=== PATIENT | female | born 1975 | race Caucasian/White ===

== ENCOUNTER 2020-04-12 10:51 | Outpatient (REF) | payer OTHER, SELFPAY ==
--- NOTE | 2020-04-12 11:15 | MR_ITS ---
MR CERVICAL SPINE WITHOUT IV CONTRAST CLINICAL INFORMATION: Bilateral radiculopathy. History of C7 fracture. COMPARISON: None available. TECHNIQUE: MRI of the cervical spine was obtained using routine sequences without contrast. FINDINGS: Cervical alignment is maintained. There is mild chronic vertebral body height loss at the C7, T1, and T2 levels. There is moderate disc volume loss at C5-C6. Modic type I endplate signal changes at C5-C6. There is no additional bone marrow edema. There are no acute fractures. Craniocervical junction is unremarkable. Cervical arterial flow voids are maintained. There are no significant soft tissue findings. No definite cord signal abnormality accounting for artifact. C2-C3: Disc contour is normal. There is no central canal stenosis and there is no foraminal stenosis. C3-C4: Slight annular disc bulge. No central canal stenosis and no foraminal stenosis. C4-C5: Slight annular disc bulge. Uncovertebral joint spurring results in mild right-sided foraminal encroachment. C5-C6: Broad-based central disc protrusion and ligamentum flavum thickening result in moderate to severe central canal stenosis and flattening of the cord. Uncovertebral joint spurring and hypertrophic facet arthropathy result in moderate to severe right foraminal stenosis. Mild left foraminal encroachment. C6-C7: Posterior disc contour is normal. No central canal stenosis and no foraminal stenosis. C7-T1: Posterior disc contour is normal. No central canal stenosis and no foraminal stenosis. MR/MR cervical spine wo con IMPRESSION: - Multilevel cervical spondylosis, greatest at C5-C6 where a broad-based central disc protrusion results in moderate to severe central canal stenosis and mass effect on the cervical spinal cord. Multifactorial degenerative changes at C5-C6 also result in moderate to severe right-sided foraminal stenosis. There Modic type I endplate signal changes at C5-C6. - There is mild chronic vertebral body height loss at the C7, T1, and T2 levels.
[2020-04-12 13:56] LABS: Alanine Aminotransferase 24 U/L (0-31); Albumin Level 4.1 g/dL (3.5-5.0); Alkaline Phosphatase 72 U/L (39-117); Anion Gap 15 (12-20); Aspartate Amino Transferase 21 U/L (5-31); Bilirubin Total 0.9 mg/dL (0.0-1.0); Blood Urea Nitrogen 13 mg/dL (9-16); Calcium 8.6 mg/dL (8.4-10.2); Carbon Dioxide 20 mmol/L (22-29); Chloride 107 mmol/L (96-108); Cholesterol 193 mg/dL; Estimated Glomerular Filt Rate > 60; Glucose Fasting 132 mg/dL (60-99); HDL Cholesterol 64 mg/dL; LDL Cholesterol Calculated 108 mg/dl; Potassium 4.6 mmol/l (3.3-5.1); Sodium 137 mmol/L (135-145); Total Protein 7.1 g/dL (6.5-8.0); Triglycerides 107 mg/dL
[2020-04-12 14:25] LABS: Microalbumin Urine < 5.0 mg/L
[2020-04-13 19:46] LABS: LDL Cholesterol Direct 121 mg/dL (<100)
== END 2020-04-12 10:52 | disposition home or self-care (01) ==
LOC: HO.MRI 10:51
PROVIDERS: Nurse Practitioner Gerontology; PCP Internal Medicine; Visit Provider Nurse Practitioner Family
DX: M54.12 Radiculopathy, cervical region (principal)
CPT/HCPCS: 72141; 80053; 80061; 82043; 83721

== ENCOUNTER → 2020-05-02 16:07 | Outpatient (BNVA) | payer OTHER, SELFPAY | PROVIDERS: PCP Internal Medicine; Visit Provider Anesthesiology | DX: Z76.89 Persons encountering health services in other specified circumstances (principal) ==

== ENCOUNTER → 2020-05-07 15:09 | Outpatient (BNVA) | payer OTHER, SELFPAY | PROVIDERS: PCP Internal Medicine; Referring Provider Internal Medicine; Visit Provider Anesthesiology | DX: Z76.89 Persons encountering health services in other specified circumstances (principal) ==

== ENCOUNTER → 2020-05-15 13:32 | Outpatient (BNVA) | payer OTHER, SELFPAY | PROVIDERS: PCP Internal Medicine; Referring Provider Internal Medicine; Visit Provider Nurse Practitioner Gerontology | DX: Z76.89 Persons encountering health services in other specified circumstances (principal) ==

== ENCOUNTER 2020-05-17 14:31 | Outpatient (REF) | payer OTHER, SELFPAY ==
--- NOTE | 2020-05-17 | MM_ITS ---
EXAMINATION: BONE DENSITOMETRY CLINICAL INDICATION: Screening for osteoporosis. Age 45. COMPARISON: None (current study represents initial baseline exam). TECHNIQUE: Using a [employer] DXA System (software version: 13.1) manufactured by [employer], dual-energy x-ray absorptiometry was performed of the lumbar spine and left hip. The images are of good technical quality. Based on ISCD (International Society for Clinical Densitometry) standards of reporting, Z-scores instead of T-scores are reported in this premenopausal woman. Summary results are attached. FINDINGS: AP SPINE L1-L4: BMD 1.110 g/cm2, T-score -0.6, Z-score -1.3, Z-score within expected range for age. LEFT FEMUR, NECK: BMD 0.716 g/cm2, T-score -2.3, Z-score -2.2, Z-score below expected range for age. LEFT FEMUR, TOTAL: BMD 0.787 g/cm2, T-score -1.8, Z-score -2.0, Z-score within expected range for age. IDENTIFIED RISK FACTORS: Recurrent falls, secondary osteoporosis, history of fracture (adult). HISTORY OF FRACTURE: Spine, wrist. MEDICATIONS: Vitamin D. MM/XR DEXA axial skeleton IMPRESSION: 1. DIAGNOSIS: Based on the lowest Z-score value of -2.2 in the femoral neck, the patient's bone density is below the expected range for age. 2. 10-YEAR FRACTURE RISK PREDICTION, FRAX: Major osteoporotic fracture (clinical spine, forearm, hip or shoulder) 4.2%. Hip fracture 1.1%. 3. Treatment Recommendations: NOF guidelines recommend consideration for treatment in postmenopausal women and men age 50 and older presenting with the following: -A hip or vertebral (clinical or morphometric) fracture. -T-score less than or equal to -2.5 at the femoral neck or spine after appropriate evaluation to exclude secondary causes. -Low bone mass at the hip or spine and a 10-year fracture probability by FRAX of greater than or equal to 3% for hip fracture or greater than or equal to 20% for major osteoporotic fracture based on the [place] adapted WHO algorithm. 4. Other Recommendations: All treatment decisions require clinical judgment and consideration of individual patient factors, including patient preferences, comorbidities, previous drug use, risk factors not captured in the FRAX model (e.g. frailty, falls, vitamin D deficiency, increased bone turnover, interval significant decline in bone density) and possible under or overestimation of fracture risk by FRAX. Additional medical evaluation for secondary cause of low bone mineral density may be appropriate. FUTURE SCAN RECOMMENDATION: People with diagnosed cases of osteoporosis or at high risk for fracture should have regular bone mineral density tests. For patients eligible for Medicare, routine testing is allowed once every 2 years. The testing frequency can be increased to one year for patients who have rapidly progressing disease, those who are receiving or discontinuing medical therapy to restore bone mass, or have additional risk factors.
--- NOTE | 2020-05-17 | MM_ITS ---
EXAMINATION: MM SCREENING DIGITAL BREAST TOMOSYNTHESIS, BILATERAL CLINICAL INFORMATION: Screening. Asymptomatic. The lifetime risk of breast cancer based on the Tyrer-Cuzick Model is 14.8%. COMPARISON: Mammography: November 15, 2018 and studies dating back to August 16, 2015 TECHNIQUE: Digital breast tomosynthesis is performed in both the craniocaudal and mediolateral oblique views along with computer-aided detection (CAD). Synthesized 2D images are generated from the tomosynthesis. FINDINGS: There are scattered areas of fibroglandular density (ACR BI-RADS breast composition Category b). There are no significant masses, abnormal calcifications, or other abnormalities. MM/MM tomosynthesis screening BI IMPRESSION: There are no significant changes from prior study. ASSESSMENT: BI-RADS 1: Negative RECOMMENDATION: Routine annual mammography screening. This patient's information was entered into a reminder system with a target due date for their next mammogram.
== END 2020-05-17 14:32 | disposition home or self-care (01) ==
LOC: HO.MAMMO 14:31
PROVIDERS: Visit Provider Internal Medicine
DX: Z12.31 Encounter for screening mammogram for malignant neoplasm of breast (principal); Z13.820 Encounter for screening for osteoporosis; Z78.0 Asymptomatic menopausal state; R29.6 Repeated falls; Z87.81 Personal history of (healed) traumatic fracture
CPT/HCPCS: 77063; 77067; 77080

== ENCOUNTER → 2020-06-19 11:48 | Outpatient (BNVA) | payer OTHER, SELFPAY | PROVIDERS: PCP Internal Medicine; Visit Provider Nurse Practitioner Gerontology | DX: Z76.89 Persons encountering health services in other specified circumstances (principal) ==

== ENCOUNTER → 2020-07-23 15:03 | Outpatient (BNVA) | payer OTHER, SELFPAY | PROVIDERS: PCP Internal Medicine; Visit Provider Anesthesiology ==

== ENCOUNTER → 2020-09-18 12:41 | Outpatient (BNVA) | payer OTHER, SELFPAY | PROVIDERS: PCP Internal Medicine; Visit Provider Nurse Practitioner Gerontology ==

== ENCOUNTER 2020-10-24 14:51 | Outpatient (RCR) | payer OTHER, SELFPAY ==
--- NOTE | 2020-10-24 16:29 | MHC.PT.EP ---
[facility] [place] Office [place] Office [place] Office [address] [phone] F: [phone] F: [phone] F: [phone] F: [phone] Physical Therapy Plan of Care Date of Evaluation: Date of Surgery: Diagnosis: GAIT INSTABILITY Assessment: 45 YO FEMALE REF TO PT FOR GAIT INSTABILITY- Pt AMB W ROLLATOR x 3 YRS, SHE NOTES SHE HAS BEEN DISABLED SINCE 2202 DUE TO MULTIPLE SURGERIES. Pt RESIDES ALONE IN A 4TH FLOOR APT, SHE HAS A FOOD SAMPLER 3 HRS/ DAY TO ASSIST W DRESSING/ SHOWERING/ GROCERIES/HOUSEWORK- Pt STATES SHE SPENDS MOST OF HER DAYS IN BED, PROPPED UP ON 7 PILLOWS. AFTER ASSESSING Pt AND HER CURRENT ROLLATOR, I DID NOT FEEL THE HEIGHT REQUIRED ADJUSTMENT- HOWEVER, THE Pt WOULD BENEFIT FROM PT TO IMPROVE HER POSTURE, EASE TISSUE TENSION, INCR HER ACTIVITY FRANCISCO JAVIER AND FUNCT MOB- TO GET HER OUT OF BED AND DEV SOME SELF SX MGMT TECHN. SHE HAS DECR STRENGTH THROUGHOUT, POOR POSTURE, VERY TIGHT ANT CHAIN, AND OVERALL DECR MOBILITY FRANCISCO JAVIER. Frequency and Duration: The patient will be seen 2x WK x 5 WKS Short Term Goals: Pt FAHADON INDEP SELF- POSTURAL CORRECTION W GAIT W ROLLATOR AND IN SITTING IN 3 WKS Pt'S CERV/ SOFT TISSUE PAIN DECR TO 3-4/10 IN 3 WKS Intermediate Goals: Pt INDEP W HEP AND SELF-SX MGMT TECHN EVIDENT IN IMPROVED GAIT AND TRANSFERS AND IMRPOVED LEFT SCORE BY 10 POINTS (AT EVAL 13/8-0) IN 5 WKS Pt DEMON IMPROVED/ ISOLATED/WFL CERV AROM AND SH AROM TO REDUCE TOTAL BODY COMPENSATORY MOTION IN 5 WKS Treatment Plan: Modalities to reduce pain, spasms and effusion. Manual therapy to restore motion and function. Therapeutic exercise to improve strength and flexibility. Neuromuscular re-education for posture and balance. Therapeutic activities to return to functional activities of daily living. Electronically signed by: Candice Barksdale,PT Please sign and return to therapist. Thank you for your referral.
--- NOTE | 2020-11-08 07:59 | MHC.PT.DC ---
[facility] [place] [facility] [place] [facility] [place] [facility] [address] Rhonda Rossi [address] [phone] F: [phone] F: [phone] F: [phone] F: [phone] Physical Therapy Discharge Report Diagnosis: GAIT INSTABILITY Date of Surgery: Date of Evaluation: 10/24/20 Date of Discharge: 11/07/20 Treatments to Date: 1 Cancellations to Date: 0 No Shows to Date: 2 Discharge Status: Visit Non-compliance Discharge Summary: 11/07/20 Pt HAS NOT ATTENDED SCHED F/U PT APPTS DESPITE OUR REMINDERS, SHE DID NOT MEET GOALS AND IS D/C DUE TO NONCOMPLIANCE POLICY 45 YO FEMALE REF TO PT FOR GAIT INSTABILITY- Pt AMB W ROLLATOR x 3 YRS, SHE NOTES SHE HAS BEEN DISABLED SINCE 2202 DUE TO MULTIPLE SURGERIES. Pt RESIDES ALONE IN A 4TH FLOOR APT, SHE HAS A PRODUCT PROMOTER SALES PERSON 3 HRS/ DAY TO ASSIST W DRESSING/ SHOWERING/ GROCERIES/HOUSEWORK- Pt STATES SHE SPENDS MOST OF HER DAYS IN BED, PROPPED UP ON 7 PILLOWS. AFTER ASSESSING Pt AND HER CURRENT ROLLATOR, I DID NOT FEEL THE HEIGHT REQUIRED ADJUSTMENT- HOWEVER, THE Pt WOULD BENEFIT FROM PT TO IMPROVE HER POSTURE, EASE TISSUE TENSION, INCR HER ACTIVITY FRANCISCO JAVIER AND FUNCT MOB- TO GET HER OUT OF BED AND DEV SOME SELF SX MGMT TECHN. SHE HAS DECR STRENGTH THROUGHOUT, POOR POSTURE, VERY TIGHT ANT CHAIN, AND OVERALL DECR MOBILITY FRANCISCO JAVIER. Electronically signed by: Candice Barksdale,PT Please sign and return to therapist. Thank you for your referral.
== END 2020-11-08 08:01 | disposition other institution (70) ==
LOC: HO.PTCHIC 14:51
PROVIDERS: PCP Internal Medicine; Visit Provider Internal Medicine
DX: R26.81 Unsteadiness on feet (principal)
CPT/HCPCS: 97110; 97162

== ENCOUNTER 2020-12-07 13:50 | Outpatient (REF) | payer OTHER, SELFPAY ==
--- NOTE | ~2020-12-07 | XR_ITS ---
EXAMINATION: XR SHOULDER, RIGHT CLINICAL INFORMATION: Right shoulder pain. COMPARISON: None. TECHNIQUE: AP external rotation, Grashey, scapular Y, and axillary views of the right shoulder. FINDINGS: No acute fracture or dislocation. No joint space narrowing or marginal osteophytes. No osseous erosion. No abnormal soft tissue calcification. XR/XR shoulder RT min 2V IMPRESSION: Unremarkable examination.
== END 2020-12-07 13:51 | disposition home or self-care (01) ==
LOC: HO.XRAY 13:50
PROVIDERS: PCP Internal Medicine; Visit Provider Physician Assistant
DX: M25.511 Pain in right shoulder (principal); M48.02 Spinal stenosis, cervical region
CPT/HCPCS: 73030; 99202

== ENCOUNTER 2020-12-14 12:59 | Outpatient (REF) | payer OTHER, SELFPAY ==
[2020-12-14 14:08] LABS: Eosinophils Absolute Auto 0.2 X10*3/uL (0.0-0.4); Estimated Average Glucose 243 mg/dL; Hemoglobin A1c % 10.1 %; MANUAL DIFF FLAG SCAN; PLT CLUMP 1; SCAN SMEAR FLAG 1
[2020-12-14 14:10] LABS: Basophils Percent Auto 0.5 % (0-2); Hematocrit 42.1 % (37-47); Imm Gran Abs Auto 0.04 X10*3/uL (0.00-0.03); Imm Gran Pct Auto 0.5 % (0.0-0.4); Lymphocytes Absolute Auto 3.1 X10*3/uL (1.2-4.9); Mean Corpuscular HGB Conc 33.3 g/dl (31.0-35.0); Mean Corpuscular Hemoglobin 31.1 pg (27.0-33.0); Mean Corpuscular Volume 93.6 fL (80-98); Mean Platelet Volume 11.6 fL (9.4-12.3); Monocytes Absolute Auto 0.6 X10*3/uL (0.1-1.2); Monocytes Percent Auto 7.4 % (2-11); Neutrophils Absolute Auto 4.7 X10*3/uL (2.0-8.3); Neutrophils Percent Auto 53.6 % (45-73); Platelet Count 160 X10*3/uL (160-400); Red Cell Distribution Width 12.7 % (11.0-16.0); White Blood Count 8.7 X10*3/uL (4.8-10.8)
[2020-12-14 14:23] LABS: Amphetamine Screen Urine Not Detected (Not Detect); Barbiturates, Urine Not Detected (Not Detect); Benzodiazepines Screen Urine Not Detected (Not Detect); Cannabinoid Screen Urine POSITIVE (Not Detect); Cocaine Screen Urine Not Detected (Not Detect); Creatinine Urine 58.04 mg/dL; Microalbumin Urine < 5.0 mg/L; Opiate Screen Urine Not Detected (Not Detect); Phencyclidine Screen Urine Not Detected (Not Detect)
[2020-12-14 14:24] LABS: Alanine Aminotransferase 15 U/L (0-31); Alkaline Phosphatase 78 U/L (39-117); Anion Gap 16 (12-20); Aspartate Amino Transferase 14 U/L (5-31); Bilirubin Total 0.4 mg/dL (0.0-1.0); Blood Urea Nitrogen 12 mg/dL (9-16); Calcium 9.1 mg/dL (8.4-10.2); Carbon Dioxide 19 mmol/L (22-29); Chloride 107 mmol/L (96-108); Cholesterol 199 mg/dL; Estimated Glomerular Filt Rate > 60; Glucose Fasting 236 mg/dL (60-99); HDL Cholesterol 60 mg/dL; LDL Cholesterol Calculated 117 mg/dl; Potassium 4.5 mmol/L (3.3-5.1); Sodium 137 mmol/L (135-145); Triglycerides 114 mg/dL
[2020-12-14 14:32] LABS: Vitamin D 25-OH Total 17.7 ng/mL (>30)
[2020-12-14 14:58] LABS: SLIDE REVIEW VERIFIED
== END 2020-12-14 13:00 | disposition home or self-care (01) ==
LOC: HO.HMGCLDS 12:59
PROVIDERS: PCP Internal Medicine; Visit Provider Nurse Practitioner Gerontology
DX: F41.1 Generalized anxiety disorder (principal); F11.20 Opioid dependence, uncomplicated; F33.1 Major depressive disorder, recurrent, moderate; K21.9 Gastro-esophageal reflux disease without esophagitis; E78.9 Disorder of lipoprotein metabolism, unspecified; M48.02 Spinal stenosis, cervical region; E66.09 Other obesity due to excess calories; E55.9 Vitamin D deficiency, unspecified; E11.65 Type 2 diabetes mellitus with hyperglycemia; Z79.4 Long term (current) use of insulin; Z91.09 Other allergy status, other than to drugs and biological substances
CPT/HCPCS: 36415; 80053; 80061; 80307; 80364; 80365; 82043; 82306; 83036; 85025

== ENCOUNTER 2021-01-18 08:11 | Outpatient (REF) | payer OTHER, SELFPAY ==
--- NOTE | ~2021-01-18 | XR_ITS ---
EXAMINATION: XR SHOULDER, RIGHT CLINICAL INFORMATION: Pain COMPARISON: December 07, 2020 TECHNIQUE: Three views of the right shoulder. FINDINGS: The bones and soft tissues are normal. No fracture. Glenohumeral and acromioclavicular alignment is anatomic with normal joint space. No abnormal soft tissue calcifications. XR/XR shoulder RT min 2V IMPRESSION: No bony abnormality of the right shoulder identified.
== END 2021-01-18 08:12 | disposition home or self-care (01) ==
LOC: HO.HOSX 08:11
PROVIDERS: Visit Provider Physician Assistant
DX: M75.101 Unspecified rotator cuff tear or rupture of right shoulder, not specified as traumatic (principal)
CPT/HCPCS: 73030; 99212

== ENCOUNTER → 2021-03-12 12:57 | Outpatient (BNVA) | payer OTHER, SELFPAY | PROVIDERS: Visit Provider Nurse Practitioner Family | DX: F11.20 Opioid dependence, uncomplicated (principal); M48.02 Spinal stenosis, cervical region; M79.18 Myalgia, other site | CPT/HCPCS: 99212 ==

== ENCOUNTER 2021-07-24 14:16 | Outpatient (REF) | payer OTHER, SELFPAY ==
[2021-07-24 16:41] LABS: Basophils Percent Auto 0.3 % (0-2); Hemoglobin 14.2 g/dl (12.0-16.0); Imm Gran Abs Auto 0.07 X10*3/uL (0.00-0.03); Imm Gran Pct Auto 0.5 % (0.0-0.4); MANUAL DIFF FLAG SCAN; PLT CLUMP 1; SCAN SMEAR FLAG 1
[2021-07-24 16:43] LABS: Eosinophils Absolute Auto 0.2 X10*3/uL (0.0-0.4); Eosinophils Percent Auto 1.1 % (0-4); Hematocrit 41.6 % (37.0-47.0); Lymphocytes Absolute Auto 3.3 X10*3/uL (1.2-4.9); Lymphocytes Percent Auto 22.8 % (20-40); Mean Corpuscular HGB Conc 34.1 g/dl (31.0-35.0); Mean Corpuscular Hemoglobin 30.9 pg (27.0-33.0); Mean Corpuscular Volume 90.6 fL (80.0-98.0); Mean Platelet Volume 12.1 fL (9.4-12.3); Monocytes Absolute Auto 0.8 X10*3/uL (0.1-1.2); Monocytes Percent Auto 5.5 % (2-11); Neutrophils Absolute Auto 10.1 x10*3/uL (2.0-8.3); Neutrophils Percent Auto 69.8 % (45-73); Red Blood Count 4.59 X10*6/uL (4.20-5.50)
[2021-07-24 17:07] LABS: Estimated Average Glucose 298 mg/dL
[2021-07-24 17:24] LABS: Alanine Aminotransferase 19 U/L (0-31); Albumin Level 4.2 g/dL (3.5-5.0); Alkaline Phosphatase 108 U/L (39-117); Anion Gap 14 (12-20); Aspartate Amino Transferase 14 U/L (5-31); Bilirubin Total 0.5 mg/dL (0.0-1.0); Carbon Dioxide 24 mmol/L (22-29); Chloride 101 mmol/L (96-108); Estimated Glomerular Filt Rate > 60; Platelet Count 169 X10*3/uL (160-400); Potassium 4.3 mmol/L (3.3-5.1); Sodium 135 mmol/L (135-145); Total Protein 7.4 g/dL (6.5-8.0); White Blood Count 14.4 X10*3/uL (4.8-10.8)
[2021-07-24 17:25] LABS: Glucose Random 387 mg/dL (60-115)
[2021-07-24 17:26] LABS: SLIDE REVIEW VERIFIED
[2021-07-24 17:46] LABS: Blood Urea Nitrogen 18 mg/dL (9-16); Calcium 9.9 mg/dL (8.4-10.2)
[2021-07-26 08:07] LABS: LDL Cholesterol Direct 115 mg/dL (<100)
== END 2021-07-24 14:17 | disposition home or self-care (01) ==
LOC: HO.HMGCLDS 14:16
PROVIDERS: Visit Provider Internal Medicine
DX: F11.20 Opioid dependence, uncomplicated (principal); F33.1 Major depressive disorder, recurrent, moderate; G47.00 Insomnia, unspecified; K21.9 Gastro-esophageal reflux disease without esophagitis; M96.1 Postlaminectomy syndrome, not elsewhere classified; Z91.09 Other allergy status, other than to drugs and biological substances
CPT/HCPCS: 36415; 80053; 83036; 83721; 85025

== ENCOUNTER → 2021-08-08 09:27 | Outpatient (BNVA) | payer OTHER, SELFPAY | PROVIDERS: PCP Internal Medicine; Visit Provider Nurse Practitioner Gerontology | DX: E11.65 Type 2 diabetes mellitus with hyperglycemia (principal); E78.5 Hyperlipidemia, unspecified; E55.9 Vitamin D deficiency, unspecified; Z79.4 Long term (current) use of insulin | CPT/HCPCS: 82947; 99212 ==

== ENCOUNTER → 2021-09-09 10:42 | Outpatient (BNVA) | payer OTHER, SELFPAY | PROVIDERS: PCP Internal Medicine; Visit Provider Registered Nurse Diabetes Educator | DX: E11.65 Type 2 diabetes mellitus with hyperglycemia (principal); Z79.4 Long term (current) use of insulin; Z71.89 Other specified counseling | CPT/HCPCS: 99211; 99212 ==

== ENCOUNTER 2021-09-29 13:21 | Emergency (ER) | payer OTHER, SELFPAY ==
[2021-09-29 13:47] VITALS: BP 150/77; PULSE 96; RESP 18; TEMP 36.1; O2SAT 99; BMI 28.1
--- NOTE | 2021-09-29 14:42 | ED.GENADULT ---
HPI - General Adult General Chief complaint: General Medical Stated complaint: ear and throat pain Time Seen by Provider: 09/29/21 14:33 Source: patient Mode of arrival: ambulatory Limitations: no limitations History of Present Illness HPI narrative: 46 y/o female presents to the ER with 2 days of sore throat and bilateral ear pain. She feels like there is a fullness in her ears and she is full of fluid. She also reports postnasal drip and a dry cough that is worse at nighttime. She has a sore throat that is worse with swallowing and at nighttime. She denies any fever or chills. She has a runny nose of clear discharge. She denies any history of seasonal allergies. No known sick contacts. MD complaint: URI symptoms Onset (ago): day(s) (2-3) Location: head, face and mouth Radiation: non-radiation Severity: moderate Quality: aching Pain Consistency: constant Relieving factors: none Exacerbating factors: none Associated symptoms: cough, headaches and malaise Treatments prior to arrival: none Related Data Home Medications Medication Instructions Recorded Confirmed fluticasone propionate 110 1 puff INHALATION BID 03/28/20 07/24/21 mcg/actuation HFA aerosol inhaler (Flovent HFA) insulin glargine 100 unit/mL (3 52 unit SUBCUT QPM ml 08/08/21 08/08/21 mL) subcutaneous pen Previous Rx's Medication Instructions Recorded lidocaine 5 % topical patch 1 patch TOPICAL DAILY 30 Days #30 03/28/20 (Lidoderm) ea cetirizine 10 mg tablet 10 mg PO DAILY #90 tab 06/22/20 lancets 28 gauge (FreeStyle #100 ea 07/09/20 Lancets) pen needle, diabetic 32 gauge x #125 ea 07/09/20 (BD Ultra-Fine Brittny Pen Needle) albuterol sulfate 90 mcg/actuation 2 puff INHALATION Q6H PRN 30 Days 10/19/20 aerosol inhaler (ProAir HFA) #18 g gabapentin 300 mg capsule 300 mg PO BEDTIME #30 cap 01/11/21 Electric scooter #1 ea 01/22/21 buspirone 5 mg tablet 5 mg PO TID #90 tab 02/04/21 naloxone 4 mg/actuation nasal 4 mg INTRANASAL Q2M PRN #2 ea 03/12/21 spray (Narcan) tizanidine 2 mg tablet 2 mg PO BEDTIME #30 tab 03/12/21 omeprazole 20 mg capsule,delayed 20 mg PO DAILY #90 cap 04/09/21 release quetiapine 50 mg tablet (Seroquel) 50 mg PO BEDTIME 90 Days #90 tab 06/19/21 blood sugar diagnostic (FreeStyle #100 ea 07/25/21 Lite Strips) blood-glucose meter (FreeStyle #1 ea 07/25/21 Lite Meter) dulaglutide 0.75 mg/0.5 mL 0.75 mg (0.5 mL) SUBCUT QWEEK #2 ml 07/25/21 subcutaneous pen injector (Trulicity) dulaglutide 1.5 mg/0.5 mL 1.5 mg (0.5 mL) SUBCUT QWEEK 28 07/25/21 subcutaneous pen injector Days #2 ml (Trulicity) lancets 28 gauge (FreeStyle #100 ea 07/25/21 Lancets) atorvastatin 40 mg tablet 40 mg PO BEDTIME #90 tab 08/08/21 insulin lispro 100 unit/mL 16 - 26 unit (0.16 - 0.26 mL) 08/08/21 subcutaneous pen (Humalog KwikPen SUBCUT TID 90 Days #40 ml (U-100) Insulin) amoxicillin 875 mg-potassium 1 tab PO BID #20 tab 09/29/21 clavulanate 125 mg tablet cetirizine 10 mg tablet (Zyrtec) 10 mg PO DAILY #30 tab 09/29/21 fluticasone propionate 50 1 spray INTRANASAL BID #16 g 09/29/21 mcg/actuation nasal spray,suspension (Aller-Benedicto) nicotine 21 mg/24 hr daily 1 patch TRANSDERMAL DAILY #28 ea 09/29/21 transdermal patch Allergies Allergy/AdvReac Type Severity Reaction Status Date / Time ibuprofen [From MOTRIN] Allergy Unknown RASH, Verified 08/08/21 09:52 STOMACH PAIN Motrin Allergy Unknown SOB, Verified 08/08/21 09:52 itching, anaphylaxis gadobutrol [From GADAVIST] AdvReac Mild NAUSEA & Verified 08/08/21 09:52 VOMITING venlafaxine AdvReac Unknown halucinatio Verified 08/08/21 09:52 ns Review of Systems Review of Systems: Constitutional: No Fever, No Chills ENT/Mouth: + sore throat, + Rhinorrhea, No Swallowing Difficulty, +Otalgia Eyes: No Eye Pain, No Swelling, No Redness, +watery eyes Cardiovascular: No Chest Pain, No SOB Respiratory: No Cough, No Sputum, No Wheezing, No dyspnea Gastrointestinal: No Nausea, No Vomiting, No Diarrhea, No abdominal Pain Musculoskeletal: No joint pain, No Myalgias Skin: No Skin Lesions, No rash Neuro: No Weakness, No Numbness, No Dizziness, + Headache Heme/Lymph: No Bruising, No Lymphadenopathy PMFSH Past Medical History Medical History Asthma Cervical stenosis of spinal canal Chronic GERD Degeneration, intervertebral disc, cervical Depression, major, recurrent, moderate Diabetes mellitus, insulin dependent (IDDM), uncontrolled Dyspepsia Environmental allergies Failed back syndrome Hyperlipidemia LDL goal <100 Insomnia Narcotic dependence Postlaminectomy syndrome, lumbar Spondylosis, cervical Tobacco abuse Type 2 diabetes mellitus with hyperglycemia, with long-term current use of insulin Vitamin D deficiency Surgical History History of lumbar surgery Hx of right knee surgery (08/2011) Family History Family History Father Asthma Mother Diabetes HTN (hypertension) Colon cancer Dialysis patient Brother Substance abuse Social History Social History Household Members: None Housing: House Alcohol intake: never Patient Tobacco Use Status: Former Tobacco user Advance Directives: No Advance Directives Information Provided: No Patient : No Current occupational status: disabled Current occupation: rt handed Physical Exam ED Vital Signs: Vital Signs - 24 hr 09/29/21 13:47 Temperature 97.0 F Pulse Rate 96 Respiratory Rate 18 Blood Pressure 150/77 H Pulse Oximetry 99 BMI result Body Mass Index 28.1 Appearance: Alert. Oriented X3. No acute distress. Eyes: Pupils equal, round and reactive to light. ENT: Pharynx normal. Bilateral effusions posteriorly but no TM erythema or bulging. Nasal turbinates with erythema and clear nasal discharge. Neck: Normal inspection. Neck supple. No LAD. CVS: Normal heart rate and rhythm. Pulses normal. Respiratory: No respiratory distress. Breath sounds normal. Skin: Skin warm and dry. Normal skin color. Normal skin turgor. No rashes. Extremities: No lower extremity edema. Neuro: Oriented X 3, nonfocal Course Course Course Narrative: 46-year-old female presenting to the ER with bilateral ear pain, throat pain, nasal congestion and postnasal drip. She reports her symptoms have been going on for 2 or 3 days, worse at night. On examination she has effusion behind both tympanic membranes. Will plan to treat for possible bacterial URI as well as seasonal allergies. Critical Care Time Critical Care Time Critical Care Time: No Discharge Plan Discharge Clinical Impression: URI, acute, Acute seasonal allergic rhinitis Patient Disposition: Home, Self-Care Instructions: Upper Respiratory Infection (DC), Allergies (ED) Additional Instructions: Take the prescribed medications as directed. Do your best to quit smoking Follow-up with your doctor this week. If you develop new or worsening symptoms call 911 or come back to the ER for further evaluation. Prescriptions: New fluticasone propionate [Aller-Benedicto] 50 mcg/actuation spray,suspension 1 spray intranasal BID Qty: 16 0RF Rx Instructions: administer into each nostril cetirizine [Zyrtec] 10 mg tablet 10 mg PO DAILY Qty: 30 0RF amoxicillin-pot clavulanate 875-125 mg tablet 1 tab PO BID Qty: 20 0RF nicotine 21 mg/24 hr patch 24 hour 1 patch transdermal DAILY Qty: 28 0RF No Action cetirizine 10 mg tablet 10 mg PO DAILY Qty: 90 0RF (DME) pen needle, diabetic [BD Ultra-Fine Brittny Pen Needle] 32 gauge x 5/32 needle See Rx Instructions .ROUTE .MEDSUPPLY Qty: 125 6RF Rx Instructions: As directed four times a day (DME) lancets [FreeStyle Lancets] 28 gauge misc See Rx Instructions .ROUTE .MEDSUPPLY Qty: 100 6RF Rx Instructions: As directed twice a day (DME) Electric scooter Large See Rx Instructions .Route .MEDSUPPLY Qty: 1 0RF Rx Instructions: As directed buspirone 5 mg tablet 5 mg PO TID Qty: 90 0RF omeprazole 20 mg capsule,delayed release(DR/EC) 20 mg PO DAILY Qty: 90 0RF quetiapine [Seroquel] 50 mg tablet 50 mg PO BEDTIME 90 Days Qty: 90 0RF Trulicity 1.5 mg/0.5 mL pen injector 1.5 mg subcut QWEEK 28 Days Qty: 2 0RF (DME) blood-glucose meter [FreeStyle Lite Meter] Kit See Rx Instructions .ROUTE .MEDSUPPLY Qty: 1 0RF Rx Instructions: As directed (DME) FreeStyle Lite Strips Strip See Rx Instructions .ROUTE .MEDSUPPLY Qty: 100 11RF Rx Instructions: As directed four times a day (DME) lancets [FreeStyle Lancets] 28 gauge misc See Rx Instructions .ROUTE .MEDSUPPLY Qty: 100 11RF Rx Instructions: 4 times a day Trulicity 0.75 mg/0.5 mL pen injector 0.75 mg subcut QWEEK Qty: 2 0RF Rx Instructions: To use for one month and then increase to Trulicity 1.5mg/week. albuterol sulfate [ProAir HFA] 90 mcg/actuation HFA aerosol inhaler 2 puff inhalation Q6H PRN (Reason: bronchospasm) 30 Days Qty: 18 2RF gabapentin 300 mg capsule 300 mg PO BEDTIME Qty: 30 0RF Flovent HFA 110 mcg/actuation HFA aerosol inhaler 1 puff inhalation BID 0RF lidocaine [Lidoderm] 5 % adhesive patch,medicated 1 patch topical DAILY 30 Days Qty: 30 5RF Rx Instructions: leave on most painful area for up to 12 hrs Narcan 4 mg/actuation spray,non-aerosol 4 mg intranasal Q2M PRN (Reason: opioid overdose) Qty: 2 0RF Rx Instructions: spray 1 dose into ONE nostril; alternate nostrils w each dose until help arrives tizanidine 2 mg tablet 2 mg PO BEDTIME Qty: 30 0RF insulin glargine 100 unit/mL (3 mL) insulin pen 52 unit subcut QPM 0RF insulin lispro [Humalog KwikPen Insulin] 100 unit/mL insulin pen 16 - 26 unit subcut TID 90 Days Qty: 40 1RF atorvastatin 40 mg tablet 40 mg PO BEDTIME Qty: 90 3RF Referrals: Moisés Lewis MD [Primary Care Provider] - 1 week (URI,?allergies) Interventions: ED Discharge Assessment Last Done: 09/29/21 15:33 Discharge Date/Time: 09/29/21 15:38
== END 2021-09-29 15:38 | disposition home or self-care (01) ==
PROVIDERS: Emergency Provider Emergency Medicine; PCP Internal Medicine
DX: J06.9 Acute upper respiratory infection, unspecified (principal); J30.2 Other seasonal allergic rhinitis; J45.909 Unspecified asthma, uncomplicated; E11.9 Type 2 diabetes mellitus without complications; Z79.4 Long term (current) use of insulin
CPT/HCPCS: 99283

== ENCOUNTER 2021-10-23 10:25 | Outpatient (REF) | payer OTHER, SELFPAY ==
--- NOTE | ~2021-10-23 | MM_ITS ---
EXAMINATION: MM SCREENING DIGITAL BREAST TOMOSYNTHESIS, BILATERAL CLINICAL INFORMATION: Screening. Asymptomatic. The lifetime risk of breast cancer based on the Tyrer-Cuzick Model is 12%. COMPARISON: Mammography: 06/03/2020, 12/03/2019, 10/26/2017 TECHNIQUE: Digital breast tomosynthesis is performed in both the craniocaudal and mediolateral oblique views along with computer-aided detection (CAD). Synthesized 2D images are generated from the tomosynthesis. Additional bilateral CC and additional bilateral MLO views are also obtained. FINDINGS: There are scattered areas of fibroglandular density (ACR BI-RADS breast composition Category b). Parenchymal pattern is similar to prior exams. No developing density or architectural abnormality. There are no significant masses, abnormal calcifications, or other abnormalities. Axilla and skin contours are unremarkable. Biopsy clip marker left breast mid 3:00 position. MM/MM tomosynthesis screening BI IMPRESSION: No mammographic evidence of malignancy. ASSESSMENT: BI-RADS 1: Negative RECOMMENDATION: Routine annual mammography screening. This patient's information was entered into a reminder system with a target due date for their next mammogram.
== END 2021-10-23 10:26 | disposition home or self-care (01) ==
LOC: HO.MAMMO 10:25
PROVIDERS: PCP Internal Medicine; Visit Provider Internal Medicine
DX: Z12.31 Encounter for screening mammogram for malignant neoplasm of breast (principal)
CPT/HCPCS: 77063; 77067

== ENCOUNTER → 2021-11-13 13:37 | Outpatient (BNVA) | payer OTHER, SELFPAY | PROVIDERS: PCP Internal Medicine; Visit Provider Nurse Practitioner Family | DX: M48.02 Spinal stenosis, cervical region (principal); M79.18 Myalgia, other site; M75.101 Unspecified rotator cuff tear or rupture of right shoulder, not specified as traumatic; M54.12 Radiculopathy, cervical region; E11.69 Type 2 diabetes mellitus with other specified complication; Z79.4 Long term (current) use of insulin | CPT/HCPCS: 99212 ==

== ENCOUNTER → 2021-12-11 11:00 | Outpatient (BNVA) | payer OTHER, SELFPAY | PROVIDERS: PCP Internal Medicine; Visit Provider Registered Nurse Diabetes Educator | DX: E11.65 Type 2 diabetes mellitus with hyperglycemia (principal); Z79.4 Long term (current) use of insulin | CPT/HCPCS: 99211 ==

== ENCOUNTER 2022-02-21 14:00 | Outpatient (RCR) | payer OTHER, SELFPAY | END 2022-03-18 10:01 | disposition home or self-care (01) | LOC: HO.PT 14:00 | PROVIDERS: PCP Internal Medicine; Visit Provider Neurological Surgery | DX: M54.2 Cervicalgia (principal) | CPT/HCPCS: 97110; 97140; 97162 ==

== ENCOUNTER 2022-05-02 08:44 | Outpatient (REF) | payer OTHER, SELFPAY ==
[2022-05-02 08:59] LABS: MANUAL DIFF FLAG NO
[2022-05-02 09:35] LABS: Basophils Percent Auto 0.3 % (0-2); Eosinophils Absolute Auto 0.1 X10*3/uL (0.0-0.4); Eosinophils Percent Auto 1.3 % (0-4); Hemoglobin 14.4 g/dl (12.0-16.0); Imm Gran Abs Auto 0.05 X10*3/uL (0.00-0.03); Imm Gran Pct Auto 0.6 % (0.0-0.4); Lymphocytes Absolute Auto 2.6 X10*3/uL (1.2-4.9); Lymphocytes Percent Auto 28.8 % (20-40); Mean Corpuscular HGB Conc 33.5 g/dl (31.0-35.0); Mean Corpuscular Volume 92.5 fL (80.0-98.0); Mean Platelet Volume 10.8 fL (9.4-12.3); Monocytes Absolute Auto 0.6 X10*3/uL (0.1-1.2); Monocytes Percent Auto 6.3 % (2-11); Neutrophils Absolute Auto 5.6 x10*3/uL (2.0-8.3); Neutrophils Percent Auto 62.7 % (45-73); Platelet Count 229 X10*3/uL (160-400); Red Blood Count 4.65 X10*6/uL (4.20-5.50); Red Cell Distribution Width 12.5 % (11.0-16.0)
[2022-05-02 10:03] LABS: Alanine Aminotransferase 21 U/L (0-31); Alkaline Phosphatase 97 U/L (39-117); Anion Gap 18 (12-20); Aspartate Amino Transferase 13 U/L (5-31); Bilirubin Total 0.6 mg/dL (0.0-1.0); Blood Urea Nitrogen 15 mg/dL (9-16); Calcium 9.3 mg/dL (8.4-10.2); Carbon Dioxide 20 mmol/L (22-29); Chloride 105 mmol/L (96-108); Cholesterol 208 mg/dL; Estimated Glomerular Filt Rate > 60; Glucose Fasting 312 mg/dL (60-99); HDL Cholesterol 54 mg/dL; LDL Cholesterol Calculated 135 mg/dl; Potassium 4.5 mmol/L (3.3-5.1); Sodium 138 mmol/L (135-145); Total Protein 7.1 g/dL (6.5-8.0); Triglycerides 95 mg/dL
[2022-05-02 10:21] LABS: Creatinine Urine 112.23 mg/dL; Microalbum/Creatinine Ratio Ur 14.2 ug/mg cr
[2022-05-02 10:42] LABS: Estimated Average Glucose 295 mg/dL; Hemoglobin A1c % 11.9 %
[2022-05-02 10:58] LABS: Albumin Level 4.1 g/dL (3.5-5.0)
== END 2022-05-02 08:45 | disposition home or self-care (01) ==
LOC: HO.LAB 08:44
PROVIDERS: PCP Internal Medicine; Visit Provider Internal Medicine
DX: E11.65 Type 2 diabetes mellitus with hyperglycemia (principal); F33.1 Major depressive disorder, recurrent, moderate; F41.1 Generalized anxiety disorder; K21.9 Gastro-esophageal reflux disease without esophagitis; M96.1 Postlaminectomy syndrome, not elsewhere classified; Z91.09 Other allergy status, other than to drugs and biological substances; Z79.4 Long term (current) use of insulin
CPT/HCPCS: 36415; 80053; 80061; 82043; 83036; 85025

== ENCOUNTER 2022-11-02 02:18 | Emergency (ER) | payer OTHER, SELFPAY ==
[2022-11-02] VITALS (8 sets, daily range): BP systolic 117–140; BP diastolic 62–90; PULSE 77–108; RESP 15–24; TEMP 36.7–37; O2SAT 93–96; BMI 26.0
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
--- NOTE | 2022-11-02 02:29 | ECG_ITS ---
Test Reason : ETOH Blood Pressure : / mmHG Vent. Rate : 090 BPM Atrial Rate : 090 BPM P-R Int : 146 ms QRS Dur : 080 ms QT Int : 384 ms P-R-T Axes : 055 074 055 degrees QTc Int : 469 ms Normal sinus rhythm Low voltage QRS Borderline ECG When compared with ECG of 07-OCT-2013 14:25, No significant change was found Referred By: Kerrie Hess Electronically Signed By:Aiden Sparrow
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
[2022-11-02] MEDS: 0.9 % Sodium Chloride 1,000 ML 999 ML IVCONT ×2 (03:14→06:22)
[2022-11-02] MEDS: Insulin Regular, Human 100 UNIT/ML 3 ML VIAL 10 UNIT IVPUSH (03:15)
[2022-11-02 03:22] LABS: Basophils Absolute Auto 0.1 X10*3/uL (0.0-0.2); Basophils Percent Auto 0.4 % (0-2); Eosinophils Absolute Auto 0.2 X10*3/uL (0.0-0.4); Eosinophils Percent Auto 1.1 % (0-4); Hematocrit 41.6 % (37.0-47.0); Hemoglobin 14.3 g/dl (12.0-16.0); Imm Gran Abs Auto 0.09 X10*3/uL (0.00-0.03); Imm Gran Pct Auto 0.6 % (0.0-0.4); Lymphocytes Absolute Auto 3.4 X10*3/uL (1.2-4.9); Lymphocytes Percent Auto 23.7 % (20-40); MANUAL DIFF FLAG NO; Mean Corpuscular HGB Conc 34.4 g/dl (31.0-35.0); Mean Corpuscular Hemoglobin 31.3 pg (27.0-33.0); Mean Platelet Volume 10.1 fL (9.4-12.3); Monocytes Absolute Auto 0.6 X10*3/uL (0.1-1.2); Monocytes Percent Auto 4.3 % (2-11); Neutrophils Absolute Auto 9.9 x10*3/uL (2.0-8.3); Neutrophils Percent Auto 69.9 % (45-73); Platelet Count 212 X10*3/uL (160-400); Red Blood Count 4.57 X10*6/uL (4.20-5.50); Red Cell Distribution Width 12.2 % (11.0-16.0); White Blood Count 14.2 X10*3/uL (4.8-10.8)
[2022-11-02 03:37] LABS: Troponin-I High Sensitivity < 2.7 ng/L (<3.5-17.0)
[2022-11-02 03:40] LABS: Alanine Aminotransferase 46 U/L (0-31); Alkaline Phosphatase 130 U/L (39-117); Anion Gap 21 (12-20); Aspartate Amino Transferase 63 U/L (5-31); Bilirubin Direct 0.1 mg/dL (0.0-0.5); Bilirubin Total 0.3 mg/dL (0.0-1.0); Blood Urea Nitrogen 12 mg/dL (9-16); Calcium 9.5 mg/dL (8.4-10.2); Carbon Dioxide 15 mmol/L (22-29); Chloride 101 mmol/L (96-108); Creatinine Clr Calc Pharmacy 86.5; Estimated Glomerular Filt Rate > 60; Glucose Random 544 mg/dL (60-115); Sodium 132 mmol/L (135-145); Total Protein 7.5 g/dL (6.5-8.0)
[2022-11-02] MEDS: LORazepam 2 MG/ML VIAL IVPUSH (04:54)
[2022-11-02 06:03] LABS: Glucose, Whole Blood 328 mg/dL (60-115)
[2022-11-02] MEDS: Insulin Regular, Human 100 UNIT/ML 3 ML VIAL IVPUSH ×2 (06:20→08:48)
--- NOTE | 2022-11-02 06:59 | PC.NURSE ---
Resumed care of patient this morning, she is currently sleeping, C-collar in place, she is currently resting, fluids running, all needs met at this time
--- NOTE | 2022-11-02 08:52 | PC.NURSE ---
Repeat POC still elevated in the 300's MD made aware, 5units insulin ordered and given.
[2022-11-02] MEDS: Morphine Sulfate 4 MG/ML CARTRIDGE IVPUSH ×3 (09:55→20:55)
[2022-11-02 10:04] LABS: Glucose, Whole Blood 255 mg/dL (60-115)
--- NOTE | 2022-11-02 12:58 | PHA.MEDREC ---
Pharmacy Consult ? Medication Reconciliation Pharmacy has completed the medication reconciliation. Spoke to patient to confirm meds. Patient tells me that most of the medications they confirmed, the patient ran out of and have not been able to take these medications for weeks/months. Patient does not know when they last took their medications before arrival.
[2022-11-02 15:43] LABS: Glucose, Whole Blood 275 mg/dL (60-115)
[2022-11-02] MEDS: Acetaminophen 325 MG TABLET 975 MG PO (17:57)
[2022-11-02] MEDS: Insulin Lispro 100 UNIT/ML 3 ML VIAL 16 UNIT SUBCUT (17:58)
[2022-11-02] MEDS: oxyCODONE HCl Immed Release 5 MG TABLET 10 MG PO (17:58)
[2022-11-02 18:27] LABS: Glucose, Whole Blood 266 mg/dL (60-115)
--- NOTE | 2022-11-02 20:22 | PC.NURSE ---
attempted to reposition pt at pt's request but pt is in too much pain to move her comfortably. reporting 10/10 pain despite oxycodone administration at 18:00. linens checked and clean. pt on purewick. KRIS turcios notified about pt's pain. will CTM
[2022-11-02] MEDS: Insulin Glargine,Hum.rec.anlog 100 UNIT/ML 10 ML VIAL 52 UNIT SUBCUT (20:38)
--- NOTE | 2022-11-02 20:48 | PC.NURSE ---
pt refused bedtime medications she stated those don't do anything for me this RN explained each medication but pt still refusing. agreeable to bedtime insulin. will CTM
[2022-11-03] VITALS (9 sets, daily range): BP systolic 117–177; BP diastolic 65–93; PULSE 76–93; RESP 12–20; TEMP 36.3–37.1; O2SAT 90–99
[2022-11-03] MEDS: oxyCODONE HCl Immed Release 5 MG TABLET 10 MG PO ×4 (02:38→20:41)
[2022-11-03] MEDS: Acetaminophen 325 MG TABLET 975 MG PO ×3 (02:38→14:34)
--- NOTE | 2022-11-03 02:41 | PC.NURSE ---
Pt medicated for 10/10 pain. This RN and 2 ED techs at bedside trying to assist pt into a more comfortable position and to remove wet pads. Pt yelling in [place], swearing @ staff. Pt refusing to allow staff to remove wet linens. VS at this time. O2 applied via 1 lpm as pt satting @ 90% on RA. Continue to monitor.
--- NOTE | 2022-11-03 06:26 | MHC.EDTECH ---
Pt underpads found to be wet. Pt able to roll somewhat from side to side and a clean underpad was placed. Pt cleaned with bath wipes. New purewick put in place, and urine from canister emptied. Pt boosted with help of this tech and RN. Pt given apple juice and a cup of ice, per request. Call saucedo placed in reach.
--- NOTE | 2022-11-03 06:40 | PC.NURSE ---
Pt repositioned in bed, hugo care provided with a complete bed change. VSS @ this time. Pt aware of plan for CM consult and possible SNF placement for rehab.
[2022-11-03 07:22] LABS: Glucose, Whole Blood 280 mg/dL (60-115)
[2022-11-03] MEDS: Insulin Lispro 100 UNIT/ML 3 ML VIAL 16 UNIT SUBCUT ×3 (07:36→18:35)
[2022-11-03] MEDS: Omeprazole 20 MG CAPSULE.DR PO (07:36)
--- NOTE | 2022-11-03 08:16 | PC.NURSE ---
provided pt with AM PO medications and cup of water, she reported that she cant drink tap water and has a family member bringing her bottled water.
[2022-11-03] MEDS: Loratadine 10 MG TABLET PO (08:34)
[2022-11-03] MEDS: Docusate Sodium 100 MG CAPSULE PO ×2 (08:34→20:35)
[2022-11-03] MEDS: Insulin Glargine,Hum.rec.anlog 100 UNIT/ML 10 ML VIAL 10 UNIT SUBCUT (08:36)
[2022-11-03 08:38] LABS: Glucose, Whole Blood 343 mg/dL (60-115)
[2022-11-03 12:57] LABS: Glucose, Whole Blood 262 mg/dL (60-115)
[2022-11-03] MEDS: Insulin Lispro 100 UNIT/ML 3 ML VIAL SUBCUT ×3 (13:34→20:36)
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
[2022-11-03 15:53] LABS: COVID-19 Test Negative (Negative); IDNOW Serial# BCCEAD1C
[2022-11-03 18:07] LABS: Glucose, Whole Blood 218 mg/dL (60-115)
[2022-11-03 20:29] LABS: Glucose, Whole Blood 285 mg/dL (60-115)
[2022-11-03] MEDS: Insulin Glargine,Hum.rec.anlog 100 UNIT/ML 10 ML VIAL 52 UNIT SUBCUT (20:36)
--- NOTE | 2022-11-03 22:18 | PC.NURSE ---
Pt assisted to bedside commode via stand and pivot with 2 staff assist. Pt endorsing pain with movement in chest wall, LSCTA.
--- NOTE | 2022-11-03 23:41 | MHC.EDTECH ---
this pct assumed care of pt at 2300 ,vitals sign taken ,pt sleeping dinner tray picked up ,bed side commode empty ,call saucedo within reach .
--- NOTE | 2022-11-04 02:28 | PC.NURSE ---
pt attempted to stand to commode with 2 assist, endorsing pain. Plan to medicate at first available appropriate time for PRN MAR, will reevaluate ability to stand/pivot following.
--- NOTE | 2022-11-04 02:30 | MHC.EDTECH ---
PT WAS ASSISTED UNTO BED LANG ,VOID LG AMOUNT OF URINE .CARE GIVEN .
[2022-11-04] MEDS: oxyCODONE HCl Immed Release 5 MG TABLET 10 MG PO ×3 (02:46→14:28)
--- NOTE | 2022-11-04 04:14 | PC.NURSE ---
Pt given sandwich and fluids per request. Pt reports effectiveness to med given.
--- NOTE | 2022-11-04 06:00 | PC.NURSE ---
Pt repositioned with pillow under L leg for comfort. Pt otherwise lying on stretcher, no acute distress. WCTM
[2022-11-04] MEDS: Omeprazole 20 MG CAPSULE.DR PO (06:40)
[2022-11-04 07:14] VITALS: BP 118/62; PULSE 81; RESP 14; TEMP 37; O2SAT 95
[2022-11-04 07:19] LABS: Glucose, Whole Blood 169 mg/dL (60-115)
[2022-11-04] MEDS: Loratadine 10 MG TABLET PO (08:43)
[2022-11-04] MEDS: Docusate Sodium 100 MG CAPSULE PO (08:43)
--- NOTE | 2022-11-04 10:42 | PC.NURSE ---
pt small amount for breakfast, took morning medications po without issue. able to sit up with 1 assist, able to get self over to commode using walker. pt endorsing desire to ambulate more today, sts only getting up yesterday am. has immobilizer on l leg, able to move slowly using walker.
[2022-11-04 12:34] LABS: Glucose, Whole Blood 218 mg/dL (60-115)
[2022-11-04 12:51] VITALS: PULSE 75; O2SAT 95
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
[2022-11-04 13:51] VITALS: BP 134/70; PULSE 80; RESP 14; TEMP 37.1; O2SAT 94
[2022-11-04] MEDS: Insulin Lispro 100 UNIT/ML 3 ML VIAL SUBCUT (14:17)
[2022-11-04] MEDS: Insulin Lispro 100 UNIT/ML 3 ML VIAL 16 UNIT SUBCUT (14:17)
--- NOTE | 2022-11-04 14:17 | MHC.CM.ED ---
Patient remains in ER. No local STR bed offers have been made. Met with patient and educational sign language interpreter. 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 Patient aware referral for VNA will be broadcasted in [facility]. Patient requesting home oxygen. T/w explained testing would have to be done for that. Nicole PONCE aware. Efe PANG booked for 230pm. Patient, Stevo BOURNE and Nicole PONCE aware. Continue to monitor for d/c needs.
== END 2022-11-04 15:13 | disposition home or self-care (01) ==
PROVIDERS: Emergency Medicine; Physician Assistant; Emergency Provider Emergency Medicine Emergency Medical Services; PCP Internal Medicine
DX: S80.01XA Contusion of right knee, initial encounter (principal); S13.4XXA Sprain of ligaments of cervical spine, initial encounter; F10.129 Alcohol abuse with intoxication, unspecified; Y90.9 Presence of alcohol in blood, level not specified; R51.9 Headache, unspecified; M54.2 Cervicalgia; R07.81 Pleurodynia; E11.65 Type 2 diabetes mellitus with hyperglycemia; M25.562 Pain in left knee; F17.200 Nicotine dependence, unspecified, uncomplicated; R26.2 Difficulty in walking, not elsewhere classified; M79.605 Pain in left leg; V43.62XA Car passenger injured in collision with other type car in traffic accident, initial encounter; Y93.9 Activity, unspecified; Y92.410 Unspecified street and highway as the place of occurrence of the external cause; Y99.9 Unspecified external cause status; Z20.822 Contact with and (suspected) exposure to COVID-19; Z20.828 Contact with and (suspected) exposure to other viral communicable diseases; Z79.4 Long term (current) use of insulin; Z79.899 Other long term (current) drug therapy; Z71.6 Tobacco abuse counseling
CPT/HCPCS: 36415; 70450; 71045; 72125; 73560; 73590; 80048; 80076; 82947; 84484; 85025; 87635; 93005; 96361; 96372; 96374; 96376; 97161; 99285; J2060; J2270

== ENCOUNTER 2022-11-06 14:18 | Emergency (ER) | payer OTHER, SELFPAY ==
--- NOTE | ~2022-11-06 | XR_ITS ---
EXAMINATION: XR CHEST CLINICAL INFORMATION: Rib fracture, rule out pneumonia or pneumothorax. COMPARISON: Chest radiograph 11/02/2022. TECHNIQUE: 2 views of the chest were obtained. FINDINGS: Increased focal airspace opacities in the left lower lobe as well as new trace amount of left-sided pleural fluid. No radiographic evidence of pneumothorax. The right lung is clear. Stable cardiomediastinal silhouette. Redemonstration of minimally displaced left-sided rib deformities. XR/XR chest 2V IMPRESSION: Increased focal airspace opacities in the left lower lobe with new trace amount of left-sided pleural fluid. Findings are indeterminate, could be posttraumatic or related with aspiration, pneumonia or atelectasis. Recommend follow-up to ensure resolution.
[2022-11-06 14:31] VITALS: BP 126/76; PULSE 88; O2SAT 96
[2022-11-06 14:34] VITALS: BP 126/80; PULSE 88; RESP 18; TEMP 36.6; O2SAT 95; BMI 26.9
[2022-11-06 15:04] VITALS: BP 135/69; PULSE 91; RESP 18; O2SAT 96
[2022-11-06 16:18] LABS: Appearance Urine Clear; Color Urine Yellow; Glucose Urine UA >=1000 mg/dL (Negative); Leukocyte Esterase Urine Negative (Negative); Nitrite Urine Negative (Negative); PH 7.5 (5.0-9.0); Specific Gravity - Urine >= 1.030 (1.005-1.025); UMIC TRIGGER UACC YES; Urine Blood Negative (Negative); Urine Ketones Negative (Negative); Urine Protein Negative (Neg-Trace)
--- NOTE | 2022-11-06 16:23 | MHC.CM.ED ---
Received case management consult from Dr De La Cruz. Patient was d/c'd from ER on 11/04. Short term rehab was recommended at that time. 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 T/W was attempting to find VNA. No VNA had been found. Referral resent out to all agencies contracted with [facility] for SN, PT and OT. Continue to monitor for d/c needs.
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
--- NOTE | 2022-11-06 17:51 | PC.NURSE ---
pt a&ox4, reporting increased pain in left chest - rib fx, plan for pt to transport home via ambulance with rx for walker and other DME. pt to follow up with ortho, family aware of plan, communicated by provider via inbound sales consultant.
[2022-11-06 18:57] VITALS: BP 140/68; PULSE 84; RESP 14; O2SAT 96
--- NOTE | 2022-11-06 18:59 | PC.NURSE ---
pt resting quietly in bed, IV placed by EMS removed, vss, pt pending transport via EMS home.
[2022-11-06 19:12] LABS: Bacteria Urine None Seen (None Seen); Hyaline Casts Urine 0-2 /LPF (0-2); RBC Urine 0-2 /HPF (0-2); Squamous Epithelial Cell Urine 0-2 /HPF (0-2); WBC Urine 0-5 /HPF (0-5)
--- NOTE | 2022-11-08 10:11 | MHC.CM.ED ---
No VNA has been able to be found at this time. Case Management office has been asked to reach out to PCP's office to assist with this on Thursday.
== END 2022-11-06 19:47 | disposition home or self-care (01) ==
PROVIDERS: Emergency Provider Emergency Medicine Emergency Medical Services; PCP Internal Medicine
DX: M96.A3 Multiple fractures of ribs associated with chest compression and cardiopulmonary resuscitation (principal); R07.81 Pleurodynia; R07.89 Other chest pain; E11.9 Type 2 diabetes mellitus without complications; Z79.4 Long term (current) use of insulin; Z79.899 Other long term (current) drug therapy
CPT/HCPCS: 71046; 81001; 99283; 99284

== ENCOUNTER 2022-11-24 08:14 | Outpatient (REF) | payer OTHER, SELFPAY ==
--- NOTE | ~2022-11-24 | XR_ITS ---
EXAMINATION: XR TIBIA AND FIBULA, LEFT CLINICAL INFORMATION: Pain COMPARISON: Previous x-ray October 2022 TECHNIQUE: AP and lateral views of the left tibia and fibula were obtained. FINDINGS: There is a nondisplaced fracture of the fibular head. This is unchanged. No other fracture. Joint spaces are normal. Soft tissues are normal. XR/XR tibia fibula LT 2V IMPRESSION: Nondisplaced left fibular head fracture similar to October 2022 exam.
== END 2022-11-24 08:15 | disposition home or self-care (01) ==
LOC: HO.HOSX 08:14
PROVIDERS: Visit Provider Physician Assistant
DX: S82.402A Unspecified fracture of shaft of left fibula, initial encounter for closed fracture (principal)
CPT/HCPCS: 73590; 99212

== ENCOUNTER 2022-12-26 12:58 | Outpatient (AMB) | payer OTHER, SELFPAY ==
[2022-12-26 13:05] VITALS: BP 140/90; PULSE 94; RESP 18; O2SAT 97; BMI 26.1
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
== END 2022-12-26 13:23 | disposition home or self-care (01) ==
PROVIDERS: PCP Internal Medicine; Visit Provider Registered Nurse Emergency
DX: G89.29 Other chronic pain (principal); Z87.81 Personal history of (healed) traumatic fracture
CPT/HCPCS: 99204

== ENCOUNTER → 2022-12-26 12:58 | Outpatient (BNVA) | payer OTHER, SELFPAY | PROVIDERS: PCP Internal Medicine; Visit Provider Registered Nurse Emergency | DX: G89.29 Other chronic pain (principal); Z87.81 Personal history of (healed) traumatic fracture | CPT/HCPCS: 99202 ==

== ENCOUNTER 2023-01-05 08:42 | Outpatient (REF) | payer OTHER, SELFPAY ==
--- NOTE | ~2023-01-05 | XR_ITS ---
EXAMINATION: XR TIBIA AND FIBULA, LEFT CLINICAL INFORMATION: Left leg pain COMPARISON: 11/24/2022 TECHNIQUE: AP and lateral views of the left tibia and fibula were obtained, 3 views total. FINDINGS: Redemonstration of a nondisplaced fracture of the fibular head. Fracture line is visible, but less conspicuous, suggesting some interval healing. Alignment is maintained. XR/XR tibia fibula LT 2V IMPRESSION: Redemonstration of a nondisplaced fracture of the fibular head. Fracture line is visible, but less conspicuous, suggesting some interval healing.
--- NOTE | ~2023-01-05 | XR_ITS ---
EXAMINATION: XR RIBS, LEFT CLINICAL INFORMATION: Chest pain COMPARISON: None available. TECHNIQUE: 3 views of the left ribs were obtained. FINDINGS: Lungs are clear. No consolidation, pneumothorax, or pleural effusion. The cardiomediastinal silhouette and pulmonary vasculature are normal. Osseous structures are unremarkable. Ribs are intact. No fractures are identified. XR/XR ribs LT min 3V w CXR1V IMPRESSION: Unremarkable chest exam. Unremarkable left rib series.
[2023-01-05 08:56] LABS: MANUAL DIFF FLAG NO
[2023-01-05 09:31] LABS: Basophils Percent Auto 0.5 % (0-2); Eosinophils Absolute Auto 0.2 X10*3/uL (0.0-0.4); Eosinophils Percent Auto 2.4 % (0-4); Hematocrit 44.7 % (37.0-47.0); Hemoglobin 14.4 g/dl (12.0-16.0); Imm Gran Abs Auto 0.03 X10*3/uL (0.00-0.03); Imm Gran Pct Auto 0.4 % (0.0-0.4); Lymphocytes Absolute Auto 2.6 X10*3/uL (1.2-4.9); Lymphocytes Percent Auto 31.5 % (20-40); Mean Corpuscular HGB Conc 32.2 g/dl (31.0-35.0); Mean Corpuscular Hemoglobin 30.4 pg (27.0-33.0); Mean Corpuscular Volume 94.3 fL (80.0-98.0); Mean Platelet Volume 9.9 fL (9.4-12.3); Monocytes Absolute Auto 0.4 X10*3/uL (0.1-1.2); Monocytes Percent Auto 5.3 % (2-11); Neutrophils Percent Auto 59.9 % (45-73); Platelet Count 247 X10*3/uL (160-400); Red Blood Count 4.74 X10*6/uL (4.20-5.50); Red Cell Distribution Width 12.1 % (11.0-16.0); White Blood Count 8.3 X10*3/uL (4.8-10.8)
[2023-01-05 09:47] LABS: Estimated Average Glucose 298 mg/dL
[2023-01-05 09:58] LABS: Alanine Aminotransferase 21 U/L (0-31); Albumin Level 4.1 g/dL (3.5-5.0); Alkaline Phosphatase 97 U/L (39-117); Anion Gap 12 (12-20); Aspartate Amino Transferase 13 U/L (5-31); Bilirubin Total 0.3 mg/dL (0.0-1.0); Blood Urea Nitrogen 16 mg/dL (9-16); Calcium 9.7 mg/dL (8.4-10.2); Carbon Dioxide 28 mmol/L (22-29); Chloride 106 mmol/L (96-108); Estimated Glomerular Filt Rate > 60; Glucose Random 260 mg/dL (60-115); Potassium 3.8 mmol/L (3.3-5.1); Sodium 142 mmol/L (135-145); Total Protein 7.4 g/dL (6.5-8.0)
[2023-01-06 19:48] LABS: LDL Cholesterol Direct 107 mg/dL (<100)
== END 2023-01-05 08:43 | disposition home or self-care (01) ==
LOC: HO.HOSX 08:42
PROVIDERS: Absent Provider Internal Medicine; PCP Internal Medicine; Visit Provider Physician Assistant
DX: M25.562 Pain in left knee (principal); M79.605 Pain in left leg; Z91.09 Other allergy status, other than to drugs and biological substances; F33.1 Major depressive disorder, recurrent, moderate; E78.5 Hyperlipidemia, unspecified; G47.00 Insomnia, unspecified; E78.9 Disorder of lipoprotein metabolism, unspecified; G89.29 Other chronic pain; F41.1 Generalized anxiety disorder; Z87.81 Personal history of (healed) traumatic fracture
CPT/HCPCS: 36415; 64450; 71101; 73590; 80053; 83036; 83721; 85025; 99212

== ENCOUNTER 2023-01-05 09:32 | Outpatient (AMB) | payer OTHER, SELFPAY ==
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
[2023-01-05 09:46] VITALS: BP 124/76; PULSE 69; RESP 18; O2SAT 99; BMI 26.0
== END 2023-01-05 10:05 | disposition home or self-care (01) ==
PROVIDERS: PCP Internal Medicine; Visit Provider Internal Medicine
DX: G89.29 Other chronic pain (principal); M25.562 Pain in left knee; Z87.81 Personal history of (healed) traumatic fracture
CPT/HCPCS: 64450; 99213

== ENCOUNTER 2023-01-05 11:29 | Outpatient (AMB) | payer OTHER, SELFPAY ==
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
== END 2023-01-05 13:55 | disposition home or self-care (01) ==
PROVIDERS: PCP Internal Medicine; Visit Provider Physician Assistant
DX: S82.832D Other fracture of upper and lower end of left fibula, subsequent encounter for closed fracture with routine healing (principal)
CPT/HCPCS: 99213

== ENCOUNTER 2023-02-19 12:16 | Outpatient (REF) | payer OTHER, SELFPAY ==
--- NOTE | ~2023-02-19 | XR_ITS ---
EXAMINATION: XR PELVIS CLINICAL INFORMATION: Pain. COMPARISON: 05/25/2017. TECHNIQUE: AP view of the pelvis. FINDINGS: The femoral head contours are smooth on the single image. Some possible mild loss of joint space bilaterally, similar to previous. The SI joints are grossly patent. XR/XR pelvis 1-2V IMPRESSION: Possible mild joint space loss here bilaterally. No significant degenerative changes are seen. The femoral head contours are smooth on this single image.
--- NOTE | ~2023-02-19 | XR_ITS ---
EXAMINATION: XR KNEE, LEFT XR KNEE AP STANDING CLINICAL INFORMATION: Pain. COMPARISON: Radiographs dated 11/02/2022. TECHNIQUE: Lateral and axial views of the left knee were obtained. AP bilateral standing view of the knees was obtained. FINDINGS: Bony alignment is normal. There is slight bony demineralization. No fracture or dislocation is seen. There is no unusual degenerative change. There is a moderate left knee joint effusion. No foreign body is seen. There are femoropopliteal atherosclerotic calcifications. XR/XR knee standing BI IMPRESSION: 1. No fracture, dislocation or unusual degenerative change of the bilateral knees is seen. 2. There is a moderate left knee joint effusion.
--- NOTE | ~2023-02-19 | XR_ITS ---
EXAMINATION: XR KNEE, LEFT XR KNEE AP STANDING CLINICAL INFORMATION: Pain. COMPARISON: Radiographs dated 11/02/2022. TECHNIQUE: Lateral and axial views of the left knee were obtained. AP bilateral standing view of the knees was obtained. FINDINGS: Bony alignment is normal. There is slight bony demineralization. No fracture or dislocation is seen. There is no unusual degenerative change. There is a moderate left knee joint effusion. No foreign body is seen. There are femoropopliteal atherosclerotic calcifications. XR/XR knee LT 2V IMPRESSION: 1. No fracture, dislocation or unusual degenerative change of the bilateral knees is seen. 2. There is a moderate left knee joint effusion.
== END 2023-02-19 12:17 | disposition home or self-care (01) ==
LOC: HO.HOSX 12:16
PROVIDERS: PCP Internal Medicine; Visit Provider Orthopaedic Surgery
DX: S82.832A Other fracture of upper and lower end of left fibula, initial encounter for closed fracture (principal); M96.1 Postlaminectomy syndrome, not elsewhere classified
CPT/HCPCS: 72170; 73560; 73565

== ENCOUNTER 2023-02-19 12:16 | Outpatient (AMB) | payer OTHER, SELFPAY ==
[2023-02-19 12:21] VITALS: BMI 26.0
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
== END 2023-02-19 13:06 | disposition home or self-care (01) ==
PROVIDERS: PCP Internal Medicine; Visit Provider Orthopaedic Surgery
DX: S82.832A Other fracture of upper and lower end of left fibula, initial encounter for closed fracture (principal); M96.1 Postlaminectomy syndrome, not elsewhere classified
CPT/HCPCS: 99214

== ENCOUNTER 2023-02-20 14:52 | Outpatient (AMB) | payer OTHER, SELFPAY ==
[2023-02-20 14:53] VITALS: BP 114/72; PULSE 72; O2SAT 98; BMI 26.2
--- NOTE | 2023-02-20 14:53 | A.OFFPC_ITS ---
Vital Signs 02/20/23 14:53 Height 5 ft 7 in Weight 167 lb BMI 26.2 BP 114/72 Blood Pressure Location Rt brachial Position Sitting Pulse 72 Pulse Source Pulse Oximeter Pulse Oximetry (%) 98 Oxygen Delivery Method Room Air Intake Visit Reasons: Sore throat Allergies ibuprofen [From Motrin] Allergy (Unknown, Verified 02/20/23 14:53) Rash, Stomach upset gadobutrol [From GADAVIST] Adverse Reaction (Mild, Verified 02/20/23 14:53) NAUSEA & VOMITING venlafaxine Adverse Reaction (Unknown, Verified 02/20/23 14:53) halucinations Medication List - Last Reconciled 02/20/23 by Moisés Lewis MD acetaminophen (Tylenol Extra Strength) 1,000 mg (2 x 500 mg) PO Q6H PRN acetaminophen 650 mg (2 x 325 mg) PO Q4-6H PRN albuterol sulfate 90 mcg/actuation (Proventil HFA) 1 inh inhalation QID PRN 30 days cetirizine 10 mg PO DAILY commode (bedside commode) As directed commode (bedside commode) As directed diclofenac sodium 1% 4 grams topical QID 30 days dulaglutide (Trulicity) 0.75 mg subcut MO@0900 fluticasone propionate 50 mcg/actuation (Aller-Benedicto) 1 spray intranasal BID gabapentin 600 mg PO BEDTIME 90 days insulin glargine 52 units subcut BEDTIME insulin lispro 16 units subcut TIDAC lancets (FreeStyle Lancets) 4 times a day omeprazole 20 mg PO DAILY@0630 oxycodone 5 mg PO Q6H PRN oxycodone-acetaminophen 5-325 mg (Percocet) 1 tab PO DAILY PRN 7 days pen needle, diabetic (BD Ultra-Fine Brittny Pen Needle) As directed four times a day quetiapine (Seroquel) 50 mg PO BEDTIME 90 days [Rib belt wear rib belt to help reduce pain] walker As directed Tobacco use date assessed: 02/20/23 Dental Screening Dental Screen Date: 02/20/23 Did you have a dental visit in the last 12 months?: No Did you have a dental problem in the last 6 months where you did not have access to dental care?: No Was dental information given to patient?: Patient has dentist HPI Sore throat HPI Details Patient is 47-year-old female who came in today to be evaluated for sore throat Which started this morning She has no fever no cough no chest congestion COVID test and strep test was taken Strep test came back negative Patient is insisting that she need antibiotic because she get respiratory infection easily. [facility] Medical History Vitamin D deficiency Asthma Type 2 diabetes mellitus with hyperglycemia, with long-term current use of insulin Hyperlipidemia LDL goal <100 Cervical stenosis of spinal canal Degeneration, intervertebral disc, cervical Spondylosis, cervical Postlaminectomy syndrome, lumbar Dyspepsia Chronic GERD Narcotic dependence Environmental allergies Failed back syndrome Tobacco abuse Insomnia Depression, major, recurrent, moderate Diabetes mellitus, insulin dependent (IDDM), uncontrolled Surgical History History of lumbar surgery Hx of right knee surgery (08/2011) Family History Father Asthma Mother Diabetes HTN (hypertension) Colon cancer Dialysis patient Brother Substance abuse Social History Household Members: None Housing: Apartment Alcohol intake: never Patient Tobacco Use Status: Current everyday Tobacco user e-Cigarette/Vaping Use: Never Used Current occupational status: disabled Current occupation: rt handed Cognitive needs: No Hearing needs: No Vision needs: No Questionnaire Thrive Questionnaire Date Thrive assessed: 12/14/20 AUDIT C Alcohol Use Questionnaire (AUDIT-C) 1. How often do you have a drink containing alcohol?: Never 3. How often do you have six or more drinks on one occasion?: Never Total Score: 0 Score Reviewed/Action Taken: Yes Review of Systems Const All systems reviewed & are unremarkable except as noted in HPI and below Physical exam (Primary Care) Vital Signs: Last Vital Signs Pulse 72 02/20/23 14:53 BP 114/72 02/20/23 14:53 Pulse Ox 98 02/20/23 14:53 Oxygen Delivery Method Room Air 02/20/23 14:53 BMI result Body Mass Index 26.2 Tobacco/Smoking Status: Tobacco use Status Tobacco use date assessed 02/20/23 02/20/23 14:55 Patient Tobacco Use Status Current everyday Tobacco 02/20/23 14:55 e-Cigarette/Vaping Use Never Used 02/20/23 14:55 Thrive Assessment: Date of Thrive Assessment Date Thrive assessed 12/14/20 02/20/23 14:55 Const General: no acute distress HENMT Other: Positive throat erythema Ears: mastoids normal General nose exam: Normal external nose present Throat: Yes posterior oropharynx abnormal Neck Neck: Yes no lymphadenopathy Resp Effort & Inspection: normal respiratory effort Auscultation: clear to auscultation bilaterally Psych Mental Status: mental status grossly normal Results AMB Rapid Strep AMB Rapid Strep Negative Last Edit by Mo Recio CMA on 02/20/23 15 :15 Assessment and Plan Assessment & Plan (1) Acute pharyngitis: Code(s): J02.9 - Acute pharyngitis, unspecified Plan Patient is 47-year-old female who came in today to be evaluated for sore throat Which started this morning She has no fever no cough no chest congestion COVID test and strep test was taken Strep test came back negative Patient is insisting that she need antibiotic because she get respiratory infection easily. Orders: Orders AMB Rapid Strep Screen Today Z13.9 - Encounter for screening, unspecified SARS-CoV2/FLU/RSV Today R09.89 - Other specified symptoms and signs involving the circulatory and respiratory systems Medications: New amoxicillin 875 mg PO BID 10 tabs 0RF 5 days Coding Level of Care Code Est Pt Level 3 (49233) Diagnoses Acute pharyngitis J02.9
== END 2023-02-20 15:58 | disposition home or self-care (01) ==
PROVIDERS: PCP Internal Medicine; Visit Provider Internal Medicine
DX: J02.9 Acute pharyngitis, unspecified (principal)
CPT/HCPCS: 87880; 99213

== ENCOUNTER 2023-02-20 15:10 | Outpatient (REF) | payer OTHER, SELFPAY ==
[2023-02-20 17:27] LABS: Influenza A PCR NEGATIVE (Negative); Influenza B PCR NEGATIVE (Negative); Resp Syncy Virus RNA Qual PCR NEGATIVE (Negative); SARS COV2 PCR INHOUSE NEGATIVE (Negative)
== END 2023-02-20 15:11 | disposition home or self-care (01) ==
LOC: HO.LAB 15:10
PROVIDERS: Visit Provider Internal Medicine
DX: R09.89 Other specified symptoms and signs involving the circulatory and respiratory systems (principal); Z20.822 Contact with and (suspected) exposure to COVID-19
CPT/HCPCS: 0241U

== ENCOUNTER 2023-03-19 12:43 | Outpatient (AMB) | payer OTHER, SELFPAY ==
--- NOTE | 2023-03-19 12:52 | MHC.OFFVIS ---
Intake Vital Signs 03/19/23 12:53 Height 5 ft 7 in Weight 164 lb 3.91 oz BMI 25.7 BP 112/62 Blood Pressure Location Lt brachial Position Sitting Pulse 106 H Pulse Source Pulse Oximeter Intake Visit Reasons: Hba1c 12, DM-CONFIRMED Intake Note: New patient to Dr. Thomas present for Diabetes Mellitus. Referred by PCP. Last Diabetic Eye exam: 2021 Last Podiatry Visit: None Random Glucose: 425 mg/dl HgA1C: 12.0% 01/05/2023 Summer Camp Counselor Required: Yes Summer Camp Counselor Language: Door Attendant Name: Heather medical staff Information Interpreted: non-clinical & clinical Accompanied by: Self / Same As Patient Allergies ibuprofen [From Motrin] Allergy (Unknown, Verified 03/19/23 13:01) Rash, Stomach upset gadobutrol [From GADAVIST] Adverse Reaction (Mild, Verified 03/19/23 13:01) NAUSEA & VOMITING venlafaxine Adverse Reaction (Unknown, Verified 03/19/23 13:01) halucinations Medication List - Last Reconciled 03/19/23 by Balta Thomas MD acetaminophen (Tylenol Extra Strength) 1,000 mg (2 x 500 mg) PO Q6H PRN acetaminophen 650 mg (2 x 325 mg) PO Q4-6H PRN albuterol sulfate 90 mcg/actuation (Proventil HFA) 1 inh inhalation QID PRN 30 days amoxicillin 875 mg PO BID 5 days cetirizine 10 mg PO DAILY commode (bedside commode) As directed commode (bedside commode) As directed diclofenac sodium 1% 4 grams topical QID 30 days dulaglutide (Trulicity) 0.75 mg subcut MO@0900 fluticasone propionate 50 mcg/actuation (Aller-Benedicto) 1 spray intranasal BID gabapentin 600 mg PO BEDTIME 90 days insulin glargine 52 units subcut BEDTIME insulin lispro 16 units subcut TIDAC lancets (FreeStyle Lancets) 4 times a day omeprazole 20 mg PO DAILY@0630 oxycodone 5 mg PO Q6H PRN oxycodone-acetaminophen 5-325 mg (Percocet) 1 tab PO DAILY PRN 7 days pen needle, diabetic (BD Ultra-Fine Brittny Pen Needle) As directed four times a day quetiapine (Seroquel) 50 mg PO BEDTIME 90 days [Rib belt wear rib belt to help reduce pain] walker As directed HPI HPI Comments History of Present Illness Details Patient is a 47 yo female with DM type 2 diagnosed at 19 years of age, who presents for tele health visit for continued management of diabetes. Patient was last seen Roz Sams NP on 08/06/21 Past medical history:asthma, HLD. Vit D insufficiency. Micro and macrovascular complications include + moderate non-proliferative retinopathy, + proteinuria Diabetes Medications: Lantus 52 units. Humalog 16 u prior to meals (but should be using correction scale), Trulicity 0.75mg/week Blood glucose monitoring: No meter today. Hypoglycemic symptoms: none Hyperglycemic symptoms: reports polyuria, nocturia 2-3x/night, + polydypsa Exercise: walks 45 minutes a day on most days but limited due to back pain Eye Exam: 1 yr ago Needs to make appt mild non-proliferative retinopathy without macular edema Laboratory Tests 12/14/20 12/14/20 12/14/20 13:08 13:08 13:08 Creatinine Estimated GFR Hemoglobin A1c % Triglycerides 114 Cholesterol 199 LDL Cholesterol, C alc 117 LDL Cholesterol Di rect HDL Cholesterol 60 25-OH Vitamin D To selam 17.7 Microalb/Creat Rat io TNP 07/24/21 07/24/21 07/24/21 14:22 14:22 14:22 Creatinine 0.90 Estimated GFR > 60 Hemoglobin A1c % 12.0 Triglycerides Cholesterol LDL Cholesterol, C alc LDL Cholesterol Di rect 115 H HDL Cholesterol 25-OH Vitamin D To selam Microalb/Creat Rat io PFSH Medical History (Updated 02/25/23 @ 08:35 by Baldo Winkler MD) Internal derangement of left knee Vitamin D deficiency Asthma Type 2 diabetes mellitus with hyperglycemia, with long-term current use of insulin Hyperlipidemia LDL goal <100 Cervical stenosis of spinal canal Degeneration, intervertebral disc, cervical Spondylosis, cervical Postlaminectomy syndrome, lumbar Dyspepsia Chronic GERD Narcotic dependence Environmental allergies Failed back syndrome Tobacco abuse Insomnia Depression, major, recurrent, moderate Diabetes mellitus, insulin dependent (IDDM), uncontrolled Surgical History (Updated 03/10/23 @ 09:37 by Steffany Sams CMA) History of lumbar surgery Hx of right knee surgery (08/2011) Family History Father Asthma Mother Diabetes HTN (hypertension) Colon cancer Dialysis patient Brother Substance abuse Social History Household Members: None Housing: Apartment Alcohol intake: never Patient Tobacco Use Status: Current everyday Tobacco user e-Cigarette/Vaping Use: Never Used Current occupational status: disabled Current occupation: rt handed Cognitive needs: No Hearing needs: No Vision needs: No Physical Exam Absence of Cushingoid features. Absence of acromegalic features. Neck exam reveals nl size thyroid about 15 gms. No thyroid nodules palpable. No carotid bruits present. Lungs CTA. Heart S1 S2, Reg R/R. No M/R/ G. Skin exam reveals absence of vitiligo or acanthosis nigricans. Abdominal exam reveals Soft NT/ND with NA BS. No organomegaly present. Neck Other: . Extrem Other: Visual exam of foot performed. No ulcerations or open lesions. No onchomycosis, no callouses.Pulses 2 + distally Sensation intact to monofilament exam. Vibratory sensation sensed is intact with 128 Hz tuning fork Assessment & Plan Assessment & Plan (1) Uncontrolled diabetes mellitus: Plan: This is a 47-year-old female with a history of type 2 diabetes being treated with Trulicity and basal-bolus insulin with poor glycemic control and known microvascular complications namely retinopathy and proteinuria. Plan is that the patient check her point cares pre and post meals bring the glucometer with the follow-up visits. Will attempt to prescribe a Sensor. Will give 10 units of Humalog insulin now. Will have patient follow-up with museum educator. With the help with demolitionist explained the relationship poor glycemic control to development and progression of complications Medications: New flash glucose sensor (FreeStyle Ria 2 Sensor kit) As directed change every 14 days 2 ea 5RF flash glucose scanning reader (FreeStyle Ria 2 [place]) As directed 1 ea 0RF Coding Level of Care Code Est Pt Level 4 (08569) Diagnoses Uncontrolled diabetes mellitus
[2023-03-19 12:53] VITALS: BP 112/62; PULSE 106; BMI 25.7
[2023-03-19 14:11] LABS: Glucose, Whole Blood 302 mg/dL (60-115)
== END 2023-03-19 14:47 | disposition home or self-care (01) ==
PROVIDERS: PCP Internal Medicine; Visit Provider Internal Medicine Endocrinology, Diabetes & Metabolism
DX: E11.65 Type 2 diabetes mellitus with hyperglycemia (principal)
CPT/HCPCS: 99214

== ENCOUNTER → 2023-03-19 12:43 | Outpatient (BNVA) | payer OTHER, SELFPAY | PROVIDERS: PCP Internal Medicine; Visit Provider Internal Medicine Endocrinology, Diabetes & Metabolism | DX: E11.69 Type 2 diabetes mellitus with other specified complication (principal); Z79.85 Long-term (current) use of injectable non-insulin antidiabetic drugs; Z79.4 Long term (current) use of insulin | CPT/HCPCS: 82947; 99212 ==

== ENCOUNTER 2023-03-24 09:00 | Outpatient (RCR) | payer OTHER, SELFPAY ==
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
--- NOTE | 2023-05-13 14:16 | MHC.PT.DC ---
[facility] [place] Office [place] [facility] [place] [facility] [address] Rhonda Rossi [address] [phone] F: [phone] F: [phone] F: [phone] F: [phone] Physical Therapy Discharge Report Diagnosis: TRAUMATIC FX OF L FIBULA Date of Surgery: DOI 11/01/22 Date of Evaluation: 02/24/23 Date of Discharge: 05/13/23 Treatments to Date: 8 Cancellations to Date: 0 No Shows to Date: 0 Discharge Status: Patient Elected to Stop Discharge Summary: PER ASSESSMENT AT LAST VISIT ON 03/24 Pt with increased medial quadriceps popping/clicking sensation with knee flexion so held LAQ today. Pt going for MRI 04/01, spoke with evaluating PT and putting pt on hold until after MRI and ortho f/u. Pt HAS HAD MRI AND ORTHO FU (04/17) NO FURTHER APPTS SCHEDULED. WILL DC CHART AT THIS TIME, SINCE IT HAS BEEN OVER 1 MONTH SINCE LAST APPT Electronically signed by: BHAVANA COBB PT Please sign and return to therapist. Thank you for your referral.
== END 2023-05-13 14:18 | disposition home or self-care (01) ==
LOC: HO.PT 09:00
PROVIDERS: PCP Internal Medicine; Visit Provider Physician Assistant
DX: Z87.81 Personal history of (healed) traumatic fracture (principal)
CPT/HCPCS: 97110; 97116; 97140; 97162; 97530

== ENCOUNTER 2023-03-24 12:54 | Outpatient (AMB) | payer OTHER, SELFPAY ==
[2023-03-24 13:06] VITALS: BP 118/70; PULSE 91; O2SAT 96; BMI 25.2
--- NOTE | 2023-03-24 13:06 | MHC.PC.OV ---
Vital Signs 03/24/23 13:06 Height 5 ft 7 in Weight 161 lb BMI 25.2 Intake Visit Reasons: 3 month Follow up Allergies ibuprofen [From Motrin] Allergy (Unknown, Verified 03/24/23 13:06) Rash, Stomach upset gadobutrol [From GADAVIST] Adverse Reaction (Mild, Verified 03/24/23 13:06) NAUSEA & VOMITING venlafaxine Adverse Reaction (Unknown, Verified 03/24/23 13:06) halucinations Tobacco use date assessed: 03/24/23 Dental Screening Dental Screen Date: 03/24/23 COUNT INCLUDES THE [facility] Medical History (Updated 02/25/23 @ 08:35 by Baldo Winkler MD) Internal derangement of left knee Vitamin D deficiency Asthma Type 2 diabetes mellitus with hyperglycemia, with long-term current use of insulin Hyperlipidemia LDL goal <100 Cervical stenosis of spinal canal Degeneration, intervertebral disc, cervical Spondylosis, cervical Postlaminectomy syndrome, lumbar Dyspepsia Chronic GERD Narcotic dependence Environmental allergies Failed back syndrome Tobacco abuse Insomnia Depression, major, recurrent, moderate Diabetes mellitus, insulin dependent (IDDM), uncontrolled Surgical History History of lumbar surgery Hx of right knee surgery (08/2011) Family History Father Asthma Mother Diabetes HTN (hypertension) Colon cancer Dialysis patient Brother Substance abuse Social History Household Members: None Housing: Apartment Alcohol intake: never Patient Tobacco Use Status: Current everyday Tobacco user e-Cigarette/Vaping Use: Never Used Current occupational status: disabled Current occupation: rt handed Cognitive needs: No Hearing needs: No Vision needs: No Questionnaire Thrive Questionnaire Date Thrive assessed: 12/14/20 Physical exam (Primary Care) Tobacco/Smoking Status: Tobacco use Status Tobacco use date assessed 02/20/23 02/20/23 14:55 Patient Tobacco Use Status Current everyday Tobacco 02/20/23 14:55 e-Cigarette/Vaping Use Never Used 02/20/23 14:55 Thrive Assessment: Date of Thrive Assessment Date Thrive assessed 12/14/20 02/20/23 14:55 Coding
--- NOTE | 2023-03-24 13:06 | MHC.PC.OV ---
Vital Signs 03/24/23 13:06 Height 5 ft 7 in Weight 161 lb BMI 25.2 BP 118/70 Blood Pressure Location Rt brachial Position Sitting Pulse 91 Pulse Source Pulse Oximeter Pulse Oximetry (%) 96 Oxygen Delivery Method Room Air Intake Visit Reasons: 3 month Follow up Intake Note: Pt is here today for 3 months follow up visit. Allergies ibuprofen [From Motrin] Allergy (Unknown, Verified 03/24/23 13:10) Rash, Stomach upset gadobutrol [From GADAVIST] Adverse Reaction (Mild, Verified 03/24/23 13:10) NAUSEA & VOMITING venlafaxine Adverse Reaction (Unknown, Verified 03/24/23 13:10) halucinations Medication List - Last Reconciled 03/24/23 by Moisés Lewis MD acetaminophen (Tylenol Extra Strength) 1,000 mg (2 x 500 mg) PO Q6H PRN acetaminophen 650 mg (2 x 325 mg) PO Q4-6H PRN albuterol sulfate 90 mcg/actuation (Proventil HFA) 1 inh inhalation QID PRN 30 days cetirizine 10 mg PO DAILY commode (bedside commode) As directed commode (bedside commode) As directed diclofenac sodium 1% 4 grams topical QID 30 days dulaglutide (Trulicity) 0.75 mg subcut MO@0900 flash glucose scanning reader (MovinaryStyle Ria 2 [place]) As directed flash glucose sensor (FreeStyle Ria 2 Sensor kit) As directed change every 14 days fluticasone propionate 50 mcg/actuation (Aller-Benedicto) 1 spray intranasal BID gabapentin 600 mg PO BEDTIME 90 days insulin glargine 52 units subcut BEDTIME insulin lispro 16 units subcut TIDAC lancets (FreeStyle Lancets) 4 times a day omeprazole 20 mg PO DAILY@0630 oxycodone 5 mg PO Q6H PRN oxycodone-acetaminophen 5-325 mg (Percocet) 1 tab PO DAILY PRN 7 days pen needle, diabetic (BD Ultra-Fine Brittny Pen Needle) As directed four times a day quetiapine (Seroquel) 50 mg PO BEDTIME 90 days [Rib belt wear rib belt to help reduce pain] walker As directed Tobacco use date assessed: 02/20/23 HPI 3 month Follow up HPI Details Patient is a 48-year-old female came in today for her 3 month follow-up appointment Insulin-dependent diabetes mellitus: She is on regular insulin 18 units t.i.d. and 52 units of Lantus at night She is also on Trulicity, she is now seeing Dr. Thomas endocrinology [facility] for management Asthma stable with ProAir and Flovent inhaler refill sent? Depression and difficulty sleeping stable with Seroquel 50 mg at bedtime Patient is also on gabapentin 600 mg at night for her chronic neck and lower back pain.? Fill back syndrome: Patient currently is seeing Pain Management [facility] Continue to smoke once again patient was advised to stop as soon as possible Dyspepsia continue omeprazole 20 mg.? Follow-up 3 months [facility] Medical History Internal derangement of left knee Vitamin D deficiency Asthma Type 2 diabetes mellitus with hyperglycemia, with long-term current use of insulin Hyperlipidemia LDL goal <100 Cervical stenosis of spinal canal Degeneration, intervertebral disc, cervical Spondylosis, cervical Postlaminectomy syndrome, lumbar Dyspepsia Chronic GERD Narcotic dependence Environmental allergies Failed back syndrome Tobacco abuse Insomnia Depression, major, recurrent, moderate Diabetes mellitus, insulin dependent (IDDM), uncontrolled Surgical History History of lumbar surgery Hx of right knee surgery (08/2011) Family History Father Asthma Mother Diabetes HTN (hypertension) Colon cancer Dialysis patient Brother Substance abuse Social History Household Members: None Housing: Apartment Alcohol intake: never Patient Tobacco Use Status: Current everyday Tobacco user e-Cigarette/Vaping Use: Never Used Current occupational status: disabled Current occupation: rt handed Cognitive needs: No Hearing needs: No Vision needs: No Questionnaire Thrive Questionnaire Date Thrive assessed: 12/14/20 Review of Systems Const Denies chills and Denies fever(s) ENT Denies epistaxis and Denies nasal discharge Card Denies chest pain Resp Denies chest congestion, Denies cough and Denies hemoptysis GI Denies diarrhea and Denies nausea Skin/Breast Denies rash Neuro Reports no additional complaints Psych Reports no additional complaints Endo Reports no additional complaints Physical exam (Primary Care) Vital Signs: Last Vital Signs Pulse 91 03/24/23 13:06 BP 118/70 03/24/23 13:06 Pulse Ox 96 03/24/23 13:06 Oxygen Delivery Method Room Air 03/24/23 13:06 BMI result Body Mass Index 25.2 Tobacco/Smoking Status: Tobacco use Status Tobacco use date assessed 02/20/23 03/24/23 13:07 Patient Tobacco Use Status Current everyday Tobacco 03/24/23 13:07 e-Cigarette/Vaping Use Never Used 03/24/23 13:07 Thrive Assessment: Date of Thrive Assessment Date Thrive assessed 12/14/20 03/24/23 13:07 Const General: cooperative, comfortable and no acute distress Orientation/consciousness: patient oriented x3 HENMT Head: Yes normocephalic Eyes General: appearance normal, both eyes and all related structures Neck Neck: Yes supple Resp Effort & Inspection: normal respiratory effort, no cough and no stridor Cardio Rhythm: regular rhythm Heart sounds: S1 normal heart sound present and S2 normal heart sound present Skin General skin exam: turgor normal Neuro Other: Patient uses walker for ambulation General: patient oriented x3, tone normal and moves all extremities Extrem Right lower extremity: no edema Left lower extremity: no edema Assessment and Plan Assessment & Plan (1) Depression, major, recurrent, moderate: Code(s): F33.1 - Major depressive disorder, recurrent, moderate (2) Chronic GERD: Code(s): K21.9 - Gastro-esophageal reflux disease without esophagitis (3) Anxiety, generalized: Code(s): F41.1 - Generalized anxiety disorder (4) Lipid disorder: Code(s): E78.9 - Disorder of lipoprotein metabolism, unspecified (5) Insomnia: Code(s): G47.00 - Insomnia, unspecified Qualifiers: Insomnia type: other insomnia Qualified Code(s): G47.09 - Other insomnia (6) Environmental allergies: Code(s): Z91.09 - Other allergy status, other than to drugs and biological substances (7) Diabetes mellitus, insulin dependent (IDDM), uncontrolled: (8) Hyperlipidemia LDL goal <100: Code(s): E78.5 - Hyperlipidemia, unspecified Plan Patient is a 48-year-old female came in today for her 3 month follow-up appointment Insulin-dependent diabetes mellitus: She is on regular insulin 18 units t.i.d. and 52 units of Lantus at night She is also on Trulicity, she is now seeing Dr. Thomas endocrinology [facility] for management Asthma stable with ProAir and Flovent inhaler refill sent? Depression and difficulty sleeping stable with Seroquel 50 mg at bedtime Patient is also on gabapentin 600 mg at night for her chronic neck and lower back pain.? Fill back syndrome: Patient currently is seeing Pain Management [facility] Continue to smoke once again patient was advised to stop as soon as possible Dyspepsia continue omeprazole 20 mg.? Follow-up 3 months Medications: Refilled quetiapine (Seroquel) 50 mg PO BEDTIME 90 days 90 tabs 0RF albuterol sulfate 90 mcg/actuation (Proventil HFA) 1 inh inhalation QID 30 days PRN 8.5 grams 2RF shortness of breath or wheezing J45.909 - Unspecified asthma, uncomplicated, Z91.09 - Other allergy status, other than to drugs and biological substances Coding Level of Care Code Est Pt Level 4 (07267) Diagnoses Depression, major, recurrent, moderate F33.1 Chronic GERD K21.9 Anxiety, generalized F41.1 Lipid disorder E78.9 Other insomnia G47.09 Insomnia type: other insomnia Environmental allergies Z91.09 Diabetes mellitus, insulin dependent (IDDM), uncontrolled Hyperlipidemia LDL goal <100 E78.5
== END 2023-03-24 15:12 | disposition home or self-care (01) ==
PROVIDERS: PCP Internal Medicine; Visit Provider Internal Medicine
DX: K21.9 Gastro-esophageal reflux disease without esophagitis (principal); F33.1 Major depressive disorder, recurrent, moderate; Z79.4 Long term (current) use of insulin; F41.1 Generalized anxiety disorder; E78.9 Disorder of lipoprotein metabolism, unspecified; G47.09 Other insomnia; Z91.09 Other allergy status, other than to drugs and biological substances; E78.5 Hyperlipidemia, unspecified; Z98.890 Other specified postprocedural states
CPT/HCPCS: 99214

== ENCOUNTER 2023-03-26 13:46 | Emergency (ER) | payer OTHER, SELFPAY ==
[2023-03-26 14:14] VITALS: BP 122/63; PULSE 93; RESP 19; TEMP 36.6; O2SAT 98; BMI 25.2
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
== END 2023-03-26 14:37 | disposition home or self-care (01) ==
PROVIDERS: Emergency Provider Emergency Medicine; PCP Internal Medicine
DX: G89.29 Other chronic pain (principal); M79.605 Pain in left leg; E11.9 Type 2 diabetes mellitus without complications; E78.5 Hyperlipidemia, unspecified; F17.200 Nicotine dependence, unspecified, uncomplicated; Z79.4 Long term (current) use of insulin; Z79.899 Other long term (current) drug therapy
CPT/HCPCS: 99282; 99283

== ENCOUNTER 2023-04-01 12:53 | Outpatient (REF) | payer OTHER, SELFPAY ==
--- NOTE | ~2023-04-01 | MR_ITS ---
EXAMINATION: MR KNEE WITHOUT CONTRAST, LEFT CLINICAL INFORMATION: Left knee pain. COMPARISON: Radiographs 02/19/2023. TECHNIQUE: MRI of the knee without contrast was performed using routine sequences on a high-field scanner. FINDINGS: MENISCI: Medial Meniscus: Intact Lateral Meniscus: Minimal inner margin tearing of the meniscal body. LIGAMENTS: Cruciate: Intact. Collateral: Intact. EXTENSOR MECHANISM: Intact. ARTICULAR CARTILAGE/BONE: Patellofemoral Compartment: Mild cartilage thinning of the central trochlea and superior aspect of the patella. Medial Compartment: Normal. Lateral Compartment: Minimal cartilage thinning at the posterior aspect of the tibia. There is a 9 mm circumscribed lesion in the femoral condyle compatible with an enchondroma. JOINT FLUID AND BURSAE: Small joint effusion. MR/MR knee LT wo con IMPRESSION: 1. Minimal inner margin tearing of the lateral meniscus body. Menisci appear otherwise intact. 2. Mild patellofemoral and lateral compartment osteoarthritis with a small joint effusion.
== END 2023-04-01 12:54 | disposition home or self-care (01) ==
LOC: HO.MRI 12:53
PROVIDERS: PCP Internal Medicine; Visit Provider Orthopaedic Surgery
DX: M23.92 Unspecified internal derangement of left knee (principal)
CPT/HCPCS: 73721

== ENCOUNTER 2023-04-17 11:38 | Outpatient (AMB) | payer OTHER, SELFPAY ==
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
== END 2023-04-17 12:22 | disposition home or self-care (01) ==
PROVIDERS: PCP Internal Medicine; Visit Provider Orthopaedic Surgery
DX: S82.832A Other fracture of upper and lower end of left fibula, initial encounter for closed fracture (principal); M96.1 Postlaminectomy syndrome, not elsewhere classified
CPT/HCPCS: 99213

== ENCOUNTER → 2023-04-17 11:38 | Outpatient (BNVA) | payer OTHER, SELFPAY | PROVIDERS: PCP Internal Medicine; Visit Provider Orthopaedic Surgery | DX: S82.832A Other fracture of upper and lower end of left fibula, initial encounter for closed fracture (principal); M96.1 Postlaminectomy syndrome, not elsewhere classified | CPT/HCPCS: 99212 ==

== ENCOUNTER 2023-06-16 13:14 | Outpatient (REF) | payer OTHER, SELFPAY ==
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
== END 2023-06-16 13:15 | disposition home or self-care (01) ==
LOC: HO.MRI 13:14
PROVIDERS: PCP Internal Medicine; Visit Provider Neurological Surgery
DX: M54.16 Radiculopathy, lumbar region (principal); M96.1 Postlaminectomy syndrome, not elsewhere classified; R29.898 Other symptoms and signs involving the musculoskeletal system
CPT/HCPCS: 72148

== ENCOUNTER 2023-07-23 08:53 | Outpatient (REF) | payer OTHER, SELFPAY ==
[2023-07-23 10:38] LABS: Cholesterol 175 mg/dL (<200); HDL Cholesterol 61 mg/dL (>40); LDL Cholesterol Calculated 89 mg/dL (<100); Triglycerides 125 mg/dL (<150)
[2023-07-23 12:09] LABS: Creatinine Urine 114.44 mg/dL; Microalbum/Creatinine Ratio Ur 13.1 ug/mg cr (<30)
== END 2023-07-23 08:54 | disposition home or self-care (01) ==
LOC: HO.LAB 08:53
PROVIDERS: PCP Internal Medicine; Visit Provider Internal Medicine Endocrinology, Diabetes & Metabolism
DX: E11.65 Type 2 diabetes mellitus with hyperglycemia (principal); Z79.4 Long term (current) use of insulin
CPT/HCPCS: 36415; 80061; 82043; 82570

== ENCOUNTER 2023-08-05 12:04 | Outpatient (AMB) | payer OTHER, SELFPAY ==
[2023-08-05 12:05] VITALS: BP 124/62; PULSE 87; O2SAT 99; BMI 27.9
--- NOTE | 2023-08-05 12:05 | A.OFFPC_ITS ---
Vital Signs 08/05/23 12:05 Height 5 ft 7 in Weight 178 lb BMI 27.9 BP 124/62 Blood Pressure Location Rt brachial Position Sitting Pulse 87 Pulse Source Pulse Oximeter Pulse Oximetry (%) 99 Oxygen Delivery Method Room Air Intake Visit Reasons: Annual PE/ OK per MA Allergies ibuprofen [From Motrin] Allergy (Unknown, Verified 08/05/23 12:14) Rash, Stomach upset gadobutrol [From GADAVIST] Adverse Reaction (Mild, Verified 08/05/23 12:14) NAUSEA & VOMITING venlafaxine Adverse Reaction (Unknown, Verified 08/05/23 12:14) halucinations Medication List - Last Reconciled 08/05/23 by Moisés Lewis MD albuterol sulfate 90 mcg/actuation (Proventil HFA) 1 inh inhalation QID PRN 30 days cetirizine 10 mg PO DAILY commode (bedside commode) As directed commode (bedside commode) As directed diclofenac sodium 1% 4 grams topical QID 30 days dulaglutide (Trulicity) 0.75 mg subcut MO@0900 flash glucose scanning reader ([employer] Ria 2 [place]) As directed flash glucose sensor (FreeStyle Ria 2 Sensor kit) As directed change every 14 days fluticasone propionate 50 mcg/actuation (Aller-Benedicto) 1 spray intranasal BID gabapentin 600 mg PO BEDTIME 90 days insulin glargine 52 units subcut BEDTIME insulin lispro 16 units subcut TIDAC lancets (FreeStyle Lancets) 4 times a day omeprazole 20 mg PO DAILY@0630 oxycodone-acetaminophen 5-325 mg (Percocet) 1 tab PO Q4-6H PRN pen needle, diabetic (BD Ultra-Fine Brittny Pen Needle) As directed four times a day quetiapine (Seroquel) 50 mg PO BEDTIME 90 days [Rib belt wear rib belt to help reduce pain] walker As directed Tobacco use date assessed: 08/05/23 Dental Screening Dental Screen Date: 08/05/23 Did you have a dental problem in the last 6 months where you did not have access to dental care?: No HPI Annual PE/ OK per MA HPI Details Patient is a 48-year-old female came in today for physical examination Patient has been feeling sick with chest congestion and cough for the past 2 weeks She is requesting COVID test which I have taken She is spitting out yellow I have sent azithromycin and benzonatate for the cough We will re-evaluate her in 2 weeks Chest x-ray to be done today along with labs She is due for mammogram, order placed She declined to do Pap smear Medication list reviewed [facility] Medical History Internal derangement of left knee Vitamin D deficiency Asthma Type 2 diabetes mellitus with hyperglycemia, with long-term current use of insulin Hyperlipidemia LDL goal <100 Cervical stenosis of spinal canal Degeneration, intervertebral disc, cervical Spondylosis, cervical Postlaminectomy syndrome, lumbar Dyspepsia Chronic GERD Narcotic dependence Environmental allergies Failed back syndrome Tobacco abuse Insomnia Depression, major, recurrent, moderate Diabetes mellitus, insulin dependent (IDDM), uncontrolled Surgical History History of lumbar surgery Hx of right knee surgery (08/2011) Family History Father Asthma Mother Diabetes HTN (hypertension) Colon cancer Dialysis patient Brother Substance abuse Social History Household Members: None Housing: Apartment Alcohol intake: never Patient Tobacco Use Status: Current everyday Tobacco user e-Cigarette/Vaping Use: Never Used service: No Current occupational status: disabled Current occupation: rt handed Cognitive needs: No Hearing needs: No Vision needs: No Questionnaire Thrive Questionnaire Date Thrive assessed: 12/14/20 AUDIT C Alcohol Use Questionnaire (AUDIT-C) 1. How often do you have a drink containing alcohol?: Never 3. How often do you have six or more drinks on one occasion?: Never Total Score: 0 Score Reviewed/Action Taken: Yes Review of Systems Eyes Denies blurry vision ENT Denies odynophagia and Denies sinus pain Card Denies chest pain at rest and Denies chest pain with activity Resp Denies hemoptysis GI Denies diarrhea, Denies odynophagia, Denies vomiting and Denies hematemesis Reports as per HPI Skin/Breast Reports as per HPI Neuro Denies Neuro-related abnormal movements, Denies Abnormal speech present and Denies Sensory deficit (Neuro) Psych Denies mood swings and Denies paranoia Endo Reports as per HPI Yoel/Lymph Reports as per HPI Aller/Immun Reports as per HPI Physical exam (Primary Care) Vital Signs: Last Vital Signs Pulse 87 08/05/23 12:05 BP 124/62 08/05/23 12:05 Pulse Ox 99 08/05/23 12:05 Oxygen Delivery Method Room Air 08/05/23 12:05 BMI result Body Mass Index 27.9 Tobacco/Smoking Status: Tobacco use Status Tobacco use date assessed 08/05/23 08/05/23 12:15 Patient Tobacco Use Status Current everyday Tobacco 08/05/23 12:07 e-Cigarette/Vaping Use Never Used 08/05/23 12:07 Thrive Assessment: Date of Thrive Assessment Date Thrive assessed 12/14/20 08/05/23 12:07 Const General: cooperative, comfortable and no acute distress Orientation/consciousness: patient oriented x3 HENMT Head: Yes normocephalic and Yes atraumatic Eyes General: appearance normal, both eyes and all related structures Pupils: Equal, round and reactive pupils present EOM: EOMs intact bilaterally Neck Neck: Yes supple and No lymphadenopathy Thyroid: Thyroid normal Lymphatic: no lymphadenopathy noted Resp Effort & Inspection: normal respiratory effort and able to speak in complete sentences Auscultation: clear to auscultation bilaterally Cardio Heart sounds: S1 normal heart sound present and S2 normal heart sound present GI Palpation (GI): Soft to palpation and nontender Auscultation: normal bowel sounds General: Yes no CVA tenderness Back/Spine/Pelvis Back: no CVA tenderness Skin General skin exam: elasticity normal and turgor normal Neuro General: patient oriented x3 Cranial nerves: Yes Equal, round and reactive pupils present Speech: No Abnormal speech present Sensory Exam: No Sensory deficit (Neuro) Extrem General: Yes normal exam except as noted and No edema Assessment and Plan Assessment & Plan (1) Encounter for general adult medical examination with abnormal findings: Code(s): Z00.01 - Encounter for general adult medical examination with abnormal findings (2) Bronchitis: Code(s): J40 - Bronchitis, not specified as acute or chronic (3) Chronic GERD: Code(s): K21.9 - Gastro-esophageal reflux disease without esophagitis (4) Environmental allergies: Code(s): Z91.09 - Other allergy status, other than to drugs and biological substances (5) Failed back syndrome: Code(s): M96.1 - Postlaminectomy syndrome, not elsewhere classified (6) Depression, major, recurrent, moderate: Code(s): F33.1 - Major depressive disorder, recurrent, moderate (7) Diabetes mellitus, insulin dependent (IDDM), uncontrolled: Plan Patient is a 48-year-old female came in today for physical examination Patient has been feeling sick with chest congestion and cough for the past 2 weeks She is requesting COVID test which I have taken She is spitting out yellow I have sent azithromycin and benzonatate for the cough We will re-evaluate her in 2 weeks Chest x-ray to be done today along with labs She is due for mammogram, order placed She declined to do Pap smear Medication list reviewed Orders: Orders LDL Cholesterol Direct Today F33.1 - Major depressive disorder, recurrent, moderate, K21.9 - Gastro-esophageal reflux disease without esophagitis, M96.1 - Postlaminectomy syndrome, not elsewhere classified, Z00.01 - Encounter for general adult medical examination with abnormal findings, Z91.09 - Other allergy status, other than to drugs and biological substances TSH reflex Free T4 Today F33.1 - Major depressive disorder, recurrent, moderate, K21.9 - Gastro-esophageal reflux disease without esophagitis, M96.1 - Postlaminectomy syndrome, not elsewhere classified, Z00.01 - Encounter for general adult medical examination with abnormal findings, Z91.09 - Other allergy status, other than to drugs and biological substances XR chest 2V Today J40 - Bronchitis, not specified as acute or chronic SARS-CoV2/FLU/RSV Today J40 - Bronchitis, not specified as acute or chronic, R09.89 - Other specified symptoms and signs involving the circulatory and respiratory systems MM tomosynthesis screening BI Today Z12.31 - Encounter for screening mammogram for malignant neoplasm of breast Hemoglobin A1c Today F33.1 - Major depressive disorder, recurrent, moderate, K21.9 - Gastro-esophageal reflux disease without esophagitis, M96.1 - Postlaminectomy syndrome, not elsewhere classified, Z00.01 - Encounter for general adult medical examination with abnormal findings, Z91.09 - Other allergy status, other than to drugs and biological substances Complete Blood Count Auto Diff Today F33.1 - Major depressive disorder, recurrent, moderate, K21.9 - Gastro-esophageal reflux disease without esophagitis, M96.1 - Postlaminectomy syndrome, not elsewhere classified, Z00.01 - Encounter for general adult medical examination with abnormal findings, Z91.09 - Other allergy status, other than to drugs and biological substances Comprehensive Met. Panel Today F33.1 - Major depressive disorder, recurrent, moderate, K21.9 - Gastro-esophageal reflux disease without esophagitis, M96.1 - Postlaminectomy syndrome, not elsewhere classified, Z00.01 - Encounter for general adult medical examination with abnormal findings, Z91.09 - Other allergy status, other than to drugs and biological substances Microalbumin, Random (w Creat) Today F33.1 - Major depressive disorder, recurrent, moderate, K21.9 - Gastro-esophageal reflux disease without esophagitis, M96.1 - Postlaminectomy syndrome, not elsewhere classified, Z00.01 - Encounter for general adult medical examination with abnormal findings, Z91.09 - Other allergy status, other than to drugs and biological substances Medications: New azithromycin Take 2 tablets today then 1 daily 250 mg PO ONCE 6 tabs 0RF 5 days J06.9 - Acute upper respiratory infection, unspecified benzonatate 200 mg PO BID PRN 20 caps 0RF cough 10 days Coding Level of Care Code Est Pt Prev Care 40-64y(38463) Diagnoses Encounter for general adult medical examination with abnormal findings Z00.01 Bronchitis J40 Chronic GERD K21.9 Environmental allergies Z91.09 Failed back syndrome M96.1 Depression, major, recurrent, moderate F33.1 Diabetes mellitus, insulin dependent (IDDM), uncontrolled
== END 2023-08-05 12:34 | disposition home or self-care (01) ==
PROVIDERS: PCP Internal Medicine; Visit Provider Internal Medicine
DX: Z00.01 Encounter for general adult medical examination with abnormal findings (principal); F33.1 Major depressive disorder, recurrent, moderate; J40 Bronchitis, not specified as acute or chronic; K21.9 Gastro-esophageal reflux disease without esophagitis; Z91.09 Other allergy status, other than to drugs and biological substances; M96.1 Postlaminectomy syndrome, not elsewhere classified
CPT/HCPCS: 99213; 99396

== ENCOUNTER 2023-08-05 13:44 | Outpatient (REF) | payer OTHER, SELFPAY ==
[2023-08-05 15:58] LABS: Influenza A PCR NEGATIVE (Negative); Influenza B PCR NEGATIVE (Negative); Resp Syncy Virus RNA Qual PCR NEGATIVE (Negative); SARS COV2 PCR INHOUSE NEGATIVE (Negative)
== END 2023-08-05 13:45 | disposition home or self-care (01) ==
LOC: HO.HMGCLNP 13:44
PROVIDERS: Visit Provider Internal Medicine
DX: J40 Bronchitis, not specified as acute or chronic (principal); R09.89 Other specified symptoms and signs involving the circulatory and respiratory systems
CPT/HCPCS: 0241U

== ENCOUNTER 2023-08-17 13:03 | Emergency (ER) | payer OTHER, SELFPAY ==
--- NOTE | ~2023-08-17 | XR_ITS ---
EXAMINATION: XR ANKLE, LEFT CLINICAL INFORMATION: Change in ambulation. COMPARISON: Ankle radiographs dated 01/05/2023. TECHNIQUE: AP, lateral, and mortise views of the left ankle. FINDINGS: No fracture. Alignment is anatomic. No erosions. Joint spaces are maintained. Soft tissues are normal. XR/XR ankle LT 2V IMPRESSION: No fracture or dislocation. No joint effusion.
--- NOTE | ~2023-08-17 | XR_ITS ---
EXAMINATION: XR KNEE, LEFT CLINICAL INFORMATION: Pain COMPARISON: 02/19/2023 TECHNIQUE: 2 views of of the left knee. FINDINGS: There is no evidence of fracture or dislocation. There is patchy periarticular osteopenia and narrowing of the medial compartment of left knee joint. There is no joint effusion seen. XR/XR knee LT 2V IMPRESSION: No joint effusion. Patchy periarticular osteopenia.
--- NOTE | ~2023-08-17 | XR_ITS ---
EXAMINATION: XR HIP, LEFT CLINICAL INFORMATION: Pain COMPARISON: 02/19/2023 TECHNIQUE: 2 views of left hip and single view of pelvis of the left hip. FINDINGS: No fracture. Alignment is anatomic. Hip joint space is maintained. Soft tissues are unremarkable. XR/XR hip LT w PEL1V IMPRESSION: Normal left hip.
--- NOTE | ~2023-08-17 | US_ITS ---
EXAMINATION: US VENOUS ULTRASOUND WITH DOPPLER LOWER EXTREMITY, LEFT CLINICAL INFORMATION: Edema. Left leg. COMPARISON: None available. TECHNIQUE: Ultrasound of the deep veins is performed from the hip to the calf with compression sonography and color and pulse Doppler assessment. Spectral analysis with color-flow imaging is performed. FINDINGS: There is normal venous compression and respiratory variation and augmented flow. The visualized common femoral vein, superficial femoral vein, profunda femoral vein, popliteal vein, and the trifurcation region shows no evidence of deep venous thrombosis. There is no significant popliteal fossa cyst. If the patient's symptoms persist, followup ultrasound in 5 days 7 days might be of value to exclude proximal propagation from a non-visualized calf vein. US/US venous duplex LE IMPRESSION: No DVT demonstrated in the left lower extremity.
[2023-08-17 13:24] VITALS: BP 115/71; PULSE 100; RESP 19; TEMP 36.6; O2SAT 99; BMI 28.2
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
[2023-08-17] MEDS: Morphine Sulfate 2 MG/ML CARTRIDGE IM (15:33)
== END 2023-08-17 18:11 | disposition home or self-care (01) ==
PROVIDERS: Emergency Provider Emergency Medicine; PCP Internal Medicine
DX: M79.605 Pain in left leg (principal); S82.402D Unspecified fracture of shaft of left fibula, subsequent encounter for closed fracture with routine healing; V89.2XXD Person injured in unspecified motor-vehicle accident, traffic, subsequent encounter; E11.9 Type 2 diabetes mellitus without complications; Z79.4 Long term (current) use of insulin
CPT/HCPCS: 73502; 73560; 73600; 93971; 96372; 99282; 99284; J2270

== ENCOUNTER 2023-08-24 13:28 | Outpatient (REF) | payer OTHER, SELFPAY ==
--- NOTE | ~2023-08-24 | XR_ITS ---
EXAMINATION: XR CHEST CLINICAL INFORMATION: Bronchitis not specified. COMPARISON: Chest, ribs 12/23/2022. Chest 11/06/2022. TECHNIQUE: 2 views of the chest were obtained. FINDINGS: There is no gross pneumothorax. Lung volumes are low. Heart size is normal. No pleural effusion. No focal consolidation to suggest pneumonia. Mild degenerative changes in the thoracic spine. XR/XR chest 2V IMPRESSION: No evidence of pneumonia.
[2023-08-24 13:46] LABS: MANUAL DIFF FLAG NO
[2023-08-24 14:10] LABS: Basophils Absolute Auto 0.1 X10*3/uL (0.0-0.2); Basophils Percent Auto 0.6 % (0-2); Eosinophils Absolute Auto 0.2 X10*3/uL (0.0-0.4); Eosinophils Percent Auto 1.7 % (0-4); Hematocrit 43.2 % (37.0-47.0); Hemoglobin 14.6 g/dl (12.0-16.0); Imm Gran Abs Auto 0.03 X10*3/uL (0.00-0.03); Imm Gran Pct Auto 0.3 % (0.0-0.4); Lymphocytes Absolute Auto 2.9 X10*3/uL (1.2-4.9); Lymphocytes Percent Auto 31.6 % (20-40); Mean Corpuscular HGB Conc 33.8 g/dl (31.0-35.0); Mean Corpuscular Hemoglobin 30.9 pg (27.0-33.0); Mean Corpuscular Volume 91.5 fL (80.0-98.0); Monocytes Absolute Auto 0.5 X10*3/uL (0.1-1.2); Monocytes Percent Auto 5.1 % (2-11); Neutrophils Absolute Auto 5.5 x10*3/uL (2.0-8.3); Neutrophils Percent Auto 60.7 % (45-73); Platelet Count 238 X10*3/uL (160-400); Red Blood Count 4.72 X10*6/uL (4.20-5.50); Red Cell Distribution Width 12.1 % (11.0-16.0)
[2023-08-24 14:18] LABS: Estimated Average Glucose 240 mg/dL
[2023-08-24 14:53] LABS: Microalbum/Creatinine Ratio Ur 13.3 ug/mg cr (<30)
[2023-08-24 15:03] LABS: Alanine Aminotransferase 19 U/L (0-31); Alkaline Phosphatase 84 U/L (39-117); Anion Gap 11 (12-20); Aspartate Amino Transferase 14 U/L (5-31); Bilirubin Total 0.3 mg/dL (0.0-1.0); Blood Urea Nitrogen 15 mg/dL (9-16); Calcium 9.4 mg/dL (8.4-10.2); Carbon Dioxide 24 mmol/L (22-29); Chloride 105 mmol/L (96-108); Estimated Glomerular Filt Rate > 60; Glucose Random 333 mg/dL (60-115); Potassium 4.1 mmol/L (3.3-5.1); Sodium 136 mmol/L (135-145); Total Protein 7.2 g/dL (6.5-8.0)
[2023-08-24 15:20] LABS: TSH reflex Free T4 0.33 uIU/mL (0.32-4.0)
[2023-08-26 11:19] LABS: LDL Cholesterol Direct 118 mg/dL (<100)
== END 2023-08-24 13:29 | disposition home or self-care (01) ==
LOC: HO.XRAY 13:28
PROVIDERS: PCP Internal Medicine; Visit Provider Internal Medicine
DX: Z00.01 Encounter for general adult medical examination with abnormal findings (principal); K21.9 Gastro-esophageal reflux disease without esophagitis; M96.1 Postlaminectomy syndrome, not elsewhere classified; F33.1 Major depressive disorder, recurrent, moderate; J40 Bronchitis, not specified as acute or chronic; Z91.09 Other allergy status, other than to drugs and biological substances
CPT/HCPCS: 36415; 71046; 80053; 82043; 82570; 83036; 83721; 84443; 85025

== ENCOUNTER 2023-08-26 13:54 | Outpatient (AMB) | payer OTHER, SELFPAY ==
[2023-08-26 13:56] VITALS: BP 112/58; PULSE 88; O2SAT 97; BMI 27.9
--- NOTE | 2023-08-26 13:56 | MHC.PC.OV ---
Vital Signs 08/26/23 13:56 Height 5 ft 7 in Weight 178 lb 2 oz BMI 27.9 BP 112/58 L Blood Pressure Location Rt brachial Position Sitting Pulse 88 Pulse Source Pulse Oximeter Pulse Oximetry (%) 97 Oxygen Delivery Method Room Air Intake Visit Reasons: 2 week follow up Allergies ibuprofen [From Motrin] Allergy (Unknown, Verified 08/26/23 13:56) Rash, Stomach upset gadobutrol [From GADAVIST] Adverse Reaction (Mild, Verified 08/26/23 13:56) NAUSEA & VOMITING venlafaxine Adverse Reaction (Unknown, Verified 08/26/23 13:56) halucinations Medication List - Last Reconciled 08/26/23 by Moisés Lewis MD albuterol sulfate 90 mcg/actuation (Proventil HFA) 1 inh inhalation QID PRN 30 days cetirizine 10 mg PO DAILY commode (bedside commode) As directed commode (bedside commode) As directed diclofenac sodium 1% 4 grams topical QID 30 days dulaglutide (Trulicity) 0.75 mg subcut MO@0900 flash glucose scanning reader ([employer] Ria 2 [place]) As directed flash glucose sensor (FreeStyle Ria 2 Sensor kit) As directed change every 14 days fluticasone propionate 50 mcg/actuation (Aller-Benedicto) 1 spray intranasal BID gabapentin 600 mg PO BEDTIME 90 days insulin glargine 52 units subcut BEDTIME insulin lispro 16 units subcut TIDAC lancets (FreeStyle Lancets) 4 times a day omeprazole 20 mg PO DAILY@0630 oxycodone 5 mg PO Q8H PRN oxycodone 5 mg PO Q6H PRN oxycodone-acetaminophen 5-325 mg (Percocet) 1 tab PO Q4-6H PRN pen needle, diabetic (BD Ultra-Fine Brittny Pen Needle) As directed four times a day quetiapine (Seroquel) 50 mg PO BEDTIME 90 days [Rib belt wear rib belt to help reduce pain] walker As directed Tobacco use date assessed: 08/26/23 Dental Screening Dental Screen Date: 08/26/23 Did you have a dental visit in the last 12 months?: No Did you have a dental problem in the last 6 months where you did not have access to dental care?: No Was dental information given to patient?: Patient has dentist HPI 2 week follow up HPI Details Patient is a 48-year-old female who suffers failed back syndrome chronic pain severe major depression Taking gabapentin 600 mg at night and Seroquel 50 mg at night Allergies are stable with cetirizine and Flonase nasal spray Patient is diabetic with uncontrolled sugar currently seeing endocrinology last hemoglobin A1c checked this month came back at 10 GERD is stable with omeprazole 20 mg Intermittent asthma stable with albuterol as needed Follow-up 3 months PFS Medical History Internal derangement of left knee Vitamin D deficiency Asthma Type 2 diabetes mellitus with hyperglycemia, with long-term current use of insulin Hyperlipidemia LDL goal <100 Cervical stenosis of spinal canal Degeneration, intervertebral disc, cervical Spondylosis, cervical Postlaminectomy syndrome, lumbar Dyspepsia Chronic GERD Narcotic dependence Environmental allergies Failed back syndrome Tobacco abuse Insomnia Depression, major, recurrent, moderate Diabetes mellitus, insulin dependent (IDDM), uncontrolled Surgical History History of lumbar surgery Hx of right knee surgery (08/2011) Family History Father Asthma Mother Diabetes HTN (hypertension) Colon cancer Dialysis patient Brother Substance abuse Social History Household Members: None Housing: Apartment Alcohol intake: never Patient Tobacco Use Status: Current everyday Tobacco user e-Cigarette/Vaping Use: Never Used service: No Current occupational status: disabled Current occupation: rt handed Cognitive needs: No Hearing needs: No Vision needs: No Questionnaire Thrive Questionnaire Date Thrive assessed: 12/14/20 AUDIT C Alcohol Use Questionnaire (AUDIT-C) 1. How often do you have a drink containing alcohol?: Never 3. How often do you have six or more drinks on one occasion?: Never Total Score: 0 Score Reviewed/Action Taken: Yes Review of Systems Const Denies chills and Denies fever(s) ENT Denies epistaxis and Denies nasal discharge Card Denies chest pain Resp Denies chest congestion, Denies cough and Denies hemoptysis GI Denies diarrhea and Denies nausea Skin/Breast Denies rash Neuro Reports no additional complaints Psych Reports no additional complaints Endo Reports no additional complaints Physical exam (Primary Care) Vital Signs: Last Vital Signs Pulse 88 08/26/23 13:56 BP 112/58 L 08/26/23 13:56 Pulse Ox 97 08/26/23 13:56 Oxygen Delivery Method Room Air 08/26/23 13:56 BMI result Body Mass Index 27.9 Tobacco/Smoking Status: Tobacco use Status Tobacco use date assessed 08/26/23 08/26/23 14:03 Patient Tobacco Use Status Current everyday Tobacco 08/26/23 14:03 e-Cigarette/Vaping Use Never Used 08/26/23 14:03 Thrive Assessment: Date of Thrive Assessment Date Thrive assessed 12/14/20 08/26/23 14:03 Const General: cooperative, comfortable and no acute distress Orientation/consciousness: patient oriented x3 HENMT Head: Yes normocephalic Eyes General: appearance normal, both eyes and all related structures Neck Neck: Yes supple Resp Effort & Inspection: normal respiratory effort, no cough and no stridor Cardio Rhythm: regular rhythm Heart sounds: S1 normal heart sound present and S2 normal heart sound present Skin General skin exam: turgor normal Neuro General: patient oriented x3, tone normal and moves all extremities Extrem Right lower extremity: no edema Left lower extremity: no edema Assessment and Plan Assessment & Plan (1) Chronic GERD: Code(s): K21.9 - Gastro-esophageal reflux disease without esophagitis (2) Environmental allergies: Code(s): Z91.09 - Other allergy status, other than to drugs and biological substances (3) Failed back syndrome: Code(s): M96.1 - Postlaminectomy syndrome, not elsewhere classified (4) Depression, major, recurrent, moderate: Code(s): F33.1 - Major depressive disorder, recurrent, moderate (5) Diabetes mellitus, insulin dependent (IDDM), uncontrolled: Plan Patient is a 48-year-old female who suffers failed back syndrome chronic pain severe major depression Taking gabapentin 600 mg at night and Seroquel 50 mg at night Allergies are stable with cetirizine and Flonase nasal spray Patient is diabetic with uncontrolled sugar currently seeing endocrinology last hemoglobin A1c checked this month came back at 10 GERD is stable with omeprazole 20 mg Intermittent asthma stable with albuterol as needed Follow-up 3 months Medications: Refilled albuterol sulfate 90 mcg/actuation (Proventil HFA) 1 inh inhalation QID PRN 8.5 grams 2RF shortness of breath or wheezing 30 days J45.909 - Unspecified asthma, uncomplicated, Z91.09 - Other allergy status, other than to drugs and biological substances Discontinued benzonatate Discontinued Reason: Doctor's Order 200 mg PO BID 10 days PRN 20 caps 0RF cough Coding Level of Care Code Est Pt Level 4 (52485) Diagnoses Chronic GERD K21.9 Environmental allergies Z91.09 Failed back syndrome M96.1 Depression, major, recurrent, moderate F33.1 Diabetes mellitus, insulin dependent (IDDM), uncontrolled
== END 2023-08-26 14:17 | disposition home or self-care (01) ==
PROVIDERS: PCP Internal Medicine; Visit Provider Internal Medicine
DX: K21.9 Gastro-esophageal reflux disease without esophagitis (principal); Z91.09 Other allergy status, other than to drugs and biological substances; M96.1 Postlaminectomy syndrome, not elsewhere classified; F33.1 Major depressive disorder, recurrent, moderate
CPT/HCPCS: 99214

== ENCOUNTER 2023-08-31 12:47 | Outpatient (REF) | payer OTHER, SELFPAY ==
--- NOTE | ~2023-08-31 | MM_ITS ---
EXAMINATION: MM SCREENING DIGITAL BREAST TOMOSYNTHESIS, BILATERAL CLINICAL INFORMATION: Screening. Asymptomatic. COMPARISON: Mammography: This study is compared with prior exams dating back to 2019. TECHNIQUE: Digital breast tomosynthesis is performed in both the craniocaudal and mediolateral oblique views along with computer-aided detection (CAD). Synthesized 2D images are generated from the tomosynthesis. FINDINGS: There are scattered areas of fibroglandular density (ACR BI-RADS breast composition Category b). At the upper inner quadrant of the left breast, in the anterior depth, there are grouped calcifications which come close to the surface of the skin. They may in fact be in the skin however, since they're new since the prior mammograms, additional imaging with magnification mammography in a tangent view is advised. There is a tissue marker present in the upper outer quadrant of the left breast from prior benign percutaneous biopsy. In the right breast, there are no significant masses, abnormal calcifications, or other abnormalities. MM/MM tomosynthesis screening BI IMPRESSION: No mammographic evidence of malignancy. ASSESSMENT: BI-RADS BI-RADS 0 - Incomplete: Needs additional Imaging. RECOMMENDATION: Additional views of the left breast. Radiology department staff will contact the patient for additional imaging. Additional Imaging required This examination should not preclude the clinical evaluation of a suspicious palpable abnormality. This patient's information was entered into a reminder system with a target due date for their next mammogram.
== END 2023-08-31 12:48 | disposition home or self-care (01) ==
LOC: HO.MAMMO 12:47
PROVIDERS: PCP Internal Medicine; Visit Provider Internal Medicine
DX: Z12.31 Encounter for screening mammogram for malignant neoplasm of breast (principal)
CPT/HCPCS: 77063; 77067

== ENCOUNTER → 2023-08-31 13:15 | Outpatient (BNV) | payer OTHER, SELFPAY | PROVIDERS: PCP Internal Medicine; Visit Provider Radiology Diagnostic Radiology | DX: Z12.31 Encounter for screening mammogram for malignant neoplasm of breast (principal) | CPT/HCPCS: 77063; 77067 ==

== ENCOUNTER 2023-09-17 15:05 | Outpatient (AMB) | payer OTHER, SELFPAY ==
[2023-09-17 15:07] VITALS: BP 114/76; PULSE 80; BMI 29.2
--- NOTE | 2023-09-17 15:07 | MHC.OFFVIS ---
Intake Vital Signs 09/17/23 15:07 Height 5 ft 7 in Weight 186 lb 8.177 oz BMI 29.2 BP 114/76 Blood Pressure Location Lt brachial Position Sitting Pulse 80 Pulse Source Pulse Oximeter Intake Visit Reasons: f/u Type 2 DM-confirmed Intake Note: Patient presents today to follow up on uncontrolled diabetes. Last Diabetic Eye exam: 07/2022 Last Podiatry Visit: Doesn't have one Random Glucose: 191 mg/dl HgA1c: 10.0% 08/24/23 Dean For Student Affairs Required: Yes Dean For Student Affairs Language: Contour Grinder Name: [facility] Information Interpreted: non-clinical & clinical Accompanied by: Self / Same As Patient Allergies ibuprofen [From Motrin] Allergy (Unknown, Verified 09/17/23 15:12) Rash, Stomach upset gadobutrol [From GADAVIST] Adverse Reaction (Mild, Verified 09/17/23 15:12) NAUSEA & VOMITING venlafaxine Adverse Reaction (Unknown, Verified 09/17/23 15:12) halucinations Medication List - Last Reconciled 09/17/23 by Balta Thomas MD albuterol sulfate 90 mcg/actuation (Proventil HFA) 1 inh inhalation QID PRN 30 days cetirizine 10 mg PO DAILY commode (bedside commode) As directed commode (bedside commode) As directed diclofenac sodium 1% 4 grams topical QID 30 days dulaglutide (Trulicity) 0.75 mg subcut MO@0900 flash glucose scanning reader (FreeStyle Ria 2 [place]) As directed flash glucose sensor (FreeStyle Ria 2 Sensor kit) As directed change every 14 days fluticasone propionate 50 mcg/actuation (Aller-Benedicto) 1 spray intranasal BID gabapentin 600 mg PO BEDTIME 90 days insulin glargine 52 units subcut BEDTIME insulin lispro 16 units subcut TIDAC lancets (FreeStyle Lancets) 4 times a day omeprazole 20 mg PO DAILY@0630 pen needle, diabetic (BD Ultra-Fine Brittny Pen Needle) As directed four times a day quetiapine (Seroquel) 50 mg PO BEDTIME 90 days [Rib belt wear rib belt to help reduce pain] walker As directed HPI HPI Comments History of Present Illness Details Patient is a 48 yo female with DM type 2 diagnosed at 19 years of age, who presents for tele health visit for continued management of diabetes. Past medical history:asthma, HLD. Vit D insufficiency. Micro and macrovascular complications include + moderate non-proliferative retinopathy, + proteinuria Diabetes Medications: Lantus 52 units. Humalog 16 u prior to meals (but should be using correction scale), Trulicity 0.75mg/week not taking Ria download shows she is using the sensor 86% of the time. Average glucose is 246 with G mi of 9.2%. Variability is 29.2%. Glucose in target range 80% of the time with 82% hyperglycemia and no hypoglycemia. Pen shows marked elevation post-breakfast but continued hyperglycemia throughout the day. Trend is downward overnight Hypoglycemic symptoms: none Hyperglycemic symptoms: reports polyuria, nocturia 2-3x/night, + polydypsa Exercise: walks 45 minutes a day on most days but limited due to back pain Eye Exam: 1 yr ago Needs to make appt mild non-proliferative retinopathy without macular edema Laboratory Tests 12/14/20 12/14/20 12/14/20 13:08 13:08 13:08 Creatinine Estimated GFR Hemoglobin A1c % Triglycerides 114 Cholesterol 199 LDL Cholesterol, C alc 117 LDL Cholesterol Di rect HDL Cholesterol 60 25-OH Vitamin D To selam 17.7 Microalb/Creat Rat io TNP 07/24/21 07/24/21 07/24/21 14:22 14:22 14:22 Creatinine 0.90 Estimated GFR > 60 Hemoglobin A1c % 12.0 Triglycerides Cholesterol LDL Cholesterol, C alc LDL Cholesterol Di rect 115 H HDL Cholesterol 25-OH Vitamin D To selam Microalb/Creat Rat io PFSH Medical History Internal derangement of left knee Vitamin D deficiency Asthma Type 2 diabetes mellitus with hyperglycemia, with long-term current use of insulin Hyperlipidemia LDL goal <100 Cervical stenosis of spinal canal Degeneration, intervertebral disc, cervical Spondylosis, cervical Postlaminectomy syndrome, lumbar Dyspepsia Chronic GERD Narcotic dependence Environmental allergies Failed back syndrome Tobacco abuse Insomnia Depression, major, recurrent, moderate Diabetes mellitus, insulin dependent (IDDM), uncontrolled Surgical History History of lumbar surgery Hx of right knee surgery (08/2011) Family History Father Asthma Mother Diabetes HTN (hypertension) Colon cancer Dialysis patient Brother Substance abuse Social History Household Members: None Housing: Apartment Alcohol intake: never Patient Tobacco Use Status: Current everyday Tobacco user e-Cigarette/Vaping Use: Never Used service: No Current occupational status: disabled Current occupation: rt handed Cognitive needs: No Hearing needs: No Vision needs: No Physical Exam Vital Signs: Last Vital Signs Pulse 80 09/17/23 15:07 BP 114/76 09/17/23 15:07 BMI result Body Mass Index 29.2 Absence of Cushingoid features. Absence of acromegalic features. Neck exam reveals nl size thyroid about 15 gms. No thyroid nodules palpable. No carotid bruits present. Lungs CTA. Heart S1 S2, Reg R/R. No M/R/ G. Skin exam reveals absence of vitiligo or acanthosis nigricans. Abdominal exam reveals Soft NT/ND with NA BS. No organomegaly present. Neck Other: . Extrem Other: Visual exam of foot performed. No ulcerations or open lesions. No onchomycosis, no callouses.Pulses 2 + distally Sensation intact to monofilament exam. Vibratory sensation sensed is intact with 128 Hz tuning fork Assessment & Plan Assessment & Plan (1) Uncontrolled diabetes mellitus: Plan: This is a 48-year-old female with a history of type 2 diabetes being treated with Trulicity and basal-bolus insulin with poor glycemic control and known microvascular complications namely retinopathy and proteinuria. Plan is to initate Mounjaro 2.5 mg Qwkly . Patient was warned about side effects of Mounjaro including but not limited to nausea, vomiting rare risk of pancreatitis. She was told to report of the hypoglycemia Will have patient follow-up with e learning designer. This was done with the help with edge sawyer Medications: New tirzepatide (Mounjaro) 2.5 mg (0.5 mL) subcut QWEEK 2 mL 4RF 4 weeks Coding Level of Care Code Est Pt Level 4 (56649) Diagnoses Uncontrolled diabetes mellitus
[2023-09-17 15:21] LABS: Glucose, Whole Blood 191 mg/dL (60-115)
== END 2023-09-17 15:34 | disposition home or self-care (01) ==
PROVIDERS: PCP Internal Medicine; Visit Provider Internal Medicine Endocrinology, Diabetes & Metabolism
DX: E11.9 Type 2 diabetes mellitus without complications (principal)
CPT/HCPCS: 99214

== ENCOUNTER → 2023-09-17 15:05 | Outpatient (BNVA) | payer OTHER, SELFPAY | PROVIDERS: PCP Internal Medicine; Visit Provider Internal Medicine Endocrinology, Diabetes & Metabolism | DX: E11.65 Type 2 diabetes mellitus with hyperglycemia (principal); E11.3399 Type 2 diabetes mellitus with moderate nonproliferative diabetic retinopathy without macular edema, unspecified eye; R80.9 Proteinuria, unspecified | CPT/HCPCS: 82947; 99212 ==

== ENCOUNTER 2023-10-01 13:46 | Outpatient (AMB) | payer OTHER, SELFPAY ==
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
[2023-10-01 13:57] VITALS: BP 111/78; PULSE 81; RESP 16; O2SAT 98; BMI 29.1
== END 2023-10-01 14:25 | disposition home or self-care (01) ==
PROVIDERS: PCP Internal Medicine; Visit Provider Registered Nurse Emergency
DX: G89.29 Other chronic pain (principal); Z87.81 Personal history of (healed) traumatic fracture; M54.16 Radiculopathy, lumbar region; M96.1 Postlaminectomy syndrome, not elsewhere classified
CPT/HCPCS: 99213

== ENCOUNTER → 2023-10-01 13:46 | Outpatient (BNVA) | payer OTHER, SELFPAY | PROVIDERS: PCP Internal Medicine; Visit Provider Registered Nurse Emergency | DX: M96.1 Postlaminectomy syndrome, not elsewhere classified (principal); M54.16 Radiculopathy, lumbar region; G89.29 Other chronic pain; Z87.81 Personal history of (healed) traumatic fracture | CPT/HCPCS: 99212 ==

== ENCOUNTER → 2023-10-05 09:00 | Outpatient (BNVA) | payer OTHER, SELFPAY | PROVIDERS: PCP Internal Medicine; Visit Provider Registered Nurse Diabetes Educator | DX: E11.9 Type 2 diabetes mellitus without complications (principal) | CPT/HCPCS: 99211 ==

== ENCOUNTER 2023-10-13 10:02 | Outpatient (AMB) | payer OTHER, SELFPAY ==
--- NOTE | 2023-10-13 10:28 | A.OFFVIS_ITS ---
Intake Intake Visit Reasons: T2DM Vegetable Harvest Worker Required: Yes Vegetable Harvest Worker Language: Emg Technician Name: [place] [facility] [place] Interpreted: non-clinical & clinical Accompanied by: Self / Same As Patient Allergies ibuprofen [From Motrin] Allergy (Unknown, Verified 10/01/23 13:56) Rash, Stomach upset gadobutrol [From GADAVIST] Adverse Reaction (Mild, Verified 10/01/23 13:56) NAUSEA & VOMITING venlafaxine Adverse Reaction (Unknown, Verified 10/01/23 13:56) halucinations [facility] Comprehensive Diabetes Asmnt Most Recent Diabetes Results: Microalb/Creat Ratio 13.3 ug/mg cr (<30) 08/24/23 Cholesterol 175 mg/dL (<200) 07/23/23 HDL Cholesterol 61 mg/dL (>40) 07/23/23 Triglycerides 125 mg/dL (<150) 07/23/23 Creatinine 0.68 mg/dL (0.5-1.4) 08/24/23 Blood Urea Nitrogen 15 mg/dL (9-16) 08/24/23 Sodium 136 mmol/L (135-145) 08/24/23 Potassium 4.1 mmol/L (3.3-5.1) 08/24/23 Chloride 105 mmol/L (96-108) 08/24/23 Carbon Dioxide 24 mmol/L (22-29) 08/24/23 Calcium 9.4 mg/dL (8.4-10.2) 08/24/23 AST 14 U/L (5-31) 08/24/23 ALT 19 U/L (0-31) 08/24/23 Total Protein 7.2 g/dL (6.5-8.0) 08/24/23 Albumin 4.0 g/dL (3.5-5.0) 08/24/23 [facility] Medical History Internal derangement of left knee Vitamin D deficiency Asthma Type 2 diabetes mellitus with hyperglycemia, with long-term current use of insulin Hyperlipidemia LDL goal <100 Cervical stenosis of spinal canal Degeneration, intervertebral disc, cervical Spondylosis, cervical Postlaminectomy syndrome, lumbar Dyspepsia Chronic GERD Narcotic dependence Environmental allergies Failed back syndrome Tobacco abuse Insomnia Depression, major, recurrent, moderate Diabetes mellitus, insulin dependent (IDDM), uncontrolled Surgical History History of lumbar surgery Hx of right knee surgery (08/2011) Family History Father Asthma Mother Diabetes HTN (hypertension) Colon cancer Dialysis patient Brother Substance abuse Social History Household Members: None Housing: Apartment Alcohol intake: never Patient Tobacco Use Status: Current everyday Tobacco user e-Cigarette/Vaping Use: Never Used service: No Current occupational status: disabled Current occupation: rt handed Cognitive needs: No Hearing needs: No Vision needs: No Assessment & Plan Assessment & Plan (1) Type 2 diabetes mellitus with hyperglycemia, with long-term current use of insulin: Code(s): E11.65 - Type 2 diabetes mellitus with hyperglycemia; Z79.4 - intermediate teacher ( current) use of insulin Plan: Personal Continuous Glucose Monitor: Patients CGM information reviewed Reviewed patient's sensor data: Hypoglycemia: ? 0% Hyperglycemia:? 91% Time in Range:? 8% Average glucose for the last 3 days 290? mg/dL Patient's last A1c on 08/24/2023 10% Patient reports being very frustrated with CGM, complains about multiple alerts. Explained the different alerts from the CGM. Turned high alert, and out of range alert. In an effort to help patient continue with sensor Patient was very agitated throughout visit, reports she does not want to make changes to her meals, has not had the opportunity to start Trulicity 0.75 mg Patient reports she knows how to use the Trulicity pen Recommended to patient she seek help from behavioral health specialist, try to give her phone number for [facility] patient declined Patient also declined to set up another Diabetes Education visit Patient given contact information for clinical staff educator. Instructed if she wishes to set up appointment in the future she is welcome to call Patient requested prescription for glucometer, requested script from Dr. Thomas for meter, strips, and lancets Patient Instructions: Patient will call if she wishes to set up another appointment with Diabetes Education Coding Level of Care Code Est Pt Level 1 (54610) Diagnoses Type 2 diabetes mellitus with hyperglycemia, with long-term current use of insulin E11.65; Z79.4
== END 2023-10-13 10:30 | disposition home or self-care (01) ==
PROVIDERS: PCP Internal Medicine; Visit Provider Registered Nurse Diabetes Educator
DX: E11.65 Type 2 diabetes mellitus with hyperglycemia (principal); Z79.4 Long term (current) use of insulin

== ENCOUNTER 2023-10-13 13:25 | Outpatient (REF) | payer OTHER, SELFPAY ==
--- NOTE | ~2023-10-13 | MM_ITS ---
EXAMINATION: MM DIAGNOSTIC DIGITAL BREAST TOMOSYNTHESIS, LEFT CLINICAL INFORMATION: Added views for grouped calcifications seen anterior left breast, upper slightly inner quadrant. COMPARISON: Mammography: 08/31/2023, 08/23/2021, 05/17/2020. TECHNIQUE: Digital breast tomosynthesis is performed. 2D images are generated from the tomosynthesis. The following views are obtained: 3-D full-field left digital mediolateral view, as well as 2-D spot magnification views in the CC and ML projection. FINDINGS: There are scattered areas of fibroglandular density (ACR BI-RADS breast composition Category b). Additional views demonstrate the presence of somewhat coarse morphology of grouped calcifications, which are not definitively within the skin, and lie within the upper slightly inner quadrant of the anterior left breast. Morphology is largely coarse, with several inferior calcifications demonstrating possible lucent centers on the left ML spot magnification view. These calcifications show no significant pleomorphism, linear or branching forms. They are probably benign/dystrophic. Six-month interval follow-up recommended to include standard magnification views. There are a few oil cysts scattered in the left breast. No suspicious finding. MM/MM tomosynthesis added views L IMPRESSION: No mammographic evidence of malignancy. Calcifications in the anterior left breast, upper inner quadrant have morphology and appearance which is probably benign. Six-month interval follow-up magnification views recommended to ensure stability. ASSESSMENT: BI-RADS BI-RADS 3 - Probably benign finding(s) - 6 month follow-up suggested RECOMMENDATION: 6 Month F/U Results were provided to the patient at time of visit by the technologist. This patient's information was entered into a reminder system with a target due date for their next mammogram.
== END 2023-10-13 13:26 | disposition home or self-care (01) ==
LOC: HO.MAMMO 13:25
PROVIDERS: PCP Internal Medicine; Visit Provider Internal Medicine
DX: R92.1 Mammographic calcification found on diagnostic imaging of breast (principal); E11.65 Type 2 diabetes mellitus with hyperglycemia; Z79.4 Long term (current) use of insulin
CPT/HCPCS: 77061; 77065; 99211

== ENCOUNTER → 2023-10-13 13:30 | Outpatient (BNV) | payer OTHER, SELFPAY | PROVIDERS: PCP Internal Medicine; Visit Provider Radiology Diagnostic Radiology | DX: R92.1 Mammographic calcification found on diagnostic imaging of breast (principal) | CPT/HCPCS: 77061; 77065 ==

== ENCOUNTER 2023-11-01 11:31 | Emergency (ER) | payer OTHER, SELFPAY ==
--- NOTE | ~2023-11-01 | XR_ITS ---
EXAMINATION: XR KNEE, LEFT CLINICAL INFORMATION: Fall, pain COMPARISON: Left knee radiographs 08/17/2023. TECHNIQUE: AP, lateral, and both oblique views of the left knee. FINDINGS: No evidence of acute fracture or malalignment. Redemonstrated mild medial femorotibial compartment joint space narrowing, suboptimally assessed on nonweightbearing views. Joint spaces otherwise unremarkable Generalized osteopenia. Small suprapatellar joint effusion. Basilar calcifications again seen. Soft tissues unremarkable. XR/XR knee LT 4V IMPRESSION: 1. No evidence of acute fracture or malalignment, within limitations of mild osteopenia. 2. Compared to 08/17/2023, new small suprapatellar joint effusion. 3. Mild medial femorotibial compartment osteoarthritis.
[2023-11-01 11:41] VITALS: BP 123/75; PULSE 110; RESP 16; TEMP 36.8; O2SAT 98; BMI 29.0
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
[2023-11-01] MEDS: oxyCODONE HCl Immed Release 5 MG TABLET 10 MG PO (14:09)
--- NOTE | 2023-11-01 14:10 | PC.NURSE ---
pt a&ox3, c/o lt knee pain, pt medicated for pain, awaiting xray results, family at bedside, will continue to monitor
--- NOTE | 2023-11-01 14:11 | PC.NURSE ---
pt requesting a poc as they are diabetic, will obtain.
[2023-11-01 14:28] LABS: Glucose, Whole Blood 257 mg/dL (60-115)
[2023-11-01 15:54] VITALS: BP 121/68; PULSE 100; RESP 16; TEMP 36.7; O2SAT 98
== END 2023-11-01 15:55 | disposition home or self-care (01) ==
PROVIDERS: Emergency Provider Emergency Medicine; PCP Internal Medicine
DX: M17.12 Unilateral primary osteoarthritis, left knee (principal); M25.462 Effusion, left knee; M79.605 Pain in left leg
CPT/HCPCS: 73564; 82947; 99283; 99284

== ENCOUNTER 2023-11-11 14:22 | Outpatient (AMB) | payer OTHER, SELFPAY ==
[2023-11-11 14:24] VITALS: BP 122/72; PULSE 79; O2SAT 97; BMI 29.0
--- NOTE | 2023-11-11 14:24 | MHC.PC.OV ---
Vital Signs 11/11/23 14:24 Height 5 ft 7 in Weight 185 lb 4 oz BMI 29.0 BP 122/72 Blood Pressure Location Lt brachial Position Sitting Pulse 79 Pulse Source Pulse Oximeter Pulse Oximetry (%) 97 Oxygen Delivery Method Room Air Intake Visit Reasons: 11 Week follow up Allergies ibuprofen [From Motrin] Allergy (Unknown, Verified 11/11/23 14:25) Rash, Stomach upset gadobutrol [From GADAVIST] Adverse Reaction (Mild, Verified 11/11/23 14:25) NAUSEA & VOMITING venlafaxine Adverse Reaction (Unknown, Verified 11/11/23 14:25) halucinations Medication List - Last Reconciled 11/11/23 by Moisés Lewis MD acetaminophen (Tylenol) 650 mg (2 x 325 mg) PO Q4H PRN albuterol sulfate 90 mcg/actuation (Proventil HFA) 1 inh inhalation QID PRN 30 days blood sugar diagnostic (FreeStyle Lite Strips) As directed checks 4X/day blood-glucose meter (FreeStyle Lite Meter kit) As directed cetirizine 10 mg PO DAILY commode (bedside commode) As directed commode (bedside commode) As directed cyclobenzaprine 10 mg PO TID PRN diclofenac sodium 1% (Voltaren Arthritis Pain) 4 grams topical QID diclofenac sodium 1% 4 grams topical QID 30 days dulaglutide (Trulicity) 0.75 mg (0.5 mL) subcut MO@0900 flash glucose scanning reader (FreeStyle Ria 2 Concrete) As directed flash glucose sensor (FreeStyle Ria 2 Sensor kit) As directed change every 14 days fluticasone propionate 50 mcg/actuation (Aller-Benedicto) 1 spray intranasal BID gabapentin 600 mg PO BEDTIME 90 days insulin glargine 52 units subcut BEDTIME insulin lispro 16 units subcut TIDAC lancets (FreeStyle Lancets) 4 times a day lancets (FreeStyle Lancets) As directed chacks 4 X/day omeprazole 20 mg PO DAILY@0630 pen needle, diabetic (BD Ultra-Fine Brittny Pen Needle) As directed four times a day quetiapine (Seroquel) 50 mg PO BEDTIME 90 days [Rib belt wear rib belt to help reduce pain] walker As directed Tobacco use date assessed: 11/11/23 Dental Screening Dental Screen Date: 11/11/23 Did you have a dental visit in the last 12 months?: No Did you have a dental problem in the last 6 months where you did not have access to dental care?: No Was dental information given to patient?: Patient has dentist [facility] 11 Week follow up HPI Details Patient is a 48-year-old female failed back syndrome : Patient suffers from chronic back pain she has back surgery Left leg is weak now, a week ago patient got up to go to bathroom and fell because of the weakness in her leg She says that she has been calling pain management and no one is picking up the phone. I have sent message to them so they can book a follow-up appointment for the patient She has now developed swelling of left knee after the fall, she has a Shakeel wrap on, and has appointment coming up with the orthopedic [facility] this coming Thursday for evaluation severe major depression: Patient is on Seroquel which is helping her Taking gabapentin 600 mg for pain management Allergies are stable with cetirizine and Flonase nasal spray Uncontrolled diabetes: Patient is seeing endocrinology [facility] last visit was in September GERD is stable with omeprazole 20 mg Intermittent asthma stable with albuterol as needed Follow-up 3 months [facility] Medical History Internal derangement of left knee Vitamin D deficiency Asthma Type 2 diabetes mellitus with hyperglycemia, with long-term current use of insulin Hyperlipidemia LDL goal <100 Cervical stenosis of spinal canal Degeneration, intervertebral disc, cervical Spondylosis, cervical Postlaminectomy syndrome, lumbar Dyspepsia Chronic GERD Narcotic dependence Environmental allergies Failed back syndrome Tobacco abuse Insomnia Depression, major, recurrent, moderate Diabetes mellitus, insulin dependent (IDDM), uncontrolled Surgical History History of lumbar surgery Hx of right knee surgery (08/2011) Family History Father Asthma Mother Diabetes HTN (hypertension) Colon cancer Dialysis patient Brother Substance abuse Social History Household Members: None Housing: Apartment Alcohol intake: never Patient Tobacco Use Status: Current everyday Tobacco user e-Cigarette/Vaping Use: Never Used service: No Current occupational status: disabled Current occupation: rt handed Cognitive needs: No Hearing needs: No Vision needs: No Questionnaire Thrive Questionnaire Date Thrive assessed: 12/14/20 AUDIT C Alcohol Use Questionnaire (AUDIT-C) 1. How often do you have a drink containing alcohol?: Never 3. How often do you have six or more drinks on one occasion?: Never Total Score: 0 Score Reviewed/Action Taken: Yes Review of Systems Const Denies chills and Denies fever(s) ENT Denies epistaxis and Denies nasal discharge Card Denies chest pain Resp Denies chest congestion, Denies cough and Denies hemoptysis GI Denies diarrhea and Denies nausea Skin/Breast Denies rash Neuro Reports no additional complaints Psych Reports no additional complaints Endo Reports no additional complaints Physical exam (Primary Care) Vital Signs: Last Vital Signs Pulse 79 11/11/23 14:24 BP 122/72 11/11/23 14:24 Pulse Ox 97 11/11/23 14:24 Oxygen Delivery Method Room Air 11/11/23 14:24 BMI result Body Mass Index 29.0 Tobacco/Smoking Status: Tobacco use Status Tobacco use date assessed 11/11/23 11/11/23 14:27 Patient Tobacco Use Status Current everyday Tobacco 11/11/23 14:27 e-Cigarette/Vaping Use Never Used 11/11/23 14:27 Thrive Assessment: Date of Thrive Assessment Date Thrive assessed 12/14/20 11/11/23 14:27 Const General: cooperative, comfortable and no acute distress Orientation/consciousness: patient oriented x3 HENMT Head: Yes normocephalic Eyes General: appearance normal, both eyes and all related structures Neck Neck: Yes supple Resp Effort & Inspection: normal respiratory effort, no cough and no stridor Cardio Rhythm: regular rhythm Heart sounds: S1 normal heart sound present and S2 normal heart sound present Skin General skin exam: turgor normal Neuro General: patient oriented x3, tone normal and moves all extremities Extrem Elbow/forearm/wrist images: 1. Swelling of left knee with limited range of motion Right lower extremity: no edema Left lower extremity: no edema Assessment and Plan Assessment & Plan (1) Failed back syndrome: Code(s): M96.1 - Postlaminectomy syndrome, not elsewhere classified (2) Depression, major, recurrent, moderate: Code(s): F33.1 - Major depressive disorder, recurrent, moderate (3) Injury of knee, left: Code(s): S89.92XA - Unspecified injury of left lower leg, initial encounter Qualifiers: Encounter type: initial encounter Qualified Code(s): S89.92XA - Unspecified injury of left lower leg, initial encounter (4) Chronic GERD: Code(s): K21.9 - Gastro-esophageal reflux disease without esophagitis (5) Environmental allergies: Code(s): Z91.09 - Other allergy status, other than to drugs and biological substances (6) Diabetes mellitus, insulin dependent (IDDM), uncontrolled: (7) Dyspepsia: Code(s): R10.13 - Epigastric pain (8) Gait instability: Code(s): R26.81 - Unsteadiness on feet (9) Cervical radiculitis: Code(s): M54.12 - Radiculopathy, cervical region (10) Lumbar radiculopathy: Code(s): M54.16 - Radiculopathy, lumbar region Plan Patient is a 48-year-old female failed back syndrome : Patient suffers from chronic back pain she has back surgery Left leg is weak now, a week ago patient got up to go to bathroom and fell because of the weakness in her leg She says that she has been calling pain management and no one is picking up the phone. I have sent message to them so they can book a follow-up appointment for the patient She has now developed swelling of left knee after the fall, she has a Shakeel wrap on, and has appointment coming up with the orthopedic [facility] this coming Thursday for evaluation severe major depression: Patient is on Seroquel which is helping her Taking gabapentin 600 mg for pain management Allergies are stable with cetirizine and Flonase nasal spray Uncontrolled diabetes: Patient is seeing endocrinology [facility] last visit was in September GERD is stable with omeprazole 20 mg Intermittent asthma stable with albuterol as needed Follow-up 3 months Medications: Refilled quetiapine (Seroquel) 50 mg PO BEDTIME 90 tabs 0RF 90 days commode (bedside commode) As directed 1 ea 0RF R26.81 - Unsteadiness on feet, S82.402A - Unspecified fracture of shaft of left fibula, initial encounter for closed fracture gabapentin 600 mg PO BEDTIME 90 tabs 0RF 90 days Coding Level of Care Code Est Pt Level 4 (95543) Complex EM visit Add On G2211 Diagnoses Failed back syndrome M96.1 Depression, major, recurrent, moderate F33.1 Injury of left knee, initial encounter S89.92XA Encounter type: initial encounter Chronic GERD K21.9 Environmental allergies Z91.09 Diabetes mellitus, insulin dependent (IDDM), uncontrolled Dyspepsia R10.13 Gait instability R26.81 Cervical radiculitis M54.12 Lumbar radiculopathy M54.16
== END 2023-11-11 14:48 | disposition home or self-care (01) ==
LOC: HO.HMGC 14:22
PROVIDERS: PCP Internal Medicine; Visit Provider Internal Medicine
DX: M96.1 Postlaminectomy syndrome, not elsewhere classified (principal); F33.1 Major depressive disorder, recurrent, moderate; S89.92XA Unspecified injury of left lower leg, initial encounter; K21.9 Gastro-esophageal reflux disease without esophagitis; Z91.09 Other allergy status, other than to drugs and biological substances; R10.13 Epigastric pain; R26.81 Unsteadiness on feet; M54.12 Radiculopathy, cervical region; M54.16 Radiculopathy, lumbar region
CPT/HCPCS: 99214; G2211

== ENCOUNTER 2023-11-17 09:11 | Outpatient (AMB) | payer OTHER, SELFPAY ==
[2023-11-17 09:15] VITALS: BMI 29.0
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
== END 2023-11-17 09:33 | disposition home or self-care (01) ==
PROVIDERS: PCP Internal Medicine; Visit Provider Orthopaedic Surgery
DX: M25.562 Pain in left knee (principal)
CPT/HCPCS: 99213

== ENCOUNTER → 2023-11-17 09:11 | Outpatient (BNVA) | payer OTHER, SELFPAY | PROVIDERS: PCP Internal Medicine; Visit Provider Orthopaedic Surgery | DX: M25.562 Pain in left knee (principal) | CPT/HCPCS: 99212 ==

== ENCOUNTER 2023-11-25 14:01 | Outpatient (AMB) | payer OTHER, SELFPAY ==
[2023-11-25 14:19] VITALS: BP 136/77; PULSE 87; RESP 18; O2SAT 99; BMI 29.0
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
== END 2023-11-25 14:42 | disposition home or self-care (01) ==
PROVIDERS: PCP Internal Medicine; Visit Provider Registered Nurse Emergency
DX: G89.29 Other chronic pain (principal); M54.16 Radiculopathy, lumbar region; M96.1 Postlaminectomy syndrome, not elsewhere classified; M25.562 Pain in left knee; Z87.81 Personal history of (healed) traumatic fracture
CPT/HCPCS: 99213

== ENCOUNTER → 2023-11-25 14:01 | Outpatient (BNVA) | payer OTHER, SELFPAY | PROVIDERS: PCP Internal Medicine; Visit Provider Registered Nurse Emergency | DX: M25.562 Pain in left knee (principal); G89.29 Other chronic pain; M54.16 Radiculopathy, lumbar region; M96.1 Postlaminectomy syndrome, not elsewhere classified; Z87.81 Personal history of (healed) traumatic fracture | CPT/HCPCS: 99212 ==

== ENCOUNTER 2023-12-15 10:01 | Outpatient (AMB) | payer OTHER, SELFPAY ==
[2023-12-15 10:03] VITALS: BP 130/80; PULSE 74; O2SAT 98; BMI 28.7
--- NOTE | 2023-12-15 10:03 | MHC.PC.OV ---
Vital Signs 12/15/23 10:03 Height 5 ft 7 in Weight 183 lb BMI 28.7 BP 130/80 Blood Pressure Location Rt brachial Position Sitting Pulse 74 Pulse Source Pulse Oximeter Pulse Oximetry (%) 98 Oxygen Delivery Method Room Air Intake Visit Reasons: Referral Req~ Allergies ibuprofen [From Motrin] Allergy (Unknown, Verified 11/25/23 14:19) Rash, Stomach upset gadobutrol [From GADAVIST] Adverse Reaction (Mild, Verified 11/25/23 14:19) NAUSEA & VOMITING venlafaxine Adverse Reaction (Unknown, Verified 11/25/23 14:19) halucinations Medication List - Last Reconciled 12/15/23 by Moisés Lewis MD acetaminophen (Tylenol) 650 mg (2 x 325 mg) PO Q4H PRN albuterol sulfate 90 mcg/actuation (Proventil HFA) 1 inh inhalation QID PRN 30 days blood sugar diagnostic (FreeStyle Lite Strips) As directed checks 4X/day blood-glucose meter (FreeStyle Lite Meter kit) As directed cetirizine 10 mg PO DAILY commode (bedside commode) As directed commode (bedside commode) As directed cyclobenzaprine 10 mg PO TID PRN diclofenac sodium 1% (Voltaren Arthritis Pain) 4 grams topical QID diclofenac sodium 1% 4 grams topical QID 30 days dulaglutide (Trulicity) 0.75 mg (0.5 mL) subcut MO@0900 flash glucose scanning reader (FreeStyle Ria 2 Juncos) As directed flash glucose sensor (FreeStyle Ria 2 Sensor kit) As directed change every 14 days fluticasone propionate 50 mcg/actuation (Aller-Benedicto) 1 spray intranasal BID gabapentin 600 mg PO BEDTIME 90 days insulin glargine 52 units subcut BEDTIME insulin lispro 16 units subcut TIDAC lancets (FreeStyle Lancets) 4 times a day lancets (FreeStyle Lancets) As directed chacks 4 X/day omeprazole 20 mg PO DAILY@0630 pen needle, diabetic (BD Ultra-Fine Brittny Pen Needle) As directed four times a day quetiapine (Seroquel) 50 mg PO BEDTIME 90 days [Rib belt wear rib belt to help reduce pain] walker As directed Tobacco use date assessed: 11/11/23 Dental Screening Dental Screen Date: 11/11/23 HPI Referral Req~ HPI Details Patient is a 48-year-old female came in today for regular follow-up appointment for medication refill Labs were done August of this year reviewed again severe major depression: Patient is on Seroquel which is helping her Taking gabapentin 600 mg for pain management, continued to have back pain radiating to left leg Patient says that they have scheduled a procedure for her in the hospital. She will call and follow up on that. Right knee pain after the accident, she is seeing [facility] orthopedic for that Allergies are stable with cetirizine and Flonase nasal spray Uncontrolled diabetes: Patient is seeing endocrinology [facility] last visit was in September GERD is stable with omeprazole 20 mg Intermittent asthma stable with albuterol as needed Follow-up 3 months PFS Medical History Internal derangement of left knee Vitamin D deficiency Asthma Type 2 diabetes mellitus with hyperglycemia, with long-term current use of insulin Hyperlipidemia LDL goal <100 Cervical stenosis of spinal canal Degeneration, intervertebral disc, cervical Spondylosis, cervical Postlaminectomy syndrome, lumbar Dyspepsia Chronic GERD Narcotic dependence Environmental allergies Failed back syndrome Tobacco abuse Insomnia Depression, major, recurrent, moderate Diabetes mellitus, insulin dependent (IDDM), uncontrolled Surgical History History of lumbar surgery Hx of right knee surgery (08/2011) Family History Father Asthma Mother Diabetes HTN (hypertension) Colon cancer Dialysis patient Brother Substance abuse Social History Household Members: None Housing: Apartment Alcohol intake: never Patient Tobacco Use Status: Current everyday Tobacco user e-Cigarette/Vaping Use: Never Used service: No Current occupational status: disabled Current occupation: rt handed Cognitive needs: No Hearing needs: No Vision needs: No Questionnaire Thrive Questionnaire Date Thrive assessed: 12/14/20 Review of Systems Const Denies chills and Denies fever(s) ENT Denies epistaxis and Denies nasal discharge Card Denies chest pain Resp Denies chest congestion, Denies cough and Denies hemoptysis GI Denies diarrhea and Denies nausea Skin/Breast Denies rash Neuro Reports no additional complaints Psych Reports no additional complaints Endo Reports no additional complaints Physical exam (Primary Care) Vital Signs: Last Vital Signs Pulse 74 12/15/23 10:03 BP 130/80 12/15/23 10:03 Pulse Ox 98 12/15/23 10:03 Oxygen Delivery Method Room Air 12/15/23 10:03 BMI result Body Mass Index 28.7 Tobacco/Smoking Status: Tobacco use Status Tobacco use date assessed 11/11/23 12/15/23 10:03 Patient Tobacco Use Status Current everyday Tobacco 12/15/23 10:03 e-Cigarette/Vaping Use Never Used 12/15/23 10:03 Thrive Assessment: Date of Thrive Assessment Date Thrive assessed 12/14/20 12/15/23 10:03 Const General: cooperative, comfortable and no acute distress Orientation/consciousness: patient oriented x3 HENMT Head: Yes normocephalic Eyes General: appearance normal, both eyes and all related structures Neck Neck: Yes supple Resp Effort & Inspection: normal respiratory effort, no cough and no stridor Cardio Rhythm: regular rhythm Heart sounds: S1 normal heart sound present and S2 normal heart sound present Skin General skin exam: turgor normal Neuro Other: Uses walker for ambulation General: patient oriented x3, tone normal and moves all extremities Extrem Right lower extremity: no edema Left lower extremity: no edema Assessment and Plan Assessment & Plan (1) Failed back syndrome: Code(s): M96.1 - Postlaminectomy syndrome, not elsewhere classified (2) Depression, major, recurrent, moderate: Code(s): F33.1 - Major depressive disorder, recurrent, moderate (3) Injury of knee, left: Code(s): S89.92XA - Unspecified injury of left lower leg, initial encounter Qualifiers: Encounter type: initial encounter Qualified Code(s): S89.92XA - Unspecified injury of left lower leg, initial encounter (4) Chronic GERD: Code(s): K21.9 - Gastro-esophageal reflux disease without esophagitis (5) Environmental allergies: Code(s): Z91.09 - Other allergy status, other than to drugs and biological substances (6) Diabetes mellitus, insulin dependent (IDDM), uncontrolled: (7) Dyspepsia: Code(s): R10.13 - Epigastric pain (8) Gait instability: Code(s): R26.81 - Unsteadiness on feet (9) Cervical radiculitis: Code(s): M54.12 - Radiculopathy, cervical region (10) Lumbar radiculopathy: Code(s): M54.16 - Radiculopathy, lumbar region Plan Patient is a 48-year-old female came in today for regular follow-up appointment for medication refill Labs were done August of this year reviewed again severe major depression: Patient is on Seroquel which is helping her Taking gabapentin 600 mg for pain management, continued to have back pain radiating to left leg Patient says that they have scheduled a procedure for her in the hospital. She will call and follow up on that. Right knee pain after the accident, she is seeing [facility] orthopedic for that Allergies are stable with cetirizine and Flonase nasal spray Uncontrolled diabetes: Patient is seeing endocrinology [facility] last visit was in September GERD is stable with omeprazole 20 mg Intermittent asthma stable with albuterol as needed Follow-up 3 months Medications: Refilled cetirizine 10 mg PO DAILY 90 tabs 3RF quetiapine (Seroquel) 50 mg PO BEDTIME 90 days 90 tabs 0RF Coding Level of Care Code Est Pt Level 4 (56404) Complex EM visit Add On G2211 Diagnoses Failed back syndrome M96.1 Depression, major, recurrent, moderate F33.1 Injury of left knee, initial encounter S89.92XA Encounter type: initial encounter Chronic GERD K21.9 Environmental allergies Z91.09 Diabetes mellitus, insulin dependent (IDDM), uncontrolled Dyspepsia R10.13 Gait instability R26.81 Cervical radiculitis M54.12 Lumbar radiculopathy M54.16
== END 2023-12-15 10:24 | disposition home or self-care (01) ==
PROVIDERS: PCP Internal Medicine; Visit Provider Internal Medicine
DX: K21.9 Gastro-esophageal reflux disease without esophagitis (principal); M96.1 Postlaminectomy syndrome, not elsewhere classified; F33.1 Major depressive disorder, recurrent, moderate; S89.92XA Unspecified injury of left lower leg, initial encounter; Z91.09 Other allergy status, other than to drugs and biological substances; R10.13 Epigastric pain; R26.81 Unsteadiness on feet; M54.12 Radiculopathy, cervical region; M54.16 Radiculopathy, lumbar region
CPT/HCPCS: 99214; G2211

== ENCOUNTER 2023-12-29 07:31 | Outpatient (REF) | payer OTHER, SELFPAY | END 2023-12-29 07:32 | disposition home or self-care (01) | LOC: CF 07:31 | PROVIDERS: Visit Provider Anesthesiology | DX: M54.16 Radiculopathy, lumbar region (principal); M96.1 Postlaminectomy syndrome, not elsewhere classified; M25.562 Pain in left knee; G89.29 Other chronic pain; Z87.81 Personal history of (healed) traumatic fracture | CPT/HCPCS: 64447; J2795 ==

== ENCOUNTER 2023-12-29 14:03 | Outpatient (AMB) | payer OTHER, SELFPAY ==
--- NOTE | 2023-12-29 14:05 | MHC.OFFVIS ---
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 Stamping Machine Operator Required: Yes Packing And Stamping Machine Operator Services: Packing And Stamping Machine Operator Present Packing And Stamping Machine Operator Name: Sera Valentin [id number] Allergies ibuprofen [From Motrin] Allergy (Unknown, Verified 12/29/23 14:23) Rash, Stomach upset gadobutrol [From GADAVIST] Adverse Reaction (Mild, Verified 12/29/23 14:23) NAUSEA & VOMITING venlafaxine Adverse Reaction (Unknown, Verified 12/29/23 14:23) halucinations [facility] Medical History Internal derangement of left knee Vitamin D deficiency Asthma Type 2 diabetes mellitus with hyperglycemia, with long-term current use of insulin Hyperlipidemia LDL goal <100 Cervical stenosis of spinal canal Degeneration, intervertebral disc, cervical Spondylosis, cervical Postlaminectomy syndrome, lumbar Dyspepsia Chronic GERD Narcotic dependence Environmental allergies Failed back syndrome Tobacco abuse Insomnia Depression, major, recurrent, moderate Diabetes mellitus, insulin dependent (IDDM), uncontrolled Surgical History History of lumbar surgery Hx of right knee surgery (08/2011) Family History Father Asthma Mother Diabetes HTN (hypertension) Colon cancer Dialysis patient Brother Substance abuse Social History Household Members: None Housing: Apartment Alcohol intake: never Patient Tobacco Use Status: Current everyday Tobacco user e-Cigarette/Vaping Use: Never Used service: No Current occupational status: disabled Current occupation: rt handed Cognitive needs: No Hearing needs: No Vision needs: No Physical Exam Vital Signs: Last Vital Signs Pulse 63 12/29/23 15:04 Resp 16 12/29/23 15:04 BP 132/80 12/29/23 15:04 Pulse Ox 98 12/29/23 15:04 Oxygen Delivery Method Room Air 12/29/23 15:04 BMI result Body Mass Index 28.7 Assessment & Plan Assessment & Plan (1) Chronic pain: Code(s): G89.29 - Other chronic pain Category: Medical (2) History of fibula fracture: Code(s): Z87.81 - Personal history of (healed) traumatic fracture Category: Medical (3) Lumbar radiculopathy: Code(s): M54.16 - Radiculopathy, lumbar region Category: Medical (4) Postlaminectomy syndrome, lumbar: Code(s): M96.1 - Postlaminectomy syndrome, not elsewhere classified Category: Medical (5) Left knee pain: Code(s): M25.562 - Pain in left knee Category: Medical Plan: Diagnostic left femoral nerve block. Aguilar is very pleasant 48 years old female who is suffering among other things from pain in the left knee. For the treatment of this condition patient was recommended to have diagnostic femoral nerve block in the order to explore possibilities of neuromodulation for this patient. She came today to the injection area to receive this procedure. The patient was positioned in bed and area of the left groin was exposed. It was prepped with ChloraPrep and draped with sterile self adhesive utility towels. Sterile drapes ultrasound probe was brought over the operating field and image of the femoral artery femoral vein and femoral nerve were demonstrated on the screen. 100 mm echo stim needle was inserted outside of the probe extra anatomically and advanced to the femoral nerve under direct vision. When tip of the needle was positioned in vicinity of the femoral nerve injection of the normal saline 1 cc was performed demonstrating the spread of the contrast in vicinity of the perineural tissues. After that 6 cc of ropivacaine 0.5% was injected in the nerve vicinity after aspiration. Aspiration was negative for blood. The patient tolerated procedure well. The needle was withdrawn sterile Band-Aid was applied. Patient was explained consequences of femoral nerve block including weakness of the left upper extremity for knee extension and hip flexion. Patient expressed understanding. Plan Aguilar presents back to the office today for follow up left knee pain She was recently evaluated by Orthopedics, pending MRI to rule out meniscal tear Discuss options for treatment which are limited given patient's recent A1c 10.0, admitted illicit opioid use, pending MRI and failed previous attempt at saphenous nerve block. Patient would like to repeat the nerve block in hopes of having sprint PNS device. She was advised that this is done under local anesthetic as previously attempted. We will offer 1 more attempt but if she abort the procedure then this will no longer be an option for moving forward. The procedure was explained to her in great detail, including pre during and post expectations. This will be done with local anesthetic only, she will feel some pressure and potential discomfort during the procedure. Patient verbalizes understanding and would like to proceed. Will schedule for diagnostic left femoral nerve block with ultrasound/fluoroscopy guidance with local anesthetic. Plan for left femoral sprint PNS if patient reports good results with diagnostic injection. All questions and concerns have been answered and patient agrees with the plan. Follow up after injection, sooner if needed Orders: Orders FL guidance in treatment room 12/29/23 M25.562 - Pain in left knee Coding Level of Care Code Procedure Only Diagnoses Chronic pain G89.29 History of fibula fracture Z87.81 Lumbar radiculopathy M54.16 Postlaminectomy syndrome, lumbar M96.1 Left knee pain M25.562
[2023-12-29 14:22] VITALS: BP 120/87; PULSE 94; RESP 16; O2SAT 94; BMI 28.7
[2023-12-29 15:04] VITALS: BP 132/80; PULSE 63; RESP 16; O2SAT 98; BMI 28.7
== END 2023-12-29 14:51 | disposition home or self-care (01) ==
LOC: HO.PMCPRC 14:03
PROVIDERS: PCP Internal Medicine; Visit Provider Anesthesiology
DX: M25.562 Pain in left knee (principal); G89.29 Other chronic pain; Z87.81 Personal history of (healed) traumatic fracture; M54.16 Radiculopathy, lumbar region; M96.1 Postlaminectomy syndrome, not elsewhere classified
CPT/HCPCS: 64447

== ENCOUNTER 2024-03-25 10:45 | Outpatient (AMB) | payer OTHER, SELFPAY ==
[2024-03-25 11:04] VITALS: BP 98/64; PULSE 80; BMI 28.9
--- NOTE | 2024-03-25 11:04 | A.OFFVIS_ITS ---
Vital Signs 03/25/24 11:04 Height 5 ft 7 in Weight 184 lb 8.43 oz BMI 28.9 BP 98/64 Blood Pressure Location Lt brachial Position Sitting Pulse 80 Pulse Source Pulse Oximeter Intake Visit Reasons: T2DM/LVM Intake Note: Patient presents today for D2MT follow up visit. Last Diabetic Eye exam: 2022 Last Podiatry Visit:Doesn't have one Random Glucose: 386 mg/dl HgA1c: 11.5% Decoration Checker Required: Yes Decoration Checker Language: Land Degradation Analyst Services: Decoration Checker Present Information Interpreted: non-clinical & clinical Accompanied by: Self / Same As Patient Allergies ibuprofen [From Motrin] Allergy (Unknown, Verified 03/25/24 11:10) Rash, Stomach upset gadobutrol [From GADAVIST] Adverse Reaction (Mild, Verified 03/25/24 11:10) NAUSEA & VOMITING venlafaxine Adverse Reaction (Unknown, Verified 03/25/24 11:10) halucinations Medication List - Last Reconciled 03/25/24 by Josy Ahn PA-C acetaminophen (Tylenol) 650 mg (2 x 325 mg) PO Q4H PRN albuterol sulfate 90 mcg/actuation (Proventil HFA) 1 inh inhalation QID PRN 30 days blood sugar diagnostic (FreeStyle Lite Strips) As directed checks 3X/day blood-glucose meter (FreeStyle Lite Meter kit) As directed cetirizine 10 mg PO DAILY commode (bedside commode) As directed commode (bedside commode) As directed cyclobenzaprine 10 mg PO TID PRN diclofenac sodium 1% (Voltaren Arthritis Pain) 4 grams topical QID diclofenac sodium 1% 4 grams topical QID 30 days flash glucose scanning reader (FreeStyle Ria 2 Lopez) As directed flash glucose sensor (FreeStyle Ria 2 Sensor kit) As directed change every 14 days fluticasone propionate 50 mcg/actuation (Aller-Benedicto) 1 spray intranasal BID gabapentin 600 mg PO BEDTIME 90 days insulin lispro 16 units subcut TIDAC lancets (FreeStyle Lancets) 4 times a day lancets (FreeStyle Lancets) As directed chacks 4 X/day omeprazole 20 mg PO DAILY@0630 pen needle, diabetic (BD Ultra-Fine Brittny Pen Needle) As directed four times a day quetiapine (Seroquel) 50 mg PO BEDTIME 90 days [Rib belt wear rib belt to help reduce pain] walker As directed HPI HPI T2DM/LVM: Details: Patient is a 49-year-old female with a significant past medical history of hyperlipidemia, uncontrolled type 2 diabetes, GERD, anxiety, depression, history of narcotic dependence presenting today for follow up regarding her diabetes. Decoration Checker [place] [id number] Endo: She last saw Dr. Thomas in September. She was dx age the age of 19. Her last A1c was 10. Her A1c today is 11.5. She is currently on lispro 16 units t.i.d., Lantus 52 units nightly, and Trulicity 0.75 mg weekly. Trulicity is ineffective and causing nausea. She stopped it because it was just causing her upset stomach and she did not feel like was doing anything for her blood sugars. Is she is very upset today because she does not feel like the Lantus as anything for her blood sugars. She says that she will give herself the 52 units at night and then in the morning the sugars are still elevated around 200 and by mid afternoon even if she does not eat anything her blood sugars are between 2 and 300. She does feel that the lispro is slightly effective and she says that she is compliant with it. CGM-not currently using this because the freestyle Ria 2 fell off all of the time. She states that it was very frustrating to have to re apply it. She states that the sensor did nothing for her. Her mother has a history of diabetes in his insulin dependent but she does not know if it is type 1 or type 2. She is not believe she has had testing. She states that she has had some diabetic Education but does not feel like she has that knowledgeable about her diabetes. [facility] Medical History Internal derangement of left knee Vitamin D deficiency Asthma Type 2 diabetes mellitus with hyperglycemia, with long-term current use of insulin Hyperlipidemia LDL goal <100 Cervical stenosis of spinal canal Degeneration, intervertebral disc, cervical Spondylosis, cervical Postlaminectomy syndrome, lumbar Dyspepsia Chronic GERD Narcotic dependence Environmental allergies Failed back syndrome Tobacco abuse Insomnia Depression, major, recurrent, moderate Diabetes mellitus, insulin dependent (IDDM), uncontrolled Surgical History History of lumbar surgery Hx of right knee surgery (08/2011) Family History Father Asthma Mother Diabetes HTN (hypertension) Colon cancer Dialysis patient Brother Substance abuse Social History Household Members: None Housing: Apartment Alcohol intake: never Patient Tobacco Use Status: Current everyday Tobacco user e-Cigarette/Vaping Use: Never Used service: No Current occupational status: disabled Current occupation: rt handed Cognitive needs: No Hearing needs: No Vision needs: No Physical Exam Vital Signs: Last Vital Signs Pulse 80 03/25/24 11:04 BP 98/64 03/25/24 11:04 BMI result Body Mass Index 28.9 Const Orientation/consciousness: patient oriented x3 Neck Neck: Yes no lymphadenopathy Thyroid: Thyroid normal Carotids: no bruits Resp Auscultation: clear to auscultation bilaterally Cardio Rate: regular rate Rhythm: regular rhythm Heart sounds: S1 normal heart sound present and S2 normal heart sound present Peripheral pulses: dorsalis pedis present Neuro General: patient oriented x3, gait normal and no focal motor deficits Extrem Other: Monofilament sensation intact bilaterally. Vibratory sensation intact bilaterally. Skin intact. General: Yes normal to inspection Results AMB Hemoglobin A1c AMB Hemoglobin A1c 11.5 % Last Edit by ANTHONY Bundy on 03/25/24 11:23 Results Reviewed Results Reviewed: Laboratory Last Values Glucose (Clinic) 386 mg/dL (60-115) H* 03/25/24 11:13 Laboratory Tests 07/23/23 08/24/23 08/24/23 09:11 13:38 13:45 Sodium 136 Potassium 4.1 Chloride 105 Carbon Dioxide 24 Anion Gap 11 L BUN 15 Creatinine 0.68 Estimated GFR > 60 Glucose (Clinic) POC Glucose Hemoglobin A1c % 10.0 H Cholesterol 175 LDL Cholesterol, Calc 89 Urine Creatinine 52.30 Urine Microalbumin 7.0 Microalb/Creat Ratio 13.3 09/17/23 11/01/23 15:17 14:23 Sodium Potassium Chloride Carbon Dioxide Anion Gap BUN Creatinine Estimated GFR Glucose (Clinic) 191 H POC Glucose 257 H Hemoglobin A1c % Cholesterol LDL Cholesterol, Calc Urine Creatinine Urine Microalbumin Microalb/Creat Ratio Assessment & Plan Assessment & Plan (1) Type 2 diabetes mellitus with hyperglycemia, with long-term current use of insulin: Code(s): E11.65 - Type 2 diabetes mellitus with hyperglycemia; Z79.4 - halfway (current) use of insulin Category: Medical Plan: More than 75 minutes was spent in [id number] time today discussing the pathophysiology, the difference between type 1 and type 2 diabetes, complications associated with uncontrolled diabetes such as blindness, amputations, increased risk of infections, strokes, heart attacks, kidney disease etc.. We reviewed signs and symptoms of hyper and hypoglycemia that would require emergent medical treatment. She understands how to treat low blood sugars but we did review it again. Glucose tabs ordered. Given that the Lantus appears to wear off prior to 24 hours I will switch her to Tresiba. We will do Tresiba U200 55 units. I will increase her Humalog to 20 units 3 times a day with meals. I will start her on Ozempic given her intolerance to Trulicity. We discussed risks and benefits and adverse effects such as nausea, vomiting, increased risk of pancreatitis. I will have her follow up in 2 weeks to be reassessed. Sooner if needed. I did order a freestyle Ria 3 for her to try. She states that she is familiar with how to apply this. She will bring it to our appointment if she has any difficulty with this. Labs ordered. Advised to complete prior to her appointment. Orders: Orders Glutamic acid decarboxylase Ab Today E11.65 - Type 2 diabetes mellitus with hyperglycemia, Z79.4 - halfway (current) use of insulin Islet Cell Antibody Scrn/Titer Today E11.65 - Type 2 diabetes mellitus with hyperglycemia, Z79.4 - superintendent container terminal (current) use of insulin Basic Metabolic Panel Today E11.65 - Type 2 diabetes mellitus with hyperglycemia, Z79.4 - superintendent container terminal (current) use of insulin Microalbumin, Random (w Creat) Today E11.65 - Type 2 diabetes mellitus with hyperglycemia, Z79.4 - halfway (current) use of insulin AMB Hemoglobin A1c Today E11.65 - Type 2 diabetes mellitus with hyperglycemia, Z13.9 - Encounter for screening, unspecified, Z79.4 - halfway (current) use of insulin C Peptide Today E11.65 - Type 2 diabetes mellitus with hyperglycemia, Z79.4 - superintendent container terminal (current) use of insulin B Type Natriuretic Peptide Today E11.65 - Type 2 diabetes mellitus with hyperglycemia, Z79.4 - superintendent container terminal (current) use of insulin Medications: New insulin degludec (Tresiba FlexTouch U-200 insulin) 55 units (0.275 mL) subcut BEDTIME 9 mL 3RF semaglutide (Ozempic) 0.25 mg (0.368 mL) subcut QWEEK 3 mL 3RF insulin lispro 20 units (0.2 mL) subcut TIDAC 15 mL 3RF lancets (FreeStyle Lancets) use daily as directed to check blood glucose 100 ea 3RF blood-glucose sensor (FreeStyle Ria 3 Sensor device) Apply every 14 days As directed to monitor blood glucose 2 ea 11RF E11.9 - Type 2 diabetes mellitus without complications, Z79.4 - halfway (current) use of insulin glucose (Dex4 Glucose) until symptoms of low blood sugar are controlled 16 grams (4 x 4 gram) PO Q15M PRN 100 tabs 0RF hypoglycemia pen needle, diabetic (BD Ultra-Fine Micro Pen Needle) use daily As directed 100 ea 3RF Refilled blood-glucose meter (FreeStyle Lite Meter kit) As directed 1 ea 0RF blood sugar diagnostic (FreeStyle Lite Strips) As directed checks 3X/day 100 ea 4RF Discontinued lancets (FreeStyle Lancets) Discontinued Reason: Doctor's Order 4 times a day 100 ea 11RF E11.65 - Type 2 diabetes mellitus with hyperglycemia flash glucose sensor (FreeStyle Ria 2 Sensor kit) Discontinued Reason: Doctor's Order As directed change every 14 days 2 ea 5RF flash glucose scanning reader (FreeStyle Ria 2 Lopez) Discontinued Reason: Doctor's Order As directed 1 ea 0RF pen needle, diabetic (BD Ultra-Fine Brittny Pen Needle) Discontinued Reason: Doctor's Order As directed four times a day 125 ea 6RF E11.65 - Type 2 diabetes mellitus with hyperglycemia, Z79.4 - superintendent container terminal (current) use of insulin lancets (FreeStyle Lancets) Discontinued Reason: Doctor's Order As directed chacks 4 X/day 100 ea 4RF Patient Instructions: blood work before I see you Increase lispro 20 units three times a day with out switch from lantus to tresiba 55 units daily start ozempic ordered glucose Coding Level of Care Code Est Pt Level 5 (72510) Diagnoses Type 2 diabetes mellitus with hyperglycemia, with long-term current use of insulin E11.65; Z79.4
[2024-03-25 11:17] LABS: Glucose, Whole Blood 386 mg/dL (60-115)
== END 2024-03-25 12:03 | disposition home or self-care (01) ==
PROVIDERS: PCP Internal Medicine; Visit Provider Physician Assistant
DX: Z13.9 Encounter for screening, unspecified (principal); E11.65 Type 2 diabetes mellitus with hyperglycemia; Z79.4 Long term (current) use of insulin

== ENCOUNTER → 2024-03-25 10:45 | Outpatient (BNVA) | payer OTHER, SELFPAY | PROVIDERS: PCP Internal Medicine; Visit Provider Physician Assistant | DX: E11.65 Type 2 diabetes mellitus with hyperglycemia (principal); Z79.4 Long term (current) use of insulin | CPT/HCPCS: 82947; 83036; 99212 ==

== ENCOUNTER 2024-04-21 11:53 | Outpatient (REF) | payer OTHER, SELFPAY ==
--- NOTE | ~2024-04-21 | MM_ITS ---
EXAMINATION: MM DIAGNOSTIC DIGITAL MAMMOGRAPHY, LEFT CLINICAL INFORMATION: 6 month follow-up grouped calcifications in the left breast. COMPARISON: Mammography: Comparison is made with prior available examinations. TECHNIQUE: Digital mammography is performed in craniocaudal and mediolateral oblique views along with computer-aided detection (CAD). FINDINGS: There are scattered areas of fibroglandular density (ACR BI-RADS breast composition Category b). Grouped coarse calcifications in the upper inner left breast are not significant change from prior magnification views. No suspicious masses or other abnormal findings. Results are provided to the patient at time of visit by the technologist. MM/MM diagnostic mammo unilat LT IMPRESSION: Grouped coarse calcifications upper inner left breast not significantly changed from prior magnification views. Recommend 6 month follow-up with medication views to demonstrate 1 year stability when the patient is due for bilateral mammography. ASSESSMENT: BI-RADS BI-RADS 3 - Probably benign finding(s) - 6 month follow-up suggested RECOMMENDATION: 6 Month F/U This patient's information was entered into a reminder system with a target due date for their next mammogram. Electronically signed by: Lyudmila Jenkins DO 04/21/2024 01:02 PM LIAENT ADAM
== END 2024-04-21 11:54 | disposition home or self-care (01) ==
LOC: HO.MAMMO 11:53
PROVIDERS: PCP Internal Medicine; Visit Provider Internal Medicine
DX: R92.1 Mammographic calcification found on diagnostic imaging of breast (principal)
CPT/HCPCS: 77062; 77065

== ENCOUNTER → 2024-04-21 12:30 | Outpatient (BNV) | payer OTHER, SELFPAY | PROVIDERS: PCP Internal Medicine; Visit Provider Internal Medicine | DX: R92.1 Mammographic calcification found on diagnostic imaging of breast (principal) | CPT/HCPCS: 77065 ==

== ENCOUNTER 2024-04-22 11:44 | Outpatient (AMB) | payer OTHER, SELFPAY ==
[2024-04-22 11:47] VITALS: BP 112/66; PULSE 82; O2SAT 97; BMI 29.4
--- NOTE | 2024-04-22 11:47 | MHC.PC.OV ---
Vital Signs 04/22/24 11:47 Height 5 ft 7 in Weight 187 lb 8 oz BMI 29.4 BP 112/66 Blood Pressure Location Rt brachial Position Sitting Pulse 82 Pulse Source Pulse Oximeter Pulse Oximetry (%) 97 Oxygen Delivery Method Room Air Intake Visit Reasons: Should - Pain Allergies ibuprofen [From Motrin] Allergy (Unknown, Verified 03/25/24 11:10) Rash, Stomach upset gadobutrol [From GADAVIST] Adverse Reaction (Mild, Verified 03/25/24 11:10) NAUSEA & VOMITING venlafaxine Adverse Reaction (Unknown, Verified 03/25/24 11:10) halucinations Medication List - Last Reconciled 04/22/24 by Moisés Lewis MD acetaminophen (Tylenol) 650 mg (2 x 325 mg) PO Q4H PRN albuterol sulfate 90 mcg/actuation (Proventil HFA) 1 inh inhalation QID PRN 30 days blood sugar diagnostic (FreeStyle Lite Strips) As directed checks 3X/day blood-glucose meter (FreeStyle Lite Meter kit) As directed blood-glucose meter,continuous (FreeStyle Ria 3 [place]) Use daily As directed to monitor blood glucose blood-glucose sensor (SQLstreamStyle Ria 3 Sensor device) Apply every 14 days As directed to monitor blood glucose cetirizine 10 mg PO DAILY commode (bedside commode) As directed commode (bedside commode) As directed cyclobenzaprine 10 mg PO TID PRN diclofenac sodium 1% (Voltaren Arthritis Pain) 4 grams topical QID diclofenac sodium 1% 4 grams topical QID 30 days fluticasone propionate 50 mcg/actuation (Aller-Benedicto) 1 spray intranasal BID gabapentin 600 mg PO BEDTIME 90 days glucose (Dex4 Glucose) 16 grams (4 x 4 gram) PO Q15M PRN insulin degludec (Tresiba FlexTouch U-200 insulin) 55 units (0.275 mL) subcut BEDTIME insulin lispro 20 units (0.2 mL) subcut TIDAC lancets (FreeStyle Lancets) use daily as directed to check blood glucose omeprazole 20 mg PO DAILY@0630 pen needle, diabetic (BD Ultra-Fine Micro Pen Needle) use daily As directed quetiapine (Seroquel) 50 mg PO BEDTIME 90 days [Rib belt wear rib belt to help reduce pain] semaglutide (Ozempic) 0.25 mg (0.368 mL) subcut QWEEK walker As directed Tobacco use date assessed: 04/22/24 Dental Screening Dental Screen Date: 04/22/24 Did you have a dental visit in the last 12 months?: Yes Did you have a dental problem in the last 6 months where you did not have access to dental care?: No Was dental information given to patient?: No HPI Should - Pain HPI Details Patient is a 49 year-old female came in today for regular follow-up appointment for medication refill Due for lab Having pain left shoulder, unable to lift above head which has been happening for the past few weeks Patient is requesting a referral to orthopedic severe major depression: Patient is on Seroquel which is helping her Taking gabapentin 600 mg for pain management, continued to have back pain radiating to left leg Allergies are stable with cetirizine and Flonase nasal spray Uncontrolled diabetes: Patient is seeing endocrinology [facility] She is not controlling her diet she admits GERD is stable with omeprazole 20 mg Intermittent asthma need a refill on albuterol inhaler which I have sent Patient has appointment in August for physical examination she will return then COUNT INCLUDES THE [facility] Medical History Internal derangement of left knee Vitamin D deficiency Asthma Type 2 diabetes mellitus with hyperglycemia, with long-term current use of insulin Hyperlipidemia LDL goal <100 Cervical stenosis of spinal canal Degeneration, intervertebral disc, cervical Spondylosis, cervical Postlaminectomy syndrome, lumbar Dyspepsia Chronic GERD Narcotic dependence Environmental allergies Failed back syndrome Tobacco abuse Insomnia Depression, major, recurrent, moderate Diabetes mellitus, insulin dependent (IDDM), uncontrolled Surgical History History of lumbar surgery Hx of right knee surgery (08/2011) Family History Father Asthma Mother Diabetes HTN (hypertension) Colon cancer Dialysis patient Brother Substance abuse Social History Household Members: None Housing: Apartment Alcohol intake: never Patient Tobacco Use Status: Current everyday Tobacco user e-Cigarette/Vaping Use: Never Used service: No Current occupational status: disabled Current occupation: rt handed Cognitive needs: No Hearing needs: No Vision needs: No Questionnaire Thrive Questionnaire Date Thrive assessed: 12/14/20 Review of Systems Const Denies chills and Denies fever(s) ENT Denies epistaxis and Denies nasal discharge Card Denies chest pain Resp Denies hemoptysis GI Denies diarrhea and Denies nausea Skin/Breast Denies rash Neuro Reports no additional complaints Psych Reports no additional complaints Endo Reports no additional complaints Physical exam (Primary Care) Vital Signs: Last Vital Signs Pulse 82 04/22/24 11:47 BP 112/66 04/22/24 11:47 Pulse Ox 97 04/22/24 11:47 Oxygen Delivery Method Room Air 04/22/24 11:47 BMI result Body Mass Index 29.4 Tobacco/Smoking Status: Tobacco use Status Tobacco use date assessed 04/22/24 04/22/24 11:49 Patient Tobacco Use Status Current everyday Tobacco 04/22/24 11:49 e-Cigarette/Vaping Use Never Used 04/22/24 11:49 Thrive Assessment: Date of Thrive Assessment Date Thrive assessed 12/14/20 04/22/24 11:49 Const General: cooperative, comfortable and no acute distress Orientation/consciousness: patient oriented x3 HENMT Head: Yes normocephalic Eyes General: appearance normal, both eyes and all related structures Neck Neck: Yes supple Resp Effort & Inspection: normal respiratory effort, no cough and no stridor Cardio Rhythm: regular rhythm Heart sounds: S1 normal heart sound present and S2 normal heart sound present Skin General skin exam: turgor normal Neuro Other: Uses walker for ambulation General: patient oriented x3, tone normal and moves all extremities Extrem Right lower extremity: no edema Left lower extremity: no edema Coding Level of Care Code Est Pt Level 4 (49028) Complex EM visit Add On G2211 Diagnoses Diabetes mellitus, insulin dependent (IDDM), uncontrolled Chronic left shoulder pain M25.512; G89.29 Chronicity: chronic Depression, major, recurrent, moderate F33.1 Failed back syndrome M96.1 Environmental allergies Z91.09 Chronic GERD K21.9 Anxiety, generalized F41.1 Lipid disorder E78.9 Assessment & Plan Assessment & Plan (1) Diabetes mellitus, insulin dependent (IDDM), uncontrolled: Category: Medical (2) Left shoulder pain: Code(s): M25.512 - Pain in left shoulder Category: Medical Qualifiers: Chronicity: chronic Qualified Code(s): M25.512 - Pain in left shoulder; G89.29 - Other chronic pain (3) Depression, major, recurrent, moderate: Code(s): F33.1 - Major depressive disorder, recurrent, moderate Category: Medical (4) Failed back syndrome: Code(s): M96.1 - Postlaminectomy syndrome, not elsewhere classified Category: Medical (5) Environmental allergies: Code(s): Z91.09 - Other allergy status, other than to drugs and biological substances Category: Medical (6) Chronic GERD: Code(s): K21.9 - Gastro-esophageal reflux disease without esophagitis Category: Medical (7) Anxiety, generalized: Code(s): F41.1 - Generalized anxiety disorder Category: Medical (8) Lipid disorder: Code(s): E78.9 - Disorder of lipoprotein metabolism, unspecified Category: Medical Plan Patient is a 49 year-old female came in today for regular follow-up appointment for medication refill Due for lab Having pain left shoulder, unable to lift above head which has been happening for the past few weeks Patient is requesting a referral to orthopedic severe major depression: Patient is on Seroquel which is helping her Taking gabapentin 600 mg for pain management, continued to have back pain radiating to left leg Allergies are stable with cetirizine and Flonase nasal spray Uncontrolled diabetes: Patient is seeing endocrinology [facility] She is not controlling her diet she admits GERD is stable with omeprazole 20 mg Intermittent asthma need a refill on albuterol inhaler which I have sent Patient has appointment in August for physical examination she will return then Orders: Orders Comprehensive Met. Panel Today E66.09 - Other obesity due to excess calories, E78.9 - Disorder of lipoprotein metabolism, unspecified, F33.1 - Major depressive disorder, recurrent, moderate, F41.1 - Generalized anxiety disorder, G89.29 - Other chronic pain, K21.9 - Gastro-esophageal reflux disease without esophagitis, M96.1 - Postlaminectomy syndrome, not elsewhere classified, Z91.09 - Other allergy status, other than to drugs and biological substances TSH reflex Free T4 Today E66.09 - Other obesity due to excess calories, E78.9 - Disorder of lipoprotein metabolism, unspecified, F33.1 - Major depressive disorder, recurrent, moderate, F41.1 - Generalized anxiety disorder, G89.29 - Other chronic pain, K21.9 - Gastro-esophageal reflux disease without esophagitis, M96.1 - Postlaminectomy syndrome, not elsewhere classified, Z91.09 - Other allergy status, other than to drugs and biological substances Hemoglobin A1c Today E66.09 - Other obesity due to excess calories, E78.9 - Disorder of lipoprotein metabolism, unspecified, F33.1 - Major depressive disorder, recurrent, moderate, F41.1 - Generalized anxiety disorder, G89.29 - Other chronic pain, K21.9 - Gastro-esophageal reflux disease without esophagitis, M96.1 - Postlaminectomy syndrome, not elsewhere classified, Z91.09 - Other allergy status, other than to drugs and biological substances Complete Blood Count Auto Diff Today E66.09 - Other obesity due to excess calories, E78.9 - Disorder of lipoprotein metabolism, unspecified, F33.1 - Major depressive disorder, recurrent, moderate, F41.1 - Generalized anxiety disorder, G89.29 - Other chronic pain, K21.9 - Gastro-esophageal reflux disease without esophagitis, M96.1 - Postlaminectomy syndrome, not elsewhere classified, Z91.09 - Other allergy status, other than to drugs and biological substances LDL Cholesterol Direct Today E66.09 - Other obesity due to excess calories, E78.9 - Disorder of lipoprotein metabolism, unspecified, F33.1 - Major depressive disorder, recurrent, moderate, F41.1 - Generalized anxiety disorder, G89.29 - Other chronic pain, K21.9 - Gastro-esophageal reflux disease without esophagitis, M96.1 - Postlaminectomy syndrome, not elsewhere classified, Z91.09 - Other allergy status, other than to drugs and biological substances Referrals Orthopedics Referral M25.512 - Pain in left shoulder Medications: New albuterol sulfate 90 mcg/actuation (Ventolin HFA) 1 inh inhalation QID PRN 8.5 grams 0RF shortness of breath or wheezing Refilled fluticasone propionate 50 mcg/actuation (Aller-Benedicto) administer into each nostril 1 spray intranasal BID 16 grams 5RF omeprazole 20 mg PO DAILY@0630 90 caps 1RF albuterol sulfate 90 mcg/actuation (Proventil HFA) 1 inh inhalation QID PRN 8.5 grams 2RF shortness of breath or wheezing 30 days J45.909 - Unspecified asthma, uncomplicated, Z91.09 - Other allergy status, other than to drugs and biological substances gabapentin 600 mg PO BEDTIME 90 tabs 1RF 90 days quetiapine (Seroquel) 50 mg PO BEDTIME 90 tabs 1RF 90 days
== END 2024-04-22 12:33 | disposition home or self-care (01) ==
PROVIDERS: PCP Internal Medicine; Visit Provider Internal Medicine
DX: M25.512 Pain in left shoulder (principal); G89.29 Other chronic pain; F33.1 Major depressive disorder, recurrent, moderate; M96.1 Postlaminectomy syndrome, not elsewhere classified; Z91.09 Other allergy status, other than to drugs and biological substances; K21.9 Gastro-esophageal reflux disease without esophagitis; F41.1 Generalized anxiety disorder; E78.9 Disorder of lipoprotein metabolism, unspecified

== ENCOUNTER → 2024-04-22 11:44 | Outpatient (BNVA) | payer OTHER, SELFPAY | PROVIDERS: PCP Internal Medicine; Visit Provider Internal Medicine | DX: M25.512 Pain in left shoulder (principal); G89.29 Other chronic pain; F33.1 Major depressive disorder, recurrent, moderate; M96.1 Postlaminectomy syndrome, not elsewhere classified; K21.9 Gastro-esophageal reflux disease without esophagitis; F41.1 Generalized anxiety disorder; E78.9 Disorder of lipoprotein metabolism, unspecified; Z91.09 Other allergy status, other than to drugs and biological substances | CPT/HCPCS: 99212 ==

== ENCOUNTER 2024-05-08 16:15 | Emergency (ER) | payer OTHER, SELFPAY ==
--- NOTE | ~2024-05-08 | XR_ITS ---
EXAMINATION: XR KNEE 4 OR MORE VIEWS LEFT CLINICAL INFORMATION: fall COMPARISON: None available at the time of this dictation. TECHNIQUE: 4 views FINDINGS: BONES: No fracture or dislocation is present. JOINTS: Narrowing of joint spaces and developed osteophytes from the edges of articular surfaces suggest degenerative osteoarthritis. SOFT TISSUE: Normal XR/XR knee LT 4V IMPRESSION: Mild tricompartment degenerative osteoarthritis. Electronically signed by: Wu Caldwell MD 05/08/2024 05:04 PM [facility]
[2024-05-08 16:18] VITALS: BP 180/92; PULSE 107; O2SAT 98; BMI 28.6
[2024-05-08 16:22] VITALS: BP 126/71; PULSE 112; RESP 24; TEMP 36.7; O2SAT 97
--- NOTE | 2024-05-08 16:30 | PC.NURSE ---
pt biba from home s/p unwitnessed fall after she slipped into split position and landed on left knee. pt reports entire body weight landed crushed her knee. pt currently c/o numbness/tingling down entire LLE. pt reports previous injury to knee but no surgical interventions were needed and that it healed on it's own over time. pt endorsing that she heard a crunching noise s/p fall. -headstrike, -loc, -thinners, denies feeling lightheaded/dizzy prior to fall. upon ED arrival - pt seemingly uncomfortable, restless and tearful. unable to find a comfortable position. vss and up to date aside from being tachycardic - pt denies chest pain/palpitations. slight deformity noted to inside of pt's left knee. swelling noted compared to RLE. no bruising noted. ice pack applied to affected area. pt on RA w/o difficulty - no sob/wob noted. respirations even/unlabored. plan of care ongoing. call saucedo placed within reach.
--- NOTE | 2024-05-08 16:45 | PC.NURSE ---
pt to xray at this time.
[2024-05-08] MEDS: Acetaminophen 325 MG TABLET 975 MG PO (16:54)
--- NOTE | 2024-05-08 16:55 | PC.NURSE ---
one time dose of tylenol ordered d/t pt remaining tearful/in pain. effectiveness pending.
--- NOTE | 2024-05-08 17:43 | ED.GENADULT ---
HPI - General Adult General Chief complaint: Extremity Injury, Lower Stated complaint: slip & fall, ?fx Time Seen by Provider: 05/08/24 17:12 Source: patient Mode of arrival: ambulatory Limitations: no limitations History of Present Illness ED Provider: Diomedes BLUNT HPI narrative: 49-year-old female history of diabetes, depression, narcotic dependence, presents to ED for left knee pain. Patient patient states she was running to the bathroom to urinate patient states he did not make it to the bathroom and urinated on herself. Patient states while running to the bathroom and urine on the floor she slipped and her right foot went forward and her left knee was under her. Patient states she made a splint. Patient denies hitting head, loss of consciousness or any injury to torso head neck or upper extremities. Patient states hearing crunching noise in her knee. Related Data Previous Rx's ?Medication ?Instructions ?Recorded Rib belt See Rx Instructions .Route 11/06/22 .COMPLEX #1 packet commode (bedside commode) #1 ea 11/06/22 walker #1 ea 11/06/22 diclofenac sodium 1 % topical gel 4 g topical QID 30 days #100 grams 01/14/23 acetaminophen 325 mg tablet 650 mg (2 x 325 mg) PO Q4H PRN 11/01/23 (Tylenol) pain #30 tabs cyclobenzaprine 10 mg tablet 10 mg PO TID PRN muscle spasm #15 11/01/23 tabs diclofenac sodium 1 % topical gel 4 g topical QID #100 grams 11/01/23 (Voltaren Arthritis Pain) commode (bedside commode) #1 ea 11/11/23 cetirizine 10 mg tablet 10 mg PO DAILY #90 tabs 12/15/23 blood sugar diagnostic (FreeStyle #100 ea 03/25/24 Lite Strips) blood-glucose meter (FreeStyle #1 ea 03/25/24 Lite Meter kit) blood-glucose sensor (FreeStyle #2 ea 03/25/24 Ria 3 Sensor device) glucose 4 gram chewable tablet 16 g (4 x 4 gram) PO Q15M PRN 03/25/24 (Dex4 Glucose) hypoglycemia #100 tabs insulin degludec 200 unit/mL (3 55 unit (0.275 mL) subcut BEDTIME 03/25/24 mL) subcutaneous pen (Tresiba #9 mL FlexTouch U-200 insulin) insulin lispro 100 unit/mL 20 unit (0.2 mL) subcut TIDAC #15 03/25/24 subcutaneous pen mL lancets 28 gauge (FreeStyle #100 ea 03/25/24 Lancets) pen needle, diabetic 32 gauge x #100 ea 03/25/24 1/4 (BD Ultra-Fine Micro Pen Needle) semaglutide 0.25 mg or 0.5 mg (2 0.25 mg (0.368 mL) subcut QWEEK #3 03/25/24 mg/3 mL) subcutaneous pen injector mL (Ozempic) blood-glucose meter,continuous #1 ea 04/20/24 (FreeStyle Ria 3 White) albuterol sulfate 90 mcg/actuation 1 inh inhalation QID PRN shortness 04/22/24 aerosol inhaler (Proventil HFA) of breath or wheezing 30 days #8.5 grams fluticasone propionate 50 1 spray intranasal BID #16 grams 04/22/24 mcg/actuation nasal spray,suspension (Aller-Benedicto) gabapentin 600 mg tablet 600 mg PO BEDTIME 90 days #90 tabs 04/22/24 omeprazole 20 mg capsule,delayed 20 mg PO DAILY@0630 #90 caps 04/22/24 release quetiapine 50 mg tablet (Seroquel) 50 mg PO BEDTIME 90 days #90 tabs 04/22/24 Ventolin HFA 90 mcg/actuation 1 inh inhalation QID PRN shortness 04/25/24 aerosol inhaler (albuterol sulfate) of breath or wheezing #8 grams oxycodone 5 mg capsule 5 mg PO Q8H PRN pain 3 days #9 caps 05/08/24 Allergies Allergy/AdvReac Type Severity Reaction Status Date / Time ibuprofen [From Motrin] Allergy Unknown Rash, Verified 05/08/24 16:22 Stomach upset gadobutrol [From GADAVIST] AdvReac Mild NAUSEA & Verified 05/08/24 16:22 VOMITING venlafaxine AdvReac Unknown halucinatio Verified 05/08/24 16:22 ns Review of Systems Review of Systems: Left knee injury/pain Yes all other systems are reviewed and are negative PMFSH Past Medical History Medical History Internal derangement of left knee Vitamin D deficiency Asthma Type 2 diabetes mellitus with hyperglycemia, with long-term current use of insulin Hyperlipidemia LDL goal <100 Cervical stenosis of spinal canal Degeneration, intervertebral disc, cervical Spondylosis, cervical Postlaminectomy syndrome, lumbar Dyspepsia Chronic GERD Narcotic dependence Environmental allergies Failed back syndrome Tobacco abuse Insomnia Depression, major, recurrent, moderate Diabetes mellitus, insulin dependent (IDDM), uncontrolled Surgical History History of lumbar surgery Hx of right knee surgery (08/2011) Family History Family History Father Asthma Mother Diabetes HTN (hypertension) Colon cancer Dialysis patient Brother Substance abuse Social History Social History Household Members: None Housing: Apartment Alcohol intake: never Patient Tobacco Use Status: Current everyday Tobacco user Smoked in Last 30 Days: No e-Cigarette/Vaping Use: Never Used Use of substances other than those prescribed or required for medical reasons: No Advance Directives: No Advance Directives Information Provided: Yes Do you have a plan to hurt others: No Plan Patient : No service: No Current occupational status: disabled Current occupation: rt handed Cognitive needs: No Hearing needs: No Vision needs: No Physical Exam ED Vital Signs: Vital Signs - 24 hr 05/08/24 16:22 05/08/24 18:48 05/08/24 20:13 Temperature 98.0 F 98.2 F 98.2 F Pulse Rate 112 H 104 H 97 Respiratory Rate 24 H 16 18 Blood Pressure 126/71 132/67 138/69 Pulse Oximetry 97 98 97 Oxygen Delivery Method Room Air Room Air Room Air 05/08/24 21:58 05/08/24 21:59 Temperature 98.0 F 98.2 F Pulse Rate 100 97 Respiratory Rate 18 18 Blood Pressure 150/77 H 138/69 Pulse Oximetry 97 97 Oxygen Delivery Method Room Air Room Air BMI result Body Mass Index 28.6 Const General: cooperative, healthy appearing, comfortable, no acute distress, well developed, alert, awake and Physically active Orientation/consciousness: patient oriented x3 HENMT Head: Yes normal to inspection, Yes No palpable skull fracture present, Yes normocephalic and Yes atraumatic Ears: hearing grossly normal bilaterally, external ears normal, TM's normal bilaterally, TM normal on the right, TM normal on the left, EAC's normal, mastoids normal and no periauricular adenopathy Eyes General: appearance normal, both eyes and all related structures Neck Neck: Yes normal visual inspection, Yes full ROM, Yes no lymphadenopathy, Yes no meningeal signs, Yes trachea midline, Yes supple, No anterior neck swelling and No tender Chest Chest palpation & inspection: normal inspection of the chest and normal palpation of entire chest wall Resp Effort & Inspection: normal respiratory effort and able to speak in complete sentences Auscultation: clear to auscultation bilaterally Cardio Jugular venous distension: no JVD Heart sounds: S1 normal heart sound present and S2 normal heart sound present GI Inspection: Yes normal to inspection Palpation (GI): Soft to palpation, not firm, nontender, no guarding and not rigid General: Yes no CVA tenderness Back/Spine/Pelvis Back: no CVA tenderness and No back tenderness Skin General skin exam: no rashes or lesions noted, elasticity normal and turgor normal Neuro General: patient oriented x3, gait normal, tone normal, moves all extremities, Normal light touch and pain sensation, no meningeal signs, no focal motor deficits, CN's II-XI intact bilaterally and normal sensation to monofilament Extrem General: Yes normal to inspection, Yes full ROM and Yes capillary refill normal Knee images: 1. Positive for tenderness on palpation. Negative for deformity, ecchymosis, swelling, erythema, or crepitus. Rest of extremity normal. Vascular neuro exam intact. Motor exam intact but limited due to pain. 2. Positive for tenderness on palpation. Negative for deformity, ecchymosis, swelling, erythema, or crepitus. Rest of extremity normal. Vascular neuro exam intact. Motor exam intact but limited due to pain. Psych Appearance: grossly normal, well kempt and not disheveled Medications Administered Discontinued Medications Generic Name Dose Route Start Last Admin Trade Name Freq PRN Reason Stop Dose Admin Acetaminophen 975 mg 05/08/24 16:41 05/08/24 16:54 Acetaminophen 325 Mg Tablet PO 05/08/24 16:42 975 mg ONCE ONE Administration Cyclobenzaprine HCl 10 mg 05/08/24 18:33 05/08/24 18:48 Cyclobenzaprine Hcl 10 Mg Tablet PO 05/08/24 18:34 10 mg ONCE ONE Administration Prednisone 40 mg 05/08/24 17:57 05/08/24 18:26 Prednisone 20 Mg Tablet PO 05/08/24 17:58 Not Given ONCE ONE Medical Decision Making Medical Decision Making MDM Narrative: 49-year-old female presents to ED for left knee pain after slipping on urine falling onto left knee. Patient denies any head injury. X-ray negative for any fracture. Patient is allergic to NSAIDs pamela we will give pain meds Tylenol steroids 8:42pm: Patient will be discharged with pain medication and informed to follow up with orthopedic surgeon. Not suspecting brain bleed, cervical spine fracture, pneumothorax, hemothorax, dislocation, septic joint, gout, compartment syndrome, DVT, dislocation, osteomyelitis, necrotizing fasciitis, cellulitis or any other life-threatening etiologies. Not suspecting WA or PE. Patient is placed in Shakeel wrap informed to follow up with orthopedic for re-evaluation and possible MRI. Patient denies CP narcotic abuse and states she has not been on any narcotics for 1 year. And was on narcotics due to severe accident that caused pain in left lower extremity. Patient be discharged:. Differential Diagnosis Differential Diagnoses: The differential diagnosis associated with the presentation includes (knee dislocation, fracture) Admission/Observation Consideration of admission/observation: Escalation of care including admission/observation considered Independent Interpretation I performed an independent interpretation of an: Plain X-Ray Radiology Impression Discussion of test interpretation with radiology: I have reviewed the radiologist's reading. Independent Historian Clinical information obtained from an independent historian. History obtained from or confirmed by: Other (patient) External Record Review External record reviewed: Other (prior visits) Prescription Management I considered prescription management with: Pain Medication Discharge Plan Discharge Clinical Impression: Knee osteoarthritis, Knee sprain Patient Disposition: Home, Self-Care Instructions: Knee Sprain (ED), Osteoarthritis (ED), R.I.C.E. Treatment (ED) Additional Instructions: You will need follow-up with primary care provider and orthopedic surgeon. Return to the ED immediately for swelling, redness, stiffness, fever, chills, headache, neck pain, abdominal pain, chest pain, nausea, vomiting, pain extremities, severe back pain, bluish black discoloration, stiffness, redness, or any other concerning symptoms. FINDINGS: BONES: No fracture or dislocation is present. JOINTS: Narrowing of joint spaces and developed osteophytes from the edges of articular surfaces suggest degenerative osteoarthritis. SOFT TISSUE: Normal XR/XR knee LT 4V IMPRESSION: Mild tricompartment degenerative osteoarthritis. Electronically signed by: Wu Caldwell MD 05/08/2024 05:04 PM [facility] [place] Prescriptions: New oxycodone 5 mg capsule 5 mg PO Q8H PRN (Reason: pain) 3 Days Qty: 9 0RF Rx Instructions: Partial Fill upon patient request. No Action diclofenac sodium 1 % gel 4 g topical QID 30 Days Qty: 100 6RF Rx Instructions: apply 4grams to affected area four times a day as needed (DME) FreeStyle Ria 3 White Misc See Rx Instructions .ROUTE .MEDSUPPLY Qty: 1 0RF Rx Instructions: Use daily As directed to monitor blood glucose albuterol sulfate [Ventolin HFA] 90 mcg/actuation HFA aerosol inhaler 1 inh inhalation QID PRN (Reason: shortness of breath or wheezing) Qty: 8 0RF (DME) walker Mis See Rx Instructions .Route Qty: 1 0RF Rx Instructions: As directed (DME) bedside commode Kit See Rx Instructions .Route Qty: 1 0RF Rx Instructions: As directed Rib belt See Rx Instructions .ROUTE .COMPLEX Qty: 1 0RF Rx Instructions: wear rib belt to help reduce pain diclofenac sodium [Voltaren Arthritis Pain] 1 % gel 4 g topical QID Qty: 100 0RF Rx Instructions: apply to single knee, ankle, foot; for foot includes sole/toes/top of foot cyclobenzaprine 10 mg tablet 10 mg PO TID PRN (Reason: muscle spasm) Qty: 15 0RF acetaminophen [Tylenol] 325 mg tablet 650 mg PO Q4H PRN (Reason: pain) Qty: 30 0RF (DME) bedside commode Kit See Rx Instructions .Route Qty: 1 0RF Rx Instructions: As directed cetirizine 10 mg tablet 10 mg PO DAILY Qty: 90 3RF albuterol sulfate [Proventil HFA] 90 mcg/actuation HFA aerosol inhaler 1 inh inhalation QID PRN (Reason: shortness of breath or wheezing) 30 Days Qty: 8.5 2RF fluticasone propionate [Aller-Benedicto] 50 mcg/actuation spray,suspension 1 spray intranasal BID Qty: 16 5RF Rx Instructions: administer into each nostril gabapentin 600 mg tablet 600 mg PO BEDTIME 90 Days Qty: 90 1RF omeprazole 20 mg capsule,delayed release(DR/EC) 20 mg PO DAILY@0630 Qty: 90 1RF quetiapine [Seroquel] 50 mg tablet 50 mg PO BEDTIME 90 Days Qty: 90 1RF (DME) FreeStyle Ria 3 Sensor Device See Rx Instructions .ROUTE .MEDSUPPLY Qty: 2 11RF Rx Instructions: Apply every 14 days As directed to monitor blood glucose insulin degludec [Tresiba FlexTouch U-200] 200 unit/mL (3 mL) insulin pen 55 unit subcut BEDTIME Qty: 9 3RF Ozempic 0.25 mg or 0.5 mg (2 mg/3 mL) pen injector 0.25 mg subcut QWEEK Qty: 3 3RF glucose [Dex4 Glucose] 4 gram tablet,chewable 16 g PO Q15M PRN (Reason: hypoglycemia) Qty: 100 0RF Rx Instructions: until symptoms of low blood sugar are controlled insulin lispro 100 unit/mL insulin pen 20 unit subcut TIDAC Qty: 15 3RF (DME) FreeStyle Lite Strips Strip See Rx Instructions .Route Qty: 100 4RF Rx Instructions: As directed checks 3X/day (DME) blood-glucose meter [FreeStyle Lite Meter] Kit See Rx Instructions .Route Qty: 1 0RF Rx Instructions: As directed (DME) lancets [FreeStyle Lancets] 28 gauge misc See Rx Instructions .ROUTE .MEDSUPPLY Qty: 100 3RF Rx Instructions: use daily as directed to check blood glucose (DME) pen needle, diabetic [BD Ultra-Fine Micro Pen Needle] 32 gauge x 1/4 needle See Rx Instructions .Route Qty: 100 3RF Rx Instructions: use daily As directed Referrals: [facility] [place] Orthopedic Surgeons [Provider Group] (LEft knee osteoarthritis,sprain) Interventions: ED Discharge Assessment Last Done: 05/08/24 21:59 Discharge Date/Time: 05/08/24 22:10 Print Language: Mauritian
[2024-05-08 18:48] VITALS: BP 132/67; PULSE 104; RESP 16; TEMP 36.8; O2SAT 98
[2024-05-08] MEDS: Cyclobenzaprine HCl 10 MG TABLET PO (18:48)
[2024-05-08 20:13] VITALS: BP 138/69; PULSE 97; RESP 18; TEMP 36.8; O2SAT 97
[2024-05-08 21:58] VITALS: BP 150/77; PULSE 100; RESP 18; TEMP 36.7; O2SAT 97
[2024-05-08 21:59] VITALS: BP 138/69; PULSE 97; RESP 18; TEMP 36.8; O2SAT 97
[2024-05-09 08:17] LABS: Glucose, Whole Blood 355 mg/dL (60-115)
== END 2024-05-08 22:10 | disposition home or self-care (01) ==
PROVIDERS: Emergency Provider Internal Medicine
DX: S83.92XA Sprain of unspecified site of left knee, initial encounter (principal); M25.562 Pain in left knee; M17.0 Bilateral primary osteoarthritis of knee; E11.9 Type 2 diabetes mellitus without complications; F17.210 Nicotine dependence, cigarettes, uncomplicated; W01.0XXA Fall on same level from slipping, tripping and stumbling without subsequent striking against object, initial encounter; Y93.89 Activity, other specified; Y92.091 Bathroom in other non-institutional residence as the place of occurrence of the external cause; Y99.8 Other external cause status; Z79.899 Other long term (current) drug therapy; Z79.4 Long term (current) use of insulin
CPT/HCPCS: 73564; 82947; 99283; 99284

== ENCOUNTER 2024-06-01 09:17 | Outpatient (REF) | payer OTHER, SELFPAY | END 2024-06-01 09:18 | disposition home or self-care (01) | LOC: HO.HOSX 09:17 | PROVIDERS: Visit Provider Orthopaedic Surgery | DX: Z13.89 Encounter for screening for other disorder (principal) ==

== ENCOUNTER 2024-11-01 13:05 | Outpatient (AMB) | payer OTHER, SELFPAY ==
--- NOTE | 2024-11-01 10:08 | A.OFFVIS_ITS ---
Vital Signs 11/01/24 13:01 Height 5 ft 7 in Intake Visit Reasons: T2DM ED f/u Intake Note: Patient presents today via video call for a follow-up on Type 2 Diabetes Mellitus & Hyperglycemia: Patient was recently in the ED Last Diabetic eye exam was on: OVER DUE Last Podiatry exam was on: Patient does not see a Director Of Acquisition Marketing Most recent HbA1c: DUE Surgical Garment Inspector Required: Yes Surgical Garment Inspector Language: Conservation Biology Professor Name: ANTHONY Argueta/NATE DOMINGUEZ Information Interpreted: non-clinical & clinical Accompanied by: Self / Same As Patient Allergies ibuprofen [From Motrin] Allergy (Unknown, Verified 11/01/24 13:17) Rash, Stomach upset gadobutrol [From GADAVIST] Adverse Reaction (Mild, Verified 11/01/24 13:17) NAUSEA & VOMITING venlafaxine Adverse Reaction (Unknown, Verified 11/01/24 13:17) halucinations HPI Comments Details: This is an urgent care telehealth visit for this 49 year old type 2 diabetic who was recently hospitalized in his unable to come in for a regular medical appointment. At the time of her visit, there was a visiting nurse to see her. Christopher Abraham medical records administrator was used for translation. The patient reports her blood sugar has not been tested since she was discharged from the hospital last . She is unable to locate her glucometer test strips or lancets and she has a freestyle reader but we know sensor. She has not been taking her insulin since discharge. Her discharge orders include Tresiba 55 units which she declines to take and would like switched to Lantus. 20 units of Humalog 3 times daily with meals She had been switch to Ozempic which she declines to take because it friend of hers had pancreatitis from this. And would like me to be changed to Trulicity 0.75 PFSH Medical History Internal derangement of left knee Vitamin D deficiency Asthma Type 2 diabetes mellitus with hyperglycemia, with long-term current use of insulin Hyperlipidemia LDL goal <100 Cervical stenosis of spinal canal Degeneration, intervertebral disc, cervical Spondylosis, cervical Postlaminectomy syndrome, lumbar Dyspepsia Chronic GERD Narcotic dependence Environmental allergies Failed back syndrome Tobacco abuse Insomnia Depression, major, recurrent, moderate Diabetes mellitus, insulin dependent (IDDM), uncontrolled Surgical History History of lumbar surgery Hx of right knee surgery (08/2011) Family History Father Asthma Mother Diabetes HTN (hypertension) Colon cancer Dialysis patient Brother Substance abuse Social History Household Members: None Housing: Apartment Alcohol intake: never Patient Tobacco Use Status: Current everyday Tobacco user e-Cigarette/Vaping Use: Never Used service: No Current occupational status: disabled Current occupation: rt handed Cognitive needs: No Hearing needs: No Vision needs: No Physical Exam Const Other: The patient is viewed over camera in his resting comfortably in bed. She is alert and oriented. She is in no acute distress Telehealth Telehealth Telehealth Platform: [employer] Location of provider rendering services: practice address Location of patient: address on file Patient Identification confirmed using: Name, : Yes Telehealth method: video Patient verbally consented to treatment: Yes Patient verbally consented to billing insurance company: Yes Patient informed of any privacy concerns related to visit: Yes Minutes spent on Phone/Video with Pt.: 24 Assessment & Plan Assessment & Plan (1) Diabetes mellitus, insulin dependent (IDDM), uncontrolled: Category: Medical Plan: Type 2 diabetic recently released from the hospital. She was counseled that she must send someone to her pharmacy to slat pickler a new glucometer test strips lancets. The visiting nurse we will train her also in freestyle 3+. She declines taking Lantus or Ozempic. She has switched back to Lantus 55 units Humalog 20 units t.i.d. and Trulicity 0.75 The patient had an opportunity to ask questions regarding treatment plan. The patient expressed understanding and agreement with the above treatment plan. The patient is aware they should contact our office by phone for worsening glucose readings or for any low blood sugars which may warrant a change in diabetes medication. Compliance is encouraged with medications and any followup testing/consults which may have been ordered. Medications: New insulin glargine (Lantus Solostar U-100 Insulin) 55 units (0.55 mL) subcut QPM 30 days 18 mL 3RF insulin lispro (Humalog KwikPen (U-100) Insulin) 20 units (0.2 mL) subcut TIDWMEAL 30 days 18 mL 3RF Changed From blood-glucose meter (FreeStyle Lite Meter kit) As directed 1 ea 0RF To blood-glucose meter (FreeStyle Lite Meter kit) As directed for use with freestyle lite test strips 1 ea 0RF From lancets (FreeStyle Lancets) use daily as directed to check blood glucose 100 ea 3RF To lancets (FreeStyle Lancets) use 3 times daily to check blood glucose 100 ea 3RF From pen needle, diabetic use daily As directed 100 ea 3RF To pen needle, diabetic use qid As directed 150 ea 3RF Refilled blood sugar diagnostic (FreeStyle Lite Strips) As directed checks 3X/day 100 ea 4RF blood-glucose sensor (FreeStyle Ria 3 Sensor device) Apply every 14 days As directed to monitor blood glucose 2 ea 11RF E11.9 - Type 2 diabetes mellitus without complications, Z79.4 - adjunct faculty for medical terminology (current) use of insulin Discontinued semaglutide (Ozempic) Discontinued Reason: Doctor's Order 0.25 mg (0.368 mL) subcut QWEEK 3 mL 3RF insulin degludec (Tresiba FlexTouch U-200 insulin) Discontinued Reason: Doctor's Order 55 units (0.275 mL) subcut BEDTIME 9 mL 3RF Coding Level of Care Code Tele Est Pt Level 3 (88759) Diagnoses Diabetes mellitus, insulin dependent (IDDM), uncontrolled Time Spent (min) 24 Comment Time spent reviewing labs/provider notes, face to face, chart doc
--- OUTSIDE RECORDS SUMMARY | 2024-11-01 14:08 | XMS_ITS | Clinical Summary ---
Author Organization [facility] Address [address] [place] [address] Care Team Providers Care Real Estate Sales Associate Name Role Phone Unavailable Primary Care Provider Unavailabl e Source Comments PLEASE NOTE, if this patient is a minor, it may be UNLAWFUL to discuss sensitive information that is contained in these records (such as FAMILY PLANNING, MENTAL HEALTH or SUBSTANCE ABUSE) with the minor patient's parent or other person without the patient's specific authorization.[facility] Medications No known medications Active Problems No known active problems Social History Tobacco Use Types Packs/Day Years Used Date Smoking Tobacco: Every Day Cigarettes Smokeless Tobacco: Never Tobacco Cessation:Ready to Q uit: Not Asked; Counseling Given: Not Answered Social Connections Answer Date Recorded Connectedness 0 03/02/2024 Financial Resource Strain Answer Date R ecorded Financial Resource Strain 0 2021 Stress Answer Date Recorded Stress 0 01/04/2022 Physical Activity Answer Date Recorded Physical Activity 0 01/04/2022 Food Insecurity Answer Date Recorded Food 0 03/10/2024 Transportation Needs Answer Date Record ed Transportation 0 01/04/2022 Housing Stability Answer Date Recorded Housing 0 01/04/2022 Safety and Environment Answer Date Audi rded Safety 0 01/04/2022 Utilities Answer Date Recorded Utilities 0 01/04/2022 Employment Answer Date Recorded Stress 0 03/02/2024 Comments Unknown Sex and Gender Information Value Date Recorded Sex Assigned at Not on file Legal Sex Female 10:42 AM PDT Gender Identity Not on file Sexual Orientation Not on file Last Filed Vital Signs Vital Sign Reading Time Taken Comments Blood Pressure 132/75 12/22/2023 11:11 AM EDT Pulse 73 12/22/2023 11:11 AM EDT Temperature - - Respiratory Rate - - Oxygen Saturation - - Inhaled Oxygen Concentration - - Weight - - Height - - Body Mass Index - - Plan of Treatment Health Maintenance Due Date Last Done Comments Anxiety Screening 1976 Dental FMX/Pano 1976 Diabetes Screening 1976 HPV Screening 1976 Hepatitis C Screening 1976 Lipid Screening 1976 Pap + HPV 1976 Tobacco Cessation Counseling (#1) 1976 HIV Screening 1991 Relationship Safety Screening/Counseling 1991 Imm-DTaP/Tdap/Td (1 - Tdap) 1995 Imm-Hepatitis B (1 of 3 - 19+ 3-dose series) 5 Imm-Pneumococcal (1 of 2 - PCV) 1995 Cervical Cancer Screening 1997 Pap Smear 1997 Breast Cancer Screening (Mammogram) 2016 CT Colonography 2021 Colonoscopy 2021 Colorectal Cancer Screening 2021 FIT/gFOBT 2021 Fecal DNA 2021 Flexible Sigmoidoscopy 2021 [id number] ( season) 2024 Imm-Influenza (#1) 2024 04/22/2019 Alcohol and Drug Screen 06/15/2024 Depression Annual Screen 06/15/2024 Dental Examination 11/14/2024 11/13/2023 Dental Perio Charting 11/14/2024 11/13/2023 Dental Prophy 11/14/2024 11/13/2023 Hypertension Screening (#1) 12/21/2024 Cervical Ablation/Cold-Knife Conization Discontinued Cervical Cryotherapy Discontinued Colposcopy Discontinued Endometrial Biopsy Discontinued Excision/Leep Discontinued HPV Genotyping Discontinued Vaginal Pap Discontinued Vulvoscopy Discontinued Procedures Procedure Name Priority Date/Time Associated Diagnosis Comments COMP PERIODONTAL EVALUATION - NEW/EST PATIENT Routine 11/13/2023 10:20 AM EDT Encounter for dental examination and cleaning with abnormal findings Stage 3 grade C generalized periodontitis per AAP/EFP 2017 classification PROPHYLAXIS - ADULT Routine 11/13/2023 1 0:20 AM EDT Encounter for dental examination and cleaning with abnormal findings Stage 3 grade C generalized periodontitis per AAP/EFP 2017 classification PERIODIC ORAL EVALUATION ESTABLISHED PATIENT Routine 11/13/2023 10:20 AM EDT Encounter for dental examination and cleaning with abnormal findings Stage 3 grade C generalized periodontitis per AAP/EFP 2017 classification from Last 3 Months or Most Recently Relevant to Health Maintenance Insurance [place] [facility] [place] [address] [address] [place] [address] HEALTH PLAN Member Subscriber Plan / Payer ( fective 2017-Present) Name:Aguilar Street Relation to Subscriber:Self Name:Aguilar Street Payer ID:[id number] Group ID:Not on file Type:Medicaid Address: [facility] [address] [place] [address]
--- OUTSIDE RECORDS SUMMARY | 2024-11-01 14:09 | XMS_ITS | Encounter Summary ---
Author Organization [employer] [facility] Address [id number] [place] [id number] Care Team Providers Care Tractor Technician Name Role Phone Moisés Lewis MD Primary Care Provider [phone] Reason for Visit * Reason Comments Toe Pain Toes on both feet ar e black * Auth/Cert (Routine) Specialty Diagnoses / Procedures Referred By Lisa t Referred To Contact Diagnoses Acute occlusion of popliteal artery due to thromboembolism ([facility] V24, [facility] V28) Procedures . Davin Croft MD [address] [place] [address] Phone: tel: fax: Emergency [address] [place] [address] Phone: tel: Referral ID Status Reason Start Date Expiration Date Visits Re quested Visits Authorized [id number] 1 1 Encounter Details Date Type Department Care Team (Late st Contact Info) Description 10/27/2024 7:30 AM EDT - 10/27/2024 8:30 AM EDT Surgery Cardiac Decorator Inspector [address] [place] [id number] Boo Nash MD [address] [address] Angiography lower ext left Social History Tobacco Use Types Packs/Day Years Used Date Smoking Tobacco: Every Day Cigarettes Alcohol Use Standard Drinks/Week Comments Never 0 (1 standard drink = 0.6 oz pur e alcohol) Interpersonal Safety Answer Date Record ed Physical Abuse 10/26/2024 Verbal Abuse 10/26/2024 Comments Unknown Sex and Gender Information Value Date Recorded Sex Assigned at Female 10/25/2024 8:20 PM EDT Legal Sex Female 3:00 AM EST Gender Identity Female 10/25/2024 8:20 PM EDT Sexual Orientation Straight 10/25/2024 8: 20 PM EDT documented as of this encounter Last Filed Vital Signs Vital Sign Reading Time Taken Comments Blood Pressure 150/75 10/27/2024 3:54 AM EDT Pulse 71 10/27/2024 3:54 AM EDT Temperature 36.8 ??C (98.2 ??F) 10/27/2024 3:54 AM ED T Respiratory Rate 16 10/27/2024 3:54 AM EDT Oxygen Saturation 100% 10/27/2024 3:54 AM EDT Inhaled Oxygen Concentration - - Weight 73.1 kg (161 lb 3.2 oz) 10/26/2024 1:00 P M EDT Height 165.1 cm (5' 5 ) 10/25/2024 4:15 PM EDT Body Mass Index 26.83 10/25/2024 4:15 PM EDT documented in this encounter Discharge Summaries * Bridgett Boyle MD - 10/28/2024 12:28 PM EDT Images from the original note were not included. [place] DISCHARGE SUMMARY Patient Information Aguilar Garcia : 1975 [49 y.o.] Admitting Provider Davin Croft MD Discharge Provider Bridgett Boyle MD, Bridgett Boyle MD Primary Care Physician Moisés Lewis MD Admission Date 10/25/2024 Discharge Date 10/28/2024 Primary/Secondary Diagnosis Critical left lower extremity ischemia due to acute occlusion of popliteal artery Consults: Vascular surgery Procedures: Left lower extremity angiogram with atherectomy and angioplasty of supra geniculate left popliteal artery on 10/27/[address] Nash. Hospital Course Summary HPI: 49-yeafor left popliteal artery occlusion of ETIOLOGYr-old female with multiple medical problems including type 2 diabetes; and hyperlipidemia is being hospitalized. He came to the ED with worsening left leg pain progressive over the course of 2 to 3 days. He denies fever, chills, nausea, vomiting. In the ED, initial vital signs significant for elevated diastolic blood pressure and sinus tachycardia. Specifically blood pressure was 123/105 mmHg pulse 110 bpm, respiration 16 bpm, MPG 36.4 ??C, and O2 sat 95% on room air. Physical exam significant for palpable peripheral pulses on the right side but dopplerable pulses on the left dorsalis pedis and posterior tibial locations. Screening blood test beginning from CBC with differential is unremarkable. BMP is significant for marked hyperglycemia to 625, abnormal BUN/creatinine 16/1.36 with estimated GFR 48, and hyponatremia 130. Sed rate is elevated to 82. Beta- hydroxybutyrate is normal at 1.4. And serum C-reactive protein is elevated to 1. 14. Patient was started on heparin; and evaluated in the ED by vascular surgeon Dr. Mac who advised admission to Hospital Medicine; hospital medicine was asked admit for left popliteal artery occlusion Hospital course: Aguilar Garcia is a 49 y.o. female with PMH of DM2, smoker, presented with critical critical left lower extremity ischemia, treated with heparin drip and underwent left lower extremity angiogram withangioplasty, with improvement in the left lower extremity perfusion/palpable dorsalis pedis. Postoperatively she was started on Plavix and Xarelto as recommended by vascular. Medically stable for discharge. DC diagnosis: # Left lower extremity ischemia due to acute occlusion of popliteal artery - treated with IV heparindrip and underwent left lower extremity angiogram with atherectomy and angioplasty on 10/27/[address] Nash. Better sensation in left lower extremity, still some pain control with Tylenol and small doses of oxycodone, but slowly better. Palpable dorsalis pedis, foot warm and better perfused, still some bluish discoloration of 2nd-5th toes which was due to blue toe syndrome per vascular. DC on Plavix 75 daily and Xarelto 2.5 twice daily. Follow-up with vascular as recommended. # DM2 - resume home regimen. # USHA - likely prerenal. Resolved with fluids. # Vulvar abscess,small - local care with warm compresses and sitz bath's, patient reported improvement since this started, with reduced size and continued drainage. Prescribed Augmentin(MRSA screen negative) and will need PCP follow up, she understands this. DC once seen by PT, may need services, and may need walker as cannot fully bear weight on LLE due to pain. >30 min spent on DC Follow-Up Instructions and Recommendations PCP in 1 week Vascular surgery as planned Discharge Medications Your medication list START taking these medications Instructions Last Dose Given Next Dose Due amoxicillin-clavulanate 875-125 mg per tablet Commonly known as: AUGMENTIN Take 1 tablet by mouth 2 (two) times a day for 5 days. clopidogreL 75 mg tablet Commonly known as: PLAVIX Start taking on: October 29, 2024 Take 1 tablet (75 mg total) by mouth 1 (one) time each day. oxyCODONE 5 mg immediate release tablet Commonly known as: ROXICODONE Take 1 tablet (5 mg total) by mouth every 6 (six) hours if needed for severe pain for up to 3 days.Max Daily Amount: 20 mg rivaroxaban 2.5 mg tablet Commonly known as: XARELTO Take 1 tablet (2.5 mg total) by mouth 2 (two) times a day with meals. CONTINUE taking these medications Instructions Last Dose Given Next Dose Due acetaminophen 325 mg tablet Commonly known as: TYLENOL Take 2 tablets (650 mg total) by mouth every 4 (four) hours if needed for mild pain or fever - temperature GREATER than 38 C (100.4 F). atorvastatin 40 mg tablet Commonly known as: LIPITOR Take 1 tablet (40 mg total) by mouth 1 (one) time each day. busPIRone 5 mg tablet Commonly known as: BUSPAR Take 1 tablet (5 mg total) by mouth 3 (three) times a day. cetirizine 10 mg tablet Commonly known as: ZyrTEC Take 1 tablet (10 mg total) by mouth 1 (one) time each day. cyclobenzaprine 10 mg tablet Commonly known as: FLEXERIL Take 1 tablet (10 mg total) by mouth 3 (three) times a day if needed for muscle spasms. fluticasone propionate 50 mcg/actuation nasal spray Commonly known as: FLONASE Administer 2 sprays into each nostril 1 (one) time each day. gabapentin 600 mg tablet Commonly known as: NEURONTIN Take 1 tablet (600 mg total) by mouth 2 (two) times a day. insulin lispro 100 unit/mL injection pen Commonly known as: HumaLOG KwikPen Inject 20 Units under the skin 3 (three) times a day before meals. lidocaine 5 % patch Commonly known as: LIDODERM Place 1 patch on the skin 1 (one) time each day. omeprazole 20 mg tablet,disintegrat, delay rel Take 20 mg by mouth 1 (one) time each day. QUEtiapine 50 mg tablet Commonly known as: SEROquel Take 1 tablet (50 mg total) by mouth 2 (two) times a day. tiZANidine 2 mg tablet Commonly known as: ZANAFLEX Take 1 tablet (2 mg total) by mouth every 6 (six) hours if needed for muscle spasms. Tresiba FlexTouch U-200 200 unit/mL (3 mL) CONCENTRATED injection pen Generic drug: insulin degludec Inject 55 Units under the skin at bedtime. Trulicity 0.75 mg/0.5 mL pen injector injection Generic drug: dulaglutide Inject 0.5 mL (0.75 mg total) under the skin 1 (one) time per week. Ventolin HFA 90 mcg/actuation inhaler Generic drug: albuterol HFA Inhale 1 puff by mouth 4 (four) times a day. STOP taking these medications diclofenac 1 % topical gel Commonly known as: VOLTAREN Where to Get Your Medications These medications were sent to [facility]/pharmacy #[id number] [address] Hours: 24-hours amoxicillin-clavulanate 875-125 mg per tablet clopidogreL 75 mg tablet oxyCODONE 5 mg immediate release tablet rivaroxaban 2.5 mg tablet Physical Exam at time of Discharge General: Fatigued not in distress currently CVS: Regular Chest: Clear breath sounds Abd: Soft nontender Extr: No significant edema noted on inspection, left 4th and 5th toes with dusky/dark bluish appearance, unable to palpate pulses as patient cannot tolerate palpation, foot is warm. Vitals Vitals: 10/28/24 0741 BP: (!) 164/85 Pulse: 84 Resp: 16 Temp: 36.4 ??C (97.5 ??F) SpO2: 100% HEMATOLOGY Lab Results Component Value Date WBC 8.2 10/26/2024 HGB 11.6 10/26/2024 HCT 35.0 10/26/2024 MCV 92.8 10/26/2024 PLT 226 10/26/2024 INR 0.8 10/26/2024 CHEMISTRY Lab Results Component Value Date GLUCOSE 261 (H) 10/28/2024 NA 134 10/26/2024 K 3.5 10/26/2024 CO2 24 10/26/2024 CL 103 10/26/2024 BUN 13 10/26/2024 CREATININE 0.50 10/26/2024 EGFR 116 10/26/2024 CALCIUM 8.8 10/26/2024 ANIONGAP 7 10/26/2024 Procedure Component Value Units Date/Time Vascular US duplex lower extremity vein map bilateral [[id number]] Collected: 10/26/24944 Order Status: Completed Updated: 10/26/24955 Narrative: HISTORY: The patient is a 49-year-old female undergoing evaluation of the suitability of the greater saphenous vein for use as bypass grafts. FINDINGS: Real-time ultrasonography of the greater saphenous veins bilaterally is performed. The veins are patent, without evidence of thrombus. The diameter of the greater saphenous vein in the inguinal area is 4.9 mm on the right and 5.6 mm on the left; in the upper thigh, 4.3 mm on the right and 4.5 mm on the left; in the mid thigh, 4.7 mmon the right and 5.2 mm on the left; in the lower thigh, 4.3 mm on the right and 4.8 mm on the left; above the knee, 4.3 mm on the right and 4.4 mm on the left; below the knee, 4.6 mm on the right and 4.5 mm on the left. The course of the greater saphenous vein in each lower extremity were marked on the patient's skin. Impression: The greater saphenous veins are patent bilaterally. Their diameters are as above. Code 61678 -------- FINAL REPORT -------- Dictated By: Mathieu Lopez Dictated Date: 10/26/2024 09:45 ET Assigned Physician: Mathieu Lopez Reviewed and Electronically Signed By: Mathieu Lopez Signed Date: 10/26/2024 09:51 ET Workstation ID: [id number] Transcribed By: Self Edit Transcribed Date: 10/26/2024 09:[address] Angio Lower Extremity w and/or wo Contrast Left [[id number]] Collected: 10/25/242323 Order Status: Completed Updated: 10/25/242326 Addenda: ADDENDUM: This report was discussed with KRIS Kwon on October 25, 2024 23:26:00 EDT. This document has been electronically signed by: Agnieszka Pak on 10/25/2024 23:27:12 Signed: 10/25/24 3207 by Wade Asif MD Narrative: INDICATION: Claudication or leg ischemia CT angiogram left leg with contrast Multiplanar reconstructions and 3D processing Comparison: No prior studies of any type Findings: Imaging begins in lower pelvis. Visualized portions of left external iliac artery patent. Moderate left [employer]ESS and PFA origins stenosis. Multifocal mild left SFA stenosis. Severe distal left SFA narrowing noted. Multifocal moderate left popliteal artery stenosis. Mid left popliteal artery occlusion noted. Reconstitution noted distal popliteal artery. Severe disease proximal trifurcation vessels. Peroneal artery tapers to occlusion distally. There is two-vessel runoff to the ankle. No bony abnormality noted in the left leg. Heterogeneous soft tissue abnormality inferior to left labia. This is not well assessed on this study. Physical exam correlation is recommended. Soft tissue mass is not excludable. Impression: Impression: Occluded short-segment of left popliteal artery Multifocal vascular stenosis outlined above Subcutaneous soft tissue abnormality inferior to left labia Recommend physical exam correlation to exclude mass This document has been electronically signed by: Wade Asif MD on 10/25/2024 23:24:48 MR Shoulder wo Contrast Left [[id number]] Collected: 10/25/24 1251 Order Status: Completed Updated: 10/25/24 1310 Narrative: PROCEDURE: Left shoulder MRI INDICATION: Pain TECHNIQUE: Multiplanar, multisequence MRI of the left shoulder Without contrast. COMPARISON: No priors available. FINDINGS: Rotator cuff tendinosis without tear. Mild chronic atrophy of teres minor without mass in the quadrilateral space. Muscle bulk is otherwise preserved. Biceps tendon is present within the bicipital groove and intact at the superior glenoid tubercle. No labral tear. No acute fracture or suspicious marrow replacing lesion. Glenohumeral alignment is preserved. No focal cartilage defects or joint effusion. Thickening and high signal throughout the glenohumeral joint capsule with pericapsular edema. High signal in the rotator interval. The humeral ligaments are intact. Coracoclavicular ligaments are intact. Mild degenerative changes at the acromioclavicular joint with small subacromial/subdeltoid bursal fluid. No axillary adenopathy or soft tissue mass. Impression: Rotator cuff tendinosis without tear. Mild degenerative changes at the acromioclavicular joint with mild subacromial/subdeltoid bursitis. Thickening and high signal of the glenohumeral joint capsule with high signal in the rotator interval and relative paucity of glenohumeral joint fluid. Constellation of findings suggests adhesive capsulitis. -------- FINAL REPORT -------- Dictated By: LOLY PLUMMER Dictated Date: 10/25/2024 12:51 ET Assigned Physician: LOLY PLUMMER Reviewed and Electronically Signed By: LOLY PLUMMER Signed Date: 10/25/2024 13:04 ET Workstation ID: [id number] Transcribed By: Self Edit * Bridgett Boyle MD - 10/28/2024 12:27 PM EDT 2 gram sodium restricted, carb controlled diet * Bridgett Boyle MD - 10/28/2024 12:27 PM EDT As tolerated, slowly documented in this encounter Discharge Instructions * Discharge Instructions* KRIS Soto - 10/27/2024 1:03 PM EDT Please schedule or confirm a 2-4 week follow-up appointment with Dr. Nash's office at: [facility] Vascular Surgery [address], [address] [place] [address] Please call the office at [phone] to confirm or schedule appointment New medications: Please take Plavix (clopidogrel) as prescribed every day, indefinitely. Xarelto 2.5 mg twice daily You can remove your dressing and shower in 24 hours. If you notice any increasing pain or swelling at the groin access site, please call the office. Some bruising is expected. documented in this encounter Medications at Time of Discharge acetaminophen (TYLENOL) 325 mg tablet Take 2 tablets (650 mg total) by mouth every 4 (four) hours if needed for mild pain or fever - temperature GREATER than 38 C (100.4 F). 4 amoxicillin-clavulan ate (AUGMENTIN) 875-125 mg per tablet Take 1 tablet by mouth 2 (two) times a day for 5 days. 10 each 5 11/03/19 25 atorvastatin (LIPITOR) 40 mg tablet Take 1 tablet (40 mg total) by mouth 1 (one) time each day. busPIRone (BUSPAR) 5 mg tablet Take 1 tablet (5 mg total) by mouth 3 (three) times a day. cetirizine (ZyrTEC) 10 mg tablet Take 1 tablet (10 mg total) by mouth 1 (one) time each day. clopidogreL (PLAVIX) 75 mg tablet Take 1 tablet (75 mg total) by mouth 1 (one) time each day. 30 each 5 11/29/19 25 cyclobenzaprine (FLEXERIL) 10 mg tablet Take 1 tablet (10 mg total) by mouth 3 (three) times a day if needed for muscle spasms. 4 fluticasone propionate (FLONASE) 50 mcg/actuation nasal spray Administer 2 sprays into each nostril 1 (one) time each day. gabapentin (NEURONTIN) 600 mg tablet Take 1 tablet (600 mg total) by mouth 2 (two) times a day. insulin lispro (HumaLOG KwikPen) 100 unit/mL injection pen Inject 20 Units under the skin 3 (three) times a day before meals. 4 lidocaine (LIDODERM) 5 % patch Place 1 patch on the skin 1 (one) time each day. omeprazole 20 mg tablet,disintegrat, delay rel Take 20 mg by mouth 1 (one) time each day. QUEtiapine (SEROquel) 50 mg tablet Take 1 tablet (50 mg total) by mouth 2 (two) times a day. rivaroxaban (XARELTO) 2.5 mg tablet Take 1 tablet (2.5 mg total) by mouth 2 (two) times a day with meals. 60 tablet 5 11/28/19 25 tiZANidine (ZANAFLEX) 2 mg tablet Take 1 tablet (2 mg total) by mouth every 6 (six) hours if needed for muscle spasms. Tresiba FlexTouch U-200 200 unit/mL (3 mL) CONCENTRATED injection pen Inject 55 Units under the skin at bedtime. 4 Trulicity 0.75 mg/0.5 mL pen injector injection Inject 0.5 mL (0.75 mg total) under the skin 1 (one) time per week. Ventolin HFA 90 mcg/actuation inhaler Inhale 1 puff by mouth 4 (four) times a day. 5 oxyCODONE (ROXICODONE) 5 mg immediate release tabletIndications:Ac eloise occlusion of popliteal artery due to thromboembolism ([facility] V24, [facility] V28) Take 1 tablet (5 mg total) by mouth every 6 (six) hours if needed for severe pain for up to 3 days. Max Daily Amount: 20 mg 12 each 5 11/01/19 25 documented as of this encounter Ordered Prescriptions Prescription Sig Dispense Quantity Refills Last Filled Start Date End Date rivaroxaban (XARELTO) 2.5 mg tablet Take 1 tablet (2.5 mg total) by mouth 2 (two) times a day with meals. 60 tablet 10/28/2024 5 clopidogreL (PLAVIX) 75 mg tablet Take 1 tablet (75 mg total) by mouth 1 (one) time each day. 30 each 10/29/2024 5 amoxicillin-clavulana te (AUGMENTIN) 875-125 mg per tablet Take 1 tablet by mouth 2 (two) times a day for 5 days. 10 each 10/28/2024 5 oxyCODONE (ROXICODONE) 5 mg immediate release tabletIndications:Acu te occlusion of popliteal artery due to thromboembolism (CMS/HCC V24, CMS/HCC V28) Take 1 tablet (5 mg total) by mouth every 6 (six) hours if needed for severe pain for up to 3 days. Max Daily Amount: 20 mg 12 each 10/28/2024 documented in this encounter Discharge Disposition Disposition Code Departure Means Destination Home-Health Care Svc documented in this encounter Progress Notes * Dolores Fernando RN - 10/28/2024 2:36 PM EDT 10/28/24 1436 Transportation Transportation at discharge Family What day is the transport expected? 10/28/24 Final Discharge Disposition Home Health Care Services D/c summary and Amb referral for home health send to [facility] * Farideh Diego RN - 10/28/2024 1:52 PM EDT ..Discharge packet dicussed at bedside. All medications, follow up appointments and post dc instructions reviewed and understood with patient. All questions answered and necessary teaching done. Daughter at bedside for instructions/translation * Jose Mcghee RN - 10/28/2024 8:47 AM EDT Goals: Identify possible barriers to meeting goals/advancing plan of care: Stability of the patient: Moderately Stable - Low risk of patient condition declining or worsening End of Shift Summary: cleared by vascular for discharge, awaiting renetta * Boo Nash MD - 10/28/2024 7:10 AM EDT Vascular Surgery Daily Progress Note LOS: [address] interpreter ID# [id number] utilized during patient encounter. No acute events noted overnight. Patient continues to report pain to left 3rd, 4th and 5th toes, as well as her heel. Denies right groin access site complication. Principal Problem: Acute occlusion of popliteal artery due to thromboembolism ([facility] V24, [facility] V28) Active Problems: Type 2 diabetes mellitus with hyperglycemia ([facility] V24, [facility] V28) Hyperlipidemia Current Facility-Administered Medications: acetaminophen (TYLENOL) tablet 650 mg, 650 mg, oral, q6h PRN, KRIS Zee, 650 mg at 10/26/24 0630 amoxicillin-clavulanate (AUGMENTIN) 875-125 mg per tablet 1 tablet, 1 tablet, oral, q12h CHRISTOPHER, KRIS Zee, 1 tablet at 10/27/24 2125 [COMPLETED] clopidogreL (PLAVIX) tablet 150 mg, 150 mg, oral, Once, 150 mg at 10/27/24 1139 ANDclopidogreL (PLAVIX) tablet 75 mg, 75 mg, oral, Daily, KRIS Zee dextrose (D50W) 50% injection 12.5 g, 12.5 g, intravenous, q15 min PRN, KRIS Zee dextrose (D50W) 50% injection 25 g, 25 g, intravenous, q15 min PRN, KRIS Zee dextrose 15 gram/60 mL oral solution 15 g, 15 g, oral, q15 min PRN, KRIS Zee dextrose 15 gram/60 mL oral solution 30 g, 30 g, oral, q15 min PRN, KRIS Zee gabapentin (NEURONTIN) capsule 300 mg, 300 mg, oral, q8h CHRISTOPHER, KRIS Zee Glucagon HCl (rDNA) injection 1 mg, 1 mg, intramuscular, Once PRN, KRIS Zee insulin glargine (LANTUS) injection 35 Units, 35 Units, subcutaneous, Nightly, Bridgett Boyle MD insulin lispro injection 2-12 Units, 2-12 Units, subcutaneous, TID AC, KRIS Zee, 8 Unitsat 10/27/24 173 insulin lispro injection 8 Units, 8 Units, subcutaneous, TID with meals, KRIS Zee, 8 Units at 10/27/241731 morphine 2 mg/mL injection 2 mg, 2 mg, intravenous, q4h PRN, Bridgett Boyle MD, 2 mg at 10/27/242120 ondansetron ODT (ZOFRAN-ODT) disintegrating tablet 4 mg, 4 mg, oral, q8h PRN OR ondansetron (PF) (ZOFRAN) injection 4 mg, 4 mg, intravenous, q8h PRN, KRIS Zee oxyCODONE (ROXICODONE) immediate release tablet 5 mg, 5 mg, oral, q6h PRN, KRIS Zee, 5 mg at 10/27/24 164 senna (SENOKOT) tablet 17.2 mg, 2 tablet, oral, Nightly, KRIS Zee, 17.2 mg at 10/27/242124 Insert peripheral IV, , , Once AND Maintain IV access, , , Until discontinued AND Saline lock IV, , , Once AND sodium chloride 0.9 % flush 10 mL, 10 mL, intravenous, BID, 10 mL at 10/27/242131 AND sodium chloride 0.9 % flush 10 mL, 10 mL, intravenous, PRN, KRIS Zee Objective Vital signs in last 24 hours: Temp: 36.7 ??C (98.1 ??F) (10/28 322) Heart Rate: 63 (10/28 322) Resp: 18 (10/28 322) BP: 153/72 (10/28 322) Intake/Output last 3 shifts: I/O last 3 completed shifts: In: 350 (4.8 mL/kg) [I.V.:350 (4.8 mL/kg)] Out: 11 (0.2 mL/kg) [Urine:1 (0 mL/kg/hr); Blood:10] Weight: 73.1 kg Intake/Output this shift: No intake/output data recorded. Physical Exam: General: Alert and oriented x3, no acute distress, well-nourished HEENT: Normocephalic, atraumatic Neck: No JVD Chest: Respiratory effort normal Cardiac: Regular rate rhythm Abdomen: Soft, nontender, nondistended, no widened aortic pulse Extremity: -Right upper extremity: 2+ radial artery pulse palpable. -Left upper extremity: 2+ radial artery pulse palpable. -Right lower extremity: Right groin dressing C/D/I. 2+ dorsalis pedis, 2+ posterior tibial artery pulse. No ulcers or gangrene. No edema. -Left lower extremity: 2+ femoral artery pulse. DP pulse palpable on exam today. Able to move toes and ankle. Toes tender to light touch. Blue discoloration to left fourth and fifth toes. No edema. Integumentary: No wounds Neuro: Grossly intact Lab Results Component Value Date WBC 8.2 10/26/2024 HGB 11.6 10/26/2024 HCT 35.0 10/26/2024 MCV 92.8 10/26/2024 PLT 226 10/26/2024 Lab Results Component Value Date GLUCOSE 193 (H) 10/27/2024 CALCIUM 8.8 10/26/2024 NA 134 10/26/2024 K 3.5 10/26/2024 CO2 24 10/26/2024 CL 103 10/26/2024 BUN 13 10/26/2024 CREATININE 0.50 10/26/2024 Assessment/Plan 49 y/o female diabetic smoker admitted 10.25.24 with critical limb ischemia of the left leg. Pt has had rest pain in the foot for the past few days with duskiness of the left fourth and fifth toes. She had a CTA aorta with runoff which showed multilevel disease including a short segment occlusion ofthe left popliteal artery. She was also very hyperglycemic. Pt was started on heparin and admitted to medicine. 10/26: This morning, pt continues to have pain in the foot, sensitive to touch. R DP and PT palpable. L DP and PT signals are easily identifiable. Motor function is present but does seem more limited compared to right foot, possibly due to pain. Vein mapping completed - GSVs > 4mm at every level measured bilaterally. 5/16: POD #1 aortogram with bilateral iliofemoral runoff, left lower extremity angiogram, atherectomy and angioplasty of suprageniculate left popliteal artery (Diamondback 1.25 mm crown, 4 mm x 80 mmINPACT 018 DCB). Loaded with 150 mg plavix post-procedure. No acute events noted overnight. Patientcontinues to report pain to left 3rd, 4th, 5th toes. Left 4th and 5th toe with blue discoloration. Right groin access site without complications. Patient now has palpable left DP pulse on exam. 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 Recommendations : -No further vascular surgery interventions planned, will sign off -Patient to follow up outpatient with vascular surgery office -Plavix 75 mg daily and Xarelto 2.5 mg BID -Continue pain control as needed -Smoking cessation Patient seen with Dr. Nash. 18 minutes spent on patient encounter. Low complexity MDM. Patient seen and examined. Chart reviewed. Imaging study reports appreciated and all images personally reviewed. I have formulated the plan of care. Patient will require anticoagulation PAD dose Xarelto and Plavix for 2 toes syndrome. Patient likely showered debride to her foot wound including her popliteal artery. Patient expected to have pain within that foot over the next month or 2. Case discussed with primary team. 20 minutes spent on patient encounter. 15 minutes spent in conjunction withPA. Moderate complexity medical decision making * Andrés Gloria RN - 10/28/2024 3:54 AM EDT Goals: Identify possible barriers to meeting goals/advancing plan of care: . Stability of the patient: Moderately Stable - Low risk of patient condition declining or worsening End of Shift Summary: A&O, VSS, pain managed with prn medication, +pp via doppler. No issues atthis time. Call saucedo within reach care ongoing. * Luke Ma RN - 10/27/2024 8:18 PM EDT Goals: Identify possible barriers to meeting goals/advancing plan of care: POD #0 angiogram. Stability of the patient: Moderately Stable - Low risk of patient condition declining or worsening End of Shift Summary: VSS, AXO, pain medicated, IV fluids running Problem: Sensory: Acute Pain Goal: Pain level will improve or be tolerable Outcome: Progressing Goal: Ability to develop a pain control plan will improve Outcome: Progressing Problem: Cognitive: Cassandra Leon Fall Risk Goal: Mobility requiring assistance of person or device Outcome: Progressing Problem: Cognitive: Skin Integrity Impairment Goal: Knowledge of the prescribed therapeutic regimen will improve Outcome: Progressing * Bridgett Boyle MD - 10/27/2024 4:27 PM EDT Images from the original note were not included. RENETTA PROGRESS NOTE Date: 10/27/2024 Author: Bridgett Boyle MD Patient ID: Aguilar Garcia is a 49 y.o. female : 1975 MR#: [id number] SUBJECTIVE CC: Here with left lower extremity ischemia. She is back from angio, states still gest shooting pains, numbness better. Vulvar lesion draining and almost gone. ROS: No fever OBJECTIVE Vitals: 10/27/24 1402 BP: 111/65 Pulse: 73 Resp: Temp: SpO2: Physical exam: General: In distress from pain CVS: Regular Chest: Clear breath sounds Abd: Soft nontender Extr: No significant edema noted on inspection, left 4th and 5th toes with dusky/dark bluish appearance, unable to palpate pulses as patient cannot tolerate touching it. Current Medications: amoxicillin-clavulanate, 1 tablet, oral, q12h CHRISTOPHER [START ON 10/28/2024] clopidogreL, 75 mg, oral, Daily gabapentin, 300 mg, oral, q8h CHRISTOPHER insulin glargine, 25 Units, subcutaneous, Nightly insulin lispro, 2-12 Units, subcutaneous, TID AC insulin lispro, 8 Units, subcutaneous, TID with meals senna, 2 tablet, oral, Nightly sodium chloride, 10 mL, intravenous, BID sodium chloride, 75 mL/hr, Last Rate: 75 mL/hr (10/27/24 1140) PRN medications: acetaminophen, dextrose 50%, dextrose 50%, dextrose, dextrose, glucagon injection,ondansetron (ZOFRAN-ODT) disintegrating tablet OR ondansetron, oxyCODONE, Insert peripheral IV AND Maintain IV access AND Saline lock IV AND sodium chloride AND sodium chloride HEMATOLOGY Lab Results Component Value Date WBC 8.2 10/26/2024 HGB 11.6 10/26/2024 HCT 35.0 10/26/2024 MCV 92.8 10/26/2024 PLT 226 10/26/2024 INR 0.8 10/26/2024 CHEMISTRY Lab Results Component Value Date GLUCOSE 202 (H) 10/27/2024 NA 134 10/26/2024 K 3.5 10/26/2024 CO2 24 10/26/2024 CL 103 10/26/2024 BUN 13 10/26/2024 CREATININE 0.50 10/26/2024 EGFR 116 10/26/2024 CALCIUM 8.8 10/26/2024 ANIONGAP 7 10/26/2024 Imaging: Vascular US duplex lower extremity vein map bilateral Narrative: HISTORY: The patient is a 49-year-old female undergoing evaluation of the suitability ofthe greater saphenous vein for use as bypass grafts. FINDINGS: Real-time ultrasonography of the greater saphenous veins bilaterally is performed. The veins are patent, without evidence of thrombus. The diameter of the greater saphenous vein in the inguinal area is 4.9 mm on the right and 5.6 mm on the left; in the upper thigh, 4.3 mm on the right and 4.5 mm on the left; in the mid thigh, 4.7 mmon the right and 5.2 mm on the left; in the lower thigh, 4.3 mm on the right and 4.8 mm on the left; above the knee, 4.3 mm on the right and 4.4 mm on the left; below the knee, 4.6 mm on the right and 4.5 mm on the left. The course of the greater saphenous vein in each lower extremity were marked on the patient's skin. Impression: The greater saphenous veins are patent bilaterally. Their diameters are as above. Code 54085 -------- FINAL REPORT -------- Dictated By: Mathieu Lopez Dictated Date: 10/26/2024 09:45 ET Assigned Physician: Mathieu Lopez Reviewed and Electronically Signed By: Mathieu Lopez Signed Date: 10/26/2024 09:51 ET Workstation ID: [id number] Transcribed By: Self Edit Transcribed Date: 10/26/2024 09:45 ET ASSESSMENT & PLAN Grahamhai Garcia is a 49 y.o. female with PMH of DM2, smoker, presented with critical critical left lower extremity ischemia, treated with heparin drip and underwent left lower extremity angiogram today.. # Left lower extremity ischemia due to acute occlusion of popliteal artery - treated with IV heparindrip and underwent left lower extremity angiogram on 10/27/2024. I do not have report of angiogram yet, patient reported some improvement in numbness but left lower extremity still painful. # DM2 -Lantus and sliding scale insulin, adjust as needed. # USHA -likely prerenal. Resolved with fluids. # Vulvar abscess -local care with warm compresses and sitz bath's, patient reported improvement since this started, with reduced size and continued drainage. She is also on Augmentin. Reassess in a.m. 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 Yes Steam Train Driver # [id number] utilized [facility] spoke with pt at bedside. Demographics confirmed. Pt reported shelives on the 2nd floor with no elevator access, has been looking for 1st floor apt. Pt reported pharmacy is [facility]. Pt reported she would be more comfortable with receiving services in the home vs going to rehab if indicated at d/c. VNA referrals placed * Nadia Hickman RN - 10/26/2024 3:14 PM EDT Goals: Identify possible barriers to meeting goals/advancing plan of care: heparin gtt Stability of the patient: Moderately Stable - Low risk of patient condition declining or worsening End of Shift Summary: * Bridgett Boyle MD - 10/26/2024 2:15 PM EDT Images from the original note were not included. RENETTA PROGRESS NOTE Date: 10/26/2024 Author: Bridgett Boyle MD Patient ID: Aguilar Garcia is a 49 y.o. female : 1975 MR#: [id number] SUBJECTIVE CC: Here with left lower extremity ischemia. She reports significant pain, would not let me to touch or examine her foot. Present for few days, progressively worse with toes turning black and blue. No symptoms on the right. Reports being diabetic and takes 54 units of Lantus at bedtime chronically. He does not take gabapentin consistently. ROS: No fever OBJECTIVE Vitals: 10/26/24 1329 BP: 113/67 Pulse: 81 Resp: 18 Temp: 36.1 ??C (97 ??F) SpO2: 97% Physical exam: General: In distress from pain CVS: Regular Chest: Clear breath sounds Abd: Soft nontender Extr: No significant edema noted on inspection, left 4th and 5th toes with dusky/dark bluish appearance, unable to palpate pulses as patient cannot tolerate touching it. Current Medications: gabapentin, 300 mg, oral, q8h CHRISTOPHER insulin glargine, 50 Units, subcutaneous, Nightly insulin lispro, 2-12 Units, subcutaneous, TID AC senna, 2 tablet, oral, Nightly sodium chloride, 10 mL, intravenous, BID heparin, 18 Units/kg/hr, Last Rate: Stopped (10/26/24 1340) PRN medications: acetaminophen, dextrose 50%, dextrose 50%, dextrose, dextrose, glucagon injection,ondansetron (ZOFRAN-ODT) disintegrating tablet OR ondansetron, oxyCODONE, Insert peripheral IV AND Maintain IV access AND Saline lock IV AND sodium chloride AND sodium chloride HEMATOLOGY Lab Results Component Value Date WBC 8.2 10/26/2024 HGB 11.6 10/26/2024 HCT 35.0 10/26/2024 MCV 92.8 10/26/2024 PLT 226 10/26/2024 INR 0.8 10/26/2024 CHEMISTRY Lab Results Component Value Date GLUCOSE 421 (HH) 10/26/2024 NA 134 10/26/2024 K 3.5 10/26/2024 CO2 24 10/26/2024 CL 103 10/26/2024 BUN 13 10/26/2024 CREATININE 0.50 10/26/2024 EGFR 116 10/26/2024 CALCIUM 8.8 10/26/2024 ANIONGAP 7 10/26/2024 Imaging: Vascular US duplex lower extremity vein map bilateral Narrative: HISTORY: The patient is a 49-year-old female undergoing evaluation of the suitability ofthe greater saphenous vein for use as bypass grafts. FINDINGS: Real-time ultrasonography of the greater saphenous veins bilaterally is performed. The veins are patent, without evidence of thrombus. The diameter of the greater saphenous vein in the inguinal area is 4.9 mm on the right and 5.6 mm on the left; in the upper thigh, 4.3 mm on the right and 4.5 mm on the left; in the mid thigh, 4.7 mmon the right and 5.2 mm on the left; in the lower thigh, 4.3 mm on the right and 4.8 mm on the left; above the knee, 4.3 mm on the right and 4.4 mm on the left; below the knee, 4.6 mm on the right and 4.5 mm on the left. The course of the greater saphenous vein in each lower extremity were marked on the patient's skin. Impression: The greater saphenous veins are patent bilaterally. Their diameters are as above. Code 00042 -------- FINAL REPORT -------- Dictated By: Mathieu Lopez Dictated Date: 10/26/2024 09:45 ET Assigned Physician: Mathieu Lopez Reviewed and Electronically Signed By: Mathieu Lopez Signed Date: 10/26/2024 09:51 ET Workstation ID: [id number] Transcribed By: Self Edit Transcribed Date: 10/26/2024 09:45 ET ASSESSMENT & PLAN Aguilar Lily Garcia is a 49 y.o. female with PMH of DM2, smoker, presented with critical critical left lower extremity ischemia, currently on heparin drip. # Left lower extremity ischemia due to acute occlusion of popliteal artery -IV heparin drip currently, vascular planning left lower extremity angiogram with possible intervention tomorrow on 10/27/2024. # DM2 -she tells me that she takes insulin at home. She takes 54 units of long- acting at bedtime. As she will be n.p.o. I will reduce the dose to half for tonight. Added sliding scale insulin(this was not ordered on admission), blood glucose currently uncontrolled. # USHA -likely prerenal. Resolved with fluids. DVT ppx -heparin drip Code status -full Dispo -pending left lower extremity angiogram * Sarai Douglas RN - 10/26/2024 12:53 PM EDT Anti-xa 0.64- no Heparin rate change indicated. Sarai Douglas RN 10/26/24 1254 * KRIS Zee - 10/26/2024 11:37 AM EDT Vascular Surgery Daily Progress Note LOS: 0 days Subjective Czech AN automotive parts interpreter #[id number] present during visit. She confirms left foot pain for the past few days. She also reports longstanding history of left calf claudication but she also has neurogenic pain in the left leg from back issues and walks with a cane or walker for that reason. Principal Problem: Acute occlusion of popliteal artery due to thromboembolism (CMS/HCC V24, CMS/HCC V28) Active Problems: Type 2 diabetes mellitus with hyperglycemia (CMS/HCC V24, CMS/HCC V28) Hyperlipidemia Current Facility-Administered Medications: acetaminophen (TYLENOL) tablet 650 mg, 650 mg, oral, q6h PRN, Davin Croft MD, 650 mg at 10/26/24 0630 gabapentin (NEURONTIN) capsule 300 mg, 300 mg, oral, q8h CHRISTOPHER, Davin Croft MD heparin infusion 100 units/mL in D5W, 18 Units/kg/hr, intravenous, Continuous, KRIS Kwon, Last Rate: 11.4 mL/hr at 10/26/24 0634, 16 Units/kg/hr at 10/26/24 0634 ondansetron ODT (ZOFRAN-ODT) disintegrating tablet 4 mg, 4 mg, oral, q8h PRN OR ondansetron (PF) (ZOFRAN) injection 4 mg, 4 mg, intravenous, q8h PRN, Davin Croft MD oxyCODONE (ROXICODONE) immediate release tablet 5 mg, 5 mg, oral, q6h PRN, Davin Croft MD,5 mg at 10/26/24 0434 senna (SENOKOT) tablet 17.2 mg, 2 tablet, oral, Nightly, Davin Croft MD Insert peripheral IV, , , Once AND Maintain IV access, , , Until discontinued AND Saline lock IV, , , Once AND sodium chloride 0.9 % flush 10 mL, 10 mL, intravenous, BID, 10 mL at 10/26/24 0804 AND sodium chloride 0.9 % flush 10 mL, 10 mL, intravenous, PRN, Davin Croft MD No current outpatient medications on file. Objective Vital signs in last 24 hours: Temp: 36.4 ??C (97.5 ??F) (10/26 1048) Heart Rate: 84 (10/26 1048) Resp: 18 (10/26 1048) BP: 117/72 (10/26 1048) Intake/Output last 3 shifts: No intake/output data recorded. Intake/Output this shift: No intake/output data recorded. Physical Exam: General: Alert and oriented x3, no acute distress, well-nourished HEENT: Normocephalic, atraumatic Neck: No JVD Chest: Respiratory effort normal Cardiac: Regular rate rhythm Abdomen: Soft, nontender, nondistended, no widened aortic pulse Extremity: -Right upper extremity: 2+ radial artery pulse palpable. -Left upper extremity: 2+ radial artery pulse palpable. -Right lower extremity: 2+ femoral artery pulse, 2+ dorsalis pedis, 2+ posterior tibial artery pulse. No ulcers or gangrene. No edema. -Left lower extremity: 2+ femoral artery pulse. DP and PT signals present. Able to move toes and ankle. Toes tender to light touch. Early gangrene on fourth and fifth toes. No edema. Integumentary: No wounds Neuro: Grossly intact Lab Results Component Value Date WBC 8.2 10/26/2024 HGB 11.6 10/26/2024 HCT 35.0 10/26/2024 MCV 92.8 10/26/2024 PLT 226 10/26/2024 Lab Results Component Value Date GLUCOSE 424 (HH) 10/26/2024 CALCIUM 8.8 10/26/2024 NA 134 10/26/2024 K 3.5 10/26/2024 CO2 24 10/26/2024 CL 103 10/26/2024 BUN 13 10/26/2024 CREATININE 0.50 10/26/2024 HISTORY: The patient is a 49-year-old female undergoing evaluation of the suitability of the greater saphenous vein for use as bypass grafts. FINDINGS: Real-time ultrasonography of the greater saphenous veins bilaterally is performed. The veins are patent, without evidence of thrombus. The diameter of the greater saphenous vein in the inguinal area is 4.9 mm on the right and 5.6 mm on the left; in the upper thigh, 4.3 mm on the right and 4.5 mm on the left; in the mid thigh, 4.7 mmon the right and 5.2 mm on the left; in the lower thigh, 4.3 mm on the right and 4.8 mm on the left; above the knee, 4.3 mm on the right and 4.4 mm on the left; below the knee, 4.6 mm on the right and 4.5 mm on the left. The course of the greater saphenous vein in each lower extremity were marked on the patient's skin. IMPRESSION: The greater saphenous veins are patent bilaterally. Their diameters are as above. Code 68327 -------- FINAL REPORT -------- Dictated By: Mathieu Lopez Dictated Date: 10/26/2024 09:45 ET Assigned Physician: Mathieu Lopez Reviewed and Electronically Signed By: Mathieu Lopez Signed Date: 10/26/2024 09:51 ET Workstation ID: [id number] Transcribed By: Self Edit Transcribed Date: 10/26/2024 09:45 ET Assessment/Plan 49 y/o female diabetic smoker admitted 10.25.24 with critical limb ischemia of the left leg. Pt has had rest pain in the foot for the past few days with duskiness of the left fourth and fifth toes. She had a CTA aorta with runoff which showed multilevel disease including a short segment occlusion ofthe left popliteal artery. She was also very hyperglycemic. Pt was started on heparin and admitted to medicine. 10/26: This morning, pt continues to have pain in the foot, sensitive to touch. R DP and PT palpable. L DP and PT signals are easily identifiable. Motor function is present but does seem more limited compared to right foot, possibly due to pain. Vein mapping completed - GSVs > 4mm at every level measured bilaterally. Recommendations : NPO @ MN for left lower extremity angiogram with possible intervention 10/27/24 Continue heparin drip Smoking cessation High complexity. Discussed with Dr. Nash. 40 mins spent on encounter. Cosigned by Boo Nash MD at 10/26/2024 3:46 PM EDT * Christina Carcamo RN - 10/26/2024 5:48 AM EDT ED RN HANDOFF (All Jarrett Below Must Be Completed) Reason/Diagnosis for Admission: Left popliteal artery occlusion Type of Admission: [x] Medsurg, [] Telemetry Already in a Hospital Bed: [] Yes / [x] No Room Considerations/Precautions (ex: fever, diarrhea, or any infectious concerns): [] Yes / [x] No Forder Operator: [] Yes / [x] No If YES, Cardiac Rhythm: [x] NSR, [] SB, [] ST, [] A-FIB, [] A-Flutter, [] Pacemaker, [] 1st Degree HB, [] 2nd Degree HB, [] 3rd Degree HB Reason for Forder Operator: VS: Visit Vitals BP 123/70 (BP Location: Right arm, Patient Position: Sitting) Pulse 94 Temp 36.9 ??C (98.4 ??F) (Oral) Resp 17 Ht 1.651 m (65 ) Wt 71.2 kg (157 lb) SpO2 98% BMI 26.13 kg/m?? OB Status Unknown Smoking Status Every Day BSA 1.78 m?? Current Mental Status: A/O x [x]4, []3, []2, []1 Current Ambulation Status: Ad pipo IV Access: [x] Yes / [] No Field IV present: [] Yes / [x] No Hx of Violence: [] Yes / [x] No / [] Unknown Fall Risk:[] Yes / [x] No Yellow Bracelet Applied [] Yes / [x] No Yellow Socks Applied [] Yes / [x] No Patient Belongings inventoried and BL completed: [x] Yes / [] No Patient belongings stored in the security closet: [] Yes (If Yes please supply Security bag #): [x] No Patient Medications stored in Pharmacy: [] Yes (If Yes please supply Medication Security bag #): [] No ED Summary of Care: 49-yeafor left popliteal artery occlusion of ETIOLOGYr-old female with multiplemedical problems including type 2 diabetes; and hyperlipidemia is being hospitalized. He came to the ED with worsening left leg pain progressive over the course of 2 to 3 days. Physical exam significant for palpable peripheral pulses on the right side but dopplerable pulses on the left dorsalis pedis and posterior tibial locations. Screening blood test beginning from CBC with differential is unremarkable. BMP is significant for marked hyperglycemia to 625, abnormal BUN/creatinine 16/1.36 with estimated GFR 48, and hyponatremia 130. Sed rate is elevated to 82. Beta-hydroxybutyrate is normal at 1.4. And serum C-reactive protein is elevated to 1.14. Patient was started on heparin; and evaluated in the ED by vascular surgeon Dr. Mac who advised admission to Hospital Medicine; hospital medicine was asked admit for left popliteal artery occlusion Submitted by and Phone Extension: [phone] * Davin Croft MD - 10/26/2024 3:48 AM EDTAssociated Problem(s): Type 2 diabetes mellitus with hyperglycemia (CMS/HCC V24, CMS/HCC V28) - Would continue glycemic control in house using insulin regimen augmented by sliding scale - Consider interval A1c * Davin Croft MD - 10/26/2024 3:47 AM EDTAssociated Problem(s): Hyperlipidemia - Will continue outpatient antilipid regimen unchanged * Davin Croft MD - 10/26/2024 3:47 AM EDTAssociated Problem(s): Acute occlusion of popliteal artery due to thromboembolism (CMS/HCC V24, CMS/HCC V28) (Resolved 10/28/2024) - Being hospitalized for left popliteal artery occlusion of ETIOLOGY - 49-year-old female with multiple medical problems including type 2 diabetes; and hyperlipidemia is being hospitalized - Came to the ED with worsening left leg pain progressive over the course of 2 to 3 days - In the ED, initial vital signs significant for elevated diastolic blood pressure and sinus tachycardia; specifically blood pressure was 123/105 mmHg pulse 110 bpm, respiration 16 bpm, MPG 36.4 ??C,and O2 sat 95% on room air; physical exam significant for palpable peripheral pulses on the right side but dopplerable pulses on the left dorsalis pedis and posterior tibial locations; screening blood test beginning from CBC with differential is unremarkable; BMP significant for marked hyperglycemia 625, abnormal BUN/creatinine 16/1.36 with estimated GFR 48, and hyponatremia 130; sed rate is elevated to 82; beta- hydroxybutyrate is normal at 1.4; and serum C-reactive protein is elevated to 1.14;patient was started on heparin; evaluated in the ED by vascular surgeon Dr. Mac who advised admission to hospital medicine; hospital medicine was asked admit for left popliteal artery occlusion - Will admit to hospital medicine for left artery occlusion; control pain; anticoagulant therapy; and await formal input of vascular surgery team * Sarai Douglas RN - 10/25/2024 4:08 PM EDT Pt with c/o pressure in bilat feet/toes- states they are now black x5 days. Denies injury- States she is a diabetic. Does not checking sugars. Denies all other complaints- stabbing pains * KRIS Kwon - 10/25/2024 4:06 PM EDT Emergency Medicine Note Patient Name: Aguilar Garcia Initial Evaluation: 10/25/2024 : 1975 Patient's PCP: Moisés Lewis MD Emergency Physician: KRIS Kwon History of Present Illness Chief Complaint: Chief Complaint Patient presents with Toe Pain Toes on both feet are black HPI: The patient is a 49-year-old female with history of asthma, arthritis, glaucoma, and diabetes,for which she admits she is noncompliant with blood sugar checks for regular insulin use. The patient presents to the ED for evaluation of atraumatic left lower lateral severe foot pain which began yesterday. Patient reports she was unable to bear weight. And contacted her niece who examined the foot and found that the. 4th and 5th toe on the affected foot were dark in appearance compared to the other toes. Patient reports pain was severe and she presents to the ED for evaluation. The patient has not taken any medicine for her pain. The patient reports pain is mostly with weightbearing and palpation, denies pain out of portion at rest. ROS: I have performed a ROS with the pertinent positives and negatives documented in the history ofpresent illness. Previous History Past Medical History: Diagnosis Date Arthritis DX:Arthritis Asthma DX:Asthma Diabetes mellitus type 2, controlled, with complications ([facility] V24, [facility] V28) DX:Diabetes mellitus type 2, controlled, with complications ([facility]) Glaucoma DX:Glaucoma Past Surgical History: Procedure Laterality Date BACK SURGERY Left 03/31/2013 PROCEDURE: HISTORICAL BACK SURGERY; COMMENT: left L4-5 minimally invasive discectomy, Dr. Camacho KNEE SURGERY Right 09/04/2011 PROCEDURE: HISTORICAL KNEE SURGERY; COMMENT: DSA Social History Tobacco Use Smoking status: Every Day Current packs/day: 0.25 Types: Cigarettes Substance Use Topics Alcohol use: Never Drug use: Never No family history on file. is allergic to gadobutrol, ibuprofen, and venlafaxine. No current facility-administered medications on file prior to encounter. No current outpatient medications on file prior to encounter. Physical Exam Vitals: 10/25/24 1615 10/25/242018 BP: (!) 123/105 128/82 BP Location: Right arm Left arm Patient Position: Sitting Sitting Pulse: 110 106 Resp: 16 20 Temp: 36.5 ??C (97.7 ??F) 37.1 ??C (98.7 ??F) TempSrc: Oral Oral SpO2: 94% 99% Weight: 71.2 kg (157 lb) Height: 1.651 m (65 ) CONSTITUTIONAL: The patient appears non-toxic, well nourished and in no acute distress. Vital signsreviewed as documented. HEAD: Atraumatic, normocephalic. EYES: EOMs grossly intact, pupils equal, conjunctiva clear, no exudate. ENT: Nares patent, no discharge. Airway patent, no audible stridor, visible mucosa is pink and moist without noted lesions. NECK: Trachea is midline, no obvious masses or gross abnormalities. CHEST: Symmetric movement, normal appearance. LUNGS: LS present and CTAB, no w/r/r. Non-labored work of breathing. CARDIAC: Regular Rhythm, S1/S2 appreciated, no murmurs, rubs or gallops. ABDOMEN: Abdomen soft/non-tender x4 quadrants, no masses or organomegaly. : Deferred. EXTREMITIES: The patient's left foot demonstrates some coolness and cyanotic color change of the 4th and 5th left toes and distal metatarsals. There is no open injury, fluid collection, or evidence of overt necrosis. There is marked tenderness to palpation of the plantar and dorsal surfaces of the foot overlying the 4th and 5th metatarsals and tarsals. Patient is unable to bear weight. Patient distal CSM is intact however DP/PT pulses are nonpalpable bilaterally. DP and PT pulses were present on Doppler bilaterally. Normal tone, moves all other extremities spontaneously without reported pain.No obvious injury or deformity noted. NEURO: Alert and oriented x3, CN II-XII appear grossly intact. Cerebellar Functioning grossly intact. Speech clear and appropriate. PSYCH: normal affect, with appropriate eye contact and fluid, appropriate speech. No reported suicidality or homicidality. SKIN: Warm, dry, color appropriate, normal turgor. No rashes noted. Results Labs Reviewed BASIC METABOLIC PANEL - Abnormal Result Value Sodium 130 (*) Potassium 3.9 Chloride 97 CO2 22 Anion Gap 11 Glucose 625 (*) BUN 16 Creatinine 1.36 (*) eGFR 48 (*) BUN/Creatinine Ratio 11.8 Calcium 9.3 SEDIMENTATION RATE - Abnormal Sed Rate 82 (*) C-REACTIVE PROTEIN - Abnormal C-Reactive Protein 1.14 (*) PROTHROMBIN TIME WITH INR - Abnormal Protime 10.5 (*) INR 0.8 HEPARIN ANTI XA - Abnormal Heparin Anti-Xa 0.05 (*) Narrative: Therapeutic range listed is for Unfractionated Heparin. LMW Heparin therapeutic range: 0.50-1.20 IU/mL POCT GLUCOSE, BLOOD - Abnormal Glucose POCT 511 (*) POCT Comment RN Notified POCT Comment 1 Notified POCT GLUCOSE, BLOOD - Abnormal Glucose POCT 435 (*) POCT Comment RN Notified POCT Comment 1 Notified BETA HYDROXYBUTYRATE - Normal Beta-Hydroxybutyrate 1.4 HCG, SERUM, QUALITATIVE - Normal hCG Qual Negative ACTIVATED PARTIAL THROMBOPLASTIN TIME - Normal aPTT 29.5 CBC AND DIFFERENTIAL Narrative: The following orders were created for panel order CBC and differential. Procedure Abnormality Status --------- ------ CBC auto differential[[id number]] Final result Please view results for these tests on the individual orders. CBC WITH AUTO DIFFERENTIAL WBC 8.0 RBC 4.40 Hemoglobin 13.9 Hematocrit 41.3 MCV 93.4 MCH 31.4 MCHC 33.7 RDW 12.3 Platelets 255 MPV 10.3 NRBC 0.0 NRBC Absolute 0.00 Neutrophils Relative 52.5 Lymphocytes Relative 37.9 Monocytes Relative 7.1 Eosinophils Relative 1.7 Basophils Relative 0.4 Immature Granulocytes Relative 0.4 Neutrophils Absolute 4.22 Lymphocytes Absolute 3.04 Monocytes Absolute 0.57 Eosinophils Absolute 0.14 Basophils Absolute 0.03 Immature Granulocytes Absolute 0.03 HEPARIN ANTI XA BASIC METABOLIC PANEL CBC AND DIFFERENTIAL Narrative: The following orders were created for panel order CBC and differential. Procedure Abnormality Status --------- ------ CBC auto differential[[id number]] Please view results for these tests on the individual orders. CBC WITH AUTO DIFFERENTIAL Abnormal Labs Reviewed BASIC METABOLIC PANEL - Abnormal; Notable for the following components: Result Value Sodium 130 (*) Glucose 625 (*) Creatinine 1.36 (*) eGFR 48 (*) All other components within normal limits SEDIMENTATION RATE - Abnormal; Notable for the following components: Sed Rate 82 (*) All other components within normal limits C-REACTIVE PROTEIN - Abnormal; Notable for the following components: C-Reactive Protein 1.14 (*) All other components within normal limits PROTHROMBIN TIME WITH INR - Abnormal; Notable for the following components: Protime 10.5 (*) All other components within normal limits HEPARIN ANTI XA - Abnormal; Notable for the following components: Heparin Anti-Xa 0.05 (*) All other components within normal limits Narrative: Therapeutic range listed is for Unfractionated Heparin. LMW Heparin therapeutic range: 0.50-1.20 IU/mL POCT GLUCOSE, BLOOD - Abnormal; Notable for the following components: Glucose POCT 511 (*) All other components within normal limits POCT GLUCOSE, BLOOD - Abnormal; Notable for the following components: Glucose POCT 435 (*) All other components within normal limits CT Angio Lower Extremity w and/or wo Contrast Left Final Result Addendum (preliminary) ADDENDUM: This report was discussed with KRIS Kwon on October 25, 2024 23:26:00 EDT. This document has been electronically signed by: Agnieszka Pak on 10/25/2024 23:27:12 Final Impression: Occluded short-segment of left popliteal artery Multifocal vascular stenosis outlined above Subcutaneous soft tissue abnormality inferior to left labia Recommend physical exam correlation to exclude mass This document has been electronically signed by: Wade Asif MD on 10/25/2024 23:24:48 Vascular US duplex lower extremity vein map bilateral (Results Pending) I have discussed any resulted incidental/abnormal imaging and/or lab abnormalities with the patientand have instructed them of the need for further evaluation and workup with their primary care doctor. All available laboratory results, imaging results and other diagnostic exam results were reviewed in the EMR. EKG Interpretation Critical Care Time None ? Medical Decision Making Patient is a 49-year-old female with uncontrolled diabetes presenting to the ED for evaluation of. Severe atraumatic left foot pain which began acutely 2 days ago. The patient's exam shows discoloration of the 4th and 5th toes and distal metatarsals, with some coolness. Patient has nonpalpable pulses bilaterally, however DP and PT pulses are present bilaterally on Doppler, no evidence of acute arterial occlusion. The patient's laboratory evaluation reveals marked hyperglycemia, patient is seen eating [employer] during initiation of patient interview and exam. Patient advised to stop eating while in the ED. Remainder of laboratory workup reveals elevated CRP and ESR. Patient's differential includes stress fracture, vascular insufficiency, osteomyelitis, or diabetic foot infection. The patient's labs show no leukocytosis, patient is afebrile, we will fluid hydrate for hyperglycemia and obtain CTA of the extremity to further characterize source of pain. Clinical Impressions as of 10/26/24 0202 Peripheral arterial disease ([facility]/HCC V24) Occlusion of left popliteal artery (CMS/HCC V24) Medications heparin infusion 100 units/mL in D5W (18 Units/kg/hr ?? 71.2 kg intravenous New Bag 10/26/24 0059) sodium chloride 0.9 % flush 10 mL (10 mL intravenous Not Given 10/26/24 0117) And sodium chloride 0.9 % flush 10 mL (has no administration in time range) acetaminophen (TYLENOL) tablet 650 mg (has no administration in time range) ondansetron ODT (ZOFRAN-ODT) disintegrating tablet 4 mg (has no administration in time range) Or ondansetron (PF) (ZOFRAN) injection 4 mg (has no administration in time range) senna (SENOKOT) tablet 17.2 mg (17.2 mg oral Not Given 10/26/24 0117) sodium chloride 0.9 % bolus 1,000 mL (0 mL intravenous Stopped 10/25/242212) sodium chloride 0.9 % bolus 1,000 mL (0 mL intravenous Stopped 10/26/24 0053) sodium chloride 0.9 % flush 10 mL (10 mL intravenous Given 10/25/242228) iopamidoL (ISOVUE-370) 370 mg iodine /mL (76 %) injection 100 mL (100 mL intravenous Given 10/25/242228) morphine injection 4 mg (4 mg intravenous Given 10/25/247) heparin (UFH) bolus from infusion 5,696 Units (5,696 Units intravenous Bolus from Bag 10/26/24 0101) Procedures Procedures Diagnosis 1. Peripheral arterial disease (CMS/HCC V24) Vascular US duplex lower extremity vein map bilateral Vascular US duplex lower extremity vein map bilateral 2. Occlusion of left popliteal artery ([facility] V24) Disposition Admit to Inpatient ED Prescriptions None Physician Attestation KRIS Kwon 10/25/242043 KRIS Kwon 10/25/242247 KRIS Kwon 10/26/242 Cosigned by Franki Hsieh MD at 10/26/2024 8:45 PM EDT Associated attestation - Franki Hsieh MD - 10/26/2024 8:45 PM EDT This is a split/shared visit with KRIS Kwon. I personally performed the medical decision making (MDM) for the care of this patient on 10/25/2024 as documented below 41-year-old female presents for concern of ischemic toes. Poorly controlled diabetic, noncompliant with insulin use. Presents for lateral left foot pain, found to have black toes on the 4th and 5th digit. Has dopplerable pulses. Admitted for peripheral vascular disease, left popliteal artery occlusion. Franki Hsieh MD 10/26/24 8:44 PM EDT documented in this encounter H&P Notes * Davin Croft MD - 10/26/2024 3:48 AM EDT Images from the original note were not included. [place] [facility] Please contact author [Davin Croft MD] via Pressable/Hupu. Patient: Aguilar Garcia Admission Date/Time: 10/25/2024 7:40 PM : 1975 [49 y.o.] Patient's PCP: Moisés Lewis MD Attending Provider: Franki Hsieh MD;Gladys* CHIEF COMPLAINT Left leg pain worsening over the course to 2-3 days HISTORY OF PRESENT ILLNESS 49-yeafor left popliteal artery occlusion of ETIOLOGYr-old female with multiple medical problems including type 2 diabetes; and hyperlipidemia is being hospitalized. He came to the ED with worsening left leg pain progressive over the course of 2 to 3 days. He denies fever, chills, nausea, vomiting. In the ED, initial vital signs significant for elevated diastolic blood pressure and sinus tachycardia. Specifically blood pressure was 123/105 mmHg pulse 110 bpm, respiration 16 bpm, MPG 36.4 ??C, and O2 sat 95% on room air. Physical exam significant for palpable peripheral pulses on the right side but dopplerable pulses on the left dorsalis pedis and posterior tibial locations. Screening blood test beginning from CBC with differential is unremarkable. BMP is significant for marked hyperglycemia to 625, abnormal BUN/creatinine 16/1.36 with estimated GFR 48, and hyponatremia 130. Sed rate is elevated to 82. Beta- hydroxybutyrate is normal at 1.4. And serum C-reactive protein is elevated to 1. 14. Patient was started on heparin; and evaluated in the ED by vascular surgeon Dr. Mac who advised admission to Hospital Medicine; hospital medicine was asked admit for left popliteal artery occlusion Functional status prior to presentation: Fully functional and independent in community Review of Systems Review of Systems CONSTITUTIONAL: No weight loss, fever, chills, weakness, or fatigue. HEENT: Denies visual changes; hearing loss, sneezing, congestion, runny nose, or sore throat. SKIN: Denies rash or itching. CARDIOVASCULAR: Denies chest pain, chest pressure, or chest discomfort, palpitations. RESPIRATORY: Denies shortness of breath, or significant coughs GASTROINTESTINAL: Denies abdominal pain, nausea, vomiting, diarrhea/constipation. GENITOURINARY: Denies dysuria, frequency, or urgency. NEUROLOGICAL: Denies headache, dizziness, syncope, paralysis, ataxia, numbness, or tingling in the extremities. MUSCULOSKELETAL: Worsening left leg pain; denies muscle, back pain, joint pain, or stiffness. HEMATOLOGIC: Denies easy bruising. LYMPHATICS: Denies enlarged or painful nodes. Denies splenectomy history. PSYCHIATRIC: Denies suicide or homicide ideations. ENDOCRINOLOGIC: Denies heat of cold intolerances MEDICAL HISTORY Past Medical History Past Medical History: Diagnosis Date ??? Arthritis DX:Arthritis ??? Asthma DX:Asthma ??? Diabetes mellitus type 2, controlled, with complications (CMS/[facility] V24, CMS/[facility] V28) DX:Diabetes mellitus type 2, controlled, with complications ([facility]) ??? Glaucoma DX:Glaucoma Past Surgical History Past Surgical History: Procedure Laterality Date ??? BACK SURGERY Left 03/31/2013 PROCEDURE: HISTORICAL BACK SURGERY; COMMENT: left L4-5 minimally invasive discectomy, Dr. Camacho ??? KNEE SURGERY Right 09/04/2011 PROCEDURE: HISTORICAL KNEE SURGERY; COMMENT: DSA Social History reports that she has been smoking cigarettes. She does not have any smokeless tobacco history on file. She reports that she does not drink alcohol and does not use drugs. Family History family history is not on file. Allergies is allergic to gadobutrol, ibuprofen, and venlafaxine. Home Medications No current facility-administered medications on file prior to encounter. No current outpatient medications on file prior to encounter. OBJECTIVE Vitals Visit Vitals BP 128/82 (BP Location: Left arm, Patient Position: Sitting) Pulse 106 Temp 37.1 ??C (98.7 ??F) (Oral) Resp 20 Temp (24hrs), Av.8 ??C (98.2 ??F), Min:36.5 ??C (97.7 ??F), Max:37.1 ??C (98.7 ??F) Body mass index is 26.13 kg/m??. No results found for: PTWT , PTHT Physical Examination GEN: Middle-aged man; resting supine near flat in bed; Head of bed elevated 20- 30 degrees; awake, alert, and oriented to self, place, time and in no apparent distress HEENT: Normocephalic, atraumatic, PERRL, EOMI, no scleral icterus, nor conjunctival injection, Oropharynx clear NECK: No JVD, Trachea is midline, No carotid bruit, No adenopathy; No accessory use in ventilations CHEST: Normal chest rises and symmetric chest movement with ventilations; LUNGS: Audible to auscultations thru/out lung jarrett; clear without crackles or wheezing to auscultations bilaterally. HEART: Regular S1 and S2; No murmur nor bertha; and No lift or thrill. Palpable dorsalis pedis and posterior tibial pulse of right lower extremity, probably dopplerable left lower extremity dorsalis pedis and posterior pulses ABDOMEN: Non-distended audible bowel sounds to auscultation, soft, and nontender. EXTREMITIES: Full range of motion. No cyanosis, clubbing, or edema. NEURO: Awake & alert, and fully oriented; Cranial nerves II-XII intact. No obvious focal motor or sensory deficits SKIN: No significant skin lesions or rashes. PSYCHIATRIC: Normal affect; Calm mood; Denies suicide/homicide ideation. ECG: Was ECG Performed? No. LAB RESULTS (most recent) HEMATOLOGY Lab Results Component Value Date WBC 8.0 10/25/2024 HGB 13.9 10/25/2024 HCT 41.3 10/25/2024 MCV 93.4 10/25/2024 PLT 255 10/25/2024 CHEMISTRY Lab Results Component Value Date GLUCOSE 435 (HH) 10/25/2024 NA 130 (L) 10/25/2024 K 3.9 10/25/2024 CO2 22 10/25/2024 CL 97 10/25/2024 BUN 16 10/25/2024 CREATININE 1.36 (H) 10/25/2024 EGFR 48 (L) 10/25/2024 CALCIUM 9.3 10/25/2024 ANIONGAP 11 10/25/[address] Angio Lower Extremity w and/or wo Contrast Left Final Result Addendum (preliminary) ADDENDUM: This report was discussed with KRIS Kwon on October 25, 2024 23:26:00 EDT. This document has been electronically signed by: Agnieszka Pak on 10/25/2024 23:27:12 Final Impression: Occluded short-segment of left popliteal artery Multifocal vascular stenosis outlined above Subcutaneous soft tissue abnormality inferior to left labia Recommend physical exam correlation to exclude mass This document has been electronically signed by: Wade Asif MD on 10/25/2024 23:24:48 Vascular US duplex lower extremity vein map bilateral (Results Pending) ASSESSMENT & PLAN Acute occlusion of popliteal artery due to thromboembolism ([facility] V24, [facility] V28) - Being hospitalized for left popliteal artery occlusion of unclear etiology - 49-year-old female with multiple medical problems including type 2 diabetes; and hyperlipidemia is being hospitalized - Came to the ED with worsening left leg pain progressive over the course of 2 to 3 days - In the ED, initial vital signs significant for elevated diastolic blood pressure and sinus tachycardia; C-reactive protein is elevated to 1.14; patient was started on heparin; evaluated in the ED by vascular surgeon Dr. Mac who advised admission to Hospital Medicine - Will admit to Hospital Medicine for left popliteal artery occlusion; pain control; anticoagulant therapy; and await formal input of vascular surgery team Hyperlipidemia - Will continue outpatient antilipid regimen unchanged Type 2 diabetes mellitus with hyperglycemia ([facility] V24, [facility] V28) - Would continue glycemic control in house using insulin regimen augmented by sliding scale - Consider interval A1c Admission checklist [x] Code Status: Full code confirmed [x] VTE Prophylaxis: Heparin [x] Diet Order on Admission: [x] Lines, Tubes, Drains: IV access [x] Medication Reconciliation: [x] Health Care Proxy (HCP) and HCP-Phone number: [x] Evaluative Finding Treatment Plan: Reviewed with patient/Family/Pattern Shop Supervisor: [x] [facility] and Patient's Wwzuiawyq[facility]-xz-Ohaj Questions: Addressed at bedside, specifying occlusive acute event as admitting diagnosis Davin Croft MD, MA, FACP Internal Medicine/Hospital Medicine Division [place], [place] (Electronic Signature on File) Dictation Disclaimer Statement: This document was developed in part, totally and/or in the combination using the [employer] voice recognition software. Innocent errors may be present in the signed document due to software-hardware parity limitation potentially leading to unintended omission, grammatical or nonsensical errors, possibly missed and/or not readily detected during proof reading by the author of this document. If you have any questions or concerns, regarding the content of this note, please contact me directly. documented in this encounter Procedure Notes * Boo Nash MD - 10/27/2024 7:32 AM EDT PATIENT: Aguilar Garcia ENCOUNTER: 10/27/2024 EMRN: [id number] : 1975 Mallampati classification: 3 ASA classification: 3 Diagnosis: CLI * Boo Nash MD - 10/27/2024 7:24 AM EDT Angiography lower ext left (L) OPERATIVE NOTE Date: 10/27/2024 Location: [facility] Cardiac Decorator Inspector Name: Aguilar Garcia, : 1975, Diagnosis Pre-op Diagnosis * Peripheral arterial disease (CMS/HCC V24) [I73.9] Post-op Diagnosis * Peripheral arterial disease (CMS/HCC V24) [I73.9] Procedures 1. Right common femoral artery ultrasound-guided access 2. Catheter placement aorta 3. Aortogram with bilateral iliofemoral runoff 4. Third order selective catheterization of left superficial femoral artery 5. Left lower extremity angiogram 6. Atherectomy and angioplasty of suprageniculate left popliteal artery (Diamondback 1.25 mm crown,4 mm x 80 mm INPACT 018 DCB) Indications: Aguilar Garcia is an 49 y.o. female who is having surgery for left leg critical limb ischemia. Surgeon(s) & Banquet Prep Cook(s) * Boo Nash MD - Primary Anesthesia: Moderate conscious sedation and local was performed for anesthesia under my direction. Ongoing assessment and monitoring of vital signs was performed 53 minutes 34 seconds by a dedicated registered nurse observer during MCS. Patient received 3 mg of IV midazolam and 100 mcg of IV fentanyl administrated by dedicated registered nurse observer. ASA: 3 Estimated Blood Loss: 10 mL Procedure Details: Patient brought into the Decorator Inspector and placed on table in supine position. Bilateral groins were draped and prepped in usual sterile fashion. MAC anesthesia was given. A timeout was performed. The area overlying the right common femoral artery was then anesthetized with 1% lidocaine. Using ultrasound guidance and a micropuncture needle, the right common femoral artery was cannulated. A microwire was then passed into the iliac artery under fluoroscopic guidance. The needle was exchanged for a micropuncture sheath. The inner dilator and wire were removed. Arterial backbleeding was noted.A J wire was then placed into the aorta under fluoroscopic guidance. The micropuncture sheath was upsized to a 5 [place]an sheath. The inner dilator was removed and the side-port was flushed with heparin ized saline. A Omni Flush catheter was placed into the aorta and allowed to reform at the level of L3. An aortogram with bilateral iliofemoral runoff was performed. The arterial anatomy was delineated. The aorta,bilateral common, internal and external iliac arteries were patent. The left common femoral artery was patent. The proximal deep femoral vein and superficial arteries were patent. The left superficial femoral artery was then selected out using multiple catheters and wires. A left lower extremity angiogram was then performed using serial stations with hand-injection and digitalsubtraction angiography. The arterial anatomy was delineated. Overall vessels are small in caliber.The left superficial femoral artery was patent. There was a 99% stenosis of the left popliteal artery above the knee. This was read as a complete occlusion on CTA and may have recannulated with anticoagulation overnight. There was three-vessel runoff below. Sluggish flow was noted in the tibial vessels. Patient likely showered to the distribution of his 4th and 5th toe. Paucity of arterial flow wa s seen at the level of the foot. The patient warranted intervention. The patient was systemically heparinized. A 5 [place]an 90 cm Cooksheath was brought up and over and parked in the contralateral sustained 30 distal superficial femoral artery. All the lesions were crossed using multiple catheters and wires. A 014, Viper wire was parked in the peroneal/popliteal artery. A Diamondback 1.25/1.5/2.0 solid crown orbital atherectomy device was selected. The Diamondback orbital atherectomy device was prepared per standard protocol. Nitroglycerin was given intra-arterially. A orbital atherectomy was performed with multiple passes at 60 kRPM, 90 kRPM, and 120 kRPM per protocol on the lesion(s) in the left popliteal. The lesion was then angioplastied with a 4 mm x 80 mm INPACT 018 DCB Completion angiographyrevealed residual stenosis of less than 20%. No further intervention was warranted. All catheters and wires were removed and the 90 cm sheath was exchanged for 10 cm 5 [place]an sheath. Sheath was flushed and screwed in place. Radiological supervision and interpretation:: As stated above. Complications: None; patient tolerated the procedure well. Disposition: PACU - hemodynamically stable. Condition: stable documented in this encounter Consult Notes * Boo Nash MD - 10/25/2024 11:57 PM EDTAssociated Order(s): IP CONSULT TO VASCULAR SURGERY VASCULAR SURGERY CONSULTATION PATIENT: Aguilar Garcia ENCOUNTER: 10/26/2024 EMRN: [id number] : 1975 PCP: Moisés Lewis MD CHIEF COMPLAINT: Toe Pain (Toes on both feet are black) HPI: Patient is a 49 y.o. active smoker female with history of asthma, arthritis, glaucoma, andnoncompliant diabetic wth 5-day onset of left 4th and 5th toe pain and bluish discoloration. Patient also has left calf pain. Patient reports she was unable to bear weight. And contacted her niece who examined the foot and found that the. 4th and 5th toe on the affected foot were dark in appearancecompared to the other toes. Patient workup in the ED was performed which revealed left popliteal artery occlusion on CTA. See findings below. Past Medical History: Diagnosis Date Arthritis DX:Arthritis Asthma DX:Asthma Diabetes mellitus type 2, controlled, with complications (CMS/HCC V24, CMS/HCC V28) DX:Diabetes mellitus type 2, controlled, with complications ([facility]) Glaucoma DX:Glaucoma Past Surgical History: Procedure Laterality Date BACK SURGERY Left 03/31/2013 PROCEDURE: HISTORICAL BACK SURGERY; COMMENT: left L4-5 minimally invasive discectomy, Dr. Camacho KNEE SURGERY Right 09/04/2011 PROCEDURE: HISTORICAL KNEE SURGERY; COMMENT: DSA Current Facility-Administered Medications Medication Dose Route Frequency Provider Last Rate Last Admin acetaminophen (TYLENOL) tablet 650 mg 650 mg oral q6h PRN Davin Croft MD 650 mg at 10/26/24 0630 gabapentin (NEURONTIN) capsule 300 mg 300 mg oral q8h CHRISTOPHER Davin Croft MD heparin infusion 100 units/mL in D5W 18 Units/kg/hr intravenous Continuous KRIS Kwon 11.4 mL/hr at 10/26/24 0634 16 Units/kg/hr at 10/26/24 0634 ondansetron ODT (ZOFRAN-ODT) disintegrating tablet 4 mg 4 mg oral q8h PRN Davin Croft MD Or ondansetron (PF) (ZOFRAN) injection 4 mg 4 mg intravenous q8h PRN Davin Croft MD oxyCODONE (ROXICODONE) immediate release tablet 5 mg 5 mg oral q6h PRN Davin Croft MD 5 mgat 10/26/24 0434 senna (SENOKOT) tablet 17.2 mg 2 tablet oral Nightly Davin Croft MD sodium chloride 0.9 % flush 10 mL 10 mL intravenous BID Davin Croft MD 10 mL at 10/26/24 0804 And sodium chloride 0.9 % flush 10 mL 10 mL intravenous PRN Davin Croft MD No current outpatient medications on file. Allergies Allergen Reactions Gadobutrol Nausea And Vomiting Ibuprofen Rash Venlafaxine Hallucinations Social History Tobacco Use Smoking status: Every Day Current packs/day: 0.25 Types: Cigarettes Smokeless tobacco: Not on file Substance Use Topics Alcohol use: Never No family history on file. ROS: GENERAL: No malaise, significant weight loss or fever NECK: No lumps, goiter, pain or significant neck swelling RESPIRATORY: No cough, wheezing or shortness of breath CARDIAC: No chest pain or palpitations GI: No abdominal discomfort MUSCULOSKELETAL: SEE HPI SKIN: No lesions, rash or itching NEURO: No persistent headache, syncope, seizures, weakness or numbness VASCULAR: SEE HPI Objective No intake/output data recorded. No intake/output data recorded. Vitals: 10/25/24201814/25 0358 10/26/24 0837 10/26/24 1049 BP: 128/82 123/70 107/69 117/72 BP Location: Left arm Right arm Left arm Left arm Patient Position: Sitting Sitting Sitting Lying Pulse: 106 94 71 84 Resp: 18 18 Temp: 37.1 ??C (98.7 ??F) 36.9 ??C (98.4 ??F) 36.5 ??C (97.7 ??F) 36.4 ??C (97.5 ??F) TempSrc: Oral Oral Oral Oral SpO2: 99% 98% 96% 99% Weight: Height: General: Alert and oriented x 3, no acute distress, well-nourished HEENT: Normocephalic atraumatic Neck: No JVD, no carotid bruit, carotid pulses present Chest: Respiratory effort normal Cardiac: Regular rate rhythm Abdomen: Soft, nontender, nondistended, no widened aortic pulse Extremities: -Right upper extremity: 2+ radial artery pulses palpable. -Left upper extremity: 2+ radial artery pulses palpable. -Right lower extremity: 2+ femoral artery pulse palpable. No palpable popliteal artery pulse. 2+ DPand No PT pulses palpable. No ulcers or gangrene. No hyperpigmentation. No induration or inflammation. No edema. -Left lower extremity: 2+ femoral artery pulse palpable. No palpable popliteal artery pulse. No DP and PT pulses palpable. No ulcers or gangrene. No hyperpigmentation. No induration or inflammation. No edema. Integumentary: No wounds Lymphatics: No lymphadenopathy Neuro: Grossly intact RESULTS: CBC Lab Results Component Value Date WBC 8.2 10/26/2024 HGB 11.6 10/26/2024 HCT 35.0 10/26/2024 MCV 92.8 10/26/2024 PLT 226 10/26/2024 LYMPHOPCT 61.0 10/26/2024 MONOPCT 6.2 10/26/2024 EOSPCT 3.3 10/26/2024 Electrolytes Lab Results Component Value Date NA 134 10/26/2024 K 3.5 10/26/2024 CL 103 10/26/2024 BUN 13 10/26/2024 CREATININE 0.50 10/26/2024 EGFR 116 10/26/2024 GLUCOSE 424 (HH) 10/26/2024 CALCIUM 8.8 10/26/2024 No results found for: MG , PHOS IMAGING: CT Angio Lower Extremity w and/or wo Contrast Left ( (Order [id number]) Status: Edited Result - FINAL PACS Images Show images for CT Angio Lower Extremity w and/or wo Contrast Left Addendum ADDENDUM: This report was discussed with KRIS Kwon on October 25, 2024 23:26:00 EDT. This document has been electronically signed by: Agnieszka Pak on 10/25/2024 23:27:12 Addended by Wade Asif MD on 10/25/2024 11:27 PM Study Result Narrative & Impression INDICATION: Claudication or leg ischemia CT angiogram left leg with contrast Multiplanar reconstructions and 3D processing Comparison: No prior studies of any type Findings: Imaging begins in lower pelvis. Visualized portions of left external iliac artery patent. Moderate left [employer] and PFA origins stenosis. Multifocal mild left SFA stenosis. Severe distal left SFA narrowing noted. Multifocal moderate left popliteal artery stenosis. Mid left popliteal artery occlusion noted. Reconstitution noted distal popliteal artery. Severe disease proximal trifurcation vessels. Peroneal artery tapers to occlusion distally. There is two-vessel runoff to the ankle. No bony abnormality noted in the left leg. Heterogeneous soft tissue abnormality inferior to left labia. This is not well assessed on this study. Physical exam correlation is recommended. Soft tissue mass is not excludable. IMPRESSION: Impression: Occluded short-segment of left popliteal artery Multifocal vascular stenosis outlined above Subcutaneous soft tissue abnormality inferior to left labia Recommend physical exam correlation to exclude mass This document has been electronically signed by: Wade Asif MD on 10/25/2024 23:24:48 ASSESSMENT: 1. Peripheral arterial disease (CMS/HCC V24) 2. Occlusion of left popliteal artery (CMS/HCC V24) 3. Critical limb ischemia of left lower extremity (CMS/HCC V24, CMS/HCC V28) RECOMMENDATIONS: 49 y.o. female admitted with noncompliant diabetic smoker with progressive chronic arterial occlusive disease. She has early left 4th and 5th toe gangrene. Patient warrants intervention for limb salvage. Patient will require optimization medically and further workup. Will plan to perform bilateral g reater saphenous vein mapping to evaluate potential conduit. Will plan on performing left lower extremity angiogram with possible intervention once patient is hydrated. Of note CTA does not show proximal small finger iliac system including the distal aorta and common iliac artery. Recommendations: IV anticoagulation Admit to medical service for optimization Plan on left lower extremity angiogram on . N.p.o. postmidnight on Thursday Vein mapping bilateral lower extremities. Will follow I spent 60 minutes in an encounter with this patient, including time spent with patient, chart review, reviewing diagnostic studies, and documentation. High complexity decision making. documented in this encounter Plan of Treatment Pending Results Name Type Priority Associated Diagnoses Date /Time Invasive vascular procedure Invasive Vascular Routine Peripheral arterial disease ([facility] V24) 10/27/2024 8:42 AM EDT Scheduled Referrals Name Type Priority Associated Diagnoses Order Schedule Ambulatory referral to Home Health Outpatient Referral Routine Peripheral arterial disease ([facility] V24) Critical limb ischemia of left lower extremity ([facility] V24, CMS/[facility] V28) 1 Occurrences starting 10/28/2024 until 10/28/2025 documented as of this encounter Procedures Procedure Name Priority Date/Time Associated Diagnosis Comments POCT GLUCOSE BLOOD Routine 10/28/2024 11:09 AM EDT POCT GLUCOSE BLOOD Routine 10/28/2024 7: 43 AM EDT POCT GLUCOSE BLOOD Routine 10/27/2024 8: 19 PM EDT POCT GLUCOSE BLOOD Routine 10/27/2024 5: 16 PM EDT HEPARIN ANTI XA STAT 10/27/2024 12:58 PM EDT POCT GLUCOSE BLOOD Routine 10/27/2024 12:14 PM EDT POCT ACTIVATED CLOTTING TIME, KAOLIN Routine 10/27/2024 10:00 AM EDT POCT ACTIVATED CLOTTING TIME, KAOLIN Routine 10/27/2024 8:53 AM EDT INVASIVE VASCULAR PROCEDURE Routine 10/27/2024 8:42 AM EDT Peripheral arterial disease ([facility]/HCC V24) Procedure Note - Boo Nash MD - 10/27/2024 8:42 AM EDTThis note is in progress. Per op Note Findings Study Details Per op note Clinical Background Per op Note Procedure Details Per op Note SST - GOLD Routine 10/27/2024 5:57 AM EDT EXTRA TUBES Routine 10/27/2024 5:57 AM EDT HEPARIN ANTI XA STAT 10/27/2024 5:57 AM EDT HEPARIN ANTI XA STAT 10/27/2024 12:17 AM EDT POCT GLUCOSE BLOOD Routine 10/26/2024 8: 51 PM EDT HEPARIN ANTI XA STAT 10/26/2024 6:18 PM EDT POCT GLUCOSE BLOOD Routine 10/26/2024 4: 37 PM EDT MRSA PCR Routine 10/26/2024 3:55 PM EDT POCT GLUCOSE BLOOD Routine 10/26/2024 1: 28 PM EDT HEPARIN ANTI XA STAT 10/26/2024 12:02 PM EDT VAS US DUPLEX LOWER EXT VEIN MAP BILAT Routine 10/26/2024 9:24 AM EDT Peripheral arterial disease ([facility]/HCC V24) CBC WITH AUTO DIFFERENTIAL Routine 10/26/2024 5:45 AM EDT HEPARIN ANTI XA STAT 10/26/2024 5:45 AM EDT CBC AND DIFFERENTIAL Routine 10/26/2024 5:45 AM EDT BASIC METABOLIC PANEL Routine 10/26/2024 5:45 AM EDT ACTIVATED PARTIAL THROMBOPLASTIN TIME STAT 10/26/2024 12:12 AM EDT PROTHROMBIN TIME WITH INR STAT 10/26/2024 12:12 AM EDT HEPARIN ANTI XA STAT 10/26/2024 12:12 AM EDT POCT GLUCOSE BLOOD Routine 10/25/2024 10:[address] ANGIO LOWER EXTREMITY W AND/OR WO CONTRAST LEFT STAT 10/25/2024 10:35 PM EDT POCT GLUCOSE BLOOD Routine 10/25/2024 8: 16 PM EDT BETA HYDROXYBUTYRATE Add-On 10/25/2024 5:31 PM EDT CBC WITH AUTO DIFFERENTIAL STAT 10/25/2024 5:31 PM EDT SEDIMENTATION RATE STAT 10/25/2024 5: 31 PM EDT CBC AND DIFFERENTIAL STAT 10/25/2024 5:31 PM EDT C-REACTIVE PROTEIN STAT 10/25/2024 5: 31 PM EDT HCG, SERUM, QUALITATIVE STAT Add-on 10/25/2024 5:31 PM EDT BASIC METABOLIC PANEL STAT 10/25/2024 5:31 PM EDT documented in this encounter Results * (ABNORMAL) POCT Glucose, blood (10/28/2024 11:09 AM EDT) [facility] Signature Glucose POCT 261(H) 70 - 100 mg/dL 10/28/2024 11:10 AM EDT [facility] Blood Capillary blood specimen / Unknown 10/28/2024 11:09 AM EDT 10/28/2024 11:12 AM EDT us Bridgett Boyle MD LAB POINT OF CARE TE ST DOCKED DEVICE UNSOLICITED RESULTS Final Result Performing Organization Address City/[facility]/ZIP Co de Phone Number [facility] [address] [place] [address], [place] [phone] * (ABNORMAL) POCT Glucose, blood (10/28/2024 7:43 AM EDT) Glucose POCT 244(H) 70 - 100 mg/dL 10/28/2024 7:45 AM EDT [facility] Blood Capillary blood specimen / Unknown 10/28/2024 7:43 AM EDT 10/28/2024 7:46 AM EDT us Bridgett Boyle MD LAB POINT OF CARE TE ST DOCKED DEVICE UNSOLICITED RESULTS Final Result Performing Organization Address [facility] Co de Phone Number [facility] [address] [place] [address], [place] [phone] * (ABNORMAL) POCT Glucose, blood (10/27/2024 8:19 PM EDT) Glucose POCT 193(H) 70 - 100 mg/dL 10/27/2024 8:20 PM EDT [facility] POCT Comment RN Notified 10/27/2024 8:20 PM EDT [facility] Blood Capillary blood specimen / Unknown 10/27/2024 8:19 PM EDT 10/27/2024 8:21 PM EDT us Bridgett Boyle MD LAB POINT OF CARE TE ST DOCKED DEVICE UNSOLICITED RESULTS Final Result Performing Organization Address [facility]/ZIP Co de Phone Number [facility] [address] [place] [address], [place] [phone] * (ABNORMAL) POCT Glucose, blood (10/27/2024 5:16 PM EDT) Glucose POCT 332(H) 70 - 100 mg/dL 10/27/2024 5:17 PM EDT [facility] Blood Capillary blood specimen / Unknown 10/27/2024 5:16 PM EDT 10/27/2024 5:18 PM EDT Bridgett Boyle MD LAB POINT OF CARE TE ST DOCKED DEVICE UNSOLICITED RESULTS Final Result Performing Organization Address [facility] Co de Phone Number [facility] [address] [place] [address], * (ABNORMAL) Anti-Xa - Every 6 Hours (10/27/2024 12:58 PM EDT) Heparin Anti-Xa 0.23(L) 0.30 - 0.70 I Unit/mL LAB COAGULATION METHOD 10/27/2024 1:40 PM EDT [facility] Blood Venous blood specimen / Unknown Venipuncture / Unknown 10/27/2024 12:58 PM EDT 10/27/2024 1:20 PM EDT Narrative [facility] - 10/27/2024 1:40 PM EDT Therapeutic range listed is for Unfractionated Heparin. LMW Heparin therapeutic range: 0.50-1.20 IU/mL Chantal PONCE LAB BLOOD ORDERABLES Final Re sult Performing Organization Address [facility]/ZIP Co de Phone Number [facility] [address] [place] [address], * (ABNORMAL) POCT Glucose, blood (10/27/2024 12:14 PM EDT) Glucose POCT 202(H) 70 - 100 mg/dL 10/27/2024 12:15 PM EDT [facility] Blood Capillary blood specimen / Unknown 10/27/2024 12:14 PM EDT 10/27/2024 12:16 PM EDT Bridgett Boyle MD LAB POINT OF CARE TE ST DOCKED DEVICE UNSOLICITED RESULTS Final Result [facility] [address] [place] [address], [place] [phone] * (ABNORMAL) POCT activated clotting time,kaolin (10/27/2024 10:00 AM EDT) Activated Clotting Time Kaolin 187(H) 74 - 137 sec 10/27/2024 10:02 AM EDT [facility] Blood Venous blood specimen / Unknown 10/27/2024 10:00 AM EDT 10/27/2024 10:03 AM EDT us Bridgett Boyle MD LAB POINT OF CARE TE ST DOCKED DEVICE UNSOLICITED RESULTS Final Result [facility] [address] [place] [address], [place] [phone] * (ABNORMAL) POCT activated clotting time,kaolin (10/27/2024 8:53 AM EDT) Activated Clotting Time Kaolin 222(H) 74 - 137 sec 10/27/2024 8:55 AM EDT [facility] Blood Venous blood specimen / Unknown 10/27/2024 8:53 AM EDT 10/27/2024 8:56 AM EDT Bridgett Boyle MD LAB POINT OF CARE TE ST DOCKED DEVICE UNSOLICITED RESULTS Final Result Performing Organization Address City/[facility]/ZIP Co de Phone Number [facility] [address] [place] [address], [place] [phone] * SST tube (10/27/2024 5:57 AM EDT) Extra Tube Hold for add-ons. 10/27/2024 8:01 AM EDT [facility] Comment:Auto resulted. Blood Venous blood specimen / Unknown Venipuncture / Unknown 10/27/2024 5:57 AM EDT 10/27/2024 6:20 AM EDT us Bridgett Boyle MD LAB BLOOD ORDERABLES Final Res ult Performing Organization Address [facility]/ZIP Co de Phone Number [facility] [address] [place] [address], [place] [phone] * Anti-Xa - Every 6 Hours (10/27/2024 5:57 AM EDT) Heparin Anti-Xa 0.37 0.30 - 0.70 I Unit/mL LAB COAGULATION METHOD 10/27/2024 6:36 AM EDT [facility] Blood Venous blood specimen / Unknown Venipuncture / Unknown 10/27/2024 5:57 AM EDT 10/27/2024 6:20 AM EDT Narrative [facility] - 10/27/2024 6:36 AM EDT Therapeutic range listed is for Unfractionated Heparin. LMW Heparin therapeutic range: 0.50-1.20 IU/mL us Chantal PONCE LAB BLOOD ORDERABLES Final Re sult Performing Organization Address City/[facility]/ZIP Co de Phone Number [facility] [address] [place] [address], [place] [phone] * Anti-Xa - Every 6 Hours (10/27/2024 12:17 AM EDT) Heparin Anti-Xa 0.43 0.30 - 0.70 I Unit/mL LAB COAGULATION METHOD 10/27/2024 12:45 AM EDT [facility] Blood Venous blood specimen / Unknown Venipuncture / Unknown 10/27/2024 12:17 AM EDT 10/27/2024 12:36 AM EDT Narrative [facility] - 10/27/2024 12:45 AM EDT Therapeutic range listed is for Unfractionated Heparin. LMW Heparin therapeutic range: 0.50-1.20 IU/mL Chantal PONCE LAB BLOOD ORDERABLES Final Re sult Performing Organization Address City/[facility]/ZIP Co de Phone Number [facility] [address] [place] [address], [place] [phone] * (ABNORMAL) POCT Glucose, blood (10/26/2024 8:51 PM EDT) Glucose POCT 310(H) 70 - 100 mg/dL 10/26/2024 8:52 PM EDT [facility] Blood Capillary blood specimen / Unknown 10/26/2024 8:51 PM EDT 10/26/2024 8:53 PM EDT Bridgett Boyle MD LAB POINT OF CARE TE ST DOCKED DEVICE UNSOLICITED RESULTS Final Result [facility] [address] [place] [address], [place] [phone] * Anti-Xa - Every 6 Hours (10/26/2024 6:18 PM EDT) Heparin Anti-Xa 0.41 0.30 - 0.70 I Unit/mL LAB COAGULATION METHOD 10/26/2024 7:02 PM EDT [facility] Blood Venous blood specimen / Unknown Venipuncture / Unknown 10/26/2024 6:18 PM EDT 10/26/2024 6:45 PM EDT Narrative [facility] - 10/26/2024 7:02 PM EDT Therapeutic range listed is for Unfractionated Heparin. LMW Heparin therapeutic range: 0.50-1.20 IU/mL us Chantal PONCE LAB BLOOD ORDERABLES Final Re sult Performing Organization Address [facility]/ZIP Co de Phone Number [facility] [address] [place] [address], [place] [phone] * (ABNORMAL) POCT Glucose, blood (10/26/2024 4:37 PM EDT) Pathologist [facility] Glucose POCT 387(H) 70 - 100 mg/dL 10/26/2024 4:38 PM EDT [facility] Blood Capillary blood specimen / Unknown 10/26/2024 4:37 PM EDT 10/26/2024 4:40 PM EDT Bridgett Boyle MD LAB POINT OF CARE TE ST DOCKED DEVICE UNSOLICITED RESULTS Final Result Performing Organization Address [facility]/ZIP Co de Phone Number [facility] [address] [place] [address], [place] [phone] * MRSA molecular study (10/26/2024 3:55 PM EDT) Pathologist [facility] MRSA Screen PCR Not Detected Not Detected LAB MICROBIOLOGY METHOD 10/26/2024 5:38 PM EDT [facility] Swab Both anterior nares / Unknown Non-blood Collection / Unknown 10/26/2024 3:55 PM EDT 10/26/2024 4:25 PM EDT us Bridgett Boyle MD LAB MICROBIOLOGY - GENERAL ORD ERABLES Final Result Performing Organization Address [facility]/ZIP Co de Phone Number [facility] [address] [place] [address], [place] [phone] * (ABNORMAL) POCT Glucose, blood (10/26/2024 1:28 PM EDT) Glucose POCT 421(HH) 70 - 100 mg/dL 10/26/2024 1:59 PM EDT [facility] Blood Capillary blood specimen / Unknown 10/26/2024 1:28 PM EDT 10/26/2024 2:00 PM EDT us Bridgett Boyle MD LAB POINT OF CARE TE ST DOCKED DEVICE UNSOLICITED RESULTS Final Result Performing Organization Address [place] de Phone Number [facility] [address] [place] [address], [place] [phone] * Anti-Xa - Every 6 Hours (10/26/2024 12:02 PM EDT) [facility] Signature Heparin Anti-Xa 0.64 0.30 - 0.70 I Unit/mL LAB COAGULATION METHOD 10/26/2024 12:38 PM EDT [facility] Blood Venous blood specimen / Unknown Venipuncture / Unknown 10/26/2024 12:02 PM EDT 10/26/2024 12:22 PM EDT Narrative [facility] - 10/26/2024 12:38 PM EDT Therapeutic range listed is for Unfractionated Heparin. LMW Heparin therapeutic range: 0.50-1.20 IU/mL us Chantal PONCE LAB BLOOD ORDERABLES Final Re sult Performing Organization Address [facility]/ZIP Co de Phone Number [facility] [address] [place] [address], [place] [phone] * Vascular US duplex lower extremity vein map bilateral (10/26/2024 9:24 AM EDT) Anatomical Region Laterality Modality Vascular, Abdomen Ultrasound 10/26/2024 9:45 AM EDT Impressions 10/26/2024 9:51 AM EDT The greater saphenous veins are patent bilaterally. Their diameters are as above. Code 98606 -------- FINAL REPORT -------- Dictated By: Mathieu Lopez Dictated Date: 10/26/2024 09:45 ET Assigned Physician: Mathieu Lopez Reviewed and Electronically Signed By: Mathieu Lopez Signed Date: 10/26/2024 09:51 ET Workstation ID: [id number] Transcribed By: Self Edit Transcribed Date: 10/26/2024 09:45 ET Narrative 10/26/2024 9:51 AM EDT HISTORY: The patient is a 49-year-old female undergoing evaluation of the suitability of the greater saphenous vein for use as bypass grafts. FINDINGS: Real-time ultrasonography of the greater saphenous veins bilaterally is performed. The veins are patent, without evidence of thrombus. The diameter of the greater saphenous vein in the inguinal area is 4.9 mm on the right and 5.6 mm on the left; in the upper thigh, 4.3 mm on the right and 4.5 mm on the left; in the mid thigh, 4.7 mm on the right and 5.2 mm on the left; in the lower thigh, 4.3 mm on the right and 4.8 mm on the left; above the knee, 4.3 mm on the right and 4.4 mm on the left; below the knee, 4.6 mm on the right and 4.5 mm on the left. The course of the greater saphenous vein in each lower extremity were marked on the patient's skin. Procedure Note Mathieu Lopez MD - 10/26/2024 HISTORY: The patient is a 49-year-old female undergoing evaluation of thesuitability of the greater saphenous vein for use as bypass grafts. FINDINGS: Real-time ultrasonography of the greater saphenous veinsbilaterally is performed. The veins are patent, without evidence ofthrombus. The diameter of the greater saphenous vein in the inguinal area is 4.9 mmon the right and 5.6 mm on the left; in the upper thigh, 4.3 mm on theright and 4.5 mm on the left; in the mid thigh, 4.7 mm on the right and5.2 mm on the left; in the lower thigh, 4.3 mm on the right and 4.8 mm onthe left; above the knee, 4.3 mm on the right and 4.4 mm on the left;below the knee, 4.6 mm on the right and 4.5 mm on the left. The course ofthe greater saphenous vein in each lower extremity were marked on thepatient's skin. IMPRESSION: The greater saphenous veins are patent bilaterally. Their diameters are asabove. Code 61798 -------- FINAL REPORT -------- Dictated By: Mathieu Lopez Dictated Date: 10/26/2024 09:45 ET Assigned Physician: Mathieu Lopez Reviewed and Electronically Signed By: Mathieu Lopez Signed Date: 10/26/2024 09:51 ET Workstation ID: [id number] Transcribed By: Self Edit Transcribed Date: 10/26/2024 09:45 ET Solomon PONCE CV VASCULAR PROCEDURES Final Res ult * (ABNORMAL) CBC auto differential (10/26/2024 5:45 AM EDT) WBC 8.2 4.8 - 10.8 K/mcL LAB HEMETOLOGY METHOD 10/26/2024 7:12 AM EDT [facility] RBC 3.80 3.80 - 4.80 M/mcL LAB HEMETOLOGY METHOD 10/26/2024 7:12 AM EDT [facility] Hemoglobin 11.6 11.5 - 16.0 g/dL LAB HEMETOLOGY METHOD 10/26/2024 7:12 AM EDT [facility] Hematocrit 35.0 35.0 - 47.0 % LAB HEMETOLOGY METHOD 10/26/2024 7:12 AM EDT [facility] MCV 92.8 79.0 - 98.0 FL LAB HEMETOLOGY METHOD 10/26/2024 7:12 AM [facility] MCH 30.8 27.0 - 32.0 pcg LAB HEMETOLOGY METHOD 10/26/2024 7:12 AM [facility] MCHC 33.1 32.0 - 37.0 g/dL LAB HEMETOLOGY METHOD 10/26/2024 7:12 AM [facility] RDW 12.3 11.0 - 15.0 % LAB HEMETOLOGY METHOD 10/26/2024 7:12 AM [facility] Platelets 226 130 - 400 K/mcL LAB HEMETOLOGY METHOD 10/26/2024 7:12 AM [facility] MPV 10.3 7.0 - 11.0 FL LAB HEMETOLOGY METHOD 10/26/2024 7:12 AM [facility] NRBC 0.0 <1.0 % LAB HEMETOLOGY METHOD 10/26/2024 7:12 AM [facility] NRBC Absolute 0.00 <0.10 K/mcL LAB HEMETOLOGY METHOD 10/26/2024 7:12 AM [facility] Neutrophils Relative 28.5 % LAB HEMETOLOGY METHOD 10/26/2024 7:12 AM [facility] Lymphocytes Relative 61.0 % LAB HEMETOLOGY METHOD 10/26/2024 7:12 AM [facility] Monocytes Relative 6.2 % LAB HEMETOLOGY METHOD 10/26/2024 7:12 AM [facility] Eosinophils Relative 3.3 % LAB HEMETOLOGY METHOD 10/26/2024 7:12 AM [facility] Basophils Relative 0.5 % LAB HEMETOLOGY METHOD 10/26/2024 7:12 AM [facility] Immature Granulocytes Relative 0.5 % LAB HEMETOLOGY METHOD 10/26/2024 7:12 AM EDT [facility] Neutrophils Absolute 2.35 1.50 - 7.00 K/[facility] LAB HEMETOLOGY METHOD 10/26/2024 7:12 AM EDT [facility] Lymphocytes Absolute 5.02(H) 1.00 - 5.00 K/mcL LAB HEMETOLOGY METHOD 10/26/2024 7:12 AM EDT [facility] Monocytes Absolute 0.51 0.20 - 1.00 K/mcL LAB HEMETOLOGY METHOD 10/26/2024 7:12 AM EDT [facility] Eosinophils Absolute 0.27 0.00 - 0.50 K/[facility] LAB HEMETOLOGY METHOD 10/26/2024 7:12 AM EDT [facility] Basophils Absolute 0.04 0.00 - 0.20 K/mcL LAB HEMETOLOGY METHOD 10/26/2024 7:12 AM EDT [facility] Immature Granulocytes Absolute 0.04(H) 0.00 - 0.03 K/[facility] LAB HEMETOLOGY METHOD 10/26/2024 7:12 AM EDT [facility] Blood Venous blood specimen / Unknown Venipuncture / Unknown 10/26/2024 5:45 AM EDT 10/26/2024 6:07 AM EDT Davin Croft MD LAB BLOOD ORDERABLES Marcia l Result [facility] [address] [place] [address], * (ABNORMAL) Anti-Xa - Every 6 Hours (10/26/2024 5:45 AM EDT) Heparin Anti-Xa 0.96(H) 0.30 - 0.70 I Unit/mL LAB COAGULATION METHOD 10/26/2024 6:21 AM EDT [facility] Blood Venous blood specimen / Unknown Venipuncture / Unknown 10/26/2024 5:45 AM EDT 10/26/2024 6:21 AM EDT Narrative [facility] - 10/26/2024 6:21 AM EDT Therapeutic range listed is for Unfractionated Heparin. LMW Heparin therapeutic range: 0.50-1.20 IU/mL us Chantal PONCE LAB BLOOD ORDERABLES Final Re sult [facility] [address] [place] [address], [place] [phone] * (ABNORMAL) Basic metabolic panel (10/26/2024 5:45 AM EDT) Sodium 134 133 - 145 mmol/L LAB CHEMISTRY METHOD 10/26/2024 6:56 AM [facility] Potassium 3.5 3.5 - 5.5 mmol/L LAB CHEMISTRY METHOD 10/26/2024 6:56 AM [facility] Chloride 103 96 - 110 mmol/L LAB CHEMISTRY METHOD 10/26/2024 6:56 AM [facility] CO2 24 21 - 32 mmol/L LAB CHEMISTRY METHOD 10/26/2024 6:56 AM [facility] Anion Gap 7 3 - 11 LAB CHEMISTRY METHOD 10/26/2024 6:56 AM [facility] Glucose 424(HH) 70 - 100 mg/dL LAB CHEMISTRY METHOD 10/26/2024 6:56 AM [facility] BUN 13 5 - 25 mg/dL LAB CHEMISTRY METHOD 10/26/2024 6:56 AM [facility] Creatinine 0.50 0.50 - 1.10 mg/dL LAB CHEMISTRY METHOD 10/26/2024 6:56 AM [facility] eGFR 116 >=60 mL/min/1. 73m2 LAB CHEMISTRY METHOD 10/26/2024 6:56 AM EDT [facility] Comment:Calculation based on the Chronic Kidney Disease Epidemiology Collaboration (CKD-EPI) equation refit without adjustment for race. BUN/Creatinine Ratio 26.0 LAB CHEMISTRY METHOD 10/26/2024 6:56 AM EDT [facility] Calcium 8.8 8.5 - 10.5 mg/dL LAB CHEMISTRY METHOD 10/26/2024 6:56 AM EDT [facility] Blood Venous blood specimen / Unknown Venipuncture / Unknown 10/26/2024 5:45 AM EDT 10/26/2024 6:07 AM EDT Davin Croft MD LAB BLOOD ORDERABLES Marcia l Result Performing Organization Address [facility] de Phone Number [facility] [address] [place] [address], [place] [phone] * (ABNORMAL) Anti-Xa - STAT (10/26/2024 12:12 AM EDT) Heparin Anti-Xa 0.05(L) 0.30 - 0.70 I Unit/mL LAB COAGULATION METHOD 10/26/2024 12:32 AM EDT [facility] Blood Venous blood specimen / Unknown Venipuncture / Unknown 10/26/2024 12:12 AM EDT 10/26/2024 12:16 AM EDT Narrative [facility] - 10/26/2024 12:32 AM EDT Therapeutic range listed is for Unfractionated Heparin. LMW Heparin therapeutic range: 0.50-1.20 IU/mL us Solomon PONCE LAB BLOOD ORDERABLES Final Resul t Performing Organization Address [facility]/ZIP Co de Phone Number [facility] [address] [place] [address], [place] [phone] * Activated Partial Thromboplastin Time - STAT (10/26/2024 12:12 AM EDT) [facility] aPTT 29.5 24.1 - 39.3 sec LAB COAGULATION METHOD 10/26/2024 12:32 AM EDT [facility] Blood Venous blood specimen / Unknown Venipuncture / Unknown 10/26/2024 12:12 AM EDT 10/26/2024 12:16 AM EDT us Solomon PONCE LAB BLOOD ORDERABLES Final Resul t Performing Organization Address [facility] Co de Phone Number [facility] [address] [place] [address], [place] [phone] * (ABNORMAL) Prothrombin Time with INR - STAT (10/26/2024 12:12 AM EDT) [facility] Protime 10.5(L) 10.6 - 13.9 sec LAB COAGULATION METHOD 10/26/2024 12:32 AM EDT [facility] INR 0.8 LAB COAGULATION METHOD 10/26/2024 12:32 AM EDT [facility] Blood Venous blood specimen / Unknown Venipuncture / Unknown 10/26/2024 12:12 AM EDT 10/26/2024 12:16 AM EDT us Solomon PONCE LAB BLOOD ORDERABLES Final Resul t Performing Organization Address [facility]/ZIP Co de Phone Number [facility] [address] [place] [address], [place] [phone] * (ABNORMAL) POCT Glucose, blood (10/25/2024 10:55 PM EDT) [facility] Glucose POCT 435(HH) 70 - 100 mg/dL 10/25/2024 10:56 PM EDT [facility] POCT Comment RN Notified 10/25/2024 10:56 PM EDT [facility] POCT Comment 1 MD Notified 10/25/2024 10:56 PM EDT [facility] Blood Capillary blood specimen / Unknown 10/25/2024 10:55 PM EDT 10/25/2024 10:57 PM EDT Franki Hsieh MD LAB POINT OF CARE TE ST DOCKED DEVICE UNSOLICITED RESULTS Final Result [facility] [address] [place] [address], [place] [phone] * CT Angio Lower Extremity w and/or wo Contrast Left (10/25/2024 10:35 PM EDT) Anatomical Region Laterality Modality Lower Extremities Left Computed Tomog jayde 10/25/2024 11:2 4 PM EDT Addenda Addendum by Wade Asif MD on 10/25/2024 11:27 PM EDT ADDENDUM: This report was discussed with KRIS Kwon on October 25, 2024 23:26:00 EDT. This document has been electronically signed by: Agnieszka Pak on 10/25/2024 23:27:12 Impressions 10/25/2024 11:24 PM EDT Impression: Occluded short-segment of left popliteal artery Multifocal vascular stenosis outlined above Subcutaneous soft tissue abnormality inferior to left labia Recommend physical exam correlation to exclude mass This document has been electronically signed by: Wade Asif MD on 10/25/2024 23:24:48 Narrative 10/25/2024 11:24 PM EDT INDICATION: Claudication or leg ischemia CT angiogram left leg with contrast Multiplanar reconstructions and 3D processing Comparison: No prior studies of any type Findings: Imaging begins in lower pelvis. Visualized portions of left external iliac artery patent. Moderate left [employer] and PFA origins stenosis. Multifocal mild left SFA stenosis. Severe distal left SFA narrowing noted. Multifocal moderate left popliteal artery stenosis. Mid left popliteal artery occlusion noted. Reconstitution noted distal popliteal artery. Severe disease proximal trifurcation vessels. Peroneal artery tapers to occlusion distally. There is two-vessel runoff to the ankle. No bony abnormality noted in the left leg. Heterogeneous soft tissue abnormality inferior to left labia. This is not well assessed on this study. Physical exam correlation is recommended. Soft tissue mass is not excludable. Procedure Note Wade Asif MD - 10/25/2024 INDICATION: Claudication or leg ischemia CT angiogram left leg with contrast Multiplanar reconstructions and 3D processing Comparison: No prior studies of any type Findings: Imaging begins in lower pelvis. Visualized portions of left external iliac artery patent. Moderate left [employer] and PFA origins stenosis. Multifocal mild left SFA stenosis. Severe distal left SFA narrowing noted. Multifocal moderate left popliteal artery stenosis. Mid left popliteal artery occlusion noted. Reconstitution noted distal popliteal artery. Severe disease proximal trifurcation vessels. Peroneal artery tapers to occlusion distally. There is two-vessel runoff to the ankle. No bony abnormality noted in the left leg. Heterogeneous soft tissue abnormality inferior to left labia. This is not well assessed on this study. Physical exam correlation is recommended. Soft tissue mass is not excludable. IMPRESSION: Impression: Occluded short-segment of left popliteal artery Multifocal vascular stenosis outlined above Subcutaneous soft tissue abnormality inferior to left labia Recommend physical exam correlation to exclude mass This document has been electronically signed by: Wade Asif MD on 10/25/2024 23:24:48 Solomon PONCE [facility] [place] CT PROCEDURES Edited Result - Final * (ABNORMAL) POCT Glucose, blood (10/25/2024 8:16 PM EDT) Glucose POCT 511(HH) 70 - 100 mg/dL 10/25/2024 8:17 PM EDT [facility] POCT Comment RN Notified 10/25/2024 8:17 PM EDT [facility] POCT Comment 1 MD Notified 10/25/2024 8:17 PM EDT [facility] Blood Capillary blood specimen / Unknown 10/25/2024 8:16 PM EDT 10/25/2024 8:18 PM EDT Generic Provider Poct LAB POINT OF CARE TEST DOCKED DEVICE UNSOLICITED RESULTS Final Result Performing Organization Address [facility]/ZIP Co de Phone Number [facility] [address] [place] [address], * hCG, serum, qualitative (10/25/2024 5:31 PM EDT) [facility] hCG Qual Negative Negative 10/25/2024 10:13 PM EDT [facility] Blood Venous blood specimen / Unknown Venipuncture / Unknown 10/25/2024 5:31 PM EDT 10/25/2024 5:43 PM EDT Franki Hsieh MD LAB BLOOD ORDERABLES Final Resu lt Performing Organization Address [facility] Co de Phone Number [facility] [address] [place] [address], [place] [phone] * Beta hydroxybutyrate (10/25/2024 5:31 PM EDT) [facility] Beta-Hydroxybu tyrate 1.4 0.2 - 2.8 mg/dL LAB CHEMISTRY METHOD 10/25/2024 6:53 PM EDT [facility] Blood Venous blood specimen / Unknown Venipuncture / Unknown 10/25/2024 5:31 PM EDT 10/25/2024 5:43 PM EDT Carlene PONCE LAB BLOOD ORDERABLES F inal Result Performing Organization Address [facility]/ZIP Co de Phone Number [facility] [address] [place] [address], [place] [phone] * CBC auto differential (10/25/2024 5:31 PM EDT) [facility] WBC 8.0 4.8 - 10.8 K/mcL LAB HEMETOLOGY METHOD 10/25/2024 5:55 PM EDT [facility] RBC 4.40 3.80 - 4.80 M/mcL LAB HEMETOLOGY METHOD 10/25/2024 5:55 PM EDT [facility] Hemoglobin 13.9 11.5 - 16.0 g/dL LAB HEMETOLOGY METHOD 10/25/2024 5:55 PM EDT [facility] Hematocrit 41.3 35.0 - 47.0 % LAB HEMETOLOGY METHOD 10/25/2024 5:55 PM EDT [facility] MCV 93.4 79.0 - 98.0 FL LAB HEMETOLOGY METHOD 10/25/2024 5:55 PM EDT [facility] MCH 31.4 27.0 - 32.0 pcg LAB HEMETOLOGY METHOD 10/25/2024 5:55 PM EDT [facility] MCHC 33.7 32.0 - 37.0 g/dL LAB HEMETOLOGY METHOD 10/25/2024 5:55 PM EDT [facility] RDW 12.3 11.0 - 15.0 % LAB HEMETOLOGY METHOD 10/25/2024 5:55 PM EDT [facility] Platelets 255 130 - 400 K/mcL LAB HEMETOLOGY METHOD 10/25/2024 5:55 PM EDT [facility] MPV 10.3 7.0 - 11.0 FL LAB HEMETOLOGY METHOD 10/25/2024 5:55 PM EDT [facility] NRBC 0.0 <1.0 % LAB HEMETOLOGY METHOD 10/25/2024 5:55 PM EDT [facility] NRBC Absolute 0.00 <0.10 K/mcL LAB HEMETOLOGY METHOD 10/25/2024 5:55 PM EDT [facility] Neutrophils Relative 52.5 % LAB HEMETOLOGY METHOD 10/25/2024 5:55 PM EDT [facility] Lymphocytes Relative 37.9 % LAB HEMETOLOGY METHOD 10/25/2024 5:55 PM EDT [facility] Monocytes Relative 7.1 % LAB HEMETOLOGY METHOD 10/25/2024 5:55 PM EDT [facility] Eosinophils Relative 1.7 % LAB HEMETOLOGY METHOD 10/25/2024 5:55 PM EDT [facility] Basophils Relative 0.4 % LAB HEMETOLOGY METHOD 10/25/2024 5:55 PM EDT [facility] Immature Granulocytes Relative 0.4 % LAB HEMETOLOGY METHOD 10/25/2024 5:55 PM EDT [facility] Neutrophils Absolute 4.22 1.50 - 7.00 K/mcL LAB HEMETOLOGY METHOD [facility]24 [facility] Absolute 3.04 1.00 - 5.00 K/mcL LAB HEMETOLOGY METHOD 10/25/2024 5:55 PM EDT [facility] Monocytes Absolute 0.57 0.20 - 1.00 K/mcL LAB HEMETOLOGY METHOD 10/25/2024 5:55 PM EDT [facility] Eosinophils Absolute 0.14 0.00 - 0.50 K/mcL LAB [facility]EMETOLOGY METHOD [facility]2024 [facility] Basophils Absolute 0.03 0.00 - 0.20 K/mcL LAB HEMETOLOGY METHOD 10/25/2024 5:55 PM EDT [facility] Immature Granulocytes Absolute 0.03 0.00 - 0.03 K/mcL LAB HEMETOLOGY METHOD 10/25/2024 5:55 PM T [facility] Blood Venous blood specimen / Unknown Venipuncture / Unknown 10/25/2024 5:31 PM EDT 10/25/2024 5:43 PM EDT us Franki Hsieh MD LAB BLOOD ORDERABLES Final Resu lt [facility] [address] [place] [address], [place] [phone] * (ABNORMAL) C-reactive protein (10/25/2024 5:31 PM EDT) Pathologist [facility] C-Reactive Protein 1.14(H) <=0.50 mg/dL LAB CHEMISTRY METHOD 10/25/2024 6:13 PM EDT [facility] Blood Venous blood specimen / Unknown Venipuncture / Unknown 10/25/2024 5:31 PM EDT 10/25/2024 5:43 PM EDT us Franki Hsieh MD LAB BLOOD ORDERABLES Final Resu lt Performing Organization Address [facility]/ZIP Co de Phone Number [facility] [address] [place] [address], [place] [phone] * (ABNORMAL) Sedimentation rate, automated (10/25/2024 5:31 PM EDT) [facility] Sed Rate 82(H) 0 - 20 mm/hr LAB HEMETOLOGY METHOD 10/25/2024 6:45 PM EDT [facility] Blood Venous blood specimen / Unknown Venipuncture / Unknown 10/25/2024 5:31 PM EDT 10/25/2024 5:43 PM EDT us Franki Hsieh MD LAB BLOOD ORDERABLES Final Resu lt Performing Organization Address City/[facility]/ZIP Co de Phone Number [facility] [address] [place] [address], [place] [phone] * (ABNORMAL) Basic metabolic panel (10/25/2024 5:31 PM EDT) [facility] Sodium 130(L) 133 - 145 mmol/L LAB CHEMISTRY METHOD 10/25/2024 6:25 PM EDT [facility] Potassium 3.9 3.5 - 5.5 mmol/L LAB CHEMISTRY METHOD 10/25/2024 6:25 PM [facility] Chloride 97 96 - 110 mmol/L LAB CHEMISTRY METHOD 10/25/2024 6:25 PM [facility] CO2 22 21 - 32 mmol/L LAB CHEMISTRY METHOD 10/25/2024 6:25 PM [facility] Anion Gap 11 3 - 11 LAB CHEMISTRY METHOD 10/25/2024 6:25 PM [facility] Glucose 625(HH) 70 - 100 mg/dL LAB CHEMISTRY METHOD 10/25/2024 6:25 PM [facility] BUN 16 5 - 25 mg/dL LAB CHEMISTRY METHOD 10/25/2024 6:25 PM [facility] Creatinine 1.36(H) 0.50 - 1.10 mg/dL LAB CHEMISTRY METHOD 10/25/2024 6:25 PM [facility] eGFR 48(L) >=60 mL/min/1. 73m2 LAB CHEMISTRY METHOD 10/25/2024 6:25 PM [facility] Comment:Calculation based on the Chronic Kidney Disease Epidemiology Collaboration (CKD-EPI) equation refit without adjustment for race. BUN/Creatinine Ratio 11.8 LAB CHEMISTRY METHOD 10/25/2024 6:25 PM [facility] Calcium 9.3 8.5 - 10.5 mg/dL LAB CHEMISTRY METHOD 10/25/2024 6:25 PM [facility] Blood Venous blood specimen / Unknown Venipuncture / Unknown 10/25/2024 5:31 PM EDT 10/25/2024 5:43 PM EDT us Franki Hsieh MD LAB BLOOD ORDERABLES Final Resu lt [facility] [address] [place] [address], [place] [phone] documented in this encounter Visit Diagnoses Diagnosis Acute occlusion of popliteal artery due to thromboembolism ([facility] V24, [facility] V28)- Primary Peripheral arterial disease ([facility] V24) Unspecified peripheral vascular disease Occlusion of left popliteal artery ([facility] V24) Embolism and thrombosis of arteries of lower extremity Critical limb ischemia of left lower extremity ([facility] V24, [facility] V28) Acute occlusion of popliteal artery due to thromboembolism ([facility] V24, [facility] V28) Type 2 diabetes mellitus with hyperglycemia ([facility] V24, [facility] V28) Hyperlipidemia Other and unspecified hyperlipidemia Critical limb ischemia of both lower extremities ([facility] V24, [facility] V28) Peripheral arterial disease ([facility] V24) Unspecified peripheral vascular disease documented in this encounter Admitting Diagnoses Diagnosis Acute occlusion of popliteal artery due to thromboembolism ([facility] V24, [facility] V28) documented in this encounter Administered Medications Inactive Administered Medications - up to 3 most recent administrations Medication Order MAR Action Action Date Dose Rate Site acetaminophen (TYLENOL) tablet 650 mg 650 mg, oral, Every 6 hours PRN, mild pain, Starting on Thu10/26/24 at 0047 Given 10/26/2024 6:30 AM EDT 650 mg amoxicillin-clavulanate (AUGMENTIN) 875-125 mg per tablet 1 tablet 1 tablet, oral, Every 12 hours scheduled, First dose on Thu10/26/24 at 2100, For 7 doses, Indication: Skin/Soft Tissue Given 10/28/2024 8:36 AM EDT 1 tablet Given 10/27/2024 9:25 PM EDT 1 tablet Given 10/27/2024 12:35 PM EDT 1 tablet clopidogreL (PLAVIX) tablet 75 mg 75 mg, oral, Daily, First dose on Thu10/28/24 at 0900 Given 10/28/2024 8:36 AM EDT 75 mg dextrose (D50W) 50% injection 12.5 g 12.5 g, intravenous, Every 15 min PRN, low blood sugar, moderate hypoglycemia *Patient is Unconscious, NPO, unable to swallow: BG 54 - 69 mg/dl*, Starting on Thu10/26/24 at 1355 dextrose (D50W) 50% injection 25 g 25 g, intravenous, Every 15 min PRN, low blood sugar, severe hypoglycemia *Patient is Unconscious, NPO, unable to swallow: BG LESS than 54 mg/dL*, Starting on Thu10/26/24 at 1355 dextrose 15 gram/60 mL oral solution 15 g 15 g, oral, Every 15 min PRN, low blood sugar, hypoglycemia *Patient conscious AND able to drink and swallow safely*, Starting on Thu10/26/24 at 1355 dextrose 15 gram/60 mL oral solution 30 g 30 g, oral, Every 15 min PRN, low blood sugar, hypoglycemia *Patient conscious AND able to drink and swallow safely*, Starting on Thu10/26/24 at 1355 fentaNYL (PF) (SUBLIMAZE) injection As needed, Starting on Thu10/27/24 at 0743, Intraprocedure Given 10/27/2024 8:24 AM EDT 25 mcg Given 10/27/2024 8:01 AM EDT 25 mcg Given 10/27/2024 7:43 AM EDT 50 mcg gabapentin (NEURONTIN) capsule 300 mg 300 mg, oral, Every 8 hours scheduled, First dose on Thu10/26/24 at 0600 Glucagon HCl (rDNA) injection 1 mg 1 mg, intramuscular, Once as needed, low blood sugar, severe hypoglycemia, Starting on Thu10/26/24 at 1355, For 1 dose heparin (UFH) injection As needed, Starting on Thu10/27/24 at 0755, Intraprocedure Given 10/27/2024 8:27 AM EDT 3 Units Given 10/27/2024 7:55 AM EDT 7,000 Units insulin glargine (LANTUS) injection 35 Units 35 Units, subcutaneous, Nightly, First dose (after last modification) on Thu10/27/24 at 2100, Notify provider: -If patient is currently or will become NPO -If TPN was or will be interrupted or discontinued -For approval to hold long acting insulin insulin lispro injection 2-12 Units 2-12 Units, subcutaneous, 3 times daily before meals, First dose on Thu10/26/24 at 1630, Indication: Total Daily Dose (TDD) 40 - 80 units. Correction Scale: Moderate Dose Administer with meal and/or mealtime dose of insulin to correct high blood glucose If mealtime insulin dose not given (e.g. patient NPO or not eating), still administer correction factor for high blood glucose Given 10/28/2024 12:20 PM EDT 6 Units Left Upper Arm (Back ) Given 10/28/2024 8:37 AM EDT 4 Units Le ft Upper Arm (Back) Given 10/27/2024 5:32 PM EDT 8 Units Ri ght Upper Arm (Back) insulin lispro injection 8 Units 8 Units, subcutaneous, 3 times daily with meals, First dose on Thu10/26/24 at 1700, Mealtime Insulin - Administer with meal --- -Do NOT give if patient NPO or expected to eat LESS than 50% of meal -If pre-meal glucose LESS than OR equal to 70 mg/dL- treat hypoglycemia and notify provider Given 10/28/2024 12:19 PM EDT 8 Units Right Upper Arm (Back) Given 10/28/2024 8:37 AM EDT 8 Units Le ft Upper Arm (Back) Given 10/27/2024 5:32 PM EDT 8 Units Ri ght Upper Arm (Back) iopamidoL (ISOVUE-370) 370 mg iodine /mL (76 %) injection As needed, Starting on Thu10/27/24 at 0833, Intraprocedure Given 10/27/2024 8:33 AM EDT 85 mL lidocaine (XYLOCAINE) 1 % injection As needed, Starting on Thu10/27/24 at 0750, Intraprocedure Given 10/27/2024 7:50 AM EDT 9 mL Right Groin midazolam (VERSED) injection As needed, Starting on Thu10/27/24 at 0743, Intraprocedure Given 10/27/2024 8:24 AM EDT 1 mg Given 10/27/2024 8:02 AM EDT 1 mg Given 10/27/2024 7:43 AM EDT 1 mg morphine 2 mg/mL injection 2 mg 2 mg, intravenous, Every 4 hours PRN, other, Severe breakthrough pain, Starting on Annette 10/27/24 at 1640 Given 10/27/2024 9:21 PM EDT 2 mg nitroglycerin (TRIDIL) injection As needed, Starting on Annette 10/27/24 at 0815, Intraprocedure Given 10/27/2024 8:30 AM EDT 200 mcg Given 10/27/2024 8:15 AM EDT 200 mcg ondansetron (PF) (ZOFRAN) injection 4 mg 4 mg, intravenous, Every 8 hours PRN, vomiting, nausea, Starting on Thu10/26/24 at 0047, -ONLY give IV if patient is unable to take orally. -If inadequate response within 30 minutes, proceed to next-line agent or contact provider if no further options ordered. ondansetron ODT (ZOFRAN-ODT) disintegrating tablet 4 mg 4 mg, oral, Every 8 hours PRN, vomiting, nausea, Starting on Thu10/26/24 at 0047, -Give IV if patient is unable to take orally. -If inadequate response within 30 minutes, proceed to next-line agent or contact provider if no further options ordered. For ODT tablets: -Do not remove from blister pack until just before administering. -Patient should allow tablet to dissolve on tongue. oxyCODONE (ROXICODONE) immediate release tablet 5 mg 5 mg, oral, Every 6 hours PRN, moderate pain, severe pain, Starting on Thu10/26/24 at 0415 Given 10/28/2024 8:36 AM EDT 5 mg Given 10/27/2024 4:47 PM EDT 5 mg Given 10/27/2024 11:39 AM EDT 5 mg rivaroxaban (XARELTO) tablet 2.5 mg 2.5 mg, oral, 2 times daily with meals, First dose on Thu10/28/24 at 0945, Indication: Artery disease (CAD/PAD) Given 10/28/2024 9:42 AM EDT 2.5 mg senna (SENOKOT) tablet 17.2 mg 17.2 mg (2 tablet), oral, Nightly, First dose on Thu10/26/24 at 0048, Bowel Regimen - for prevention of constipation Given 10/27/2024 9:25 PM EDT 17.2 mg sodium chloride 0.9 % flush 10 mL 10 mL, intravenous, 2 times daily, First dose on Thu10/26/24 at 0048 Given 10/28/2024 8:38 AM EDT 10 mL Given 10/27/2024 9:32 PM EDT 10 mL Given 10/26/2024 9:03 PM EDT 10 mL sodium chloride 0.9 % flush 10 mL 10 mL, intravenous, As needed, line care, Starting on Thu10/26/24 at 0047 documented in this encounter Discontinued Medications Medication Sig Discontinue Reason Start Date End Da te diclofenac (VOLTAREN) 1 % topical gel Apply 4 g topically 4 (four) times a day. Stop Taking at Discharge 11/02/2023 10/28/2024 documented as of this encounter Historical Medications * This list may reflect changes made after this encounter. QUEtiapine (SEROquel) 50 mg tablet Take 1 tablet (50 mg total) by mouth 2 (two) times a day. Trulicity 0.75 mg/0.5 mL pen injector injection Inject 0.5 mL (0.75 mg total) under the skin 1 (one) time per week. cyclobenzaprine (FLEXERIL) 10 mg tablet Take 1 tablet (10 mg total) by mouth 3 (three) times a day if needed for muscle spasms. 11/01/2023 cetirizine (ZyrTEC) 10 mg tablet Take 1 tablet (10 mg total) by mouth 1 (one) time each day. Ventolin HFA 90 mcg/actuation inhaler Inhale 1 puff by mouth 4 (four) times a day. 08/05/2024 acetaminophen (TYLENOL) 325 mg tablet Take 2 tablets (650 mg total) by mouth every 4 (four) hours if needed for mild pain or fever - temperature GREATER than 38 C (100.4 F). 11/01/2023 tiZANidine (ZANAFLEX) 2 mg tablet Take 1 tablet (2 mg total) by mouth every 6 (six) hours if needed for muscle spasms. omeprazole 20 mg tablet,disintegrat , delay rel Take 20 mg by mouth 1 (one) time each day. lidocaine (LIDODERM) 5 % patch Place 1 patch on the skin 1 (one) time each day. insulin lispro (HumaLOG KwikPen) 100 unit/mL injection pen Inject 20 Units under the skin 3 (three) times a day before meals. 03/25/2024 Tresiba FlexTouch U-200 200 unit/mL (3 mL) CONCENTRATED injection pen Inject 55 Units under the skin at bedtime. 05/02/2024 gabapentin (NEURONTIN) 600 mg tablet Take 1 tablet (600 mg total) by mouth 2 (two) times a day. fluticasone propionate (FLONASE) 50 mcg/actuation nasal spray Administer 2 sprays into each nostril 1 (one) time each day. busPIRone (BUSPAR) 5 mg tablet Take 1 tablet (5 mg total) by mouth 3 (three) times a day. atorvastatin (LIPITOR) 40 mg tablet Take 1 tablet (40 mg total) by mouth 1 (one) time each day. diclofenac (VOLTAREN) 1 % topical gel Apply 4 g topically 4 (four) times a day. 11/02/2023 added in this encounter Active and Recently Administered Medications Times are shown in EDT. Scheduled Medication Order 10/26/2024 10/27/2024 10/28/2024 amoxicillin-clavulanate (AUGMENTIN) 875-125 mg per tablet 1 tablet 1 tablet, oral, Every 12 hours scheduled, First dose on Thu10/26/24 at 2100, For 7 doses, Indication: Skin/Soft Tissue 2102 (Given - Provider: Petty Pimentel, TAYLA) 0724 (MAR Hold - Provider: Automatic Transfer Provider - Reason: Patient not available)0838 (MAR Unhold - Provider: KRIS Zee)1235 (Given - Provider: Luke Ma RN)2125 (Given - Provider: Andrés Gloria, TAYLA) 0836 (Given - Provider: Jose Mcghee, TAYLA) clopidogreL (PLAVIX) tablet 150 mg (COMPLETED)(Linked Group 1) 150 mg, oral, Once, On Thu10/27/24 at 0900, For 1 dose 1139 (Given - Provider: Crow Hernandez RN) clopidogreL (PLAVIX) tablet 75 mg(Linked Group 1) 75 mg, oral, Daily, First dose on Thu10/28/24 at 0900 0836 (Given - Provider: Jose Mcghee RN) cyclobenzaprine (FLEXERIL) tablet 10 mg (COMPLETED) 10 mg, oral, Once, On Annette 10/27/24 at 2215, For 1 dose 2236 (Given - Provider: Andrés Gloria RN) fentaNYL (PF) (SUBLIMAZE) injection 50 mcg (COMPLETED) 50 mcg, intravenous, Once, On Annette 10/27/24 at 1015, For 1 dose, Recovery (only) 0958 (Given - Provider: Jose Reese RN) gabapentin (NEURONTIN) capsule 300 mg 300 mg, oral, Every 8 hours scheduled, First dose on Thu10/26/24 at 0600 0630 (Not Given - Provider: Christina Carcamo RN - Reason: Patient/Resident/Ag ent refused - education provided )1333 (Not Given - Provider: Nadia Hickman RN - Reason: Patient/Resident/Ag ent refused - education provided )2114 (Not Given - Provider: Petty Pimentel RN - Reason: Patient/Resident/Ag ent refused - education provided ) 0529 (Not Given - Provider: Petty Pimentel RN - Reason: Patient/Resident/Ag ent refused - education provided )0724 (AUG Hold - Provider: Automatic Transfer Provider - Reason: Patient not available)0838 (AUG Unhold - Provider: KRIS Zee)1506 (Not Given - Provider: Luke Ma RN - Reason: Patient/Resident/Ag ent refused - education provided )2125 (Not Given - Provider: Andrés Gloria RN - Reason: Patient/Resident/Ag ent refused - education provided ) 0527 (Not Given - Provider: Andrés Gloria RN - Reason: Patient/Resident/Agent refused - education provided )1400 (Canceled Entry - Provider: Automatic Discharge Provider - Comment: Automatically canceled at discontinue of medication order) heparin (UFH) bolus from infusion 5,696 Units (COMPLETED) 5,696 Units (80 Units/kg ? 71.2 kg), intravenous, Once, On Thu10/25/24 at 2356, For 1 dose, *Initial bolus for patients LESS than 100 kg* *Maximum dose 8000 units* Bolus from infusion. Suggested bolus infusion time is over 10 minutes., Indication: Treatment of Venous Thromboembolism (i.e. VTE,PE) 0101 (Bolus from Bag - Provider: Christina Carcamo TAYLA) insulin glargine (LANTUS) injection 10 Units (COMPLETED) 10 Units, subcutaneous, Once, On Thu10/26/24 at 2230, For 1 dose 225 (Given - Provider: Petty Pimentel, TAYLA) insulin glargine (LANTUS) injection 35 Units 35 Units, subcutaneous, Nightly, First dose (after last modification) on Annette 10/27/24 at 2100, Notify provider: -If patient is currently or will become NPO -If TPN was or will be interrupted or discontinued -For approval to hold long acting insulin 2130 (Not Given - Provider: Andrés Gloria, TAYLA - Reason: Patient/Resident/Ag ent refused - education provided ) insulin lispro injection 2-12 Units 2-12 Units, subcutaneous, 3 times daily before meals, First dose on Thu10/26/24 at 1630, Indication: Total Daily Dose (TDD) 40 - 80 units. Correction Scale: Moderate Dose Administer with meal and/or mealtime dose of insulin to correct high blood glucose If mealtime insulin dose not given (e.g. patient NPO or not eating), still administer correction factor for high blood glucose 1656 (Given - Provider: Nadia Hickman RN) 0724 (AUG Hold - Provider: Automatic Transfer Provider - Reason: Patient not available)0730 (Not Given - Provider: Luke Ma RN - Reason: Patient not available)0838 (MAR Unhold - Provider: KRIS Zee)1234 (Given - Provider: Luke Ma RN)1732 (Given - Provider: Luke Ma RN) 0837 (Given - Provider: Jose Mcghee RN)1220 (Given - Provider: Jose Mcghee RN) insulin lispro injection 8 Units 8 Units, subcutaneous, 3 times daily with meals, First dose on Thu10/26/24 at 1700, Mealtime Insulin - Administer with meal -Do NOT give if patient NPO or expected to eat LESS than 50% of meal -If pre-meal glucose LESS than OR equal to 70 mg/dL- treat hypoglycemia and notify provider 1655 (Not Given - Provider: Nadia Hickman RN - Reason: Patient/Resident/Ag ent refused - education provided ) 0724 (AUG Hold - Provider: Automatic Transfer Provider - Reason: Patient not available)0800 (Not Given - Provider: Luke Ma RN - Reason: Patient not available)0838 (AUG Unhold - Provider: KRIS Zee)1235 (Given - Provider: Luke Ma RN)1732 (Given - Provider: Luke Ma RN) 0837 (Given - Provider: Jose Mcghee RN)1219 (Given - Provider: Jose Mcghee RN) rivaroxaban (XARELTO) tablet 2.5 mg 2.5 mg, oral, 2 times daily with meals, First dose on Thu10/28/24 at 0945, Indication: Artery disease (CAD/PAD) 0942 (Given - Provider: Jose Mcghee RN) senna (SENOKOT) tablet 17.2 mg 17.2 mg (2 tablet), oral, Nightly, First dose on Thu10/26/24 at 0048, Bowel Regimen - for prevention of constipation 0117 (Not Given - Provider: Christina Carcamo RN - Reason: Patient/Resident/Ag ent refused - education provided - Comment: NOT NECESSARY)2115 (Not Given - Provider: Petty Pimentel RN - Reason: Patient/Resident/Ag ent refused - education provided ) 0724 (AUG Hold - Provider: Automatic Transfer Provider - Reason: Patient not available)0838 (AUG Unhold - Provider: KRIS Zee)2125 (Given - Provider: Andrés Gloria RN) sodium chloride 0.9 % flush 10 mL(Linked Group 2) 10 mL, intravenous, 2 times daily, First dose on Thu10/26/24 at 0048 0117 (Not Given - Provider: Christina aCrcamo RN - Reason: Other - Comment: IV FLUIDS INFUSING)0804 (Given - Provider: Raul Andino RN)2103 (Given - Provider: Petty Pimentel RN) 0724 (AUG Hold - Provider: Automatic Transfer Provider - Reason: Patient not available)0838 (AUG Unhold - Provider: KRIS Zee)1552 (Not Given - Provider: Luke Ma RN - Reason: Patient not available)2132 (Given - Provider: Andrés Gloria, TAYLA) 0838 (Given - Provider: Jose Mcghee RN) Continuous Medication Order 10/26/2024 10/27/2024 10/28/2024 heparin infusion 100 units/mL in D5W (CANCELED) 18 Units/kg/hr ? 71.2 kg (12.816 mL/hr, rounded to 12.8 mL/hr), intravenous, Continuous, Starting on Thu10/25/24 at 2356 0055 (Not Given - Provider: Christina Carcamo RN - Reason: Other - Comment: ALREADY DOCUMENTED)0059 (New Bag - Provider: Christina Carcamo RN)0634 (Rate/Dose Change - Provider: Christina Carcamo RN)1330 (Continue to Inpatient Floor - Provider: Nadia Hickman RN)1340 (Paused - Provider: Nadia Hickman RN - Comment: iv infiltrated)1415 (Continue to Inpatient Floor - Provider: Nadia Hickman RN - Comment: iv access restored)1440 (New Bag - Provider: Nadia Hickman RN) 1224 (Stopped - Provider: Luke Ma RN) sodium chloride 0.9 % infusion () 75 mL/hr, intravenous, Continuous, Starting on Thu10/27/24 at 0900, For 8 hours, Recovery (only) 1140 (New Bag - Provider: Crow Hernandez RN) PRN Medication Order 10/26/2024 10/27/2024 10/28/2024 acetaminophen (TYLENOL) tablet 650 mg 650 mg, oral, Every 6 hours PRN, mild pain, Starting on Thu10/26/24 at 0047 0630 (Given - Provider: Christina Carcamo RN) 0724 (AUG Hold - Provider: Automatic Transfer Provider - Reason: Patient not available)0838 (AUG Unhold - Provider: KRIS Zee) dextrose (D50W) 50% injection 12.5 g 12.5 g, intravenous, Every 15 min PRN, low blood sugar, moderate hypoglycemia *Patient is Unconscious, NPO, unable to swallow: BG 54 - 69 mg/dl*, Starting on Thu10/26/24 at 1355 0724 ([facility] Hold - Provider: Automatic Transfer Provider - Reason: Patient not available)0838 ([facility] Unhold - Provider: KRIS Zee) dextrose (D50W) 50% injection 25 g 25 g, intravenous, Every 15 min PRN, low blood sugar, severe hypoglycemia *Patient is Unconscious, NPO, unable to swallow: BG LESS than 54 mg/dL*, Starting on Thu10/26/24 at 1355 0724 ([facility] Hold - Provider: Automatic Transfer Provider - Reason: Patient not available)0838 ([facility] Unhold - Provider: KRIS Zee) dextrose 15 gram/60 mL oral solution 15 g 15 g, oral, Every 15 min PRN, low blood sugar, hypoglycemia *Patient conscious AND able to drink and swallow safely*, Starting on Thu10/26/24 at 1355 0724 ([facility] Hold - Provider: Automatic Transfer Provider - Reason: Patient not available)0838 ([facility] Unhold - Provider: KRIS Zee) dextrose 15 gram/60 mL oral solution 30 g 30 g, oral, Every 15 min PRN, low blood sugar, hypoglycemia *Patient conscious AND able to drink and swallow safely*, Starting on Thu10/26/24 at 1355 0724 ([facility] Hold - Provider: Automatic Transfer Provider - Reason: Patient not available)0838 ([facility] Unhold - Provider: KRIS Zee) fentaNYL (PF) (SUBLIMAZE) injection (CANCELED) As needed, Starting on Thu10/27/24 at 0743, Intraprocedure 0743 (Given - Provider: Kennedy Dominguez, TAYLA)0801 (Given - Provider: Kennedy Dominguez, RN)0824 (Given - Provider: Kennedy Dominguez, TAYLA) Glucagon HCl (rDNA) injection 1 mg 1 mg, intramuscular, Once as needed, low blood sugar, severe hypoglycemia, Starting on Thu10/26/24 at 1355, For 1 dose 0724 ([facility] Hold - Provider: Automatic Transfer Provider - Reason: Patient not available)0838 ([facility] Unhold - Provider: KRIS Zee) heparin (UFH) injection (CANCELED) As needed, Starting on Annette 10/27/24 at 0755, Intraprocedure 0755 (Given - Provider: Kennedy Dominguez RN)0827 (Given - Provider: Kennedy Dominguez RN) iopamidoL (ISOVUE-370) 370 mg iodine /mL (76 %) injection (CANCELED) As needed, Starting on Annette 10/27/24 at 0833, Intraprocedure 0833 (Given - Provider: Boo Nash MD) lidocaine (XYLOCAINE) 1 % injection (CANCELED) As needed, Starting on Annette 10/27/24 at 0750, Intraprocedure 0750 (Given - Provider: Boo Nash MD) midazolam (VERSED) injection (CANCELED) As needed, Starting on Annette 10/27/24 at 0743, Intraprocedure 0743 (Given - Provider: Kennedy Dominguez RN)0802 (Given - Provider: Kennedy Dominguez RN)0824 (Given - Provider: Kennedy Dominguez RN) morphine 2 mg/mL injection 2 mg 2 mg, intravenous, Every 4 hours PRN, other, Severe breakthrough pain, Starting on Annette 10/27/24 at 1640 2121 (Given - Provider: Andrés Gloria RN) nitroglycerin (TRIDIL) injection (CANCELED) As needed, Starting on Annette 10/27/24 at 0815, Intraprocedure 0815 (Given - Provider: Boo Nash MD)0830 (Given - Provider: Boo Nash MD) ondansetron (PF) (ZOFRAN) injection 4 mg(Linked Group 3) 4 mg, intravenous, Every 8 hours PRN, vomiting, nausea, Starting on Thu10/26/24 at 0047, -ONLY give IV if patient is unable to take orally. -If inadequate response within 30 minutes, proceed to next-line agent or contact provider if no further options ordered. 0724 (AUG Hold - Provider: Automatic Transfer Provider - Reason: Patient not available)0838 (AUG Unhold - Provider: KRIS Zee) ondansetron ODT (ZOFRAN-ODT) disintegrating tablet 4 mg(Linked Group 3) 4 mg, oral, Every 8 hours PRN, vomiting, nausea, Starting on Thu10/26/24 at 0047, -Give IV if patient is unable to take orally. -If inadequate response within 30 minutes, proceed to next-line agent or contact provider if no further options ordered. For ODT tablets: -Do not remove from blister pack until just before administering. -Patient should allow tablet to dissolve on tongue. 0724 (AUG Hold - Provider: Automatic Transfer Provider - Reason: Patient not available)0838 (AUG Unhold - Provider: KRIS Zee) oxyCODONE (ROXICODONE) immediate release tablet 5 mg 5 mg, oral, Every 6 hours PRN, moderate pain, severe pain, Starting on Thu10/26/24 at 0415 0434 (Given - Provider: Aranza Dotson, RN)1338 (Given - Provider: Nadia Hickman RN) 0724 (AUG Hold - Provider: Automatic Transfer Provider - Reason: Patient not available)0838 (MAR Unhold - Provider: KRIS Zee)1139 (Given - Provider: Crow Hernandez, TAYLA)1647 (Given - Provider: Luke Ma RN) 0836 (Given - Provider: Jose Mcghee RN) sodium chloride 0.9 % flush 10 mL(Linked Group 2) 10 mL, intravenous, As needed, line care, Starting on Thu10/26/24 at 0047 0724 (AUG Hold - Provider: Automatic Transfer Provider - Reason: Patient not available)0838 ([facility] Unhold - Provider: KRIS Zee) Linked Groups Order Group 1: clopidogreL (PLAVIX) tablet 150 mg (COMPLETED)Jump to med 150 mg, oral, Once, On Thu10/27/24 at 0900, For 1 dose And clopidogreL (PLAVIX) tablet 75 mgJump to med 75 mg, oral, Daily, First dose on Thu10/28/24 at 0900 Group 2: Insert peripheral IV (CANCELED) STAT, Once, On Thu10/26/24 at 0047, For 1 occurrence And Maintain IV access (CANCELED) Until discontinued, Starting on Thu10/26/24 at 004, Until Specified And Saline lock IV (CANCELED) Routine, Once, On Thu10/26/24 at 004, For 1 occurrence And sodium chloride 0.9 % flush 10 mLJump to med 10 mL, intravenous, 2 times daily, First dose on Thu10/26/24 at 0048 And sodium chloride 0.9 % flush 10 mLJump to med 10 mL, intravenous, As needed, line care, Starting on Thu10/26/24 at 0047 Group 3: ondansetron ODT (ZOFRAN-ODT) disintegrating tablet 4 mgJump to med 4 mg, oral, Every 8 hours PRN, vomiting, nausea, Starting on Thu10/26/24 at 0047, -Give IV if patient is unable to take orally. -If inadequate response within 30 minutes, proceed to next-line agent or contact provider if no further options ordered. For ODT tablets: -Do not remove from blister pack until just before administering. -Patient should allow tablet to dissolve on tongue. Or ondansetron (PF) (ZOFRAN) injection 4 mgJump to med 4 mg, intravenous, Every 8 hours PRN, vomiting, nausea, Starting on Thu10/26/24 at 0047, -ONLY give IV if patient is unable to take orally. -If inadequate response within 30 minutes, proceed to next-line agent or contact provider if no further options ordered. documented in this encounter Orders Medications Ordered That Aron ht Not Have Been Administered Count Last Ordered Date First Ordered Date rivaroxaban (XARELTO) tablet 2.5 mg 1 10/28 clopidogreL (PLAVIX) tablet 150 mg 1 2024 clopidogreL (PLAVIX) tablet 75 mg 1 025 cyclobenzaprine (FLEXERIL) tablet 10 mg 1 0 10/27/2024 fentaNYL (PF) (SUBLIMAZE) injection 50 mcg 1 10/27/2024 insulin glargine (LANTUS) in jection 35 Units 1 10/27/2024 morphine 2 mg/mL injection 2 mg 1 sodium chloride 0.9 % infusion 1 10/27/2024 acetaminophen (TYLENOL) tablet 650 mg 1 amoxicillin-clavulanate (AUG MENTIN) 875-125 mg per tablet 1 tablet 1 10/26/2024 dextrose (D50W) 50% injection 12.5 g 10/13 dextrose (D50W) 50% injection 25 g 2024 dextrose 15 gram/60 mL oral solution 15 g 10/26/2024 dextrose 15 gram/60 mL oral solution 30 g 1 10/26/2024 gabapentin (NEURONTIN) capsule 300 mg 1 Glucagon HCl (rDNA) injection 1 mg 1 2024 insulin glargine (LANTUS) in jection 10 Units 1 10/26/2024 insulin glargine (LANTUS) in jection 25 Units 1 10/26/2024 insulin glargine (LANTUS) in jection 50 Units 1 10/26/2024 insulin lispro injection 2-12 Units 1 10/26 insulin lispro injection 8 Units 1 10/27/19 ondansetron (PF) (ZOFRAN) injection 4 mg 1 10/26/2024 ondansetron ODT (ZOFRAN-ODT) disintegrating tablet 4 mg 1 10/26/2024 oxyCODONE (ROXICODONE) immed iate release tablet 5 mg 1 10/26/2024 senna (SENOKOT) tablet 17.2 mg 1 10/26/2024 sodium chloride 0.9 % flush 10 mL 3 025 10/25/2024 heparin (UFH) bolus from inf usion 5,696 Units 1 10/25/2024 heparin infusion 100 units/mL in D5W 1 10/13 iopamidoL (ISOVUE-370) 370 m g iodine /mL (76 %) injection 100 mL 1 10/25/2024 morphine injection 4 mg 1 10/25/2024 sodium chloride 0.9 % bolus 1,000 mL 2 10/13 Lab Orders Without Results Count Last Ordered D ate First Ordered Date POCT GLUCOSE, BLOOD 5 10/28/2024 10/27/19 25 General Supply Count Last Ordered Date First Or dered Date WALKER 1 10/28/2024 Consult Count Last Ordered Date First Orde red Date IP CONSULT TO VASCULAR SURGERY 1 10/25/2024 IV Count Last Ordered Date First Orde red Date INSERT PERIPHERAL IV 1 10/25/2024 Admission Count Last Ordered Date First Orde red Date ADMIT TO INPATIENT 1 10/26/2024 Transfer Count Last Ordered Date First Orde red Date ED TO FLOOR BED REQUEST 1 10/26/2024 Discharge Count Last Ordered Date First Orde red Date DISCHARGE PATIENT 2 10/28/2024 CORE MEASURES Count Last Ordered Date First Ord ered Date REASON FOR NO VTE PROPHYLAXI S - HOSPITAL ADMISSION - MEDICATIONS 1 10/26/2024 Case Request Count Last Ordered Date First Orde red Date CASE REQUEST INVASIVE VASCULAR 1 10/26/2024 documented in this encounter Care Teams Tractor Technician Relationship Specialty Start Date End Date Moisés Lewis MD [address] [place] [id number] PCP - General Internal Medicine 08/07/11 documented as of this encounter
--- OUTSIDE RECORDS SUMMARY | 2024-11-01 14:09 | XMS_ITS | Clinical Summary ---
Author Organization [facility] Address [address] [place] [address] Care Team Providers Care Fitness Supervisor Name Role Phone Moisés Lewis MD Primary Care Provider [phone] Social History Tobacco Use Types Packs/Day Years Used Date Smoking Tobacco: Never Assessed Sex and Gender Information Value Date Recorded Sex Assigned at Not on file Gender Identity Not on file Sexual Orientation Not on file Plan of Treatment Health Maintenance Due Date Last Done Comments Hepatitis B Vaccines (1 of 3 - 3-dose series) 1976 Hepatitis C Screening 1976 COVID-19 Vaccine (#1) 1976 Depression Screening 1988 Preventative Health Evaluation 1994 DTap / Tdap / Td (1 - Tdap) 1995 Cervical Cancer Screening (P ap Smear) 1997 Colon Cancer Screening (Colonoscopy) 2021 Influenza Vaccine (#1) 2024 Pneumococcal Vaccine Aged Out No long er eligible based on patient's age to complete this topic RSV Ped < 20 months Aged Out No longe r eligible based on patient's age to complete this topic Care Teams Fitness Supervisor Relationship Specialty Start Date End Date Moisés Lewis MD [address] [place] [address] [place] [address] PCP - General Internal Medicine 05/30/20
--- OUTSIDE RECORDS SUMMARY | 2024-11-01 14:09 | XMS_ITS | Encounter Summary ---
Author Organization [facility] Address [address] [place] [id number] Care Team Providers Care Chief Juvenile Probation Officer Name Role Phone Moisés Lewis MD Primary Care Provider [phone] Reason for Referral * Home Health (Routine) - Closed Specialty Diagnoses / Procedures Referred By Contac t Referred To Contact Home Health Services Diagnoses Peripheral arterial disease (CMS/HCC V24) Critical limb ischemia of left lower extremity (CMS/HCC V24, CMS/HCC V28) Bridgett Boyle MD [address] [place] [address] Phone: tel: fax: [facility] [address] [place] [phone] Phone: tel: fax: Referral ID Status Reason Start Date Expiration Date V isits Requested Visits Authorized [id number] Closed Consult and Treat 10/28/2024 10/28/2025 1 1 Reason for Visit * Reason Comments Toe Pain Toes on both feet ar e black * Auth/Cert (Routine) Specialty Diagnoses / Procedures Referred By Contac t Referred To Contact Diagnoses Acute occlusion of popliteal artery due to thromboembolism (CMS/HCC V24, CMS/HCC V28) Procedures . Davin Croft MD [address] [place] [address] Phone: tel: fax: [facility] Emergency [address] [place] [address] Phone: tel: Referral ID Status Reason Start Date Expiration Date Visits Re quested Visits Authorized [id number] 1 1 Encounter Details Date Type Department Care Team (Latest Contact Info) Description 10/25/2024 7:40 PM EDT - 10/28/2024 2:08 PM EDT Hospital Encounter [facility] Urology Unit [address] [place] [phone] Franki Hsieh MD [address] [place], [place] [phone] Davin Croft MD [address] [place], [place] [phone] Bridgett Boyle MD [address] [place] [phone] Peripheral arterial disease ([facility] V24) (Primary Dx); Occlusion of left popliteal artery ([facility] V24); Critical limb ischemia of left lower extremity ([facility]/HCC V24, CMS/HCC V28); Acute occlusion of popliteal artery due to thromboembolism ([facility] V24, [facility] V28) Discharge Disposition: Home-Health Care Svc Social History Tobacco Use Types Packs/Day Years [...] Sign Reading Time Taken Comments Blood Pressure 164/85 10/28/2024 7:41 AM EDT Pulse 84 10/28/2024 7:41 AM EDT Temperature 36.4 ??C (97.5 ??F) 10/28/2024 7:41 AM ED T Respiratory Rate 16 10/28/2024 7:41 AM EDT Oxygen Saturation 100% 10/28/2024 7:41 AM EDT Inhaled Oxygen Concentration - - Weight 73.1 kg (161 lb 3.2 oz) 10/26/2024 1:00 P M EDT Height 165.1 cm (5' 5 ) 10/25/2024 4:15 PM EDT Body Mass Index 26.83 10/25/2024 4:15 PM EDT documented in this encounter Discharge Summaries * Bridgett Boyle MD - 10/28/2024 12:28 PM EDT Images from the original note were not included. [place] DISCHARGE SUMMARY Patient Information Aguilar Garcia : [...] Your Medications These medications were sent to [facility]/pharmacy #[id number] - [address] [address] Hours: 24-hours amoxicillin-clavulanate 875-125 mg per tablet [...] US duplex lower extremity vein map bilateral [[id number]] Collected: 10/26/2432 Order Status: Completed Updated: 10/26/2456 Narrative: HISTORY: The patient is a 49-year-old [...] bilaterally. Their diameters are as above. Code 77203 -------- FINAL REPORT -------- Dictated By: Mathieu Lopez Dictated Date: 10/26/2024 09:45 ET Assigned Physician: Mathieu Lopez Reviewed and Electronically Signed By: Mathieu Lopez Signed Date: 10/26/2024 09:51 ET Workstation ID: [id number] Transcribed By: Self Edit Transcribed Date: 10/26/2024 09:[address] Angio Lower Extremity w and/or wo Contrast Left [[id number]] Collected: 10/25/242323 Order Status: Completed Updated: 10/25/242326 Addenda: ADDENDUM: This report was discussed with KRIS Kwon on October 25, 2024 23:26:00 EDT. This document has been electronically signed by: Agnieszka Pak on 10/25/2024 23:27:12 Signed: 10/25/242326 by Wade Asif MD Narrative: INDICATION: Claudication or leg ischemia CT angiogram left leg with contrast Multiplanar reconstructions and 3D processing Comparison: No prior studies of any type Findings: Imaging begins in lower pelvis. Visualized portions of left external iliac artery patent. 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 Multifocal mild left [...] 10/25/2024 23:24:48 MR Shoulder wo Contrast Left [[id number]] Collected: 10/25/24 1251 Order Status: Completed Updated: [...] capsulitis. -------- FINAL REPORT -------- Dictated By: KAVITHA, LOLY Dictated Date: 10/25/2024 12:51 ET Assigned Physician: LOLY PLUMMER Reviewed and Electronically Signed By: LOLY PULMMER Signed Date: 10/25/2024 13:04 ET Workstation ID: [id number] Transcribed By: Self Edit * Bridgett Boyle MD - 10/28/2024 12:27 PM EDT 2 gram sodium restricted, carb controlled diet * Bridgett Boyle MD - 10/28/2024 12:27 PM EDT As tolerated, slowly documented in this encounter Discharge Instructions * Discharge Instructions* KRIS Soto - 10/27/2024 1:03 PM EDT Please schedule or confirm a 2-4 week follow-up appointment with Dr. Nash's office at: [facility] Vascular Surgery [address] [place] [address], [address] [place] [phone] Please call the office at [phone] to confirm or schedule appointment New medications: [...] Daily Amount: 20 mg 12 each 10/28/2024 5 documented in this encounter Discharge Disposition Disposition Code Departure Means Destination Home-Health Care Svc documented in this encounter Progress Notes * Dolores Fernando RN - 10/28/2024 2:36 PM EDT 10/28/24 1436 Transportation Transportation at discharge Family What day is the transport expected? 10/28/24 Final Discharge Disposition Home Health Care Services D/c summary and Amb referral for home health send to [facility] via [facility] * Farideh Diego RN - 10/28/2024 1:52 [...] Progress Note LOS: [address]/medical interpreter ID# [id number] utilized during patient encounter. No acute events noted overnight. Patient continues to report pain to left 3rd, 4th and 5th toes, as well as her heel. Denies right groin access site complication. Principal Problem: Acute occlusion of popliteal artery due to thromboembolism (CMS/HCC V24, CMS/HCC V28) Active Problems: Type 2 diabetes mellitus with hyperglycemia (CMS/HCC V24, CMS/[facility] V28) Hyperlipidemia Current Facility-Administered Medications: acetaminophen (TYLENOL) tablet 650 mg, 650 mg, oral, q6h PRN, KRIS Zee, 650 mg at 10/26/24 0630 amoxicillin-clavulanate (AUGMENTIN) 875-125 mg per tablet 1 tablet, 1 tablet, oral, q12h CHRISTOPHER, KRIS Zee, 1 tablet at 10/27/242124 [COMPLETED] clopidogreL (PLAVIX) tablet 150 mg, 150 [...] with meals, KRIS Zee, 8 Units at 10/27/24 173 morphine 2 mg/mL injection 2 mg, 2 [...] > 4mm at every level measured bilaterally. 10/28: POD #1 aortogram with bilateral iliofemoral runoff, [...] plan will improve Outcome: Progressing Problem: Cognitive: [place] Edward Fall Risk Goal: Mobility requiring assistance of [...] a 49 y.o. female : 1975 MR#: [id number] SUBJECTIVE CC: Here with left lower extremity [...] bilaterally. Their diameters are as above. Code 29643 -------- FINAL REPORT -------- Dictated By: Mathieu Lopez Dictated Date: 10/26/2024 09:45 ET Assigned Physician: Mathieu Lopez Reviewed and Electronically Signed By: Mathieu Lopez Signed Date: 10/26/2024 09:51 ET Workstation ID: [id number] Transcribed By: Self Edit Transcribed Date: 10/26/2024 09:45 ET ASSESSMENT & PLAN Aguilar Garcia is a 49 y.o. 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 Yes Canopy Stringer # [id number] utilized ICC spoke with pt at bedside. Demographics confirmed. Pt reported shelives on the 2nd floor with no elevator access, has been looking for 1st floor apt. [facility]. Pt reported she would be more comfortable [...] a 49 y.o. female : 1975 MR#: [id number] SUBJECTIVE CC: Here with left lower extremity [...] bilaterally. Their diameters are as above. Code 36582 -------- FINAL REPORT -------- Dictated By: Mathieu Lopez Dictated Date: 10/26/2024 09:45 ET Assigned Physician: Mathieu Lopez Reviewed and Electronically Signed By: Mathieu Lopez Signed Date: 10/26/2024 09:51 ET Workstation ID: [id number] Transcribed By: Self Edit Transcribed Date: 10/26/2024 09:45 ET ASSESSMENT & PLAN Aguilar Garcia is a 49 y.o. female [...] Daily Progress Note LOS: 0 days Subjective [place] AN japanese interpreter #[id number] present during visit. She confirms left foot pain for the past few days. She also reports longstanding history of left calf claudication but she also has neurogenic pain in the left leg from back issues and walks with a cane or walker for that reason. Principal Problem: Acute occlusion of popliteal artery due to thromboembolism (CMS/[facility] V24, [facility] V28) Active Problems: Type 2 diabetes mellitus with hyperglycemia (CMS/[facility] V24, CMS/[facility] V28) Hyperlipidemia Current Facility-Administered Medications: acetaminophen [...] hours: Temp: 36.4 ??C (97.5 ??F) (10/26 104) Heart Rate: 84 (10/26 1048) Resp: 18 [...] bilaterally. Their diameters are as above. Code 94033 -------- FINAL REPORT -------- Dictated By: Mathieu Lopez Dictated Date: 10/26/2024 09:45 ET Assigned Physician: Mathieu Lopez Reviewed and Electronically Signed By: Mathieu Lopez Signed Date: 10/26/2024 09:51 ET Workstation ID: [id number] Transcribed By: Self Edit Transcribed Date: 10/26/2024 [...] infectious concerns): [] Yes / [x] No Senior Network Systems Engineer: [] Yes / [x] No If YES, Cardiac Rhythm: [x] NSR, [] SB, [] ST, [] A-FIB, [] A-Flutter, [] Pacemaker, [] 1st Degree HB, [] 2nd Degree HB, [] 3rd Degree HB Reason for Senior Network Systems Engineer: VS: Visit Vitals BP 123/70 (BP Location: [...] artery occlusion Submitted by and Phone Extension: [phone] * Davin Croft MD - 10/26/2024 3:48 AM EDTAssociated Problem(s): Type 2 diabetes mellitus with hyperglycemia (CMS/[facility] V24, CMS/[facility] V28) - Would continue glycemic control in house using insulin regimen augmented by sliding scale - Consider interval A1c * Davin Croft MD - 10/26/2024 3:47 AM EDTAssociated Problem(s): Hyperlipidemia - Will continue outpatient antilipid regimen unchanged * Davin Croft MD - 10/26/2024 3:47 AM EDTAssociated Problem(s): Acute occlusion of popliteal artery due to thromboembolism ([facility] V24, [facility] V28) (Resolved 10/28/2024) - Being hospitalized for [...] Diabetes mellitus type 2, controlled, with complications (CMS/[facility] V24, CMS/[facility] V28) DX:Diabetes mellitus type 2, controlled, with complications ([facility]) Glaucoma DX:Glaucoma Past Surgical History: Procedure [...] POCT Comment RN Notified POCT Comment 1 MD Notified POCT GLUCOSE, BLOOD - Abnormal Glucose POCT 435 (*) POCT Comment RN Notified POCT Comment 1 MD Notified BETA HYDROXYBUTYRATE - Normal Beta-Hydroxybutyrate 1.4 HCG, SERUM, QUALITATIVE - Normal hCG Qual Negative ACTIVATED PARTIAL THROMBOPLASTIN TIME - Normal aPTT 29.5 CBC AND DIFFERENTIAL Narrative: The following orders were created for panel order CBC and differential. Procedure Abnormality Status --------- ------ CBC auto differential[[id number]] Final result Please view results for these [...] Procedure Abnormality Status --------- ------ CBC auto differential[[id number]] Please view results for these tests on [...] reveals marked hyperglycemia, patient is seen eating [employer] during initiation of patient interview and exam. [...] as of 10/26/24 0202 Peripheral arterial disease ([facility] V24) Occlusion of left popliteal artery ([facility]/HCC V24) Medications heparin infusion 100 units/mL in D5W (18 Units/kg/hr ?? 71.2 kg intravenous New Bag 10/26/2458) sodium chloride 0.9 % flush 10 mL (10 mL intravenous Not Given 10/26/24116) And sodium chloride 0.9 % flush 10 mL (has no administration in time range) acetaminophen (TYLENOL) tablet 650 mg (has no administration in time range) ondansetron ODT (ZOFRAN-ODT) disintegrating tablet 4 mg (has no administration in time range) Or ondansetron (PF) (ZOFRAN) injection 4 mg (has no administration in time range) senna (SENOKOT) tablet 17.2 mg (17.2 mg oral Not Given 10/26/24116) sodium chloride 0.9 % bolus 1,000 mL (0 mL intravenous Stopped 10/25/242212) sodium chloride 0.9 % bolus 1,000 mL (0 mL intravenous Stopped 10/26/2452) sodium chloride 0.9 % flush 10 mL (10 mL intravenous Given 10/25/242228) iopamidoL (ISOVUE-370) 370 mg iodine /mL (76 %) injection 100 mL (100 mL intravenous Given 10/25/242228) morphine injection 4 mg (4 mg intravenous Given 10/25/24 1807) heparin (UFH) bolus from infusion 5,696 Units (5,696 Units intravenous Bolus from Bag 10/26/24 0101) Procedures Procedures Diagnosis 1. Peripheral arterial disease (CMS/HCC V24) Vascular US duplex lower extremity vein map bilateral Vascular US duplex lower extremity vein map bilateral 2. Occlusion of left popliteal artery ([facility]/HCC V24) Disposition Admit to Inpatient ED Prescriptions None Physician Attestation KRIS Kwon 10/25/242043 KRIS Kwon 10/25/242247 KRIS Kwon 10/26/24201 Cosigned by Franki Hsieh MD at 10/26/2024 [...] the original note were not included. [facility] HISTORY AND PHYSICAL Please contact author [Davin Croft MD] via [email or web address]. Patient: Aguilar Garcia Admission Date/Time: 10/25/2024 7:40 [...] Diabetes mellitus type 2, controlled, with complications (CMS/[facility] V24, CMS/HCC V28) DX:Diabetes mellitus type 2, controlled, with complications ([facility]) ??? Glaucoma DX:Glaucoma Past Surgical History [...] due to thromboembolism (CMS/HCC V24, CMS/HCC V28) - Being hospitalized for left popliteal [...] unchanged Type 2 diabetes mellitus with hyperglycemia ([facility] V24, [facility] V28) - Would continue glycemic control in house using insulin regimen augmented by sliding scale - Consider interval A1c Admission checklist [x] Code Status: Full code confirmed [x] VTE Prophylaxis: Heparin [x] Diet Order on Admission: [x] Lines, Tubes, Drains: IV access [x] Medication Reconciliation: [x] Health Care Proxy (HCP) and HCP-Phone number: [x] Evaluative Finding Treatment Plan: Reviewed with patient/Family/Calibration Technician: [x] [facility] and Patient's Ajsbfsimpsg-uh-Dbfb Questions: Addressed at bedside, specifying occlusive acute event as admitting diagnosis Davin Croft MD, MA, FACP Internal Medicine/Hospital Medicine Division [place], [place] (Electronic Signature on File) Dictation Disclaimer Statement: This document was developed in part, totally and/or in the combination using the [employer] voice recognition software. Innocent errors may be [...] EDT PATIENT: Aguilar Garcia ENCOUNTER: 10/27/2024 EMRN: [id number] : 1975 Mallampati classification: 3 ASA classification: 3 Diagnosis: CLI * Boo Nash MD - 10/27/2024 7:24 AM EDT Angiography lower ext left (L) OPERATIVE NOTE Date: 10/27/2024 Location: [facility] Cardiac Bench Technician Name: Aguilar Garcia, : 1975, Diagnosis Pre-op [...] left leg critical limb ischemia. Surgeon(s) & Skilled Labor(s) * Boo Nash MD - Primary Anesthesia: [...] mL Procedure Details: Patient brought into the Bench Technician and placed on table in supine position. [...] micropuncture sheath was upsized to a 5 Omani sheath. The inner dilator was removed and [...] The patient was systemically heparinized. A 5 Omani 90 cm Cooksheath was brought up and [...] sheath was exchanged for 10 cm 5 Omani sheath. Sheath was flushed and screwed in place. Radiological supervision and interpretation:: As stated above. Complications: None; patient tolerated the procedure well. Disposition: PACU - hemodynamically stable. Condition: stable documented in this encounter Consult Notes * Boo Nash MD - 10/25/2024 11:57 PM EDTAssociated Order(s): IP CONSULT TO VASCULAR SURGERY VASCULAR SURGERY CONSULTATION PATIENT: Aguilar Garcia ENCOUNTER: 10/26/2024 EMRN: [id number] : 1975 PCP: Moisés Lewis MD CHIEF [...] DX:Diabetes mellitus type 2, controlled, with complications ([facility]) Glaucoma DX:Glaucoma Past Surgical History: Procedure [...] data recorded. No intake/output data recorded. Vitals: 10/25/24 2019 10/26/24 0358 10/26/24 0837 10/26/24 1049 BP: 128/82 123/70 107/69 117/72 BP Location: Left arm Right arm Left arm Left arm Patient Position: Sitting Sitting Sitting Lying Pulse: 106 94 71 84 Resp: 20 17 18 18 Temp: 37.1 ??C (98.7 ??F) [...] w and/or wo Contrast Left ( (Order [id number]) Status: Edited Result - FINAL PACS Images [...] left external iliac artery patent. 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 Multifocal mild left [...] procedure Invasive Vascular Routine Peripheral arterial disease ([facility] V24) 10/27/2024 8:42 AM EDT Scheduled Referrals Name Type Priority Associated Diagnoses Order Schedule Ambulatory referral to [facility] Out[facility] Referral Routine Peripheral arterial disease ([facility] V24) Critical limb ischemia of left lower extremity ([facility] V24, [facility] V28) 1 Occurrences starting 10/28/2024 until [...] 10/27/2024 8:42 AM EDT Peripheral arterial disease ([facility] V24) Procedure Note - Boo Nash MD [...] 10/26/2024 9:24 AM EDT Peripheral arterial disease (CMS/[facility] V24) CBC WITH AUTO DIFFERENTIAL Routine 10/26/2024 [...] POCT Glucose, blood (10/28/2024 11:09 AM EDT) [facility] Glucose POCT 261(H) 70 - 100 mg/dL 10/28/2024 11:10 AM EDT MARIANA GNA [place] ([facility]) [facility] Blood Capillary blood specimen / Unknown 10/28/2024 11:09 AM EDT 10/28/2024 11:12 AM EDT us Bridgett Boyle MD LAB POINT OF CARE TE ST DOCKED DEVICE UNSOLICITED RESULTS Final Result [facility] [address] [place] [address], [place] [phone] * (ABNORMAL) POCT Glucose, blood (10/28/2024 7:43 AM EDT) Glucose POCT 244(H) 70 - 100 mg/dL 10/28/2024 7:45 AM EDT [facility] Blood Capillary blood specimen / Unknown 10/28/2024 7:43 AM EDT 10/28/2024 7:46 AM EDT us Bridgett Boyle MD LAB POINT OF CARE TE ST DOCKED DEVICE UNSOLICITED RESULTS Final Result [facility] [address] [place] [address], [place] [phone] * (ABNORMAL) POCT Glucose, blood (10/27/2024 8:19 PM EDT) Glucose POCT 193(H) 70 - 100 mg/dL 10/27/2024 8:20 PM EDT [facility] POCT Comment RN Notified 10/27/2024 8:20 PM EDT [facility] Blood Capillary blood specimen / Unknown 10/27/2024 8:19 PM EDT 10/27/2024 8:21 PM EDT us Bridgett Boyle MD LAB POINT OF CARE TE ST DOCKED DEVICE UNSOLICITED RESULTS Final Result [facility] [address] [place] [address], [place] [phone] * (ABNORMAL) POCT Glucose, blood (10/27/2024 5:16 PM EDT) Glucose POCT 332(H) 70 - 100 mg/dL 10/27/2024 5:17 PM EDT [facility] Blood Capillary blood specimen / Unknown 10/27/2024 5:16 PM EDT 10/27/2024 5:18 PM EDT Bridgett Boyle MD LAB POINT OF CARE TE ST DOCKED DEVICE UNSOLICITED RESULTS Final Result [facility] [address] [place] [address], [place] [phone] * (ABNORMAL) Anti-Xa - Every 6 Hours (10/27/2024 12:58 PM EDT) Heparin Anti-Xa 0.23(L) 0.30 - 0.70 I Unit/mL LAB COAGULATION METHOD 10/27/2024 1:40 PM EDT [facility] Blood Venous blood specimen / Unknown Venipuncture / Unknown 10/27/2024 12:58 PM EDT 10/27/2024 1:20 PM EDT Narrative [facility] - 10/27/2024 1:40 PM EDT Therapeutic range listed is for Unfractionated Heparin. LMW Heparin therapeutic range: 0.50-1.20 IU/mL Chantal PONCE LAB BLOOD ORDERABLES Final Re sult [facility] [address] [place] [address], [place] [phone] * (ABNORMAL) POCT Glucose, blood (10/27/2024 12:14 PM EDT) Glucose POCT 202(H) 70 - 100 mg/dL 10/27/2024 12:15 PM EDT [facility] Blood Capillary blood specimen / Unknown 10/27/2024 12:14 PM EDT 10/27/2024 12:16 PM EDT Bridgett Boyle MD LAB POINT OF CARE TE ST DOCKED DEVICE UNSOLICITED RESULTS Final Result Performing Organization Address City/[facility]/ZIP Co de Phone Number [facility] [address] [place] [address], [place] [phone] * (ABNORMAL) POCT activated clotting time,kaolin (10/27/2024 10:00 AM EDT) Activated Clotting Time Kaolin 187(H) 74 - 137 sec 10/27/2024 10:02 AM EDT [facility] Blood Venous blood specimen / Unknown 10/27/2024 10:00 AM EDT 10/27/2024 10:03 AM EDT us Bridgett Boyle MD LAB POINT OF CARE TE ST DOCKED DEVICE UNSOLICITED RESULTS Final Result Performing Organization Address [facility] Co de Phone Number [facility] [address] [place] [address], [place] [phone] * (ABNORMAL) POCT activated clotting time,kaolin (10/27/2024 8:53 AM EDT) Activated Clotting Time Kaolin 222(H) 74 - 137 sec 10/27/2024 8:55 AM EDT [facility] Blood Venous blood specimen / Unknown 10/27/2024 8:53 AM EDT 10/27/2024 8:56 AM EDT Bridgett Boyle MD LAB POINT OF CARE TE ST DOCKED DEVICE UNSOLICITED RESULTS Final Result Performing Organization Address City/[facility]/ZIP Co de Phone Number [facility] [address] [place] [address], [place] [phone] * SST tube (10/27/2024 5:57 AM EDT) Extra Tube Hold for add-ons. 10/27/2024 8:01 AM EDT [facility] Comment:Auto resulted. Blood Venous blood specimen / Unknown Venipuncture / Unknown 10/27/2024 5:57 AM EDT 10/27/2024 6:20 AM EDT us Bridgett Boyle MD LAB BLOOD ORDERABLES Final Res ult Performing Organization Address City/[facility]/ZIP Co de Phone Number [facility] [address] [place] [address], [place] [phone] * Anti-Xa - Every 6 Hours (10/27/2024 5:57 AM EDT) Heparin Anti-Xa 0.37 0.30 - 0.70 I Unit/mL LAB COAGULATION METHOD 10/27/2024 6:36 AM EDT [facility] Blood Venous blood specimen / Unknown Venipuncture / Unknown 10/27/2024 5:57 AM EDT 10/27/2024 6:20 AM EDT Narrative [facility] - 10/27/2024 6:36 AM EDT Therapeutic range listed is for Unfractionated Heparin. LMW Heparin therapeutic range: 0.50-1.20 IU/mL us Chantal PONCE LAB BLOOD ORDERABLES Final Re sult Performing Organization Address City/[facility]/ZIP Co de Phone Number [facility] [address] [place] [address], [place] [phone] * Anti-Xa - Every 6 Hours (10/27/2024 12:17 AM EDT) Heparin Anti-Xa 0.43 0.30 - 0.70 I Unit/mL LAB COAGULATION METHOD 10/27/2024 12:45 AM EDT [facility] Blood Venous blood specimen / Unknown Venipuncture / Unknown 10/27/2024 12:17 AM EDT 10/27/2024 12:36 AM EDT Narrative [facility] - 10/27/2024 12:45 AM EDT Therapeutic range listed is for Unfractionated Heparin. LMW Heparin therapeutic range: 0.50-1.20 IU/mL Chantal PONCE LAB BLOOD ORDERABLES Final Re sult [facility] [address] [place] [address], [place] [phone] * (ABNORMAL) POCT Glucose, blood (10/26/2024 8:51 PM EDT) Glucose POCT 310(H) 70 - 100 mg/dL 10/26/2024 8:52 PM EDT [facility] Blood Capillary blood specimen / Unknown 10/26/2024 8:51 PM EDT 10/26/2024 8:53 PM EDT Bridgett Boyle MD LAB POINT OF CARE TE ST DOCKED DEVICE UNSOLICITED RESULTS Final Result Performing Organization Address City/[facility]/ZIP Co de Phone Number [facility] [address] [place] [address], [place] [phone] * Anti-Xa - Every 6 Hours (10/26/2024 6:18 PM EDT) Heparin Anti-Xa 0.41 0.30 - 0.70 I Unit/mL LAB COAGULATION METHOD 10/26/2024 7:02 PM EDT [facility] Blood Venous blood specimen / Unknown Venipuncture / Unknown 10/26/2024 6:18 PM EDT 10/26/2024 6:45 PM EDT Narrative [facility] - 10/26/2024 7:02 PM EDT Therapeutic range listed is for Unfractionated Heparin. LMW Heparin therapeutic range: 0.50-1.20 IU/mL Chantal PONCE LAB BLOOD ORDERABLES Final Re sult Performing Organization Address [facility]/ZIP Co de Phone Number [facility] [address] [place] [address], * (ABNORMAL) POCT Glucose, blood (10/26/2024 4:37 PM EDT) Glucose POCT 387(H) 70 - 100 mg/dL 10/26/2024 4:38 PM EDT [facility] Blood Capillary blood specimen / Unknown 10/26/2024 4:37 PM EDT 10/26/2024 4:40 PM EDT Bridgett Boyle MD LAB POINT OF CARE TE ST DOCKED DEVICE UNSOLICITED RESULTS Final Result Performing Organization Address [facility]/ZIP Co de Phone Number [facility] [address] [place] [address], * MRSA molecular study (10/26/2024 3:55 PM EDT) [facility] MRSA Screen PCR Not Detected Not Detected LAB MICROBIOLOGY METHOD 10/26/2024 5:38 PM EDT [facility] Swab Both anterior nares / Unknown Non-blood Collection / Unknown 10/26/2024 3:55 PM EDT 10/26/2024 4:25 PM EDT Bridgett Boyle MD LAB MICROBIOLOGY - GENERAL ORD ERABLES Final Result Performing Organization Address [facility]/ZIP Co de Phone Number [facility] [address] [place] [address], * (ABNORMAL) POCT Glucose, blood (10/26/2024 1:28 PM EDT) Glucose POCT 421(HH) 70 - 100 mg/dL 10/26/2024 1:59 PM EDT [facility] Blood Capillary blood specimen / Unknown 10/26/2024 1:28 PM EDT 10/26/2024 2:00 PM EDT Bridgett Boyle MD LAB POINT OF CARE TE ST DOCKED DEVICE UNSOLICITED RESULTS Final Result Performing Organization Address [facility] de Phone Number [facility] [address] [place] [address], [place] [phone] * Anti-Xa - Every 6 Hours (10/26/2024 12:02 PM EDT) Heparin Anti-Xa 0.64 0.30 - 0.70 I Unit/mL LAB COAGULATION METHOD 10/26/2024 12:38 PM EDT [facility] Blood Venous blood specimen / Unknown Venipuncture / Unknown 10/26/2024 12:02 PM EDT 10/26/2024 12:22 PM EDT Narrative [facility] - 10/26/2024 12:38 PM EDT Therapeutic range listed is for Unfractionated Heparin. LMW Heparin therapeutic range: 0.50-1.20 IU/mL Chantal PONCE LAB BLOOD ORDERABLES Final Re sult Performing Organization Address [facility] Co de Phone Number [facility] [address] [place] [address], [place] [phone] * Vascular US duplex lower extremity vein map bilateral (10/26/2024 9:24 AM EDT) Anatomical Region Laterality Modality Vascular, Abdomen Ultrasound 10/26/2024 9:45 AM EDT Impressions 10/26/2024 9:51 AM EDT The greater saphenous veins are patent bilaterally. Their diameters are as above. Code 69008 -------- FINAL REPORT -------- Dictated By: Mathieu Lopez Dictated Date: 10/26/2024 09:45 ET Assigned Physician: Mathieu Lopez Reviewed and Electronically Signed By: Mathieu Lopez Signed Date: 10/26/2024 09:51 ET Workstation ID: [id number] Transcribed By: Self Edit Transcribed Date: 10/26/2024 [...] patent bilaterally. Their diameters are asabove. Code 69293 -------- FINAL REPORT -------- Dictated By: Mathieu Lopez Dictated Date: 10/26/2024 09:45 ET Assigned Physician: Mathieu Lopez Reviewed and Electronically Signed By: Mathieu Lopez Signed Date: 10/26/2024 09:51 ET Workstation ID: [id number] Transcribed By: Self Edit Transcribed Date: 10/26/2024 09:45 ET us Solomon PONCE CV VASCULAR PROCEDURES Final Res ult * (ABNORMAL) CBC auto differential (10/26/2024 5:45 AM EDT) WBC 8.2 4.8 - 10.8 K/mcL LAB [facility]OLOG[facility] RBC 3.80 3.80 - 4.80 M/mcL LAB HEMETOLOGY METHOD 10/26/2024 7:12 AM [facility] Hemoglobin 11.6 11.5 - 16.0 g/dL LAB HEMETOLOGY METHOD 10/26/2024 7:12 AM [facility] Hematocrit 35.0 35.0 - 47.0 % LAB HEMETOLOGY METHOD 10/26/2024 7:12 AM [facility] MCV 92.8 79.0 - 98.0 FL LAB HEMETOLOGY METHOD 10/26/2024 7:12 AM [facility] MCH 30.8 27.0 - 32.0 pcg LAB HEMETOLOGY METHOD 10/26/2024 7:12 AM [facility] MCHC 33.1 32.0 - 37.0 g/dL LAB HEMETOLOGY METHOD 10/26/2024 7:12 AM [facility] RDW 12.3 11.0 - 15.0 % LAB HEMETOLOGY METHOD 10/26/2024 7:12 AM [facility] Platelets 226 130 - 400 K/mcL LAB HEMETOLOGY METHOD 10/26/2024 7:12 AM [facility] MPV 10.3 7.0 - 11.0 FL LAB HEMETOLOGY METHOD 10/26/2024 7:12 AM [facility] NRBC 0.0 <1.0 % LAB HEMETOLOGY METHOD 10/26/2024 7:12 AM [facility] NRBC Absolute 0.00 <0.10 K/mcL LAB HEMETOLOGY METHOD 10/26/2024 7:12 AM [facility] Neutrophils Relative 28.5 % LAB HEMETOLOGY METHOD 10/26/2024 7:12 AM [facility] Lymphocytes Relative 61.0 % LAB HEMETOLOGY METHOD 10/26/2024 7:12 AM [facility] Monocytes Relative 6.2 % LAB HEMETOLOGY METHOD 10/26/2024 7:12 AM [facility] Eosinophils Relative 3.3 % LAB HEMETOLOGY METHOD 10/26/2024 7:12 AM [facility] Basophils Relative 0.5 % LAB HEMETOLOGY METHOD 10/26/2024 7:12 AM [facility] Immature Granulocytes Relative 0.5 % LAB HEMETOLOGY METHOD 10/26/2024 7:12 AM [facility] Neutrophils Absolute 2.35 1.50 - 7.00 K/mcL LAB HEMETOLOGY METHOD 10/26/2024 7:12 AM [facility] Lymphocytes Absolute 5.02(H) 1.00 - 5.00 K/mcL LAB HEMETOLOGY METHOD 10/26/2024 7:12 AM [facility] Monocytes Absolute 0.51 0.20 - 1.00 K/mcL LAB HEMETOLOGY METHOD 10/26/2024 7:12 AM EDT [facility] Eosinophils Absolute 0.27 0.00 - 0.50 K/mcL LAB HEMETOLOGY METHOD 10/26/2024 7:12 AM EDT [facility] Basophils Absolute 0.04 0.00 - 0.20 K/mcL LAB HEMETOLOGY METHOD 10/26/2024 7:12 AM EDT [facility] Immature Granulocytes Absolute 0.04(H) 0.00 - 0.03 K/mcL LAB HEMETOLOGY METHOD 10/26/2024 7:12 AM EDT [facility] Blood Venous blood specimen / Unknown Venipuncture / Unknown 10/26/2024 5:45 AM EDT 10/26/2024 6:07 AM EDT Davin Croft MD LAB BLOOD ORDERABLES Marcia l Result Performing Organization Address [facility]/ZIP Co de Phone Number [facility] [address] [place] [address], * (ABNORMAL) Anti-Xa - Every 6 Hours (10/26/2024 5:45 AM EDT) Heparin Anti-Xa 0.96(H) 0.30 - 0.70 I Unit/mL LAB COAGULATION METHOD 10/26/2024 6:21 AM EDT [facility] Blood Venous blood specimen / Unknown Venipuncture / Unknown 10/26/2024 5:45 AM EDT 10/26/2024 6:21 AM EDT Narrative [facility] - 10/26/2024 6:21 AM EDT Therapeutic range listed is for Unfractionated Heparin. LMW Heparin therapeutic range: 0.50-1.20 IU/mL Chantal PONCE LAB BLOOD ORDERABLES Final Re sult [facility] [address] [place] [address], * (ABNORMAL) Basic metabolic panel (10/26/2024 5:45 AM EDT) Sodium 134 133 - 145 mmol/L LAB CHEMISTRY METHOD 10/26/2024 6:56 AM T [facility] Potassium 3.5 3.5 - 5.5 mmol/L LAB CHEMISTRY METHOD 10/26/2024 6:56 AM [facility] Chloride 103 96 - 110 mmol/L LAB CHEMISTRY METHOD 10/26/2024 6:56 AM [facility] CO2 24 21 - 32 mmol/L LAB CHEMISTRY METHOD 10/26/2024 6:56 AM [facility] Anion Gap 7 3 - 11 LAB CHEMISTRY METHOD 10/26/2024 6:56 AM [facility] Glucose 424(HH) 70 - 100 mg/dL LAB CHEMISTRY METHOD 10/26/2024 6:56 AM [facility] BUN 13 5 - 25 mg/dL LAB CHEMISTRY METHOD 10/26/2024 6:56 AM [facility] Creatinine 0.50 0.50 - 1.10 mg/dL LAB CHEMISTRY METHOD 10/26/2024 6:56 AM [facility] eGFR 116 >=60 mL/min/1. 73m2 LAB CHEMISTRY METHOD 10/26/2024 6:56 AM [facility] Comment:Calculation based on the Chronic Kidney Disease Epidemiology Collaboration (CKD-EPI) equation refit without adjustment for race. BUN/Creatinine Ratio 26.0 LAB CHEMISTRY METHOD 10/26/2024 6:56 AM [facility] Calcium 8.8 8.5 - 10.5 mg/dL LAB CHEMISTRY METHOD 10/26/2024 6:56 AM [facility] Blood Venous blood specimen / Unknown Venipuncture / Unknown 10/26/2024 5:45 AM EDT 10/26/2024 6:07 AM EDT Davin Croft MD LAB BLOOD ORDERABLES Marcia l Result Performing Organization Address [facility]/ZIP Co de Phone Number [facility] [address] [place] [address], [place] [phone] * (ABNORMAL) Anti-Xa - STAT (10/26/2024 12:12 AM EDT) Heparin Anti-Xa 0.05(L) 0.30 - 0.70 I Unit/mL LAB COAGULATION METHOD 10/26/2024 12:32 AM EDT [facility] Blood Venous blood specimen / Unknown Venipuncture / Unknown 10/26/2024 12:12 AM EDT 10/26/2024 12:16 AM EDT Narrative [facility] - 10/26/2024 12:32 AM EDT Therapeutic range listed is for Unfractionated Heparin. LMW Heparin therapeutic range: 0.50-1.20 IU/mL us Solomon PONCE LAB BLOOD ORDERABLES Final Resul t Performing Organization Address City/[facility] Co de Phone Number [facility] [address] [place] [address], [place] [phone] * Activated Partial Thromboplastin Time - STAT (10/26/2024 12:12 AM EDT) aPTT 29.5 24.1 - 39.3 sec LAB COAGULATION METHOD 10/26/2024 12:32 AM EDT [facility] Blood Venous blood specimen / Unknown Venipuncture / Unknown 10/26/2024 12:12 AM EDT 10/26/2024 12:16 AM EDT us Solomon PONCE LAB BLOOD ORDERABLES Final Resul t Performing Organization Address [facility] Co de Phone Number [facility] [address] [place] [address], [place] [phone] * (ABNORMAL) Prothrombin Time with INR - STAT (10/26/2024 12:12 AM EDT) [facility] Protime 10.5(L) 10.6 - 13.9 sec LAB COAGULATION METHOD 10/26/2024 12:32 AM EDT [facility] INR 0.8 LAB COAGULATION METHOD 10/26/2024 12:32 AM EDT [facility] Blood Venous blood specimen / Unknown Venipuncture / Unknown 10/26/2024 12:12 AM EDT 10/26/2024 12:16 AM EDT us Solomon PONCE LAB BLOOD ORDERABLES Final Resul t Performing Organization Address [facility] de Phone Number [facility] [address] [place] [address], [place] [phone] * (ABNORMAL) POCT Glucose, blood (10/25/2024 10:55 PM EDT) [facility] Glucose POCT 435(HH) 70 - 100 mg/dL 10/25/2024 10:56 PM EDT [facility] POCT Comment RN Notified 10/25/2024 10:56 PM EDT [facility] POCT Comment 1 MD Notified 10/25/2024 10:56 PM EDT [facility] Blood Capillary blood specimen / Unknown 10/25/2024 10:55 PM EDT 10/25/2024 10:57 PM EDT us Franki Hsieh MD LAB POINT OF CARE TE ST DOCKED DEVICE UNSOLICITED RESULTS Final Result Performing Organization Address City/[facility]/ZIP Co de Phone Number [facility] [address] [place] [address], * CT Angio Lower Extremity w and/or [...] left external iliac artery patent. 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 Multifocal mild left [...] left external iliac artery patent. 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 Multifocal mild left [...] Asif MD on 10/25/2024 23:24:[address] PROCEDURES Edited Result - Final * (ABNORMAL) POCT Glucose, blood (10/25/2024 8:16 PM EDT) [facility] Glucose POCT 511(HH) 70 - 100 mg/dL 10/25/2024 8:17 PM EDT [facility] POCT Comment RN Notified 10/25/2024 8:17 PM EDT [facility] POCT Comment 1 MD Notified 10/25/2024 8:17 PM EDT [facility] Blood Capillary blood specimen / Unknown 10/25/2024 8:16 PM EDT 10/25/2024 8:18 PM EDT Generic Provider Poct LAB POINT OF CARE TEST DOCKED DEVICE UNSOLICITED RESULTS Final Result [facility] [address] [place] [address], * hCG, serum, qualitative (10/25/2024 5:31 PM EDT) [facility] hCG Qual Negative Negative 10/25/2024 10:13 PM EDT [facility] Blood Venous blood specimen / Unknown Venipuncture / Unknown 10/25/2024 5:31 PM EDT 10/25/2024 5:43 PM EDT Franki Hsieh MD LAB BLOOD ORDERABLES Final Resu lt [facility] [address] [place] [address], [place] [phone] * Beta hydroxybutyrate (10/25/2024 5:31 PM EDT) [facility] Beta-Hydroxybu tyrate 1.4 0.2 - 2.8 mg/dL LAB CHEMISTRY METHOD 10/25/2024 6:53 PM EDT [facility] Blood Venous blood specimen / Unknown Venipuncture / Unknown 10/25/2024 5:31 PM EDT 10/25/2024 5:43 PM EDT Carlene PONCE LAB BLOOD ORDERABLES F inal Result Performing Organization Address [facility]/ZIP Co de Phone Number [facility] [address] [place] [address], [place] [phone] * CBC auto differential (10/25/2024 5:31 PM EDT) [facility] WBC 8.0 4.8 - 10.8 K/mcL LAB HEMETOLOGY METHOD 10/25/2024 5:55 PM EDT [facility] RBC 4.40 3.80 - 4.80 M/[facility] LAB HEMETOLOGY METHOD 10/25/2024 5:55 PM EDT [facility] Hemoglobin 13.9 11.5 - 16.0 g/dL LAB HEMETOLOGY METHOD 10/25/2024 5:55 PM EDT [facility] Hematocrit 41.3 35.0 - 47.0 % LAB HEMETOLOGY METHOD 10/25/2024 5:55 PM EDT [facility] MCV 93.4 79.0 - 98.0 FL LAB HEMETOLOGY METHOD 10/25/2024 5:55 PM EDT [facility] MCH 31.4 27.0 - 32.0 pcg LAB HEMETOLOGY METHOD 10/25/2024 5:55 PM EDT [facility] MCHC 33.7 32.0 - 37.0 g/dL LAB HEMETOLOGY METHOD 10/25/2024 5:55 PM EDT [facility] RDW 12.3 11.0 - 15.0 % LAB HEMETOLOGY METHOD 10/25/2024 5:55 PM EDT [facility] Platelets 255 130 - 400 K/mcL LAB HEMETOLOGY METHOD 10/25/2024 5:55 PM EDT [facility] MPV 10.3 7.0 - 11.0 FL LAB HEMETOLOGY METHOD 10/25/2024 5:55 PM EDT [facility] NRBC 0.0 <1.0 % LAB HEMETOLOGY METHOD 10/25/2024 5:55 PM EDT [facility] NRBC Absolute 0.00 <0.10 K/mcL LAB HEMETOLOGY METHOD 10/25/2024 5:55 PM EDT [facility] Neutrophils Relative 52.5 % LAB HEMETOLOGY METHOD 10/25/2024 5:55 PM EDT [facility] Lymphocytes Relative 37.9 % LAB HEMETOLOGY METHOD 10/25/2024 5:55 PM EDT [facility] Monocytes Relative 7.1 % LAB HEMETOLOGY METHOD 10/25/2024 5:55 PM EDT [facility] Eosinophils Relative 1.7 % LAB HEMETOLOGY METHOD 10/25/2024 5:55 PM EDT [facility] Basophils Relative 0.4 % LAB HEMETOLOGY METHOD 10/25/2024 5:55 PM EDT [facility] Immature Granulocytes Relative 0.4 % LAB HEMETOLOGY METHOD 10/25/2024 5:55 PM EDT [facility] Neutrophils Absolute 4.22 1.50 - 7.00 K/[facility] LAB HEMETOLOGY METHOD 10/25/2024 5:55 PM EDT [facility] Lymphocytes Absolute 3.04 1.00 - 5.00 K/[facility] LAB HEMETOLOGY METHOD 10/25/2024 5:55 PM EDT [facility] Monocytes Absolute 0.57 0.20 - 1.00 K/[facility] LAB HEMETOLOGY METHOD 10/25/2024 5:55 PM EDT [facility] Eosinophils Absolute 0.14 0.00 - 0.50 K/[facility] LAB HEMETOLOGY METHOD 10/25/2024 5:55 PM EDT [facility] Basophils Absolute 0.03 0.00 - 0.20 K/[facility] LAB HEMETOLOGY METHOD 10/25/2024 5:55 PM EDT [facility] Immature Granulocytes Absolute 0.03 0.00 - 0.03 K/mcL LAB HEMETOLOGY METHOD 10/25/2024 5:55 PM EDT [facility] Blood Venous blood specimen / Unknown Venipuncture / Unknown 10/25/2024 5:31 PM EDT 10/25/2024 5:43 PM EDT us Franki Hsieh MD LAB BLOOD ORDERABLES Final Resu lt [facility] [address] [place] [address], * (ABNORMAL) C-reactive protein (10/25/2024 5:31 PM EDT) C-Reactive Protein 1.14(H) <=0.50 mg/dL LAB CHEMISTRY METHOD 10/25/2024 6:13 PM EDT [facility] Blood Venous blood specimen / Unknown Venipuncture / Unknown 10/25/2024 5:31 PM EDT 10/25/2024 5:43 PM EDT Franki Hsieh MD LAB BLOOD ORDERABLES Final Resu lt Performing Organization Address [facility]/ZIP Co de Phone Number [facility] [address] [place] [address], [place] [phone] * (ABNORMAL) Sedimentation rate, automated (10/25/2024 5:31 PM EDT) Sed Rate 82(H) 0 - 20 mm/hr LAB HEMETOLOGY METHOD 10/25/2024 6:45 PM EDT [facility] Blood Venous blood specimen / Unknown Venipuncture / Unknown 10/25/2024 5:31 PM EDT 10/25/2024 5:43 PM EDT Franki Hsieh MD LAB BLOOD ORDERABLES Final Resu lt Performing Organization Address [facility]/ZIP Co de Phone Number [facility] [address] [place] [address], [place] [phone] * (ABNORMAL) Basic metabolic panel (10/25/2024 5:31 PM EDT) Sodium 130(L) 133 - 145 mmol/L LAB CHEMISTRY METHOD 10/25/2024 6:25 PM EDT [facility] Potassium 3.9 3.5 - 5.5 mmol/L LAB CHEMISTRY METHOD 10/25/2024 6:25 PM EDT [facility] Chloride 97 96 - 110 mmol/L LAB CHEMISTRY METHOD 10/25/2024 6:25 PM EDT [facility] CO2 22 21 - 32 mmol/L LAB CHEMISTRY METHOD 10/25/2024 6:25 PM EDT [facility] Anion Gap 11 3 - 11 LAB CHEMISTRY METHOD 10/25/2024 6:25 PM EDT [facility] Glucose 625(HH) 70 - 100 mg/dL LAB CHEMISTRY METHOD 10/25/2024 6:25 PM EDT [facility] BUN 16 5 - 25 mg/dL LAB CHEMISTRY METHOD 10/25/2024 6:25 PM T [facility] Creatinine 1.36(H) 0.50 - 1.10 mg/dL LAB CHEMISTRY METHOD 10/25/2024 6:25 PM EDT [facility] eGFR 48(L) >=60 mL/min/1. 73m2 LAB CHEMISTRY METHOD 10/25/2024 6:25 PM EDT [facility] Comment:Calculation based on the Chronic Kidney Disease Epidemiology Collaboration (CKD-EPI) equation refit without adjustment for race. BUN/Creatinine Ratio 11.8 LAB CHEMISTRY METHOD 10/25/2024 6:25 PM EDT [facility] Calcium 9.3 8.5 - 10.5 mg/dL LAB CHEMISTRY METHOD 10/25/2024 6:25 PM EDT [facility] Blood Venous blood specimen / Unknown Venipuncture / Unknown 10/25/2024 5:31 PM EDT 10/25/2024 5:43 PM EDT us Franki Hsieh MD LAB BLOOD ORDERABLES Final Resu lt [facility] [address] [place] [address], documented in this encounter Visit Diagnoses Diagnosis Acute occlusion of popliteal artery due to thromboembolism ([facility]/HCC V24, CMS/[facility] V28)- Primary Peripheral arterial disease ([facility] V24) Unspecified peripheral vascular disease Occlusion of left popliteal artery ([facility] V24) Embolism and thrombosis of arteries of lower extremity Critical limb ischemia of left lower extremity (CMS/HCC V24, [facility] V28) Acute occlusion of popliteal artery due to thromboembolism (CMS/[facility] V24, [facility] V28) Type 2 diabetes mellitus with hyperglycemia ([facility] V24, [facility] V28) Hyperlipidemia Other and unspecified hyperlipidemia Critical limb ischemia of both lower extremities ([facility] V24, [facility] V28) Peripheral arterial disease ([facility] V24) Unspecified peripheral vascular disease documented in this encounter Admitting Diagnoses Diagnosis Acute occlusion of popliteal artery due to thromboembolism ([facility] V24, [facility] V28) documented in this encounter Administered [...] PM EDT 1 tablet clopidogreL (PLAVIX) tablet 150 mg 150 mg, oral, Once, On Thu10/27/24 at 0900, For 1 dose Given 10/27/2024 11:39 AM EDT 150 mg clopidogreL (PLAVIX) tablet 75 mg 75 mg, oral, Daily, First dose on Thu10/28/24 at 0900 Given 10/28/2024 8:36 AM EDT 75 mg cyclobenzaprine (FLEXERIL) tablet 10 mg 10 mg, oral, Once, On Thu10/27/24 at 2215, For 1 dose Given 10/27/2024 10:36 PM EDT 10 mg dextrose (D50W) 50% injection 12.5 g [...] Thu10/26/24 at 1355 fentaNYL (PF) (SUBLIMAZE) injection 50 mcg 50 mcg, intravenous, Once, On Annette 10/27/24 at 1015, For 1 dose, Recovery (only) Given 10/27/2024 9:58 AM EDT 50 mcg gabapentin (NEURONTIN) capsule 300 mg 300 mg, oral, Every 8 hours scheduled, First dose on Thu10/26/24 at 0600 Glucagon HCl (rDNA) injection 1 mg 1 mg, intramuscular, Once as needed, low blood sugar, severe hypoglycemia, Starting on Thu10/26/24 at 1355, For 1 dose heparin (UFH) bolus from infusion 5,696 Units 5,696 Units (80 Units/kg ? 71.2 kg), intravenous, Once, On Thu10/25/24 at 2356, For 1 dose, *Initial bolus for patients LESS than 100 kg* *Maximum dose 8000 units* Bolus from infusion. Suggested bolus infusion time is over 10 minutes., Indication: Treatment of Venous Thromboembolism (i.e. VTE,PE) Bolus from Bag 10/26/2024 1:01 AM EDT 5,696 Units heparin infusion 100 units/mL in D5W 18 Units/kg/hr ? 71.2 kg (12.816 mL/hr, rounded to 12.8 mL/hr), intravenous, Continuous, Starting on Thu10/25/24 at 2356 New Bag 10/26/2024 2:40 PM EDT 16 Units/kg/hr 11.4 mL/hr Rate/Dose Change 10/26/2024 6:34 AM EDT 16 Units/kg/hr 11. 4 mL/hr New Bag 10/26/2024 12:59 AM EDT 18 Units/kg/hr 12.8 mL/ hr insulin glargine (LANTUS) injection 10 Units 10 Units, subcutaneous, Once, On Thu10/26/24 at 2230, For 1 dose Given 10/26/2024 10:51 PM EDT 10 Units Right Upper Arm (Back) insulin glargine (LANTUS) injection 35 Units 35 [...] iodine /mL (76 %) injection 100 mL 100 mL, intravenous, Once in imaging, Starting on Thu10/25/24 at 2226, For 1 dose Given 10/25/2024 10:29 PM EDT 100 mL morphine 2 mg/mL injection 2 mg 2 mg, intravenous, Every 4 hours PRN, other, Severe breakthrough pain, Starting on Annette 10/27/24 at 1640 Given 10/27/2024 9:21 PM EDT 2 mg morphine injection 4 mg 4 mg, intravenous, Once, On Thu10/25/24 at 2319, For 1 dose Given 10/25/2024 11:27 PM EDT 4 mg ondansetron (PF) (ZOFRAN) injection 4 mg 4 [...] EDT 17.2 mg sodium chloride 0.9 % bolus 1,000 mL 1,000 mL, intravenous, at 1,000 mL/hr, Administer over 1 Hours, Once, On Thu10/25/24 at 2059, For 1 dose New Bag 10/25/2024 9:11 PM EDT 1,000 mL 1000 mL/hr sodium chloride 0.9 % bolus 1,000 mL 1,000 mL, intravenous, at 1,000 mL/hr, Administer over 1 Hours, Once, On Thu10/25/24 at 2100, For 1 dose New 10/25/2024 10:12 PM EDT 1,000 mL 1000 mL/hr sodium chloride 0.9 % flush 10 mL 10 mL, intravenous, 2 times daily, First dose on Thu10/26/24 at 0048 Given 10/28/2024 8:38 AM EDT 10 mL Given 10/27/2024 9:32 PM EDT 10 mL Given 10/26/2024 9:03 PM EDT 10 mL sodium chloride 0.9 % flush 10 mL 10 mL, intravenous, As needed, line care, Starting on Thu10/26/24 at 0047 sodium chloride 0.9 % flush 10 mL 10 mL, intravenous, Once, On Thu10/25/24 at 2228, For 1 dose Given 10/25/2024 10:29 PM EDT 10 mL sodium chloride 0.9 % infusion 75 mL/hr, intravenous, Continuous, Starting on Thu10/27/24 at 0900, For 8 hours, Recovery (only) New 10/27/2024 11:40 AM EDT 75 mL/hr 75 mL/hr documented in this encounter Discontinued Medications Medication [...] 2100, For 7 doses, Indication: Skin/Soft Tissue 2103 (Given - Provider: Petty Pimentel RN) 0724 (MAR Hold - Provider: Automatic Transfer Provider - Reason: Patient not available)0838 (AUG Unhold - Provider: KRIS Zee)1235 (Given - Provider: Luke Ma RN)2125 (Given - Provider: Andrés Gloria RN) 0836 (Given - Provider: Jose Mcghee RN) clopidogreL (PLAVIX) tablet 150 mg (COMPLETED)(Linked Group 1) 150 mg, oral, Once, On Annette 10/27/24 at 0900, For 1 dose 1139 (Given [...] Indication: Treatment of Venous Thromboembolism (i.e. VTE,PE) 010 (Bolus from Bag - Provider: Christina Carcamo, RN) insulin glargine (LANTUS) injection 10 Units (COMPLETED) 10 Units, subcutaneous, Once, On Thu10/26/24 at 2230, For 1 dose 2251 (Given - Provider: Petty Pimentel, RN) insulin glargine (LANTUS) injection 35 Units 35 Units, subcutaneous, Nightly, First dose (after last modification) on Thu10/27/24 at 2100, Notify provider: -If patient is currently or will become NPO -If TPN was or will be interrupted or discontinued -For approval to hold long acting insulin 2130 (Not Given - Provider: Andrés Gloria RN [...] not available)0838 (AUG Unhold - Provider: KRIS Zee)1234 (Given - [...] Jose Mcghee RN)1219 (Given - Provider: Jose Mcghee, TAYLA) rivaroxaban (XARELTO) tablet 2.5 mg 2.5 mg, oral, 2 times daily with meals, First dose on Thu10/28/24 at 0945, Indication: Artery disease (CAD/PAD) 0942 (Given - Provider: Jose Mcghee, RN) senna (SENOKOT) tablet 17.2 mg 17.2 mg (2 tablet), oral, Nightly, First dose on Thu10/26/24 at 0048, Bowel Regimen - for prevention of constipation 0117 (Not Given - Provider: Christina Carcamo RN - Reason: Patient/Resident/Ag ent refused - education provided - Comment: NOT NECESSARY)211 (Not Given - Provider: Petty Pimentel RN - Reason: Patient/Resident/Ag ent refused - education provided ) 0724 (AUG Hold - Provider: Automatic Transfer Provider - Reason: Patient not available)0838 (AUG Unhold - Provider: KRIS Zee)2124 (Given - Provider: Andrés Gloria RN) sodium chloride 0.9 % flush 10 mL(Linked Group 2) 10 mL, intravenous, 2 times daily, First dose on Thu10/26/24 at 0048 0117 (Not Given - Provider: Christina Carcamo RN - Reason: Other - Comment: IV FLUIDS INFUSING)0804 (Given - Provider: Raul Andino RN)210 (Given - Provider: Petty Pimentel RN) 0724 (MAR Hold - Provider: Automatic Transfer Provider - Reason: Patient not available)0838 (MAR Unhold - Provider: KRIS Zee)1552 (Not Given - Provider: Luke Ma RN - Reason: Patient not available)213 (Given - Provider: Andrés Gloria RN) 0838 (Given - Provider: Jose Mcghee RN) [...] () 75 mL/hr, intravenous, Continuous, Starting on Annette 10/27/24 at 0900, For 8 hours, Recovery (only) 1140 (New Bag - Provider: Crow Hernandez RN) PRN Medication Order 10/26/2024 10/27/2024 10/28/2024 acetaminophen (TYLENOL) tablet 650 mg 650 mg, oral, Every 6 hours PRN, mild pain, Starting on Thu10/26/24 at 0047 0630 (Given - Provider: Christina Carcamo RN) 0724 ([facility] Hold - Provider: Automatic Transfer Provider - Reason: Patient not available)0838 ([facility] Unhold - Provider: KRIS Zee) dextrose (D50W) 50% injection 12.5 g 12.5 g, intravenous, Every 15 min PRN, low blood sugar, moderate hypoglycemia *Patient is Unconscious, NPO, unable to swallow: BG 54 - 69 mg/dl*, Starting on Thu10/26/24 at 1355 0724 ([facility] Hold - Provider: Automatic Transfer Provider - Reason: Patient not available)0838 ([facility] Unhold - Provider: KRIS Zee) dextrose (D50W) 50% injection 25 g 25 g, intravenous, Every 15 min PRN, low blood sugar, severe hypoglycemia *Patient is Unconscious, NPO, unable to swallow: BG LESS than 54 mg/dL*, Starting on Thu10/26/24 at 1355 0724 ([facility] Hold - Provider: Automatic Transfer Provider - Reason: Patient not available)0838 ([facility] Unhold - Provider: KRIS Zee) dextrose 15 gram/60 mL oral solution 15 g 15 g, oral, Every 15 min PRN, low blood sugar, hypoglycemia *Patient conscious AND able to drink and swallow safely*, Starting on Thu10/26/24 at 1355 0724 (AUG Hold - Provider: Automatic Transfer Provider - Reason: Patient not available)0838 ([facility] Unhold - Provider: KRIS Zee) dextrose 15 gram/60 mL oral solution 30 g 30 g, oral, Every 15 min PRN, low blood sugar, hypoglycemia *Patient conscious AND able to drink and swallow safely*, Starting on Thu10/26/24 at 1355 0724 (AUG Hold - Provider: Automatic Transfer Provider - Reason: Patient not available)0838 ([facility] Unhold - Provider: KRIS Zee) fentaNYL (PF) (SUBLIMAZE) injection (CANCELED) As needed, Starting on Annette 10/27/24 at 0743, Intraprocedure 0743 (Given - Provider: Kennedy Dominguez RN)0801 (Given - Provider: Kennedy Dominguez RN)0824 (Given - Provider: Kennedy Dominguez RN) Glucagon HCl (rDNA) injection 1 mg 1 mg, intramuscular, Once as needed, low blood sugar, severe hypoglycemia, Starting on Thu10/26/24 at 1355, For 1 dose 0724 ([facility] Hold - Provider: Automatic Transfer Provider - Reason: Patient not available)0838 ([facility] Unhold - Provider: KRIS Zee) heparin (UFH) [...] injection (CANCELED) As needed, Starting on Annette 5/15/25 at 0743, Intraprocedure 0743 (Given - Provider: Kennedy Dominguez, RN)0802 (Given - Provider: Kennedy Dominguez, RN)0824 (Given - Provider: Kennedy Dominguez RN) morphine 2 mg/mL injection 2 mg 2 mg, intravenous, Every 4 hours PRN, other, Severe breakthrough pain, Starting on Annette 10/27/24 at 1640 2121 (Given - Provider: Andrés Gloria, RN) nitroglycerin (TRIDIL) injection (CANCELED) As needed, [...] Transfer Provider - Reason: Patient not available)0838 ([facility] Unhold - Provider: KRIS Zee) ondansetron ODT [...] Transfer Provider - Reason: Patient not available)0838 ([facility] Unhold - Provider: KRIS Zee) oxyCODONE (ROXICODONE) immediate release tablet 5 mg 5 mg, oral, Every 6 hours PRN, moderate pain, severe pain, Starting on Thu10/26/24 at 0415 0434 (Given - Provider: Aranza Dotson RN)1338 (Given - Provider: Nadia Hickman RN) 0724 ([facility] Hold - Provider: Automatic Transfer Provider - Reason: Patient not available)0838 (AUG Unhold - Provider: KRIS Zee)1139 (Given - Provider: Crow Hernandez, RN)1647 (Given - Provider: Luke Ma RN) 0836 (Given - Provider: Jose Mcghee RN) sodium chloride 0.9 % flush 10 mL(Linked Group 2) 10 mL, intravenous, As needed, line care, Starting on Thu10/26/24 at 0047 0724 (AUG Hold - Provider: Automatic Transfer Provider - Reason: Patient not available)0838 (AUG Unhold - Provider: KRIS Zee) Linked Groups Order Group 1: clopidogreL (PLAVIX) tablet 150 mg (COMPLETED)Jump to med 150 mg, oral, Once, On Annette 10/27/24 at 0900, For 1 dose And clopidogreL (PLAVIX) tablet 75 mgJump to med 75 mg, oral, Daily, First dose on Thu10/28/24 at 0900 Group 2: Insert peripheral IV (CANCELED) STAT, Once, On Thu10/26/24 at 0047, For 1 occurrence And Maintain IV access (CANCELED) Until discontinued, Starting on Thu10/26/24 at 0047, Until Specified And Saline lock IV (CANCELED) Routine, Once, On Thu10/26/24 at 0047, For 1 occurrence And sodium chloride 0.9 [...] Count Last Ordered Date First Ordered Date fentaNYL (PF) (SUBLIMAZE) injection 1 10/27 heparin (UFH) injection 1 10/27/2024 insulin glargine (LANTUS) in [facility] 35 Units 1 10/27/2024 iopamidoL (ISOVUE-370) 370 m g iodine /mL (76 %) injection 1 10/27/2024 lidocaine (XYLOCAINE) 1 % injection 1 10/27 midazolam (VERSED) injection 1 10/27/2024 nitroglycerin (TRIDIL) injection 1 10/28/19 dextrose (D50W) 50% injection 12.5 g 1 10/13 dextrose (D50W) 50% injection 25 g 1 2024 dextrose 15 gram/60 mL oral solution 15 g 1 10/26/2024 dextrose 15 gram/60 mL oral solution 30 g 1 10/26/2024 gabapentin (NEURONTIN) capsule 300 mg 1 Glucagon HCl (rDNA) injection 1 mg 1 2024 insulin glargine (LANTUS) in [facility] 25 Units 1 10/26/2024 insulin glargine (LANTUS) in [facility] 50 Units 1 10/26/2024 ondansetron (PF) (ZOFRAN) injection 4 mg 1 10/26/2024 ondansetron ODT (ZOFRAN-ODT) disintegrating tablet 4 mg 1 10/26/2024 sodium chloride 0.9 % flush 10 mL 1 025 Lab Orders Without Results Count Last Ordered D ate First Ordered Date POCT GLUCOSE, BLOOD 10/28/2024 10/27/19 General Supply Count Last Ordered Date First Or dered Date WALKER 10/28/2024 Consult Count Last Ordered Date First [...] 10/26/2024 documented in this encounter Care Teams Chief Juvenile Probation Officer Relationship Specialty Start Date End Date Moisés Lewis MD [address] [place] [id number] PCP - General Internal Medicine 08/07/11 documented as of this encounter
--- OUTSIDE RECORDS SUMMARY | 2024-11-01 14:09 | XMS_ITS | Clinical Summary ---
Author Organization [facility] Address [address] [place] [address] Phone Care Team Providers Care Senior Specialist Name Role Phone Moisés Lewis MD Primary Care Provider [phone] Allergies Active Allergy Reactions Criticality Noted Date Comments Gadobutrol Nausea And Vomiting Low 11/18/2021 Ibuprofen Rash Low 11/18/2021 Venlafaxine Hallucinations Low 11/18/2021 Medications atorvastatin (LIPITOR) 40 mg tablet Take 1 tablet (40 mg total) by mouth 1 (one) time each day. Active busPIRone (BUSPAR) 5 mg tablet Take 1 tablet (5 mg total) by mouth 3 (three) times a day. Active fluticasone propionate (FLONASE) 50 mcg/actuation nasal spray Administer 2 sprays into each nostril 1 (one) time each day. Active gabapentin (NEURONTIN) 600 mg tablet Take 1 tablet (600 mg total) by mouth 2 (two) times a day. Active Tresiba FlexTouch U-200 200 unit/mL (3 mL) CONCENTRATED injection pen Inject 55 Units under the skin at bedtime. 05/02/20 24 Active insulin lispro (HumaLOG KwikPen) 100 unit/mL injection pen Inject 20 Units under the skin 3 (three) times a day before meals. 03/25/20 24 Active lidocaine (LIDODERM) 5 % patch Place 1 patch on the skin 1 (one) time each day. Active omeprazole 20 mg tablet,disintegrat , delay rel Take 20 mg by mouth 1 (one) time each day. Active tiZANidine (ZANAFLEX) 2 mg tablet Take 1 tablet (2 mg total) by mouth every 6 (six) hours if needed for muscle spasms. Active acetaminophen (TYLENOL) 325 mg tablet Take 2 tablets (650 mg total) by mouth every 4 (four) hours if needed for mild pain or fever - temperature GREATER than 38 C (100.4 F). 11/01/19 24 Active Ventolin HFA 90 mcg/actuation inhaler Inhale 1 puff by mouth 4 (four) times a day. 08/05/19 Active cetirizine (ZyrTEC) 10 mg tablet Take 1 tablet (10 mg total) by mouth 1 (one) time each day. Active cyclobenzaprine (FLEXERIL) 10 mg tablet Take 1 tablet (10 mg total) by mouth 3 (three) times a day if needed for muscle spasms. 11/01/19 Active Trulicity 0.75 mg/0.5 mL pen injector injection Inject 0.5 mL (0.75 mg total) under the skin 1 (one) time per week. Active QUEtiapine (SEROquel) 50 mg tablet Take 1 tablet (50 mg total) by mouth 2 (two) times a day. Active amoxicillin-clavul anate (AUGMENTIN) 875-125 mg per tablet Take 1 tablet by mouth 2 (two) times a day for 5 days. 10 each 10/29/19 25 025 Active clopidogreL (PLAVIX) 75 mg tablet Take 1 tablet (75 mg total) by mouth 1 (one) time each day. 30 each 10/30/19 25 025 Active rivaroxaban (XARELTO) 2.5 mg tablet Take 1 tablet (2.5 mg total) by mouth 2 (two) times a day with meals. 60 tablet 10/29/19 25 025 Active traMADoL (ULTRAM) 50 mg tablet Take 1 tablet (50 mg total) by mouth every 6 (six) hours if needed for severe pain for up to 3 days. Max Daily Amount: 200 mg 12 tablet 10/04/19 25 025 diclofenac (VOLTAREN) 1 % topical gel Apply 4 g topically 4 (four) times a day. 11/02/19 24 025 Discontinu ed(Stop Taking at Discharge) oxyCODONE (ROXICODONE) 5 mg immediate release tabletIndications: Acute occlusion of popliteal artery due to thromboembolism (CMS/HCC V24, CMS/HCC V28) Take 1 tablet (5 mg total) by mouth every 6 (six) hours if needed for severe pain for up to 3 days. Max Daily Amount: 20 mg 12 each 10/29/19 25 025 Active Problems Problem Noted Date Diagnosed Date Type 2 diabetes mellitus wit h hyperglycemia ([facility] V24, [facility] V28) 10/26/2024 Assessment & Plan (10/26/2024 3:48 AM EDT): - Would continue glycemic control in house using insulin regimen augmented by sliding scale - Consider interval A1c Hyperlipidemia 10/26/2024 Assessment & Plan (10/26/2024 3:47 AM EDT): - Will continue outpatient antilipid regimen unchanged Peripheral arterial disease ([facility] V24) 2024 Resolved Problems Problem Noted Date Diagnosed Date Resolved Date Acute occlusion of popliteal artery due to thromboembolism ([facility] V24, [facility] V28) 10/26/2024 10/28/2024 Assessment & Plan (10/26/2024 3:47 AM EDT): - Being hospitalized for left popliteal artery [...] ??C, and O2 sat 95% on room air; physical exam significant for palpable peripheral pulses on the right side but dopplerable pulses on the left dorsalis pedis and posterior tibial locations; screening blood test beginning from CBC with differential is unremarkable; BMP significant for marked hyperglycemia 625, abnormal BUN/creatinine 16/1.36 with estimated GFR 48, and hyponatremia 130; sed rate is elevated to 82; beta-hydroxybutyrate is normal at 1.4; and serum C-reactive protein is elevated to 1.14; patient was started on heparin; evaluated in the ED by vascular surgeon Dr. Mac who advised admission to hospital medicine; hospital medicine was asked admit for left popliteal artery occlusion - Will admit to hospital medicine for left artery occlusion; control pain; anticoagulant therapy; and await formal input of vascular surgery team Encounters Date Type Department Care Team Description 10/27/2024 7:30 AM EDT - 10/27/2024 8:30 AM EDT Surgery [facility] Cardiac Copier Operator [address] [place] [id number] Boo Nash MD Angiography lower ext left 10/25/2024 7:40 PM EDT - 10/28/2024 2:08 PM EDT Hospital Encounter [facility] Urology Unit [address] [place] [address] Franik Hsieh MD Maduakor, Emmanuel C, MD Japaridze, Anna, MD Peripheral arterial disease ([facility] V24) (Primary Dx); Occlusion of left popliteal artery ([facility] V24); Critical limb ischemia of left lower extremity ([facility] V24, [facility] V28); Acute occlusion of popliteal artery due to thromboembolism ([facility] V24, [facility] V28) Discharge Disposition: Home-Health Care [facility] 10/25/2024 11:24 AM EDT - 10/25/2024 11:59 PM EDT Hospital Encounter [facility] MRI [address] [place] [phone] Strain of muscle(s) and tendon(s) of the rotator cuff of left shoulder, initial encounter Discharge Disposition: Home or Self Care 10/10/2024 7:38 AM EDT - 10/10/2024 11:59 PM EDT Hospital Encounter [facility] Ortho Xray [address] [place] [address] Pain Discharge Disposition: Home or Self Care 10/03/2024 4:55 PM EDT - 10/03/2024 5:58 PM EDT Emergency [facility] Emergency [address] [place] [phone] Closed nondisplaced fracture of acromial end of left clavicle, initial encounter (Primary Dx) Discharge Disposition: Home or Self Care from Last 3 Months Surgical History Surgery Date Site/Laterality Comments KNEE SURGERY 09/04/2011 Right PROCEDURE: HISTORICAL KNEE SURGERY; COMMENT: DSA BACK SURGERY 03/31/2013 Left PROCEDURE: HISTORICAL BACK SURGERY; COMMENT: left L4-5 minimally invasive discectomy, Dr. Camacho Medical History Medical History Date Comments Diabetes mellitus type 2, co ntrolled, with complications ([facility] V24, [facility] V28) DX:Diabetes mellitus type 2, controlled, with complications ([facility]) Arthritis DX:Arthritis Asthma DX:Asthma Glaucoma DX:Glaucoma Social History Tobacco Use Types Packs/Day Years [...] Orientation Straight 10/25/2024 8: 20 PM EDT Obstetrics History Last Filed Vital Signs Vital Sign Reading [...] Mass Index 26.83 10/25/2024 4:15 PM EDT Plan of Treatment Health Maintenance Due Date Last Done Comments Breast Cancer Screening 1976 Diabetes: Annual Foot Exam 1986 Diabetes: Annual Retina Eye Exam 1986 DTaP,Tdap,and Td Vaccines (1 - Tdap) 1995 Hepatitis B Vaccines (1 of 3 - 19+ 3-dose series) 1995 Pneumococcal Vaccine: Pediatrics (0 to 5 Years) and At-Risk Patients (6 to 64 Years) (1 of 2 - PCV) 1995 Cervical Cancer Screening: Pap Smear 1997 Cholesterol Screening (Lipid Panel) 05/18/2022 Colorectal Cancer Screening: Colonoscopy 05/18/2022 Depression Screening 05/18/2022 HIV Screening 05/18/2022 Hepatitis C Screening 05/18/2022 Social Influencers of Health Screening 05/18/2022 COVID-19 Vaccine ( season) 2024 07/23/2021, 06/25/2021 Diabetes: Annual Urine Albumin-Creatinine Ratio (uACR) 10/26/2024 Diabetes: Blood Sugar Control Test (HGBA1C) 10/26/2024 Influenza Vaccine (Season Ended) 2025 06/25/2021, 04/22/2019, 03/05/2018, Additional history exists Diabetes: Annual GFR (Glomerular Filtration Rate) 10/26/2025 10/26/2024, 10/25/2024 HIB Vaccines Aged Out No longer eligi ble based on patient's age to complete this topic HPV Vaccines Aged Out No longer eligi ble based on patient's age to complete this topic Hepatitis A Vaccines Aged Out No long er eligible based on patient's age to complete this topic IPV Vaccines Aged Out No longer eligi ble based on patient's age to complete this topic MMR Vaccines Aged Out No longer eligi ble based on patient's age to complete this topic Meningococcal ACWY Vaccine Aged Out N o longer eligible based on patient's age to complete this topic Meningococcal B Vaccine Aged Out No l onger eligible based on patient's age to complete this topic RSV Immunization Patients Under 20 months Aged Out No longer eligible based on patient's age to complete this topic Varicella Vaccines Aged Out No longer eligible based on patient's age to complete this topic Procedures Procedure Name Priority Date/Time Associated Diagnosis [...] 10/27/2024 8:42 AM EDT Peripheral arterial disease ([facility] V24) Procedure Note - Boo Nash MD [...] 10/26/2024 9:24 AM EDT Peripheral arterial disease (CMS/HCC V24) CBC WITH AUTO DIFFERENTIAL Routine 10/26/2024 5:45 AM EDT CBC AND DIFFERENTIAL Routine 10/26/2024 5:45 AM EDT BASIC METABOLIC PANEL Routine 10/26/2024 5:45 AM EDT HEPARIN ANTI XA STAT 10/26/2024 5:45 AM EDT HEPARIN ANTI XA STAT 10/26/2024 12:12 AM EDT ACTIVATED PARTIAL THROMBOPLASTIN TIME STAT 10/26/2024 12:12 AM EDT PROTHROMBIN TIME WITH INR STAT 10/26/2024 12:12 AM EDT POCT GLUCOSE BLOOD Routine 10/25/2024 10:[address] ANGIO LOWER EXTREMITY W AND/OR WO CONTRAST LEFT STAT 10/25/2024 10:35 PM EDT POCT GLUCOSE BLOOD Routine 10/25/2024 8: 16 PM EDT HCG, SERUM, QUALITATIVE STAT Add-on 10/25/2024 5:31 PM EDT BETA HYDROXYBUTYRATE Add-On 10/25/2024 5:31 PM EDT CBC WITH AUTO DIFFERENTIAL STAT 10/25/2024 5:31 PM EDT C-REACTIVE PROTEIN STAT 10/25/2024 5: 31 PM EDT SEDIMENTATION RATE STAT 10/25/2024 5: 31 PM EDT BASIC METABOLIC PANEL STAT 10/25/2024 5:31 PM EDT CBC AND DIFFERENTIAL STAT 10/25/2024 5:31 PM EDT MR SHOULDER WO CONTRAST LEFT Routine 10/25/2024 12:28 PM EDT Strain of muscle(s) and tendon(s) of the rotator cuff of left shoulder, initial encounter XR CLAVICLE COMPLETE LEFT Routine 10/10/2024 10:55 AM EDT Pain XR SHOULDER 2+ VIEWS LEFT STAT 10/03/2024 4:37 PM EDT from Last 3 Months Results * (ABNORMAL) POCT Glucose, blood (10/28/2024 11:09 AM EDT) Only the most recent of10 resultswithin the time period is included. Glucose POCT 261(H) 70 - 100 mg/dL 10/28/2024 11:10 AM EDT [facility] Blood Capillary blood specimen / Unknown 10/28/2024 11:09 AM EDT 10/28/2024 11:12 AM EDT us Bridgett Boyle MD LAB POINT OF CARE TE ST DOCKED DEVICE UNSOLICITED RESULTS Final Result [facility] [address] [place] [address], * (ABNORMAL) Anti-Xa - Every 6 Hours (10/27/2024 12:58 PM EDT) Only the most recent of7 resultswithin the time period is included. Heparin Anti-Xa 0.23(L) 0.30 - 0.70 I Unit/mL LAB COAGULATION METHOD 10/27/2024 1:40 PM EDT [facility] Blood Venous blood specimen / Unknown Venipuncture / Unknown 10/27/2024 12:58 PM EDT 10/27/2024 1:20 PM EDT Narrative [facility] - 10/27/2024 1:40 PM EDT Therapeutic range listed is for Unfractionated Heparin. LMW Heparin therapeutic range: 0.50-1.20 IU/mL us Chantal PONCE LAB BLOOD ORDERABLES Final Re sult Performing Organization Address [facility]/ZIP Co de Phone Number [facility] [address] [place] [address], [place] [phone] * (ABNORMAL) POCT activated clotting time,kaolin (10/27/2024 10:00 AM EDT) Only the most recent of2 resultswithin the time period is included. Activated Clotting Time Kaolin 187(H) 74 - 137 sec 10/27/2024 10:02 AM EDT [facility] Blood Venous blood specimen / Unknown 10/27/2024 10:00 AM EDT 10/27/2024 10:03 AM EDT us Bridgett Boyle MD LAB POINT OF CARE TE ST DOCKED DEVICE UNSOLICITED RESULTS Final Result Performing Organization Address [facility] de Phone Number [facility] [address] [place] [address], [place] [phone] * SST tube (10/27/2024 5:57 AM EDT) Extra Tube Hold for add-ons. 10/27/2024 8:01 AM EDT [facility] Comment:Auto resulted. Blood Venous blood specimen / Unknown Venipuncture / Unknown 10/27/2024 5:57 AM EDT 10/27/2024 6:20 AM EDT us Bridgett Boyle MD LAB BLOOD ORDERABLES Final Res ult Performing Organization Address City/[facility]/ZIP Co de Phone Number [facility] [address] [place] [address], [place] [phone] * MRSA molecular study (10/26/2024 3:55 PM EDT) MRSA Screen PCR Not Detected Not Detected LAB MICROBIOLOGY METHOD 10/26/2024 5:38 PM EDT [facility] Swab Both anterior nares / Unknown Non-blood Collection / Unknown 10/26/2024 3:55 PM EDT 10/26/2024 4:25 PM EDT us Bridgett Boyle MD LAB MICROBIOLOGY - GENERAL ORD ERABLES Final Result [facility] [address] [place] [address], [place] [phone] * Vascular US duplex lower extremity vein map bilateral (10/26/2024 9:24 AM EDT) Anatomical Region Laterality Modality Vascular, Abdomen Ultrasound 10/26/2024 9:45 AM EDT Impressions 10/26/2024 9:51 AM EDT The greater saphenous veins are patent bilaterally. Their diameters are as above. Code 53170 -------- FINAL REPORT -------- Dictated By: Mathieu Lopez Dictated Date: 10/26/2024 09:45 ET Assigned Physician: Mathieu Lopez Reviewed and Electronically Signed By: Mathieu Lopez Signed Date: 10/26/2024 09:51 ET Workstation ID: [id number] Transcribed By: Self Edit Transcribed Date: 10/26/2024 [...] patent bilaterally. Their diameters are asabove. Code 75260 -------- FINAL REPORT -------- Dictated By: Mathieu Lopez Dictated Date: 10/26/2024 09:45 ET Assigned Physician: Mathieu Lopez Reviewed and Electronically Signed By: Mathieu Lopez Signed Date: 10/26/2024 09:51 ET Workstation ID: [id number] Transcribed By: Self Edit Transcribed Date: 10/26/2024 09:45 ET us Solomon PONCE CV VASCULAR PROCEDURES Final Res ult * (ABNORMAL) CBC auto differential (10/26/2024 5:45 AM EDT) Only the most recent of2 resultswithin the time period is included. [facility] Signature WBC 8.2 4.8 - 10.8 K/mcL LAB HEMETOLOGY METHOD 10/26/2024 7:12 AM [facility] RBC 3.80 3.80 - 4.80 M/mcL LAB HEMETOLOGY METHOD 10/26/2024 7:12 AM [facility] Hemoglobin 11.6 11.5 - 16.0 g/dL LAB HEMETOLOGY METHOD 10/26/2024 7:12 AM [facility] Hematocrit 35.0 35.0 - 47.0 % LAB HEMETOLOGY METHOD 10/26/2024 7:12 AM [facility] MCV 92.8 79.0 - 98.0 FL LAB HEMETOLOGY METHOD 10/26/2024 7:12 AM [facility] MCH 30.8 27.0 - 32.0 pcg LAB HEMETOLOGY METHOD 10/26/2024 7:12 AM [facility] MCHC 33.1 32.0 - 37.0 g/dL LAB HEMETOLOGY METHOD 10/26/2024 7:12 AM [facility] RDW 12.3 11.0 - 15.0 % LAB HEMETOLOGY METHOD 10/26/2024 7:12 AM [facility] Platelets 226 130 - 400 K/mcL LAB HEMETOLOGY METHOD 10/26/2024 7:12 AM [facility] MPV 10.3 7.0 - 11.0 FL LAB HEMETOLOGY METHOD 10/26/2024 7:12 AM [facility] NRBC 0.0 <1.0 % LAB HEMETOLOGY METHOD 10/26/2024 7:12 AM [facility] NRBC Absolute 0.00 <0.10 K/mcL LAB HEMETOLOGY METHOD 10/26/2024 7:12 AM EDT [facility] Neutrophils Relative 28.5 % LAB HEMETOLOGY METHOD 10/26/2024 7:12 AM [facility] Lymphocytes Relative 61.0 % LAB HEMETOLOGY METHOD 10/26/2024 7:12 AM [facility] Monocytes Relative 6.2 % LAB HEMETOLOGY METHOD 10/26/2024 7:12 AM [facility] Eosinophils Relative 3.3 % LAB HEMETOLOGY METHOD 10/26/2024 7:12 AM [facility] Basophils Relative 0.5 % LAB HEMETOLOGY METHOD 10/26/2024 7:12 AM [facility] Immature Granulocytes Relative 0.5 % LAB HEMETOLOGY METHOD 10/26/2024 7:12 AM [facility] Neutrophils Absolute 2.35 1.50 - 7.00 K/mcL LAB HEMETOLOGY METHOD 10/26/2024 7:12 AM [facility] Lymphocytes Absolute 5.02(H) 1.00 - 5.00 K/mcL LAB HEMETOLOGY METHOD 10/26/2024 7:12 AM [facility] Monocytes Absolute 0.51 0.20 - 1.00 K/mcL LAB HEMETOLOGY METHOD 10/26/2024 7:12 AM [facility] Eosinophils Absolute 0.27 0.00 - 0.50 K/mcL LAB HEMETOLOGY METHOD 10/26/2024 7:12 AM [facility] Basophils Absolute 0.04 0.00 - 0.20 K/mcL LAB HEMETOLOGY METHOD 10/26/2024 7:12 AM [facility] Immature Granulocytes Absolute 0.04(H) 0.00 - 0.03 K/mcL LAB HEMETOLOGY METHOD 10/26/2024 7:12 AM EDT [facility] Blood Venous blood specimen / Unknown Venipuncture / Unknown 10/26/2024 5:45 AM EDT 10/26/2024 6:07 AM EDT us Davin Croft MD LAB BLOOD ORDERABLES Marcia centeno Result [facility] [address] [place] [address], [place] [phone] * (ABNORMAL) Basic metabolic panel (10/26/2024 5:45 AM EDT) Only the most recent of2 resultswithin the time period is included. Sodium 134 133 - 145 mmol/L LAB CHEMISTRY METHOD 10/26/2024 6:56 AM [facility] Potassium 3.5 3.5 - 5.5 mmol/L LAB CHEMISTRY METHOD 10/26/2024 6:56 AM [facility] Chloride 103 96 - 110 mmol/L LAB CHEMISTRY METHOD 10/26/2024 6:56 AM [facility] CO2 24 21 - 32 mmol/L LAB CHEMISTRY METHOD 10/26/2024 6:56 AM [facility] Anion Gap 7 3 - 11 LAB CHEMISTRY METHOD 10/26/2024 6:56 AM [facility] Glucose 424(HH) 70 - 100 mg/dL LAB CHEMISTRY METHOD 10/26/2024 6:56 AM [facility] BUN 13 5 - 25 mg/dL LAB CHEMISTRY METHOD 10/26/2024 6:56 AM [facility] Creatinine 0.50 0.50 - 1.10 mg/dL LAB CHEMISTRY METHOD 10/26/2024 6:56 AM [facility] eGFR 116 >=60 mL/min/1. 73m2 LAB CHEMISTRY METHOD 10/26/2024 6:56 AM EDT [facility] Comment:Calculation based on the Chronic Kidney Disease Epidemiology Collaboration (CKD-EPI) equation refit without adjustment for race. BUN/Creatinine Ratio 26.0 LAB CHEMISTRY METHOD 10/26/2024 6:56 AM EDT [facility] Calcium 8.8 8.5 - 10.5 mg/dL LAB CHEMISTRY METHOD 10/26/2024 6:56 AM EDT [facility] Blood Venous blood specimen / Unknown Venipuncture / Unknown 10/26/2024 5:45 AM EDT 10/26/2024 6:07 AM EDT Davin Croft MD LAB BLOOD ORDERABLES Marcia l Result Performing Organization Address [facility]/ZIP Co de Phone Number [facility] [address] [place] [address], [place] [phone] * Activated Partial Thromboplastin Time - STAT (10/26/2024 12:12 AM EDT) aPTT 29.5 24.1 - 39.3 sec LAB COAGULATION METHOD 10/26/2024 12:32 AM EDT [facility] Blood Venous blood specimen / Unknown Venipuncture / Unknown 10/26/2024 12:12 AM EDT 10/26/2024 12:16 AM EDT Solomon PONCE LAB BLOOD ORDERABLES Final Resul t Performing Organization Address [facility]/ZIP Co de Phone Number [facility] [address] [place] [address], [place] [phone] * (ABNORMAL) Prothrombin Time with INR - STAT (10/26/2024 12:12 AM EDT) Protime 10.5(L) 10.6 - 13.9 sec LAB COAGULATION METHOD 10/26/2024 12:32 AM EDT [facility] INR 0.8 LAB COAGULATION METHOD 10/26/2024 12:32 AM EDT [facility] Blood Venous blood specimen / Unknown Venipuncture / Unknown 10/26/2024 12:12 AM EDT 10/26/2024 12:16 AM EDT us Solomon PONCE LAB BLOOD ORDERABLES Final Resul t [facility] [address] [place] [address], [place] [phone] * CT Angio Lower Extremity w and/or [...] left external iliac artery patent. 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 Multifocal mild left [...] left external iliac artery patent. 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 Multifocal mild left [...] CT PROCEDURES Edited Result - Final * Beta hydroxybutyrate (10/25/2024 5:31 PM EDT) Beta-Hydroxybu tyrate 1.4 0.2 - 2.8 mg/dL LAB CHEMISTRY METHOD 10/25/2024 6:53 PM EDT [facility] Blood Venous blood specimen / Unknown Venipuncture / Unknown 10/25/2024 5:31 PM EDT 10/25/2024 5:43 PM EDT Carlene PONCE LAB BLOOD ORDERABLES F inal Result [facility] [address] [place] [address], [place] [phone] * (ABNORMAL) Sedimentation rate, automated (10/25/2024 5:31 PM EDT) [facility] Sed Rate 82(H) 0 - 20 mm/hr LAB HEMETOLOGY METHOD 10/25/2024 6:45 PM EDT [facility] Blood Venous blood specimen / Unknown Venipuncture / Unknown 10/25/2024 5:31 PM EDT 10/25/2024 5:43 PM EDT us Franki Hsieh MD LAB BLOOD ORDERABLES Final Resu lt [facility] [address] [place] [address], [place] [phone] * (ABNORMAL) C-reactive protein (10/25/2024 5:31 PM EDT) [facility] C-Reactive Protein 1.14(H) <=0.50 mg/dL LAB CHEMISTRY METHOD 10/25/2024 6:13 PM EDT [facility] Blood Venous blood specimen / Unknown Venipuncture / Unknown 10/25/2024 5:31 PM EDT 10/25/2024 5:43 PM EDT us Franki Hsieh MD LAB BLOOD ORDERABLES Final Resu lt [facility] [address] [place] [address], [place] [phone] * hCG, serum, qualitative (10/25/2024 5:31 PM EDT) [facility] hCG Qual Negative Negative 10/25/2024 10:13 PM EDT [facility] Blood Venous blood specimen / Unknown Venipuncture / Unknown 10/25/2024 5:31 PM EDT 10/25/2024 5:43 PM EDT us Franki Hsieh MD LAB BLOOD ORDERABLES Final Resu lt [facility] [address] [place] [address], [place] [phone] * MR Shoulder wo Contrast Left (10/25/2024 12:28 PM EDT) Anatomical Region Laterality Modality Upper Extremities, Shoulder Left Magn etic Resonance 10/25/2024 12:5 1 PM EDT Impressions 10/25/2024 1:04 PM EDT Rotator cuff tendinosis without tear. Mild degenerative changes at the acromioclavicular joint with mild subacromial/subdeltoid bursitis. Thickening and high signal of the glenohumeral joint capsule with high signal in the rotator interval and relative paucity of glenohumeral joint fluid. ??Constellation of findings suggests adhesive capsulitis. -------- FINAL REPORT -------- Dictated By: JOHAN ARAGON Dictated Date: 10/25/2024 12:51 ET Assigned Physician: JOHAN ARAGON Reviewed and Electronically Signed By: JOHAN ARAGON Signed Date: 10/25/2024 13:04 ET Workstation ID: [id number] Transcribed By: Self Edit Transcribed Date: 10/25/2024 12:51 ET Narrative 10/25/2024 1:04 PM EDT PROCEDURE: Left shoulder MRI INDICATION: Pain TECHNIQUE: Multiplanar, multisequence MRI of the left shoulder Without contrast. COMPARISON: ??No priors available. FINDINGS: Rotator cuff tendinosis without tear. Mild chronic atrophy of teres minor without mass in the quadrilateral space. ??Muscle bulk is otherwise preserved. Biceps tendon is present within the bicipital groove and intact at the superior glenoid tubercle. ??No labral tear. No acute fracture or suspicious marrow replacing lesion. Glenohumeral alignment is preserved. ??No focal cartilage defects or joint effusion. Thickening and high signal throughout the glenohumeral joint capsule with pericapsular edema. ??High signal in the rotator interval. ??The humeral ligaments are intact. Coracoclavicular ligaments are intact. ??Mild degenerative changes at the acromioclavicular joint with small subacromial/subdeltoid bursal fluid. No axillary adenopathy or soft tissue mass. Procedure Note Johan Aragon MD - 10/25/2024 PROCEDURE: Left shoulder MRI INDICATION: Pain TECHNIQUE: Multiplanar, multisequence MRI of the left shoulder Withoutcontrast. COMPARISON: No priors available. FINDINGS: Rotator cuff tendinosis without tear. Mild chronic atrophy of teres minor without mass in the quadrilateralspace. Muscle bulk is otherwise preserved. Biceps tendon is present within the bicipital groove and intact at thesuperior glenoid tubercle. No labral tear. No acute fracture or suspicious marrow replacing lesion. Glenohumeral alignment is preserved. No focal cartilage defects or jointeffusion. Thickening and high signal throughout the glenohumeral joint capsule withpericapsular edema. High signal in the rotator interval. The humeralligaments are intact. Coracoclavicular ligaments are intact. Mild degenerative changes at theacromioclavicular joint with small subacromial/subdeltoid bursal fluid. No axillary adenopathy or soft tissue mass. IMPRESSION: Rotator cuff tendinosis without tear. Mild degenerative changes at the acromioclavicular joint with mildsubacromial/subdeltoid bursitis. Thickening and high signal of the glenohumeral joint capsule with highsignal in the rotator interval and relative paucity of glenohumeral jointfluid. Constellation of findings suggests adhesive capsulitis. -------- FINAL REPORT -------- Dictated By: JOHAN ARAGON Dictated Date: 10/25/2024 12:51 ET Assigned Physician: JOHAN ARAGON Reviewed and Electronically Signed By: JOHAN ARAGON Signed Date: 10/25/2024 13:04 ET Workstation ID: [id number] Transcribed By: Self Edit Transcribed Date: 10/25/2024 12:51 ET us Maco Mcgrath MD IM MRI PROCEDURES Final Result * XR Clavicle Complete Left (10/10/2024 10:55 AM EDT) Narrative RIS PACS/VR - 10/10/2024 10:55 AM EDT This order has been auto-finalized and does not contain a result. us Maco Mcgrath MD IMG XR PROCEDURES Final R esult RIS PACS/VR * XR Shoulder 2+ Views Left (10/03/2024 4:37 PM EDT) Anatomical Region Laterality Modality Upper Extremities, Shoulder Left Radi ographic Imaging 10/03/2024 4:45 PM EDT Impressions 10/03/2024 4:46 PM EDT FINDINGS/IMPRESSION: Osteopenia. ??There is lucency of the distal clavicle which could represent nondisplaced fracture. ??Otherwise no fracture or dislocation. -------- FINAL REPORT -------- Dictated By: Nataliia Tapia Dictated Date: 10/03/2024 16:45 ET Assigned Physician: Nataliia Tapia Reviewed and Electronically Signed By: Nataliia Tapia Signed Date: 10/03/2024 16:46 ET Workstation ID: [id number] Transcribed By: Self Edit Transcribed Date: 10/03/2024 16:45 ET Narrative 10/03/2024 4:46 PM EDT XR SHOULDER 2+ VIEWS LEFT INDICATION: pain TECHNIQUE: XR SHOULDER 2+ VIEWS LEFT COMPARISON: No priors available. Procedure Note Nataliia Tapia MD - 10/03/2024 XR SHOULDER 2+ VIEWS LEFT INDICATION: pain TECHNIQUE: XR SHOULDER 2+ VIEWS LEFT COMPARISON: No priors available. IMPRESSION: FINDINGS/IMPRESSION: Osteopenia. There is lucency of the distal claviclewhich could represent nondisplaced fracture. Otherwise no fracture ordislocation. -------- FINAL REPORT -------- Dictated By: Nataliia Tapia Dictated Date: 10/03/2024 16:45 ET Assigned Physician: Nataliia Tapia Reviewed and Electronically Signed By: Nataliia Tapia Signed Date: 10/03/2024 16:46 ET Workstation ID: [id number] Transcribed By: Self Edit Transcribed Date: 10/03/2024 16:45 ET Inder Hsieh DO IMG XR PROCEDURES Final Result from Last 3 Months Insurance [facility] Advance Directives * Full Code - Default (Latest Code Status on File) Date Activated Date Inactivated Comments 10/27/2024 8:38 AM 10/28/2024 4:18 PM This is orde r is used when code status has not been discussed with the patient, or code status is otherwise unknown/unconfirmed To update the patient's code status, place a code status order. Do not modify or discontinue any currently active code status orders. * Full Code - Default Date Activated Date Inactivated Comments 10/26/2024 12:47 AM 10/27/2024 8:38 AM This is ord er is used when code status has not been discussed with the patient, or code status is otherwise unknown/unconfirmed To update the patient's code status, place a code status order. Do not modify or discontinue any currently active code status orders. Care Teams Senior Specialist Relationship Specialty Start Date End Date Moisés Lewis MD [address] [place] [phone] PCP - General Internal Medicine 08/07/11
== END 2024-11-01 13:45 | disposition home or self-care (01) ==
LOC: HO.ENCR 13:05
PROVIDERS: PCP Internal Medicine; Visit Provider Nurse Practitioner Adult Health
DX: E11.9 Type 2 diabetes mellitus without complications (principal)
CPT/HCPCS: 99213

== ENCOUNTER 2024-11-04 14:45 | Outpatient (AMB) | payer OTHER, SELFPAY ==
[2024-11-04 14:48] VITALS: BP 142/80; PULSE 101; O2SAT 99; BMI 26.0
--- NOTE | 2024-11-04 14:48 | A.OFFPC_ITS ---
Vital Signs 11/04/24 14:48 Height 5 ft 7 in Weight 166 lb BMI 26.0 BP 142/80 H Blood Pressure Location Lt brachial Position Sitting Pulse 101 H Pulse Source Pulse Oximeter Pulse Oximetry (%) 99 Oxygen Delivery Method Room Air Intake Visit Reasons: Follow up Surgery Shop Lead Required: Yes Shop Lead Language: [place] Accompanied by: Self / Same As Patient Allergies ibuprofen [From Motrin] Allergy (Unknown, Verified 11/04/24 14:49) Rash, Stomach upset gadobutrol [From GADAVIST] Adverse Reaction (Mild, Verified 11/04/24 14:49) NAUSEA & VOMITING venlafaxine Adverse Reaction (Unknown, Verified 11/04/24 14:49) halucinations Medication List - Last Reconciled 11/04/24 by Moisés Lewis MD acetaminophen (Tylenol) 650 mg (2 x 325 mg) PO Q4H PRN albuterol sulfate 90 mcg/actuation (Proventil HFA) 1 inh inhalation QID PRN 30 days blood sugar diagnostic (FreeStyle Lite Strips) As directed checks 3X/day blood-glucose meter (FreeStyle Lite Meter kit) As directed for use with freestyle lite test strips blood-glucose sensor (FreeStyle Ria 3 Sensor device) Apply every 14 days As directed to monitor blood glucose blood-glucose,production supervisor,cont (FreeStyle Ria 3 [place]) Use daily As directed to monitor blood glucose cetirizine 10 mg PO DAILY clopidogrel 75 mg PO DAILY commode (bedside commode) As directed commode (bedside commode) As directed cyclobenzaprine 10 mg PO TID PRN diclofenac sodium 1% (Voltaren Arthritis Pain) 4 grams topical QID diclofenac sodium 1% 4 grams topical QID 30 days fluticasone propionate 50 mcg/actuation (Aller-Benedicto) 1 spray intranasal BID gabapentin 600 mg PO BEDTIME 90 days glucose (Dex4 Glucose) 16 grams (4 x 4 gram) PO Q15M PRN insulin glargine (Lantus Solostar U-100 Insulin) 55 units (0.55 mL) subcut QPM 30 days insulin lispro 20 units (0.2 mL) subcut TIDAC insulin lispro (Humalog KwikPen (U-100) Insulin) 20 units (0.2 mL) subcut TIDWMEAL 30 days lancets (FreeStyle Lancets) use 3 times daily to check blood glucose omeprazole 20 mg PO DAILY@0630 oxycodone 5 mg PO QID PRN pen needle, diabetic use qid As directed quetiapine (Seroquel) 50 mg PO BEDTIME 90 days [Rib belt wear rib belt to help reduce pain] rivaroxaban (Xarelto) mg PO sennosides (senna) 8.6 mg PO BEDTIME PRN 30 days sennosides (senna) mg PO Ventolin HFA 90 mcg/actuation (albuterol sulfate) 1 inh inhalation QID PRN NS walker As directed Tobacco use date assessed: 11/04/24 Dental Screening Dental Screen Date: 11/04/24 Did you have a dental visit in the last 12 months?: No Did you have a dental problem in the last 6 months where you did not have access to dental care?: No Was dental information given to patient?: Patient declined HPI Follow up Surgery HPI Details History - The patient is a 49-year-old female pr esenting for follow-up and management of multiple chronic conditions. - She has a history of Peripheral Arteri al Disease (PAD) and was recently hospitalized at [facility] for occlusion of the left popliteal artery, requiring surgical intervention. She reported re-admission due to similar symptoms two days ago, with a noted bloomed appearance to the left toes. Patient is currently seeing vascular specialist [facility] - The patient has been diagnosed with Di abetes Mellitus and reports challenges managing blood glucose levels. Her recent hospitalization revealed hyperglycemia at 424 mg/dL. Her diabetes is managed by endocrinology [facility] - The patient has a history of Major Dep ressive Disorder and reports use of Quetiapine at night to aid relaxation but inconsistently uses it, with concern over its efficacy as a sleep aid. - Adhesive Capsulitis and rotator cuff t endinopathy, of the left shoulder is causing significant mobility issues and inability to use the affected limb effectively. Shown on MRI done by Uyen Fields MD, patient would like to go to [facility] orthopedic for possibility of injections Meanwhile I have ordered physical therapy for the patient - She has been diagnosed with anemia, wi th recent lab results indicating a hemoglobin level of 11.6 g/dL. - The patient has allergic rhinitis and uses Cetirizine for allergy management. - patient is requesting both personal ca re animal care assistant hours as she is not even able to go to bathroom by herself secondary to pain in her left shoulder Letter provided currently she has 40 hours per week approved Medications - Albuterol inhaler for respiratory symp toms - Cetirizine for allergic rhinitis - Gabapentin at bedtime for neuropathic pain - Quetiapine 50 mg at night, used interm ittently for major depressive disorder - Clopidogrel and Rivaroxaban for clot p revention - Insulin Lantus for diabetes management - Senna for constipation Problem List - Peripheral Arterial Disease (PAD) with occlusion of the left popliteal artery - Diabetes Mellitus - Major Depressive Disorder - possible tendinopathy left shoulder ro tator cuff - Adhesive Capsulitis of the left should er (frozen shoulder) - Anemia - Allergic Rhinitis - Peripheral Arteria l Disease (PAD) with occlusion of the left popliteal artery Diagnostic results - Labs: Elevated blood sugar level at 42 4 mg/dL; Hemoglobin at 11.6 g/dL indicating slight anemia - Imaging: CT scan of the left leg with contrast showing occluded short segment of the left popliteal artery [facility] - [facility] team for recent hospita lization and management of PAD - Market Research Consultant for diabetes managemen t - Vascular specialist for ongoing monito ring of vascular health - email deployment specialist for adhesive cap sulitis Patient Instructions - Continue taking current medications as prescribed. - Attend all follow-up appointments with specialists as scheduled. - Pursue physical therapy for shoulder m obility. - Monitor blood glucose levels regularly and adjust insulin as instructed. - Seek medical attention if new symptoms arise or existing symptoms worsen. Review of Systems General: No fever no chills neurological: No headaches no dizziness ear nose throat: No sore throat no hearing difficulty no ear pain cardiovascular: No syncope, no chest pain, no palpitations gastrointestinal: No nausea vomiting or diarrhea endocrine: No polyuria polydipsia no heat intolerance genitourinary: No dysuria skin: No new complaints Physical Exam general: No acute distress HEENT: No acute findings neck: Supple respiratory system: Able to talk in full sentences, no audible wheeze no stridor cardiovascular: S1-S2 RRR gastrointestinal: No pain extremities: Blockage of artery in left leg, adhesive capsulitis in left shoulder PROFILE GRINDER: Alert awake oriented x3 motor sensory intact skin: Normal turgor, black and purple discoloration on toe [facility] Medical History Internal derangement of left knee Vitamin D deficiency Asthma Type 2 diabetes mellitus with hyperglycemia, with long-term current use of insulin Hyperlipidemia LDL goal <100 Cervical stenosis of spinal canal Degeneration, intervertebral disc, cervical Spondylosis, cervical Postlaminectomy syndrome, lumbar Dyspepsia Chronic GERD Narcotic dependence Environmental allergies Failed back syndrome Tobacco abuse Insomnia Depression, major, recurrent, moderate Diabetes mellitus, insulin dependent (IDDM), uncontrolled Surgical History History of thrombectomy History of lumbar surgery Hx of right knee surgery (08/2011) Family History Father Asthma Mother Diabetes HTN (hypertension) Colon cancer Dialysis patient Brother Substance abuse Social History Household Members: None Housing: Apartment Alcohol intake: never Patient Tobacco Use Status: Current everyday Tobacco user e-Cigarette/Vaping Use: Never Used service: No Current occupational status: disabled Current occupation: rt handed Cognitive needs: No Hearing needs: No Vision needs: No Questionnaire Thrive Questionnaire Date Thrive assessed: 12/14/20 Physical exam (Primary Care) Vital Signs: Last Vital Signs Pulse 101 H 11/04/24 14:48 BP 142/80 H 11/04/24 14:48 Pulse Ox 99 11/04/24 14:48 Oxygen Delivery Method Room Air 11/04/24 14:48 BMI result Body Mass Index 26.0 Tobacco/Smoking Status: Tobacco use Status Tobacco use date assessed 11/04/24 11/04/24 14:56 Patient Tobacco Use Status Current everyday Tobacco 11/04/24 14:56 e-Cigarette/Vaping Use Never Used 11/04/24 14:56 Thrive Assessment: Date of Thrive Assessment Date Thrive assessed 12/14/20 11/04/24 14:56 Coding Level of Care Code Est Pt Level 5 (98506) Diagnoses Popliteal artery occlusion, 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 Uncontrolled type 2 diabetes mellitus with hyperglycemia E11.65 Diabetes mellitus type: type 2 Glycemic state: with hyperglycemia Adhesive capsulitis of left shoulder M75.02 Laterality: left Tendonitis of left rotator cuff M75.82 Blurring of vision H53.8 Deficit in activities of daily living (ADL) Z78.9 Anxiety, generalized F41.1 Chronic GERD K21.9 Environmental allergies Z91.09 Depression, major, recurrent, moderate F33.1 Difficulty sleeping G47.9 Time Spent (min) 41 Comment Reviewing chart, [id number] with the patient, coordination of care Assessment & Plan Assessment & Plan (1) Popliteal artery occlusion, left: Code(s): I70.202 - Unspecified atherosclerosis of [place] arteries of extremities, left leg Category: Medical (2) Uncontrolled diabetes mellitus: Category: Medical Qualifiers: Diabetes mellitus type: type 2 Glycemic state: with hyperglycemia Qualified Code(s): E11.65 - Type 2 diabetes mellitus with hyperglycemia (3) Frozen shoulder: Code(s): M75.00 - Adhesive capsulitis of unspecified shoulder Category: Medical Qualifiers: Laterality: left Qualified Code(s): M75.02 - Adhesive capsulitis of left shoulder (4) Tendonitis of left rotator cuff: Code(s): M75.82 - Other shoulder lesions, left shoulder Category: Medical (5) Blurring of vision: Comment: Referral to Ophthalmology placed patient has not seen eye doctor in a while Code(s): H53.8 - Other visual disturbances Category: Medical (6) Deficit in activities of daily living (ADL): Code(s): Z78.9 - Other specified health status Category: Medical (7) Anxiety, generalized: Code(s): F41.1 - Generalized anxiety disorder Category: Medical (8) Chronic GERD: Code(s): K21.9 - Gastro-esophageal reflux disease without esophagitis Category: Medical (9) Environmental allergies: Code(s): Z91.09 - Other allergy status, other than to drugs and biological substances Category: Medical (10) Depression, major, recurrent, moderate: Code(s): F33.1 - Major depressive disorder, recurrent, moderate Category: Medical (11) Difficulty sleeping: Code(s): G47.9 - Sleep disorder, unspecified Category: Medical Plan History - The patient is a 49-year-old female presenting for follow-up and management of multiple chronic conditions. - She has a history of Peripheral Arterial Disease (PAD) and was recently hospitalized at [facility] for occlusion of the left popliteal artery, requiring surgical intervention. She reported re-admission due to similar symptoms two days ago, with a noted bloomed appearance to the left toes. Patient is currently seeing vascular specialist [facility] - The patient has been diagnosed with Diabetes Mellitus and reports challenges managing blood glucose levels. Her recent hospitalization revealed hyperglycemia at 424 mg/dL. Her diabetes is managed by endocrinology [facility] - The patient has a history of Major Depressive Disorder and reports use of Quetiapine at night to aid relaxation but inconsistently uses it, with concern over its efficacy as a sleep aid. - Adhesive Capsulitis and rotator cuff tendinopathy, of the left shoulder is causing significant mobility issues and inability to use the affected limb effectively. Shown on MRI done by Uyen Fields MD, patient would like to go to [facility] orthopedic for possibility of injections Meanwhile I have ordered physical therapy for the patient - She has been diagnosed with anemia, with recent lab results indicating a hemoglobin level of 11.6 g/dL. - The patient has allergic rhinitis and uses Cetirizine for allergy management. - patient is requesting both representative personal service hours as she is not even able to go to bathroom by herself secondary to pain in her left shoulder Letter provided currently she has 40 hours per week approved Medications - Albuterol inhaler for respiratory symptoms - Cetirizine for allergic rhinitis - Gabapentin at bedtime for neuropathic pain - Quetiapine 50 mg at night, used intermittently for major depressive disorder - Clopidogrel and Rivaroxaban for clot prevention - Insulin Lantus for diabetes management - Senna for constipation Problem List - Peripheral Arterial Disease (PAD) with occlusion of the left popliteal artery - Diabetes Mellitus - Major Depressive Disorder - possible tendinopathy left shoulder rotator cuff - Adhesive Capsulitis of the left shoulder (frozen shoulder) - Anemia - Allergic Rhinitis - Peripheral Arterial Disease (PAD) with occlusion of the left popliteal artery Diagnostic results - Labs: Elevated blood sugar level at 424 mg/dL; Hemoglobin at 11.6 g/dL indicating slight anemia - Imaging: CT scan of the left leg with contrast showing occluded short segment of the left popliteal artery [place] [facility] Care - [facility] team for recent hospitalization and management of PAD - Market Research Consultant for diabetes management - Vascular specialist for ongoing monitoring of vascular health - email deployment specialist for adhesive capsulitis Patient Instructions - Continue taking current medications as prescribed. - Attend all follow-up appointments with specialists as scheduled. - Pursue physical therapy for shoulder mobility. - Monitor blood glucose levels regularly and adjust insulin as instructed. - Seek medical attention if new symptoms arise or existing symptoms worsen. Orders: Orders PT Evaluation and Treatment Today M75.00 - Adhesive capsulitis of unspecified shoulder, M75.82 - Other shoulder lesions, left shoulder Referrals Ophthalmology Referral H53.8 - Other visual disturbances Orthopedics Referral M75.00 - Adhesive capsulitis of unspecified shoulder, M75.82 - Other shoulder lesions, left shoulder Medications: Changed From quetiapine (Seroquel) 50 mg PO BEDTIME 90 days 90 tabs 1RF To quetiapine 25 mg PO BEDTIME 90 days 90 tabs 0RF
== END 2024-11-04 16:08 | disposition home or self-care (01) ==
PROVIDERS: PCP Internal Medicine; Visit Provider Internal Medicine
DX: I70.202 Unspecified atherosclerosis of native arteries of extremities, left leg (principal); E11.65 Type 2 diabetes mellitus with hyperglycemia; F33.1 Major depressive disorder, recurrent, moderate; M75.02 Adhesive capsulitis of left shoulder; M75.82 Other shoulder lesions, left shoulder; H53.8 Other visual disturbances; Z78.9 Other specified health status; F41.1 Generalized anxiety disorder; K21.9 Gastro-esophageal reflux disease without esophagitis; Z91.09 Other allergy status, other than to drugs and biological substances; G47.9 Sleep disorder, unspecified

== ENCOUNTER → 2024-11-04 14:45 | Outpatient (BNVA) | payer OTHER, SELFPAY | PROVIDERS: PCP Internal Medicine; Visit Provider Internal Medicine | DX: E11.65 Type 2 diabetes mellitus with hyperglycemia (principal); I70.202 Unspecified atherosclerosis of native arteries of extremities, left leg; M75.02 Adhesive capsulitis of left shoulder; M75.82 Other shoulder lesions, left shoulder; H53.8 Other visual disturbances; F41.1 Generalized anxiety disorder; K21.9 Gastro-esophageal reflux disease without esophagitis; F33.1 Major depressive disorder, recurrent, moderate; G47.9 Sleep disorder, unspecified; Z79.4 Long term (current) use of insulin; Z91.09 Other allergy status, other than to drugs and biological substances; Z78.9 Other specified health status | CPT/HCPCS: 99212 ==

== ENCOUNTER 2024-11-04 16:09 | Outpatient (AMB) | payer OTHER, SELFPAY ==
--- NOTE | 2024-11-04 15:59 | A.OFFVIS_ITS ---
Vital Signs 11/04/24 16:09 Height 5 ft 7 in Intake Visit Reasons: T2DM Intake Note: Patient presents today via video call for a follow-up on Type 2 Diabetes Mellitus & Hyperglycemia: Patient was recently in the ED Last Diabetic eye exam was on: OVER DUE Last Podiatry exam was on: Patient does not see a Window Repairer Most recent HbA1c: DUE Tank Officer Required: Yes Tank Officer Language: Multimedia Teacher Name: ANTHONY Argueta/NATE DOMINGUEZ Information Interpreted: non-clinical & clinical Accompanied by: Self / Same As Patient Allergies ibuprofen [From Motrin] Allergy (Unknown, Verified 11/04/24 16:09) Rash, Stomach upset gadobutrol [From GADAVIST] Adverse Reaction (Mild, Verified 11/04/24 16:09) NAUSEA & VOMITING venlafaxine Adverse Reaction (Unknown, Verified 11/04/24 16:09) halucinations Medication List - Last Reconciled 11/04/24 by Josy Ahn PA-C acetaminophen (Tylenol) 650 mg (2 x 325 mg) PO Q4H PRN albuterol sulfate 90 mcg/actuation (Proventil HFA) 1 inh inhalation QID PRN 30 days blood sugar diagnostic (FreeStyle Lite Strips) As directed checks 3X/day blood-glucose meter (FreeStyle Lite Meter kit) As directed for use with freestyle lite test strips blood-glucose sensor (FreeStyle Ria 3 Sensor device) Apply every 14 days As directed to monitor blood glucose blood-glucose,sample grader,cont (FreeStyle Ria 3 [place]) Use daily As directed to monitor blood glucose cetirizine 10 mg PO DAILY clopidogrel 75 mg PO DAILY commode (bedside commode) As directed commode (bedside commode) As directed cyclobenzaprine 10 mg PO TID PRN diclofenac sodium 1% (Voltaren Arthritis Pain) 4 grams topical QID diclofenac sodium 1% 4 grams topical QID 30 days fluticasone propionate 50 mcg/actuation (Aller-Benedicto) 1 spray intranasal BID gabapentin 600 mg PO BEDTIME 90 days glucose (Dex4 Glucose) 16 grams (4 x 4 gram) PO Q15M PRN insulin glargine (Lantus Solostar U-100 Insulin) 55 units (0.55 mL) subcut QPM 30 days insulin lispro (Humalog KwikPen (U-100) Insulin) 20 units (0.2 mL) subcut TIDWMEAL 30 days lancets (FreeStyle Lancets) use 3 times daily to check blood glucose omeprazole 20 mg PO DAILY@0630 oxycodone 5 mg PO QID PRN pen needle, diabetic use qid As directed quetiapine 25 mg PO BEDTIME 90 days [Rib belt wear rib belt to help reduce pain] rivaroxaban (Xarelto) mg PO sennosides (senna) 8.6 mg PO BEDTIME PRN 30 days sennosides (senna) mg PO Ventolin HFA 90 mcg/actuation (albuterol sulfate) 1 inh inhalation QID PRN NS walker As directed HPI HPI T2DM: Details: Patient is a 49-year-old female with a significant past medical history of hyperlipidemia, uncontrolled type 2 diabetes, GERD, anxiety, depression, history of narcotic dependence presenting today for follow up regarding her diabetes. Tank Officer Jennifer Dodson: She is overdue labs She is currently on lispro 16 units t.i.d., Lantus 50 units nightly, and Trulicity 0.75 mg weekly. She had a leftover 1.5 mg trulicity and took this instead of the 0.75 mg. She states the pharmacy did not have the 0.75 mg rx. She took this 2 days ago and does have some constipation she thinks from this medication. bs this am 180 per pt No low blood sugars CGM-has sensors at home and is going to start using this. . Her mother has a history of diabetes in his insulin dependent but she does not know if it is type 1 or type 2. She is not believe she has had testing. She states that she has had some diabetic Education but does not feel like she has that knowledgeable about her diabetes. [facility] Medical History (Updated 11/04/24 @ 16:08 by Moisés Lewis MD) Internal derangement of left knee Vitamin D deficiency Asthma Type 2 diabetes mellitus with hyperglycemia, with long-term current use of insu joaquín Hyperlipidemia LDL goal <100 Cervical stenosis of spinal canal Degeneration, intervertebral disc, cervical Spondylosis, cervical Postlaminectomy syndrome, lumbar Dyspepsia Chronic GERD Narcotic dependence Environmental allergies Failed back syndrome Tobacco abuse Insomnia Depression, major, recurrent, moderate Diabetes mellitus, insulin dependent (IDDM), uncontrolled Surgical History (Updated 11/04/24 @ 14:56 by Mo Recio CMA) History of thrombectomy History of lumbar surgery Hx of right knee surgery (08/2011) Family History Father Asthma Mother Diabetes HTN (hypertension) Colon cancer Dialysis patient Brother Substance abuse Social History Household Members: None Housing: Apartment Alcohol intake: never Patient Tobacco Use Status: Current everyday Tobacco user e-Cigarette/Vaping Use: Never Used service: No Current occupational status: disabled Current occupation: rt handed Cognitive needs: No Hearing needs: No Vision needs: No Telehealth Telehealth Telehealth Platform: Telephone Location of provider rendering services: practice address Location of patient: address on file Patient Identification confirmed using: Name, : Yes Telehealth method: voice only Patient verbally consented to treatment: Yes Patient verbally consented to billing insurance company: Yes Patient informed of any privacy concerns related to visit: Yes Minutes spent on Phone/Video with Pt.: 18 Assessment & Plan Assessment & Plan (1) Type 2 diabetes mellitus with hyperglycemia, with long-term current use of insulin: Code(s): E11.65 - Type 2 diabetes mellitus with hyperglycemia; Z79.4 - detention (current) use of insulin Category: Medical Plan: start trulicity next week 0..75 mg increase lantus to 55 units increase humalog to 20 units AC do labs prior to appointment return in 2-3 weeks to be seen in person bring your reader Medications: New dulaglutide (Trulicity) 0.75 mg (0.5 mL) subcut QWEEK 2 mL 3RF Coding Level of Care Code Tele Est Pt Level 2 (50911) Complex EM visit Add On G2211 Diagnoses Type 2 diabetes mellitus with hyperglycemia, with long-term current use of insulin E11.65; Z79.4
== END 2024-11-04 16:10 | disposition home or self-care (01) ==
LOC: HO.ENCR 16:09
PROVIDERS: PCP Internal Medicine; Visit Provider Physician Assistant
DX: E11.65 Type 2 diabetes mellitus with hyperglycemia (principal); Z79.4 Long term (current) use of insulin

== ENCOUNTER 2024-12-06 08:30 | Outpatient (REF) | payer OTHER, SELFPAY ==
--- NOTE | ~2024-12-06 | XR_ITS ---
EXAMINATION: XR SHOULDER, LEFT CLINICAL INFORMATION: M25.512 - Pain in left shoulder COMPARISON: None available. TECHNIQUE: 2 view x-ray of the left shoulder. FINDINGS: AC joint is intact and not degenerated. Glenohumeral joint appears grossly normal. No fractures are evident. XR/XR shoulder LT min 2V IMPRESSION: Unremarkable left shoulder Electronically signed by: Shadi Fong MD 12/06/2024 11:15 AM EDT
--- OUTSIDE RECORDS SUMMARY | 2024-12-07 08:47 | XMS_ITS | Clinical Summary ---
Author Organization [facility] Address [address] [place] [address] Care Team Providers Care Termite Treater Helper Name Role Phone Unavailable Primary Care Provider [...] 2021 Fecal DNA 2021 Flexible Sigmoidoscopy 2021 [id number]-39 ( season) 2024 Alcohol and Drug Screen [...] to Health Maintenance [place] [address] [id number] [facility] [place] [address] HEALTH PLAN Member Subscriber Plan / Payer ( fective 2017-Present) Name:Aguilar Street Relation to Subscriber:Self Name:Aguilar Street Payer ID:[id number] Group ID:Not on file Type:Medicaid Address: [facility] [address] [place] [address]
== END 2024-12-06 08:31 | disposition home or self-care (01) ==
LOC: HO.HOSX 08:30
PROVIDERS: Visit Provider Orthopaedic Surgery
DX: M75.42 Impingement syndrome of left shoulder (principal)
CPT/HCPCS: 73030; 99212

== ENCOUNTER 2024-12-06 11:01 | Outpatient (AMB) | payer OTHER, SELFPAY ==
--- NOTE | 2024-12-06 11:37 | MHC.OFFVIS ---
Vital Signs 12/06/24 11:40 Height 5 ft 7 in Weight 166 lb BMI 26.0 Intake Visit Reasons: New prob- Left shoulder Adhesive capsulitis Intake Note: Aguilar is a 49 year old right hand dominant female who presents with complaints of progressively worsening left shoulder pain and stiffness. She describes her pain as sharp and severe in nature. Her pain has gotten worse over the last year in spite of continued non operative treatments. The patient reports difficulty lifting her left hand to shoulder height. She has done physical therapy exercises which aggravated her pain. She has also tried Tylenol and anti-inflammatory medicines which gave her minimal relief. At this point her left shoulder pain and stiffness or interfering with her activities of daily living and her ability to sleep well through the night. Catalytic Converter Operator Helper Required: Yes Catalytic Converter Operator Helper Language: Health Care Liaison Services: Catalytic Converter Operator Helper Present Catalytic Converter Operator Helper Name: AlexaverynoéANTHONY/EREN Allergies ibuprofen (From Motrin) Allergy (Unknown, Verified 12/06/24 11:37) Rash, Stomach upset gadobutrol (From GADAVIST) Adverse Reaction (Mild, Verified 12/06/24 11:37) NAUSEA & VOMITING venlafaxine Adverse Reaction (Unknown, Verified 12/06/24 11:37) halucinations Medication List - Last Reconciled 12/06/24 by Lionel Lorenz MD acetaminophen (Tylenol) 650 mg (2 x 325 mg) PO Q4H PRN albuterol sulfate 90 mcg/actuation (Proventil HFA) 1 inh inhalation QID PRN 30 days blood sugar diagnostic (FreeStyle Lite Strips) As directed checks 3X/day blood-glucose meter (FreeStyle Lite Meter kit) As directed for use with freestyle lite test strips blood-glucose sensor (FreeStyle Ria 3 Sensor device) Apply every 14 days As directed to monitor blood glucose blood-glucose,manufacturers agent,cont (FreeStyle Ria 3 [place]) Use daily As directed to monitor blood glucose cetirizine 10 mg PO DAILY clopidogrel 75 mg PO DAILY commode (bedside commode) As directed commode (bedside commode) As directed cyclobenzaprine 10 mg PO TID PRN diclofenac sodium 1% (Voltaren Arthritis Pain) 4 grams topical QID diclofenac sodium 1% 4 grams topical QID 30 days dulaglutide (Trulicity) 0.75 mg (0.5 mL) subcut QWEEK fluticasone propionate 50 mcg/actuation (Aller-Benedicto) 1 spray intranasal BID gabapentin 600 mg PO BEDTIME 90 days glucose (Dex4 Glucose) 16 grams (4 x 4 gram) PO Q15M PRN insulin glargine (Lantus Solostar U-100 Insulin) 55 units (0.55 mL) subcut QPM 30 days insulin lispro (Humalog KwikPen (U-100) Insulin) 20 units (0.2 mL) subcut TIDWMEAL 30 days lancets (FreeStyle Lancets) use 3 times daily to check blood glucose omeprazole 20 mg PO DAILY@0630 oxycodone 5 mg PO QID PRN pen needle, diabetic use qid As directed quetiapine 25 mg PO BEDTIME 90 days [Rib belt wear rib belt to help reduce pain] rivaroxaban (Xarelto) mg PO sennosides (senna) 8.6 mg PO BEDTIME PRN 30 days sennosides (senna) mg PO Ventolin HFA 90 mcg/actuation (albuterol sulfate) 1 inh inhalation QID PRN NS walker As directed [facility] Medical History Internal derangement of left knee Vitamin D deficiency Asthma Type 2 diabetes mellitus with hyperglycemia, with long-term current use of insulin Hyperlipidemia LDL goal <100 Cervical stenosis of spinal canal Degeneration, intervertebral disc, cervical Spondylosis, cervical Postlaminectomy syndrome, lumbar Dyspepsia Chronic GERD Narcotic dependence Environmental allergies Failed back syndrome Tobacco abuse Insomnia Depression, major, recurrent, moderate Diabetes mellitus, insulin dependent (IDDM), uncontrolled Surgical History History of thrombectomy History of lumbar surgery Hx of right knee surgery (08/2011) Family History Father Asthma Mother Diabetes HTN (hypertension) Colon cancer Dialysis patient Brother Substance abuse Social History Household Members: None Housing: Apartment Alcohol intake: never Patient Tobacco Use Status: Current everyday Tobacco user e-Cigarette/Vaping Use: Never Used service: No Current occupational status: disabled Current occupation: rt handed Cognitive needs: No Hearing needs: No Vision needs: No Physical Exam Vital Signs: BMI result Body Mass Index 26.0 Const Other: Well-nourished well-developed very friendly female awake alert and oriented x3 in no acute distress Extrem Other: Bilateral upper extremity examination shows good capillary refill, no skin lesions noted, normal sensation light touch Left shoulder examination shows decreased active and passive range motion when compared to her right shoulder, 4+ out of 5 strength with supraspinatus testing, positive impingement signs, tenderness over her acromioclavicular joint, no instability Results Reviewed Results Reviewed: X-rays of the patient's left shoulder show severe acromioclavicular joint narrowing, a type 2 acromion, no acute bony abnormalities MRI report of the patient's left shoulder show severe acromioclavicular joint narrowing, a type 2 acromion, signal change within the supraspinatus tendon due to adhesive capsulitis Assessment & Plan Assessment & Plan (1) Impingement syndrome of left shoulder: Code(s): M75.42 - Impingement syndrome of left shoulder Category: Medical Plan Ms. Jose Casiano presents with progressively worsening left shoulder pain and stiffness due to impingement syndrome, acromioclavicular joint arthritis and adhesive capsulitis. I had a lengthy discussion with the patient regarding the treatment options. At this point she has failed continued non operative treatments. The risks and benefits of left shoulder surgery were discussed at length with the patient. The patient wishes to proceed with surgery. She will be scheduled for next available date. Surgery will involve left shoulder arthroscopic distal clavicle excision, left shoulder arthroscopic acromioplasty, left shoulder arthroscopic capsular release and left shoulder manipulation under anesthesia. With the patient will be scheduled for next available date. She will continue with her [id number] exercises in the meantime. Feel free to call me at any time should questions regarding her orthopedic management arise. I spent 20 minutes in reviewing the patient's records and imaging studies, seeing the patient and documenting in the medical record. Orders: Orders XR shoulder LT min 2V Today G89.29 - Other chronic pain, M25.512 - Pain in left shoulder Coding Level of Care Code Est Pt Level 3 (57659) Complex EM visit Add On G2211 Diagnoses Impingement syndrome of left shoulder M75.42
[2024-12-06 11:40] VITALS: BMI 26.0
--- OUTSIDE RECORDS SUMMARY | 2024-12-06 12:39 | XMS_ITS | Clinical Summary ---
Author Organization [facility] Address [address] [place] [address] Care Team Providers Care Bilingual School Psychologist Name Role Phone Unavailable Primary Care Provider [...] HPV 1976 Tobacco Cessation Counseling (#1) 1976 Tobacco Screening 1976 HIV Screening 1991 Relationship Safety Screening/Counseling 1991 Imm-DTaP/Tdap/Td (1 - Tdap) 1995 Imm-Hepatitis B (1 of 3 - 19+ 3-dose series) Imm-Pneumococcal (1 of 2 - PCV) 1995 Cervical Cancer Screening 1997 Pap Smear 1997 Breast Cancer Screening (Mammogram) 2016 CT Colonography 2021 Colonoscopy 2021 Colorectal Cancer Screening 2021 FIT/gFOBT 2021 Fecal DNA 2021 Flexible Sigmoidoscopy 2021 [id number]-07 ( season) 2024 Alcohol and Drug Screen 06/15/2024 Depression Annual Screen 06/15/2024 Dental Examination 11/14/2024 11/13/2023 Dental Perio Charting 11/14/2024 11/13/2023 Dental Prophy 11/14/2024 11/13/2023 Hypertension Screening (#1) 12/21/2024 Imm-Influenza (Season Ended) 2025 04/22/2019 Cervical Ablation/Cold-Knife Conization Discontinued Cervical Cryotherapy Discontinued [...] to Health Maintenance [place] [address] [id number] [facility] [place] [address] [place] [address] HEALTH PLAN Member Subscriber Plan / Payer ( fective 2017-Present) Name:Aguilar Street Relation to Subscriber:Self Name:Aguilar Street Payer ID:[id number] Group ID:Not on file Type:Medicaid Address: [facility] [address] [place] [address]
== END 2024-12-06 12:02 | disposition home or self-care (01) ==
LOC: HO.HOS 11:02
PROVIDERS: PCP Internal Medicine; Visit Provider Orthopaedic Surgery
DX: M75.42 Impingement syndrome of left shoulder (principal)
CPT/HCPCS: 99214; G2211

== ENCOUNTER → 2024-12-06 11:04 | Outpatient (BNV) | payer OTHER, SELFPAY | PROVIDERS: Visit Provider Radiology Diagnostic Radiology | DX: M25.512 Pain in left shoulder (principal) | CPT/HCPCS: 73030 ==

== ENCOUNTER 2024-12-21 13:57 | Outpatient (AMB) | payer OTHER, SELFPAY ==
--- NOTE | 2024-12-21 14:02 | A.OFFPC_ITS ---
Vital Signs 12/21/24 14:06 Height 5 ft 7 in Weight 168 lb BMI 26.3 BP 134/68 Blood Pressure Location Rt brachial Position Sitting Pulse 88 Pulse Source Pulse Oximeter Temp 98.0 F Temp Source Oral Pulse Oximetry (%) 98 Oxygen Delivery Method Room Air Intake Visit Reasons: Annual Pe- A1C needed Marble Supervisor Required: Yes Is last menstrual period known: No Post menopausal: No Patient : No Allergies ibuprofen (From Motrin) Allergy (Unknown, Verified 12/21/24 14:09) Rash, Stomach upset gadobutrol (From GADAVIST) Adverse Reaction (Mild, Verified 12/21/24 14:09) NAUSEA & VOMITING venlafaxine Adverse Reaction (Unknown, Verified 12/21/24 14:09) halucinations Medication List - Last Reconciled 12/21/24 by Moisés Lewis MD acetaminophen (Tylenol) 650 mg (2 x 325 mg) PO Q4H PRN albuterol sulfate 90 mcg/actuation (Proventil HFA) 1 inh inhalation QID PRN 30 days blood sugar diagnostic (FreeStyle Lite Strips) As directed checks 3X/day blood-glucose meter (FreeStyle Lite Meter kit) As directed for use with freestyle lite test strips blood-glucose sensor (FreeStyle Ria 3 Sensor device) Apply every 14 days As directed to monitor blood glucose blood-glucose,grain receiver,cont (FreeStyle Ria 3 [place]) Use daily As directed to monitor blood glucose cetirizine 10 mg PO DAILY clopidogrel 75 mg PO DAILY commode (bedside commode) As directed commode (bedside commode) As directed cyclobenzaprine 10 mg PO TID PRN diclofenac sodium 1% (Voltaren Arthritis Pain) 4 grams topical QID diclofenac sodium 1% 4 grams topical QID 30 days dulaglutide (Trulicity) 0.75 mg (0.5 mL) subcut QWEEK fluticasone propionate 50 mcg/actuation (Aller-Benedicto) 1 spray intranasal BID gabapentin 600 mg PO BEDTIME 90 days insulin glargine (Lantus Solostar U-100 Insulin) 55 units (0.55 mL) subcut QPM 30 days insulin lispro (Humalog KwikPen (U-100) Insulin) 20 units (0.2 mL) subcut TIDWMEAL 30 days lancets (FreeStyle Lancets) use 3 times daily to check blood glucose omeprazole 20 mg PO DAILY@0630 pen needle, diabetic use qid As directed quetiapine 25 mg PO BEDTIME 90 days [Rib belt wear rib belt to help reduce pain] rivaroxaban (Xarelto) 2.5 mg PO Q24H sennosides (senna) mg PO Ventolin HFA 90 mcg/actuation (albuterol sulfate) 1 inh inhalation QID PRN NS walker As directed Tobacco use date assessed: 12/21/24 Dental Screening Dental Screen Date: 12/21/24 Did you have a dental visit in the last 12 months?: No Did you have a dental problem in the last 6 months where you did not have access to dental care?: No Was dental information given to patient?: Patient has dentist HPI Annual Pe- A1C needed HPI Details PE - The patient is a 49-year-old female pr esenting for management of a previously diagnosed popliteial artry occlusion left side. It was initially discovered in October, after which the patient started on blood thinner therapy. left popliteal artery stenosis and occlusion, leading to severe disease of proximal tibial bifurcation vessels, causing significant pain in the patient's leg . The patient reports that the blood vessels are closed, impeding blood flow, leading to persistent pain. we are trying to get her in with vascular , but so far no apt has been made she was initially seen at [facility] and was suppose to see vascular affiliated with [facility], but patient dont know anything about that she has pain left shoulder and need sugary after getting clearence by vascular as she is on two blood thinners currently - The patient also has ongoing type 2 di abetes mellitus with consistently high blood glucose readings, the latest being 371 mg/dL, which is uncontrolled. The patient has noted numbness and freezing sensations, potentially related to her diabetes. she has apt coming up with endo end of this month, mean while i have increased her trulicity to 1.5 mg - She reports persistent pain in her nec k and shoulder, aggravated by movement. The pain is severe enough to hinder her ability to brush her hair. - Additionally, the patient mentioned a previously broken left leg, which may have contributed to the vascular issues. Social History: - The patient lives independently but re quires assistance at times due to physical limitations. - Indicates previous smoking history but has quit smoking. - Reports that her Personal Care Assista nt (BUSINESS APPLICATIONS SPECIALIST) assists her, though there were communication issues with her providers due to language barriers. Health Maintenance - Recommended mammogram, which has yet n ot been completed due to shoulder issues. - Due for Pap smear and colonoscopy, whchevy ch the patient has declined. - Encouraged smoking cessation, which th e patient reports having achieved. [place] of Care - Coordination with vascular surgeon for potential surgery and evaluation of blood thinner management. - Involvement with equipment sterilizer for d iabetes management. - [place] [place] Instructions - Continue taking prescribed blood thinn ers as directed. - Maintain scheduled times for medicatio n to improve efficacy. - Monitor blood glucose levels and adher e to prescribed diabetes medication. - Schedule appointment with vascular spe cialist as advised. - Report any significant changes in symp toms to healthcare providers promptly. Review of Systems - General: No fever no chills - Neurological: No headaches no dizzin ess - Ear nose throat: No sore throat no hearing difficulty no ear pain - Cardiovascular: No syncope, no chest pain, no palpitations - Gastrointestinal: No nausea vomiting or diarrhea - Skin: No new complaints Physical Exam General: Cooperative, healthy appearing, comfortable, no acute distress Orientation: Patient oriented x3 Head: Normal to inspection Ears: Within normal limit visually Nose: Normal external nose present Face and sinus: Normal facial exam Eyes: Appearance normal, extraocular movement intact pupils reactive Neck: Normal visual inspection and supple, but patient reports pain and difficulty moving neck Respiratory: Normal respiratory effort and able to speak in complete sentences. Clear to auscultation, no stridor Cardiovascular: S1 and S2 RRR GI: Normal to inspection. Soft to palpation and nontender Skin: Turgor normal, no acute findings Neuro: Patient oriented x3, unable to perform balance or tendom Extremities: Normal to inspection, but patient reports pain in left leg due to vascular issues and history of fracture on the left side [facility] Medical History Internal derangement of left knee Vitamin D deficiency Asthma Type 2 diabetes mellitus with hyperglycemia, with long-term current use of insulin Hyperlipidemia LDL goal <100 Cervical stenosis of spinal canal Degeneration, intervertebral disc, cervical Spondylosis, cervical Postlaminectomy syndrome, lumbar Dyspepsia Chronic GERD Narcotic dependence Environmental allergies Failed back syndrome Tobacco abuse Insomnia Depression, major, recurrent, moderate Diabetes mellitus, insulin dependent (IDDM), uncontrolled Surgical History History of thrombectomy History of lumbar surgery Hx of right knee surgery (08/2011) Family History Father Asthma Mother Diabetes HTN (hypertension) Colon cancer Dialysis patient Brother Substance abuse Social History Household Members: None Housing: Apartment Alcohol intake: never Patient Tobacco Use Status: Current everyday Tobacco user e-Cigarette/Vaping Use: Never Used service: No Current occupational status: disabled Current occupation: rt handed Cognitive needs: No Hearing needs: No Vision needs: No Questionnaire Thrive Questionnaire Date Thrive assessed: 12/14/20 Physical exam (Primary Care) Vital Signs: Last Vital Signs Temp 98.0 F 12/21/24 14:06 Pulse 88 12/21/24 14:06 BP 134/68 12/21/24 14:06 Pulse Ox 98 12/21/24 14:06 Oxygen Delivery Method Room Air 12/21/24 14:06 BMI result Body Mass Index 26.3 Tobacco/Smoking Status: Tobacco use Status Tobacco use date assessed 12/21/24 12/21/24 14:17 Patient Tobacco Use Status Current everyday Tobacco 12/21/24 14:02 e-Cigarette/Vaping Use Never Used 12/21/24 14:02 Thrive Assessment: Date of Thrive Assessment Date Thrive assessed 12/14/20 12/21/24 14:02 Results AMB Hemoglobin A1c AMB Hemoglobin A1c 12.3 % Last Edit by ANTHONY Gonzalez on 12/21/24 14: 24 Results Reviewed Results Reviewed: Laboratory Last Values Hgb A1c (Clinic) 12.3 % (4.0-6.0) H 12/21/24 14:23 Coding Level of Care Code Est Pt Level 4 (72782) Est Pt Prev Care 40-64y(93647) Diagnoses Encounter for general adult medical examination with abnormal findings Z00.01 Popliteal artery occlusion, 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 Difficulty sleeping G47.9 Cervical radiculitis M54.12 Chronic GERD K21.9 Vitamin D deficiency E55.9 Uncontrolled type 2 diabetes mellitus with hyperglycemia E11.65 Diabetes mellitus type: type 2 Glycemic state: with hyperglycemia Depression, major, recurrent, moderate F33.1 Dependent on walker for ambulation Z99.89 Colonoscopy refused Z53.20 Assessment & Plan Assessment & Plan (1) Encounter for general adult medical examination with abnormal findings: Code(s): Z00.01 - Encounter for general adult medical examination with abnormal findings Category: Medical (2) Popliteal artery occlusion, left: Code(s): I70.202 - Unspecified atherosclerosis of [place] arteries of extremities, left leg Category: Medical (3) Difficulty sleeping: Code(s): G47.9 - Sleep disorder, unspecified Category: Medical (4) Cervical radiculitis: Code(s): M54.12 - Radiculopathy, cervical region Category: Medical (5) Chronic GERD: Code(s): K21.9 - Gastro-esophageal reflux disease without esophagitis Category: Medical (6) Vitamin D deficiency: Code(s): E55.9 - Vitamin D deficiency, unspecified Category: Medical (7) Uncontrolled diabetes mellitus: Category: Medical Qualifiers: Diabetes mellitus type: type 2 Glycemic state: with hyperglycemia Qualified Code(s): E11.65 - Type 2 diabetes mellitus with hyperglycemia (8) Depression, major, recurrent, moderate: Code(s): F33.1 - Major depressive disorder, recurrent, moderate Category: Medical (9) Dependent on walker for ambulation: Code(s): Z99.89 - Dependence on other enabling machines and devices Category: Medical (10) Colonoscopy refused: Code(s): Z53.20 - Procedure and treatment not carried out because of patient's decision for unspecified reasons Category: Medical Plan PE - The patient is a 49-year-old female with a history of uncontrolled diabetes, severe depression, difficulty sleeping, allergies, muscle spasms in the back, status post lumbar spine surgery, taking gabapentin 600 mg at bedtime for pain management, chronic GERD, chronic constipation, dependent on walker for ambulation, presenting for management of a previously diagnosed popliteial artry occlusion left side. It was initially discovered in October, after which the patient started on blood thinner therapy. left popliteal artery stenosis and occlusion, leading to severe disease of proximal tibial bifurcation vessels, causing significant pain in the patient's leg . The patient reports that the blood vessels are closed, impeding blood flow, leading to persistent pain. we are trying to get her in with vascular , but so far no apt has been made she was initially seen at [facility] and was suppose to see vascular affiliated with [facility], but patient dont know anything about that she has pain left shoulder and need sugary after getting clearence by vascular as she is on two blood thinners currently - The patient also has ongoing type 2 diabetes mellitus with consistently high blood glucose readings, the latest being 371 mg/dL, which is uncontrolled. The patient has noted numbness and freezing sensations, potentially related to her diabetes. she has apt coming up with endo end of this month, mean while i have increased her trulicity to 1.5 mg - She reports persistent pain in her neck and shoulder, aggravated by movement. The pain is severe enough to hinder her ability to brush her hair. - Additionally, the patient mentioned a previously broken left leg, which may have contributed to the vascular issues. Social History: - The patient lives independently but requires assistance at times due to physical limitations. - Indicates previous smoking history but has quit smoking. - Reports that her Cobol Programmer (BUSINESS APPLICATIONS SPECIALIST) assists her, though there were communication issues with her providers due to language barriers. Health Maintenance - Recommended mammogram, which has yet not been completed due to shoulder issues. - Due for Pap smear and colonoscopy, which the patient has declined. - Encouraged smoking cessation, which the patient reports having achieved. [place] of Care - Coordination with vascular surgeon for potential surgery and evaluation of blood thinner management. - Involvement with equipment sterilizer for diabetes management. - [facility] [place] Patient Instructions - Continue taking prescribed blood thinners as directed. - Maintain scheduled times for medication to improve efficacy. - Monitor blood glucose levels and adhere to prescribed diabetes medication. - Schedule appointment with vascular specialist as advised. - Report any significant changes in symptoms to healthcare providers promptly. Orders: Orders Comprehensive Met. Panel Today E11.65 - Type 2 diabetes mellitus with hyperglycemia, E55.9 - Vitamin D deficiency, unspecified, F33.1 - Major depressive disorder, recurrent, moderate, G47.9 - Sleep disorder, unspecified, I70.202 - Unspecified atherosclerosis of [place] arteries of extremities, left leg, K21.9 - Gastro-esophageal reflux disease without esophagitis, M54.12 - Radiculopathy, cervical region, Z00.01 - Encounter for general adult medical examination with abnormal findings Vitamin D 25-OH (D2 and D3) Today E11.65 - Type 2 diabetes mellitus with hyperglycemia, E55.9 - Vitamin D deficiency, unspecified, F33.1 - Major depressive disorder, recurrent, moderate, G47.9 - Sleep disorder, unspecified, I70.202 - Unspecified atherosclerosis of [place] arteries of extremities, left leg, K21.9 - Gastro-esophageal reflux disease without esophagitis, M54.12 - Radiculopathy, cervical region, Z00.01 - Encounter for general adult medical examination with abnormal findings TSH reflex Free T4 Today E11.65 - Type 2 diabetes mellitus with hyperglycemia, E55.9 - Vitamin D deficiency, unspecified, F33.1 - Major depressive disorder, recurrent, moderate, G47.9 - Sleep disorder, unspecified, I70.202 - Unspecified atherosclerosis of [place] arteries of extremities, left leg, K21.9 - Gastro- esophageal reflux disease without esophagitis, M54.12 - Radiculopathy, cervical region, Z00.01 - Encounter for general adult medical examination with abnormal findings AMB Hemoglobin A1c Today Z13.9 - Encounter for screening, unspecified Microalbumin, Random (w Creat) Today E11.65 - Type 2 diabetes mellitus with hyperglycemia, E55.9 - Vitamin D deficiency, unspecified, F33.1 - Major depressive disorder, recurrent, moderate, G47.9 - Sleep disorder, unspecified, I70.202 - Unspecified atherosclerosis of [place] arteries of extremities, left leg, K21.9 - Gastro-esophageal reflux disease without esophagitis, M54.12 - Radiculopathy, cervical region, Z00.01 - Encounter for general adult medical examination with abnormal findings Complete Blood Count Auto Diff Today E11.65 - Type 2 diabetes mellitus with hyperglycemia, E55.9 - Vitamin D deficiency, unspecified, F33.1 - Major depressive disorder, recurrent, moderate, G47.9 - Sleep disorder, unspecified, I70.202 - Unspecified atherosclerosis of [place] arteries of extremities, left leg, K21.9 - Gastro-esophageal reflux disease without esophagitis, M54.12 - Radiculopathy, cervical region, Z00.01 - Encounter for general adult medical examination with abnormal findings LDL Cholesterol Direct Today E11.65 - Type 2 diabetes mellitus with hyperglycemia, E55.9 - Vitamin D deficiency, unspecified, F33.1 - Major depressive disorder, recurrent, moderate, G47.9 - Sleep disorder, unspecified, I70.202 - Unspecified atherosclerosis of [place] arteries of extremities, left leg, K21.9 - Gastro-esophageal reflux disease without esophagitis, M54.12 - Radiculopathy, cervical region, Z00.01 - Encounter for general adult medical examination with abnormal findings Referrals Vascular Surgery Referral I70.202 - Unspecified atherosclerosis of [place] arteries of extremities, left leg Medications: Changed From rivaroxaban (Xarelto) 2.5 mg PO Q24H 30 tabs 0RF To rivaroxaban (Xarelto) 2.5 mg PO BID 180 tabs 0RF 90 days From dulaglutide (Trulicity) 0.75 mg (0.5 mL) subcut QWEEK 2 mL 3RF To dulaglutide 0.75 mg (0.25 mL) subcut QWEEK 2 mL 3RF From dulaglutide 0.75 mg (0.25 mL) subcut QWEEK 2 mL 3RF To dulaglutide 1.5 mg (0.5 mL) subcut QWEEK 6.5 mL 3RF 90 days Refilled clopidogrel 75 mg PO DAILY 90 tabs 0RF
[2024-12-21 14:06] VITALS: BP 134/68; PULSE 88; TEMP 36.7; O2SAT 98; BMI 26.3
--- OUTSIDE RECORDS SUMMARY | 2024-12-21 14:41 | XMS_ITS | Clinical Summary ---
Author Organization [facility] Address [address] [place] [address] Care Team Providers Care Grapple Yarder Operator Name Role Phone Moisés Lewis MD Primary Care Provider [phone] Social History Tobacco Use Types Packs/Day Years [...] Cancer Screening (Colonoscopy) 2021 Influenza Vaccine (#1) 2025 Pneumococcal Vaccine Aged Out No long er eligible based on patient's age to complete this topic RSV Ped < 20 months Aged Out No longe r eligible based on patient's age to complete this topic Care Teams Grapple Yarder Operator Relationship Specialty Start Date End Date Moisés Lewis MD [address] [place] [address] [place] [address] PCP - General Internal Medicine 05/30/20
--- OUTSIDE RECORDS SUMMARY | 2024-12-21 14:41 | XMS_ITS | Clinical Summary ---
Author Organization [facility] Address [address] [place] [address] Care Team Providers Care [place] Agricultural Agent Name Role Phone Unavailable Primary Care Provider [...] 2021 Fecal DNA 2021 Flexible Sigmoidoscopy 2021 [id number] ( - season) 2024 Alcohol and Drug Screen 06/15/2024 Depression Annual Screen 06/15/2024 Dental Examination 11/14/2024 11/13/2023 Dental Perio Charting 11/14/2024 11/13/2023 Dental Prophy 11/14/2024 11/13/2023 Hypertension Screening (#1) 12/21/2024 Imm-Influenza (#1) 2025 04/22/2019 Cervical Ablation/Cold-Knife Conization Discontinued Cervical [...] to Health Maintenance Insurance [place] D[place] [facility] [place] [address] [address] [place] [address] HEALTH PLAN Member Subscriber Plan / Payer ( fective 2017-Present) Name:Aguilar Street Relation to Subscriber:Self Name:Aguilar Street Payer ID:[id number] Group ID:Not on file Type:Medicaid Address: [facility] [address] [place] [address]
--- OUTSIDE RECORDS SUMMARY | 2024-12-21 14:42 | XMS_ITS | Clinical Summary ---
Author Organization [facility] Address [address] [place] [address] Phone Care Team Providers Care Chemical Process Project Engineer Name Role Phone Moisés Lewis MD Primary Care Provider [phone] Allergies Active Allergy Reactions Criticality Noted Date [...] Units under the skin at bedtime. 4 Active insulin lispro (HumaLOG KwikPen) 100 unit/mL injection pen Inject 20 Units under the skin 3 (three) times a day before meals. 4 Active lidocaine (LIDODERM) 5 % patch Place 1 patch on the skin 1 (one) time each day. Active omeprazole 20 mg tablet,disintegr at, delay rel Take 20 mg by mouth [...] GREATER than 38 C (100.4 F). 4 Active Ventolin HFA 90 mcg/actuation inhaler Inhale 1 puff by mouth 4 (four) times a day. 5 Active cetirizine (ZyrTEC) 10 mg tablet Take 1 tablet (10 mg total) by mouth 1 (one) time each day. Active cyclobenzaprine (FLEXERIL) 10 mg tablet Take 1 tablet (10 mg total) by mouth 3 (three) times a day if needed for muscle spasms. 4 Active Trulicity 0.75 mg/0.5 mL pen injector injection Inject 0.5 mL (0.75 mg total) under the skin 1 (one) time per week. Active QUEtiapine (SEROquel) 50 mg tablet Take 1 tablet (50 mg total) by mouth 2 (two) times a day. Active rivaroxaban (XARELTO) 2.5 mg tablet Take 1 tablet (2.5 mg total) by mouth 2 (two) times a day with meals. 60 tablet 5 Active clopidogreL (PLAVIX) 75 mg tablet Take 1 tablet (75 mg total) by mouth 1 (one) time each day. 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 ([facility] V24, [facility] V28) 11/03/2024 Intractable pain 11/03/2024 Type 2 diabetes mellitus wit h hyperglycemia ([facility] V24, [facility] V28) 10/26/2024 Assessment & Plan (10/26/2024 3:48 AM EDT): - Would continue glycemic control in house using insulin regimen augmented by sliding scale - Consider interval A1c Hyperlipidemia 10/26/2024 Assessment & Plan (10/26/2024 3:47 AM EDT): - Will continue outpatient antilipid regimen unchanged Peripheral arterial disease ([facility] V24) 2024 Resolved Problems Problem Noted Date Diagnosed Date Resolved Date Acute occlusion of popliteal artery due to thromboembolism ([facility] V24, [facility]/HCC V28) 10/26/2024 10/28/2024 Assessment & Plan (10/26/2024 [...] 110 bpm, respiration 16 bpm, MPG 36.4 C, and O2 sat 95% on room air; [...] Encounters Date Type Department Care Team Description 11/02/2024 5:10 PM EDT - 11/03/2024 12:14 PM EDT Hospital Encounter [facility] Urology Unit [address] [place] [id number] Maco Frye MD Rasul, Yar M, MD Blue toe syndrome of left lower extremity (CMS/HCC V24, CMS/HCC V28) (Primary Dx); Hyperglycemia due to diabetes mellitus (CMS/HCC V24, CMS/HCC V28); Intractable pain Discharge Disposition: Home or Self Care 10/27/2024 7:30 AM EDT - 10/27/2024 8:30 AM EDT Surgery [facility] Cardiac Finance Attorney [address] [place] [phone] Boo Nash MD Angiography lower ext left 10/25/2024 7:40 PM EDT - 10/28/2024 2:08 PM EDT Hospital Encounter [facility] [address] [place] [address] Franki Hsieh MD Maduakor, Emmanuel C, MD Japaridze, Anna, MD Peripheral arterial disease ([facility] V24) (Primary Dx); Occlusion of left popliteal artery ([facility] V24); Critical limb ischemia of left lower extremity ([facility] V24, [facility] V28); Acute occlusion of popliteal artery due to thromboembolism ([facility] V24, [facility] V28) Discharge Disposition: [place]-Health [place] [facility] 10/25/2024 11:24 AM EDT - 10/25/2024 11:59 PM EDT Hospital Encounter [facility] MRI [address] [place] [address] Strain of muscle(s) and tendon(s) of the rotator cuff of left shoulder, initial encounter Discharge Disposition: Home or Self Care 10/10/2024 7:38 AM EDT - 10/10/2024 11:59 PM EDT Hospital Encounter [facility] Ortho Xray [address] [place] [address] Pain Discharge Disposition: Home or Self Care 10/03/2024 4:55 PM EDT - 10/03/2024 5:58 PM EDT Emergency [facility] Emergency [address] [place] [phone] Closed nondisplaced fracture of acromial end of [...] mellitus type 2, co ntrolled, with complications ([facility] V24, [facility] V28) DX:Diabetes mellitus type 2, controlled, with complications ([facility]) Arthritis DX:Arthritis Asthma DX:Asthma Glaucoma DX:Glaucoma Social [...] Sign Reading Time Taken Comments Blood Pressure 103/52 11/03/2024 9:15 AM EDT Pulse 73 11/03/2024 9:15 AM EDT Temperature 36.1 C (97 F) 11/03/2024 8:28 AM EDT Respiratory Rate 18 11/03/2024 8:28 AM EDT Oxygen Saturation 100% 11/03/2024 9:15 AM EDT Inhaled Oxygen Concentration - - Weight 73 kg (161 lb) 11/02/2024 4:01 PM EDT Height 170.2 cm (5' 7 ) 11/02/2024 4:01 PM EDT Body Mass Index 25.22 11/02/2024 4:01 PM EDT Plan of Treatment Health Maintenance Due Date Last Done Comments Breast Cancer Screening 1976 Diabetes: Annual Foot Exam 1986 Diabetes: Annual Retina Eye Exam 1986 DTaP,Tdap,and Td Vaccines (1 - Tdap) 1995 Hepatitis B Vaccines (1 of 3 - 19+ 3-dose series) 1995 Pneumococcal Vaccine: Pediatrics (0 to 5 Years) and At-Risk Patients (6 to 49 Years) (1 of 2 - PCV) 1995 Cervical Cancer Screening: Pap Smear 1997 Cholesterol Screening (Lipid Panel) 05/18/2022 Colorectal Cancer Screening: Colonoscopy 05/18/2022 Depression Screening 05/18/2022 HIV Screening 05/18/2022 Hepatitis C Screening 05/18/2022 Social Influencers of Health Screening 05/18/2022 COVID-19 Vaccine ( season) 2024 07/23/2021, 06/25/2021 Diabetes: Annual Urine Albumin-Creatinine Ratio (uACR) 10/26/2024 Influenza Vaccine (#1) 2025 2, 04/22/2019, 03/05/2018, Additional history exists Diabetes: Blood Sugar Control Test (HGBA1C) 05/06/2025 11/03/2024 Diabetes: Annual GFR (Glomerular Filtration Rate) 11/03/2025 11/03/2024, 11/02/2024, 10/26/2024, Additional history exists HIB Vaccines Aged Out No longer eligi [...] Associated Diagnosis Comments POCT GLUCOSE BLOOD Routine 11/03/2024 8: 28 AM EDT POCT GLUCOSE BLOOD Routine 11/03/2024 6: 19 AM EDT HEMOGLOBIN A1C Add-On 11/03/2024 5:27 AM EDT CBC WITH AUTO DIFFERENTIAL Routine 11/03/2024 5:27 AM EDT CBC AND DIFFERENTIAL Routine 11/03/2024 5:27 AM EDT BASIC METABOLIC PANEL Routine 11/03/2024 5:27 AM EDT POCT GLUCOSE BLOOD Routine 11/03/2024 3: 01 AM EDT TROPONIN I HIGH SENSITIVITY STAT 11/03/2024 2:51 AM EDT POC GLUCOSE STAT 11/03/2024 2:00 AM EDT TROPONIN I HIGH SENSITIVITY STAT 11/03/2024 1:53 AM EDT VENOUS BLOOD GAS STAT 11/03/2024 1:53 AM EDT POC GLUCOSE Routine 11/03/2024 12:42 AM EDT POCT GLUCOSE BLOOD Routine 11/03/2024 12 :41 AM EDT ECG ANNOTATED 11/03/2024 POC GLUCOSE Routine 11/02/2024 11:05 PM EDT POCT GLUCOSE BLOOD Routine 11/02/2024 10 :49 PM EDT LACTATE, WITH REFLEX Timed 11/02/2024 10:47 PM EDT POC , URINE DIAGNOSTIC STAT 11/02/2024 9:26 PM EDT RODRIGUEZ URINE CULTURE TUBE STAT 11/03/19 9:15 PM EDT URINALYSIS WITH REFLEX MICROSCOPIC AND CULTURE STAT 11/02/2024 9:15 PM EDT URINALYSIS WITH REFLEX MICROSCOPIC AND CULTURE STAT 11/02/2024 9:15 PM EDT ECG 12-LEAD STAT 11/02/2024 8:59 PM EDT POC GLUCOSE Routine 11/02/2024 8:50 PM EDT POCT GLUCOSE BLOOD Routine 11/02/2024 8: 49 PM EDT POCT GLUCOSE BLOOD Routine 11/02/2024 7: 33 PM EDT HEPATIC FUNCTION PANEL STAT Add-on 6:27 PM EDT BETA HYDROXYBUTYRATE Add-On 11/02/2024 6:27 PM EDT MAGNESIUM Add-On 11/02/2024 6:27 PM EDT CBC WITH AUTO DIFFERENTIAL STAT 11/02/2024 6:27 PM EDT LACTATE, WITH REFLEX STAT 11/02/2024 6:27 PM EDT BASIC METABOLIC PANEL STAT 11/02/2024 6:27 PM EDT CBC AND DIFFERENTIAL STAT 11/02/2024 6:27 PM EDT POCT GLUCOSE BLOOD Routine 10/28/2024 11 :09 AM EDT POCT GLUCOSE BLOOD Routine 10/28/2024 7 :43 AM EDT POCT GLUCOSE BLOOD Routine 10/27/2024 8: 19 PM EDT POCT GLUCOSE BLOOD Routine 10/27/2024 5: 16 PM EDT HEPARIN AND LOW MOLECULAR WEIGHT ANTI XA LEVEL STAT 10/27/2024 12:58 PM EDT POCT GLUCOSE BLOOD Routine 10/27/2024 12 :14 PM EDT POCT ACTIVATED CLOTTING TIME, KAOLIN Routine 10/27/2024 10:00 AM EDT POCT ACTIVATED CLOTTING TIME, KAOLIN Routine 10/27/2024 8:53 AM EDT INVASIVE VASCULAR PROCEDURE Routine 10/27/2024 8:42 AM EDT Peripheral arterial disease (CMS/HCC V24) SST - GOLD Routine 10/27/2024 5:57 AM EDT EXTRA TUBES Routine 10/27/2024 5:57 AM EDT HEPARIN AND LOW MOLECULAR WEIGHT ANTI XA LEVEL STAT 10/27/2024 5:57 AM EDT HEPARIN AND LOW MOLECULAR WEIGHT ANTI XA LEVEL STAT 10/27/2024 12:17 AM EDT POCT GLUCOSE BLOOD Routine 10/26/2024 8: 51 PM EDT HEPARIN AND LOW MOLECULAR WEIGHT ANTI XA LEVEL STAT 10/26/2024 6:18 PM EDT POCT GLUCOSE BLOOD Routine 10/26/2024 4: 37 PM EDT MRSA PCR Routine 10/26/2024 3:55 PM EDT POCT GLUCOSE BLOOD Routine 10/26/2024 1: 28 PM EDT HEPARIN AND LOW MOLECULAR WEIGHT ANTI XA LEVEL STAT 10/26/2024 12:02 PM EDT VAS US DUPLEX LOWER EXT VEIN MAP BILAT Routine 10/26/2024 9:24 AM EDT Peripheral arterial disease (CMS/HCC V24) CBC WITH AUTO DIFFERENTIAL Routine 10/26/2024 5:45 AM EDT CBC AND DIFFERENTIAL Routine 10/26/2024 5:45 AM EDT BASIC METABOLIC PANEL Routine 10/26/2024 5:45 AM EDT HEPARIN AND LOW MOLECULAR WEIGHT ANTI XA LEVEL STAT 10/26/2024 5:45 AM EDT HEPARIN AND LOW MOLECULAR WEIGHT ANTI XA LEVEL STAT 10/26/2024 12:12 AM EDT ACTIVATED PARTIAL THROMBOPLASTIN TIME STAT 10/26/2024 12:12 AM EDT PROTHROMBIN TIME WITH INR STAT 10/26/2024 12:12 AM EDT POCT GLUCOSE BLOOD Routine 10/25/2024 10 :[address] ANGIO LOWER EXTREMITY W AND/OR WO CONTRAST LEFT STAT 10/25/2024 10:35 PM EDT POCT GLUCOSE BLOOD Routine 10/25/2024 8: 16 PM EDT HCG, SERUM, QUALITATIVE STAT Add-on 10/26/19 5:31 PM EDT BETA HYDROXYBUTYRATE Add-On 10/25/2024 [...] Months Results * (ABNORMAL) POCT Glucose, blood (11/03/2024 8:28 AM EDT) Only the most recent of17 resultswithin the time period is included. Pathologist [facility] Glucose POCT 174(H) 70 - 100 mg/dL 11/03/2024 8:41 AM EDT [facility] Blood Capillary blood specimen / Unknown 11/03/2024 8:28 AM EDT 11/03/2024 8:42 AM EDT Bereket Alvarez MD LAB POINT OF CARE TE ST DOCKED DEVICE UNSOLICITED RESULTS Final Result [facility] [address] [place] [address], * (ABNORMAL) CBC auto differential (11/03/2024 5:27 AM EDT) Only the most recent of4 resultswithin the time period is included. [facility] WBC 8.8 4.8 - 10.8 K/mcL LAB [facility]OLOG[facility] RBC 4.00 3.80 - 4.80 M/mcL LAB HEMETOLOGY METHOD 11/03/2024 6:33 AM EDT [facility] Hemoglobin 12.6 11.5 - 16.0 g/dL LAB HEMETOLOGY METHOD [facility] Hematocrit 37.0 35.0 - 47.0 % LAB HEMETOLOGY METHOD 11/03/2024 6:33 AM EDT [facility] MCV 92.7 79.0 - 98.0 FL LAB HEMETOLOGY METHOD 11/03/2024 6:33 AM EDT [facility] MCH 31.6 27.0 - 32.0 pcg LAB HEMETOLOGY METHOD 11/03[facility]24 [facility] MCHC 34.1 32.0 - 37.0 g/dL LAB HEMETOLOGY METHOD 11/03/2024 6:33 AM [facility] RDW 12.2 11.0 - 15.0 % LAB HEMETOLOGY METHOD 11/03/2024 6:33 AM [facility] Platelets 236 130 - 400 K/mcL LAB HEMETOLOGY METHOD 11/03/2024 6:33 AM [facility] MPV 9.9 7.0 - 11.0 FL LAB HEMETOLOGY METHOD 11/03/2024 6:33 AM [facility] NRBC 0.0 <1.0 % LAB HEMETOLOGY METHOD 11/03/2024 6:33 AM [facility] NRBC Absolute 0.00 <0.10 K/mcL LAB HEMETOLOGY METHOD 11/03/2024 6:33 AM [facility] Neutrophils Relative 39.3 % LAB HEMETOLOGY METHOD 11/03/2024 6:33 AM [facility] Lymphocytes Relative 49.4 % LAB HEMETOLOGY METHOD 11/03/2024 6:33 AM [facility] Monocytes Relative 7.6 % LAB HEMETOLOGY METHOD 11/03/2024 6:33 AM [facility] Eosinophils Relative 2.6 % LAB HEMETOLOGY METHOD 11/03/2024 6:33 AM [facility] Basophils Relative 0.6 % LAB HEMETOLOGY METHOD 11/03/2024 6:33 AM [facility] Immature Granulocytes Relative 0.5 % LAB HEMETOLOGY METHOD 11/03/2024 6:33 AM [facility] Neutrophils Absolute 3.46 1.50 - 7.00 K/mcL LAB HEMETOLOGY METHOD 11/03/2024 6:33 AM [facility] Lymphocytes Absolute 4.35 1.00 - 5.00 K/mcL LAB HEMETOLOGY METHOD 11/03/2024 6:33 AM EDT [facility] Monocytes Absolute 0.67 0.20 - 1.00 K/[facility] LAB HEMETOLOGY METHOD 11/03/2024 6:33 AM EDT [facility] Eosinophils Absolute 0.23 0.00 - 0.50 K/[facility] LAB HEMETOLOGY METHOD 11/03/2024 6:33 AM EDT [facility] Basophils Absolute 0.05 0.00 - 0.20 K/[facility] LAB HEMETOLOGY METHOD 11/03/2024 6:33 AM EDT [facility] Immature Granulocytes Absolute 0.04(H) 0.00 - 0.03 K/[facility] LAB HEMETOLOGY METHOD 11/03/2024 6:33 AM EDT [facility] Blood Venous blood specimen / Unknown Venipuncture / Unknown 11/03/2024 5:27 AM EDT 11/03/2024 6:13 AM EDT us aMco Frye MD LAB BLOOD ORDERABLES Final Result [facility] [address] [place] [address], * (ABNORMAL) Hemoglobin A1c (11/03/2024 5:27 AM EDT) Hemoglobin A1C 12.1(H) <6.5 % LAB CHEMISTRY METHOD 11/06/2024 11:19 AM EDT [facility] Mean Bld Glu Estim. 301 mg/dL LAB CHEMISTRY METHOD 11/06/2024 11:19 AM EDT [facility] Blood Venous blood specimen / Unknown Venipuncture / Unknown 11/03/2024 5:27 AM EDT 11/03/2024 6:13 AM EDT us Bereket Alvarez MD LAB BLOOD ORDERABLES Final Resul t [facility] [address] [place] [address], * (ABNORMAL) Basic metabolic panel (11/03/2024 5:27 AM EDT) Only the most recent of4 resultswithin the time period is included. Sodium 138 133 - 145 mmol/L LAB CHEMISTRY METHOD 11/03/2024 7:16 AM [facility] Potassium 3.8 3.5 - 5.5 mmol/L LAB CHEMISTRY METHOD 11/03/2024 7:16 AM [facility] Chloride 106 96 - 110 mmol/L LAB CHEMISTRY METHOD 11/03/2024 7:16 AM [facility] CO2 26 21 - 32 mmol/L LAB CHEMISTRY METHOD 11/03/2024 7:16 AM [facility] Anion Gap 6 3 - 11 LAB CHEMISTRY METHOD 11/03/2024 7:16 AM [facility] Glucose 154(H) 70 - 100 mg/dL LAB CHEMISTRY METHOD 11/03/2024 7:16 AM [facility] BUN 16 5 - 25 mg/dL LAB CHEMISTRY METHOD 11/03/2024 7:16 AM [facility] Creatinine 0.40(L) 0.50 - 1.10 mg/dL LAB CHEMISTRY METHOD 11/03/2024 7:16 AM [facility] eGFR 122 >=60 mL/min/1. 73m2 LAB CHEMISTRY METHOD 11/03/2024 7:16 AM [facility] Comment:Calculation based on the Chronic Kidney Disease Epidemiology Collaboration (CKD-EPI) equation refit without adjustment for race. BUN/Creatinine Ratio 40.0 LAB CHEMISTRY METHOD 11/03/2024 7:16 AM [facility] Calcium 9.1 8.5 - 10.5 mg/dL LAB CHEMISTRY METHOD 11/03/2024 7:16 AM [facility] Blood Venous blood specimen / Unknown Venipuncture / Unknown 11/03/2024 5:27 AM EDT 11/03/2024 6:13 AM EDT Maco Frye MD LAB BLOOD ORDERABLES Final Result Performing Organization Address [facility] Co de Phone Number [facility] [address] [place] [address], [place] [phone] * Troponin I high sensitivity (11/03/2024 2:51 AM EDT) Only the most recent of2 resultswithin the time period is included. [facility] High Sensitivity Troponin I 4 <=54 ng/L LAB CHEMISTRY METHOD 11/03/2024 3:19 AM EDT [facility] Blood Venous blood specimen / Unknown Venipuncture / Unknown 11/03/2024 2:51 AM EDT 11/03/2024 2:56 AM EDT Narrative [facility] - 11/03/2024 3:19 AM EDT High levels of biotin in samples may falsely decrease hsTroponin values. Use caution when interpreting hsTroponin results in patients taking biotin who exhibit renal impairment (eGFR <60) or in patients taking more than 20 mg/day of biotin. [facility] LAB BLOOD ORDERABLES Marcia l Result Performing Organization Address City/[facility]/ZIP Co de Phone Number [facility] [address] [place] [address], [place] [phone] * (ABNORMAL) POCT glucose (11/03/2024 2:00 AM EDT) Only the most recent of4 resultswithin the time period is included. [facility] Glucose POC 322(A) 70 - 110 mg/dL Blood Capillary blood specimen / Unknown 11/03/2024 2:00 AM EDT [facility] POINT OF CARE TEST ENTER/ EDIT ORDERABLES Final Result * (ABNORMAL) Blood gas, venous (11/03/2024 1:53 AM EDT) pH, Hua 7.41 7.32 - 7.42 pH 11/03/2024 2:03 AM EDT [facility] pCO2, Hua 44 41 - 51 mmHg 11/03/2024 2:03 AM EDT [facility] pO2, Hua 63(H) 25 - 40 mmHg 11/03/2024 2:03 AM EDT [facility] HCO3, Venous 27.0(H) 22.0 - 26.0 mmol/L 11/03/2024 2:03 AM EDT [facility] O2 Sat, Hua 93.1 % 11/03/2024 2:03 AM EDT [facility] Base Excess, Hua 2.8(H) -2.0 - 2.0 mmol/L 11/03/2024 2:03 AM EDT [facility] Blood Venous blood specimen / Unknown Venipuncture / Unknown 11/03/2024 1:53 AM EDT 11/03/2024 1:57 AM EDT [facility] LAB BLOOD ORDERABLES Marcia l Result [facility] [address] [place] [address], * ECG-Annotated (11/03/2024) Provider Onbase MD ECG ORDERABLES Final Result * (ABNORMAL) Lactate, with reflex (11/02/2024 10:47 PM EDT) Only the most recent of2 resultswithin the time period is included. LACTIC ACID 2.7(H) 0.4 - 2.0 mmol/L LAB CHEMISTRY METHOD 11/02/2024 11:36 PM EDT [facility] Blood Venous blood specimen / Unknown Venipuncture / Unknown 11/02/2024 10:47 PM EDT 11/02/2024 11:06 PM EDT [facility] LAB BLOOD ORDERABLES Marcia l Result [facility] [address] [place] [address], [place] [phone] * POC , urine manually resulted (11/02/2024 9:26 PM EDT) Pathologist [facility] HCG, Ur POC Negative Negative POC hCG Int QC Pass? Yes Yes Urine Urine specimen obtained by clean catch procedure / Unknown 11/02/2024 9:26 PM EDT Maco Frye MD POINT OF CARE TEST ENTER/ED IT ORDERABLES Final Result * (ABNORMAL) Urinalysis with reflex microscopic and culture (11/02/2024 9:15 PM EDT) Pathologist [facility] Specific [place] Urine 1.040(H) 1.003 - 1.030 LAB URINALYSIS - AUTOMATED METHOD 11/02/2024 10:06 PM T [facility] pH, Urine 6.0 5.0 - 8.0 pH LAB URINALYSIS - AUTOMATED METHOD 11/02/2024 10:06 PM T [facility] Leukocytes, Urine Negative Negative LAB URINALYSIS - AUTOMATED METHOD 11/02/2024 10:06 PM T [facility] Nitrite, Urine Negative Negative LAB URINALYSIS - AUTOMATED METHOD 11/02/2024 10:06 PM T [facility] Protein, Urine Negative <=Trace mg/dL LAB URINALYSIS - AUTOMATED METHOD 11/02/2024 10:06 PM [facility] Glucose, Urine >=1000(A) Negative mg/dL LAB URINALYSIS - AUTOMATED METHOD 11/02/2024 10:06 PM EDT [facility] Ketones, Urine Negative Negative mg/dL LAB URINALYSIS - AUTOMATED METHOD 11/02/2024 10:06 PM EDT [facility] Urobilinogen , Urine 0.2 0.2 - 1.0 mg/dL LAB URINALYSIS - AUTOMATED METHOD 11/02/2024 10:06 PM EDT [facility] Bilirubin, Urine Negative Negative LAB URINALYSIS - AUTOMATED METHOD 11/02/2024 10:06 PM EDT [facility] Blood, Urine Negative Negative LAB URINALYSIS - AUTOMATED METHOD 11/02/2024 10:06 PM T [facility] Urine Urine specimen obtained by clean catch procedure / Unknown Non-blood Collection / Unknown 11/02/2024 9:15 PM EDT 11/02/2024 9:54 PM EDT [facility] URINE ORDERABLES Marcia l Result Performing Organization Address City/[facility]/ZIP Co de Phone Number [facility] [address] [place] [address], [place] [phone] * Rodriguez urine culture tube (11/02/2024 9:15 PM EDT) Extra Tube Hold for add-ons. 11/02/2024 11:01 PM EDT [facility] Comment:Auto resulted. Urine Urine specimen obtained by clean catch procedure / Unknown Non-blood Collection / Unknown 11/02/2024 9:15 PM EDT 11/02/2024 9:53 PM EDT [facility] URINE ORDERABLES Marcia l Result Performing Organization Address [facility]/ZIP Co de Phone Number [facility] [address] [place] [address], [place] [phone] * ECG 12 lead (11/02/2024 8:59 PM EDT) Ventricular Rate ECG 80 BPM GEMUSE Atrial Rate 80 BPM GEMUSE P-R Interval 136 ms GEMUSE QRS Duration 84 ms GEMUSE Q-T Interval 398 ms GEMUSE QTc 459 ms GEMUSE P Wave [place] 46 degrees GEMUSE R [place] 50 degrees GEMUSE T [place] 59 degrees GEMUSE ECG Interpretation Normal sinus rhythm Low voltage QRS Borderline ECG When compared with ECG of 09-APR-2019 20:37, No significant change was found Confirmed by MD Billy, Maco ([id number]) on 11/04/2024 7:16:53 AM GEMUSE 11/02/2024 8:59 PM EDT 11/04/2024 7:16 AM EDT [facility] ECG ORDERABLES Final Res ult Performing Organization Address City/[facility]/ZIP Co de Phone Number GEMUSE * Beta hydroxybutyrate (11/02/2024 6:27 PM EDT) Only the most recent of2 resultswithin the time period is included. [facility] Beta-Hydroxybu tyrate 1.1 0.2 - 2.8 mg/dL LAB CHEMISTRY METHOD 11/02/2024 8:08 PM EDT [facility] Blood Venous blood specimen / Unknown Venipuncture / Unknown 11/02/2024 6:27 PM EDT 11/02/2024 6:34 PM EDT [facility] LAB BLOOD ORDERABLES Marcia l Result Performing Organization Address [facility]/State/ZIP Co de Phone Number [facility] [address] [place] [address], [place] [phone] * (ABNORMAL) Magnesium (11/02/2024 6:27 PM EDT) [facility] Magnesium 1.8(L) 1.9 - 2.6 mg/dL LAB CHEMISTRY METHOD 11/02/2024 8:08 PM EDT [facility] Comment:Hemolysis present Blood Venous blood specimen / Unknown Venipuncture / Unknown 11/02/2024 6:27 PM EDT 11/02/2024 6:34 PM EDT us [facility] P[facility] LAB BLOOD ORDERABLES Marcia l Result [facility] [address] [place] [address], [place] [phone] * (ABNORMAL) Hepatic Function Panel - STAT (11/02/2024 6:27 PM EDT) Total Protein 6.9 6.0 - 8.0 g/dL LAB CHEMISTRY METHOD 11/02/2024 11:09 PM [facility] Albumin 3.3 3.2 - 5.0 g/dL LAB CHEMISTRY METHOD 11/02/2024 11:09 PM [facility] Total Bilirubin 0.2 0.0 - 1.4 mg/dL LAB CHEMISTRY METHOD 11/02/2024 11:09 PM [facility] Bilirubin, Direct <0.1 0.0 - 0.3 mg/dL LAB CHEMISTRY METHOD 11/02/2024 11:09 PM [facility] Bilirubin, Indirect LAB CHEMISTRY METHOD 11/02/2024 11:09 PM [facility] Comment:Unable to calculate Indirect Bilirubin. ALT (SGPT) 37 10 - 60 unit/L LAB CHEMISTRY METHOD 11/02/2024 11:09 PM [facility] AST (SGOT) 17 10 - 42 unit/L LAB CHEMISTRY METHOD 11/02/2024 11:09 PM [facility] Alkaline Phosphatase 127(H) 42 - 121 unit/L LAB CHEMISTRY METHOD 11/02/2024 11:09 PM [facility] Blood Venous blood specimen / Unknown Venipuncture / Unknown 11/02/2024 6:27 PM EDT 11/02/2024 6:34 PM EDT [facility] LAB BLOOD ORDERABLES Marcia l Result [facility] [address] [place] [address], [place] [phone] * (ABNORMAL) Anti-Xa - Every 6 Hours (10/27/2024 12:58 PM EDT) Only the most recent of7 resultswithin the time period is included. Heparin Anti-Xa 0.23(L) 0.30 - 0.70 I Unit/mL LAB COAGULATION METHOD 10/27/2024 1:40 PM EDT [facility] Blood Venous blood specimen / Unknown Venipuncture / Unknown 10/27/2024 12:58 PM EDT 10/27/2024 1:20 PM EDT Narrative [facility] - 10/27/2024 1:40 PM EDT Therapeutic range listed is for Unfractionated Heparin. LMW Heparin therapeutic range: 0.50-1.20 IU/mL Chantal PONCE LAB BLOOD ORDERABLES Final Re sult Performing Organization Address [facility]/ZIP Co de Phone Number [facility] [address] [place] [address], [place] [phone] * (ABNORMAL) POCT activated clotting time,kaolin (10/27/2024 10:00 AM EDT) Only the most recent of2 resultswithin the time period is included. Activated Clotting Time Kaolin 187(H) 74 - 137 sec 10/27/2024 10:02 AM EDT [facility] Blood Venous blood specimen / Unknown 10/27/2024 10:00 AM EDT 10/27/2024 10:03 AM EDT Bridgett Boyle MD LAB POINT OF CARE TE ST DOCKED DEVICE UNSOLICITED RESULTS Final Result Performing Organization Address [facility]/ZIP Co de Phone Number [facility] [address] [place] [address], [place] [phone] * ANGIOGRAPHY LOWER EXT LEFT (10/27/2024 8:42 AM EDT) Anatomical Region Laterality Modality X-Ray Angiograph y Narrative 11/02/2024 11:41 AM EDT Per op Note Study Details Per op note Clinical Background Per op Note Procedure Details Per op Note Chantal PONCE CV INVASIVE VASCULAR PROCEDUR ES Final Result * SST tube (10/27/2024 5:57 AM EDT) Pathologist [facility] Extra Tube Hold for add-ons. 10/27/2024 8:01 AM EDT [facility] Comment:Auto resulted. Blood Venous blood specimen / Unknown Venipuncture / Unknown 10/27/2024 5:57 AM EDT 10/27/2024 6:20 AM EDT Bridgett Boyle MD LAB BLOOD ORDERABLES Final Res ult Performing Organization Address [facility]/ZIP Co de Phone Number [facility] [address] [place] [address], [place] [phone] * MRSA molecular study (10/26/2024 3:55 PM EDT) Pathologist [facility] MRSA Screen PCR Not Detected Not Detected LAB MICROBIOLOGY METHOD 10/26/2024 5:38 PM EDT [facility] Swab Both anterior nares / Unknown Non-blood Collection / Unknown 10/26/2024 3:55 PM EDT 10/26/2024 4:25 PM EDT Bridgett Boyle MD LAB MICROBIOLOGY - GENERAL ORD ERABLES Final Result [facility] [address] [place] [address], * Vascular US duplex lower extremity vein map bilateral (10/26/2024 9:24 AM EDT) Anatomical Region Laterality Modality Vascular, Abdomen Ultrasound 10/26/2024 9:45 AM EDT Impressions 10/26/2024 9:51 AM EDT The greater saphenous veins are patent bilaterally. Their diameters are as above. Code 04342 -------- FINAL REPORT -------- Dictated By: Mathieu Lopez Dictated Date: 10/26/2024 09:45 ET Assigned Physician: Mathieu Lopez Reviewed and Electronically Signed By: Mathieu Lopez Signed Date: 10/26/2024 09:51 ET Workstation ID: [id number] Transcribed By: Self Edit Transcribed Date: 10/26/2024 [...] patent bilaterally. Their diameters are asabove. Code 55863 -------- FINAL REPORT -------- Dictated By: Mathieu Lopez Dictated Date: 10/26/2024 09:45 ET Assigned Physician: Mathieu Lopez Reviewed and Electronically Signed By: Mathieu Lopez Signed Date: 10/26/2024 09:51 ET Workstation ID: [id number] Transcribed By: Self Edit Transcribed Date: 10/26/2024 09:45 ET us Solomon PONCE CV VASCULAR PROCEDURES Final Res ult * Activated Partial Thromboplastin Time - STAT (10/26/2024 12:12 AM EDT) aPTT 29.5 24.1 - 39.3 sec LAB COAGULATION METHOD 10/26/2024 12:32 AM EDT [facility] ([facility]) [facility] Blood Venous blood specimen / Unknown Venipuncture / Unknown 10/26/2024 12:12 AM EDT 10/26/2024 12:16 AM EDT us Solomon PONCE LAB BLOOD ORDERABLES Final Resul t [facility] [address] [place] [address], [place] [phone] * (ABNORMAL) Prothrombin Time with INR - STAT (10/26/2024 12:12 AM EDT) Protime 10.5(L) 10.6 - 13.9 sec LAB COAGULATION METHOD 10/26/2024 12:32 AM EDT [facility] INR 0.8 LAB COAGULATION METHOD 10/26/2024 12:32 AM EDT [facility] Blood Venous blood specimen / Unknown Venipuncture / Unknown 10/26/2024 12:12 AM EDT 10/26/2024 12:16 AM EDT us Solomon PONCE LAB BLOOD ORDERABLES Final Resul t [facility] [address] [place] [address], [place] [phone] * CT Angio Lower Extremity w and/or [...] left external iliac artery patent. Moderate left TRANSLATOR INTERPRETER and PFA origins stenosis. Multifocal mild left [...] left external iliac artery patent. Moderate left TRANSLATOR INTERPRETER and PFA origins stenosis. Multifocal mild left [...] Asif MD on 10/25/2024 23:24:[address] PROCEDURES Edited Result - Final * (ABNORMAL) Sedimentation rate, automated (10/25/2024 5:31 PM EDT) Sed Rate 82(H) 0 - 20 mm/hr LAB HEMETOLOGY METHOD 10/25/2024 6:45 PM EDT [facility] Blood Venous blood specimen / Unknown Venipuncture / Unknown 10/25/2024 5:31 PM EDT 10/25/2024 5:43 PM EDT us Franki Hsieh MD LAB BLOOD ORDERABLES Final Resu lt Performing Organization Address [facility]/ZIP Co de Phone Number [facility] [address] [place] [address], [place] [phone] * (ABNORMAL) C-reactive protein (10/25/2024 5:31 PM EDT) C-Reactive Protein 1.14(H) <=0.50 mg/dL LAB CHEMISTRY METHOD 10/25/2024 6:13 PM EDT [facility] Blood Venous blood specimen / Unknown Venipuncture / Unknown 10/25/2024 5:31 PM EDT 10/25/2024 5:43 PM EDT us Franki Hsieh MD LAB BLOOD ORDERABLES Final Resu lt Performing Organization Address [facility] Co de Phone Number [facility] [address] [place] [address], [place] [phone] * hCG, serum, qualitative (10/25/2024 5:31 PM EDT) hCG Qual Negative Negative 10/25/2024 10:13 PM EDT [facility] Blood Venous blood specimen / Unknown Venipuncture / Unknown 10/25/2024 5:31 PM EDT 10/25/2024 5:43 PM EDT us Franki Hsieh MD LAB BLOOD ORDERABLES Final Resu lt Performing Organization Address [facility]/ZIP Co de Phone Number [facility] [address] [place] [address], [place] [phone] * MR Shoulder wo Contrast Left (10/25/2024 [...] Signed Date: 10/25/2024 13:04 ET Workstation ID: [id number] Transcribed By: Self Edit Transcribed Date: 10/25/2024 [...] Signed Date: 10/25/2024 13:04 ET Workstation ID: [id number] Transcribed By: Self Edit Transcribed Date: 10/25/2024 12:51 ET Maco Mcgrath MD IMG MRI PROCEDURES Final Result * XR Clavicle Complete Left (10/10/2024 10:55 AM EDT) Narrative RIS PACS/VR - 10/10/2024 10:55 AM EDT This order has been auto-finalized and does not contain a result. Maco Mcgrath MD IMG XR PROCEDURES Final R esult RIS PACS/VR * XR Shoulder 2+ Views Left (10/03/2024 4:37 PM EDT) Anatomical Region Laterality Modality Upper Extremities, Shoulder Left Radi ographic Imaging 10/03/2024 4:45 PM EDT Impressions 10/03/2024 4:46 PM EDT FINDINGS/IMPRESSION: Osteopenia. There is lucency of the distal clavicle which could represent nondisplaced fracture. Otherwise no fracture or dislocation. -------- FINAL REPORT -------- Dictated By: Nataliia Tapia Dictated Date: 10/03/2024 16:45 ET Assigned Physician: Nataliia Tapia Reviewed and Electronically Signed By: Nataliia Tapia Signed Date: 10/03/2024 16:46 ET Workstation ID: [id number] Transcribed By: Self Edit Transcribed Date: 10/03/2024 [...] Signed Date: 10/03/2024 16:46 ET Workstation ID: [id number] Transcribed By: Self Edit Transcribed Date: 10/03/2024 16:45 ET Inder Hsieh DO IMG XR PROCEDURES Final Result from Last 3 Months Insurance [facility] Advance Directives * Full Code - Default (Latest Code Status on File) Date Activated Date Inactivated Comments 11/03/2024 1:00 AM 11/03/2024 2:19 PM This is orde r is used when code status has not been discussed with the patient, or code status is otherwise unknown/unconfirmed To update the patient's code status, place a code status order. Do not modify or discontinue any currently active code status orders. * Full Code - Default Date Activated Date Inactivated Comments 10/27/2024 8:38 [...] currently active code status orders. Care Teams Chemical Process Project Engineer Relationship Specialty Start Date End Date Moisés Lewis MD [address] [place] [address] PCP - General Internal Medicine 08/07/11
== END 2024-12-21 14:37 | disposition home or self-care (01) ==
LOC: HO.HMCC 13:58
PROVIDERS: PCP Internal Medicine; Visit Provider Internal Medicine
DX: Z00.01 Encounter for general adult medical examination with abnormal findings (principal); I70.202 Unspecified atherosclerosis of native arteries of extremities, left leg; G47.9 Sleep disorder, unspecified; E11.65 Type 2 diabetes mellitus with hyperglycemia; F33.1 Major depressive disorder, recurrent, moderate; M54.12 Radiculopathy, cervical region; K21.9 Gastro-esophageal reflux disease without esophagitis; E55.9 Vitamin D deficiency, unspecified; Z99.89 Dependence on other enabling machines and devices; Z53.20 Procedure and treatment not carried out because of patient's decision for unspecified reasons

== ENCOUNTER → 2024-12-21 13:57 | Outpatient (BNVA) | payer OTHER, SELFPAY | PROVIDERS: PCP Internal Medicine; Visit Provider Internal Medicine | DX: Z00.01 Encounter for general adult medical examination with abnormal findings (principal); E11.9 Type 2 diabetes mellitus without complications; I70.202 Unspecified atherosclerosis of native arteries of extremities, left leg; G47.9 Sleep disorder, unspecified; M54.12 Radiculopathy, cervical region; K21.9 Gastro-esophageal reflux disease without esophagitis; E55.9 Vitamin D deficiency, unspecified; E11.65 Type 2 diabetes mellitus with hyperglycemia; F33.1 Major depressive disorder, recurrent, moderate; Z99.89 Dependence on other enabling machines and devices | CPT/HCPCS: 83036; 99212; 99396 ==

== ENCOUNTER 2025-01-02 14:38 | Outpatient (AMB) | payer OTHER, SELFPAY ==
--- NOTE | 2025-01-02 14:46 | A.OFFVIS_ITS ---
Vital Signs 01/02/25 14:48 Height 5 ft 7 in Weight 167 lb 8.821 oz BMI 26.2 BP 116/68 Blood Pressure Location Rt brachial Position Sitting Pulse 96 Pulse Source Pulse Oximeter Pulse Oximetry (%) 99 Oxygen Delivery Method Room Air Intake Visit Reasons: T2DM Intake Note: Patient present today for Type 2 Diabetes Mellitus Last Diabetic eye exam: DUE, needs a referral Last Podiatry Visit: Patient does not see a Riding Coach Random Glucose: 322 mg/dL Most Recent HgA1C: 12.3% 12/21/24 Structural Iron Erector Required: Yes Structural Iron Erector Language: Mid Level Practitioner Services: Structural Iron Erector Present Structural Iron Erector Name: ANTHONY Argueta Accompanied by: Self / Same As Patient Allergies ibuprofen (From Motrin) Allergy (Unknown, Verified 01/02/25 14:47) Rash, Stomach upset gadobutrol (From GADAVIST) Adverse Reaction (Mild, Verified 01/02/25 14:47) NAUSEA & VOMITING venlafaxine Adverse Reaction (Unknown, Verified 01/02/25 14:47) halucinations Medication List - Last Reconciled 01/02/25 by Josy Ahn PA-C acetaminophen (Tylenol) 650 mg (2 x 325 mg) PO Q4H PRN albuterol sulfate 90 mcg/actuation (Proventil HFA) 1 inh inhalation QID PRN 30 days blood sugar diagnostic (FreeStyle Lite Strips) As directed checks 3X/day blood-glucose meter (FreeStyle Lite Meter kit) As directed for use with freestyle lite test strips blood-glucose sensor (FreeStyle Ria 3 Sensor device) Apply every 14 days As directed to monitor blood glucose blood-glucose,insole channeler,cont (FreeStyle Ria 3 [place]) Use daily As directed to monitor blood glucose cetirizine 10 mg PO DAILY clopidogrel 75 mg PO DAILY commode (bedside commode) As directed commode (bedside commode) As directed cyclobenzaprine 10 mg PO TID PRN diclofenac sodium 1% (Voltaren Arthritis Pain) 4 grams topical QID diclofenac sodium 1% 4 grams topical QID 30 days dulaglutide 1.5 mg (0.5 mL) subcut QWEEK 90 days fluticasone propionate 50 mcg/actuation (Aller-Benedicto) 1 spray intranasal BID gabapentin 600 mg PO BEDTIME 90 days insulin lispro (Humalog KwikPen (U-100) Insulin) 20 units (0.2 mL) subcut TIDWMEAL 30 days lancets (FreeStyle Lancets) use 3 times daily to check blood glucose omeprazole 20 mg PO DAILY@0630 pen needle, diabetic use qid As directed quetiapine 25 mg PO BEDTIME 90 days [Rib belt wear rib belt to help reduce pain] rivaroxaban (Xarelto) 2.5 mg PO BID 90 days sennosides (senna) mg PO Ventolin HFA 90 mcg/actuation (albuterol sulfate) 1 inh inhalation QID PRN NS walker As directed HPI HPI T2DM: Details: Patient is a 49-year-old female with a significant past medical history of hyperlipidemia, uncontrolled type 2 diabetes, GERD, anxiety, depression, history of narcotic dependence presenting today for follow up regarding her diabetes. Structural Iron Erector Jennifer Dodson: She is overdue labs She is currently on lispro 20 units t.i.d., Lantus 52 units nightly, and Trulicity 1.5 mg weekly. She has not taken the increased dosage of trulicity. bs this am 180 per pt No low blood sugars CGM-91% usage, G mi 9.7. very hyperglycemic 61%, hyperglycemic 23%, in range 15%, 0% hypoglycemia She has not yet gotten labs. [facility] Medical History Internal derangement of left knee Vitamin D deficiency Asthma Type 2 diabetes mellitus with hyperglycemia, with long-term current use of insulin Hyperlipidemia LDL goal <100 Cervical stenosis of spinal canal Degeneration, intervertebral disc, cervical Spondylosis, cervical Postlaminectomy syndrome, lumbar Dyspepsia Chronic GERD Narcotic dependence Environmental allergies Failed back syndrome Tobacco abuse Insomnia Depression, major, recurrent, moderate Diabetes mellitus, insulin dependent (IDDM), uncontrolled Surgical History History of thrombectomy History of lumbar surgery Hx of right knee surgery (08/2011) Family History Father Asthma Mother Diabetes HTN (hypertension) Colon cancer Dialysis patient Brother Substance abuse Social History Household Members: None Housing: Apartment Alcohol intake: never Patient Tobacco Use Status: Current everyday Tobacco user e-Cigarette/Vaping Use: Never Used service: No Current occupational status: disabled Current occupation: rt handed Cognitive needs: No Hearing needs: No Vision needs: No Physical Exam Vital Signs: Last Vital Signs Pulse 96 01/02/25 14:48 BP 116/68 01/02/25 14:48 Pulse Ox 99 01/02/25 14:48 Oxygen Delivery Method Room Air 01/02/25 14:48 BMI result Body Mass Index 26.2 Const Orientation/consciousness: patient oriented x3 Neck Neck: Yes no lymphadenopathy Thyroid: Thyroid normal Carotids: no bruits Resp Auscultation: clear to auscultation bilaterally Cardio Rate: regular rate Rhythm: regular rhythm Heart sounds: S1 normal heart sound present and S2 normal heart sound present Neuro General: patient oriented x3, gait normal and no focal motor deficits Results Reviewed Results Reviewed: Laboratory Last Values Glucose (Clinic) 322 mg/dL (60-115) H 01/02/25 14:53 Assessment & Plan Assessment & Plan (1) Type 2 diabetes mellitus with hyperglycemia, with long-term current use of insulin: Code(s): E11.65 - Type 2 diabetes mellitus with hyperglycemia; Z79.4 - correction (current) use of insulin Category: Medical Plan: stop lantus start toujeo 60 units nightly continue humalog 20 units with meals increase the trulicity to the 1.5 mg weekly Medications: New insulin glargine U-300 conc (Toujeo Max U-300 SoloStar) 60 units (0.2 mL) subcut DAILY 6 mL 5RF 30 days Refilled insulin lispro (Humalog KwikPen (U-100) Insulin) 20 units (0.2 mL) subcut TIDWMEAL 18 mL 3RF 30 days Patient Instructions: stop lantus start toujeo 60 units nightly continue humalog 20 units with meals increase the trulicity to the 1.5 mg weekly Coding Level of Care Code Est Pt Level 4 (65700) Complex EM visit Add On G2211 Diagnoses Type 2 diabetes mellitus with hyperglycemia, with long-term current use of insulin E11.65; Z79.4
[2025-01-02 14:48] VITALS: BP 116/68; PULSE 96; O2SAT 99; BMI 26.2
[2025-01-02 15:03] LABS: Glucose, Whole Blood 322 mg/dL (60-115)
--- OUTSIDE RECORDS SUMMARY | 2025-01-02 15:28 | XMS_ITS | Clinical Summary ---
Author Organization [facility] Address [address] [place] [address] Care Team Providers Care Cracker Dough Mixer Name Role Phone Moisés Lewis MD Primary Care Provider [phone] Social History Tobacco Use Types Packs/Day Years [...] age to complete this topic Care Teams Cracker Dough Mixer Relationship Specialty Start Date End Date Moisés Lewis MD [address] [place] [address] [place] [address] PCP - General Internal Medicine 05/30/20
--- OUTSIDE RECORDS SUMMARY | 2025-01-02 15:28 | XMS_ITS | Clinical Summary ---
Author Organization [facility] Address [address] [place] [address] Care Team Providers Care Adventure Challenge Instructor Name Role Phone Unavailable Primary Care Provider [...] 2021 Fecal DNA 2021 Flexible Sigmoidoscopy 2021 [id number] ( - season) 2024 Alcohol and Drug [...] to Health Maintenance Insurance [place] D[place] [facility] [place] [address] [address] [place] [address] HEALTH PLAN Member Subscriber Plan / Payer ( fective 2017-Present) Name:Aguilar Street Relation to Subscriber:Self Name:Aguilar Street Payer ID:[id number] Group ID:Not on file Type:Medicaid Address: [facility] [address] [place] [address]
--- OUTSIDE RECORDS SUMMARY | 2025-01-02 15:28 | XMS_ITS | Clinical Summary ---
Author Organization [facility] Address [address] [place] [address] Phone Care Team Providers Care Member Services Representative Name Role Phone Moisés Lewis MD Primary Care Provider [phone] Allergies Active Allergy Reactions Criticality Noted Date [...] day with meals. 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 ([facility] V24, [facility] V28) 11/03/2024 Intractable pain 11/03/2024 Type 2 diabetes mellitus wit h hyperglycemia ([facility] V24, [facility] V28) 10/26/2024 Assessment & Plan (10/26/2024 3:48 AM EDT): - Would continue glycemic control in house using insulin regimen augmented by sliding scale - Consider interval A1c Hyperlipidemia 10/26/2024 Assessment & Plan (10/26/2024 3:47 AM EDT): - Will continue outpatient antilipid regimen unchanged Peripheral arterial disease ([facility] V24) 2024 Resolved Problems Problem Noted Date Diagnosed Date Resolved Date Acute occlusion of popliteal artery due to thromboembolism ([facility] V24, [facility] V28) 10/26/2024 10/28/2024 Assessment & Plan (10/26/2024 [...] - 11/03/2024 12:14 PM EDT Hospital Encounter [facility] Urology Unit [address] [place] [phone] Maco Frye MD Rasul, Yar M, MD Blue toe syndrome of left lower extremity (CMS/HCC V24, CMS/HCC V28) (Primary Dx); Hyperglycemia due to diabetes mellitus (CMS/HCC V24, CMS/HCC V28); Intractable pain Discharge Disposition: Home or Self Care 10/27/2024 7:30 AM EDT - 10/27/2024 8:30 AM EDT Surgery [facility] Cardiac Contingents Supervisor [address] [place] [phone] Boo Nash MD Angiography lower ext left 10/25/2024 7:40 PM EDT - 10/28/2024 2:08 PM EDT Hospital Encounter [facility] Urology Unit [address] [place] [phone] Franki Hsieh MD Maduakor, Emmanuel C, MD Japaridze, Anna, MD Peripheral arterial disease ([facility] V24) (Primary Dx); Occlusion of left popliteal artery ([facility] V24); Critical limb ischemia of left lower extremity ([facility] V24, [facility] V28); Acute occlusion of popliteal artery due to thromboembolism ([facility] V24, [facility] V28) Discharge Disposition: Home-Health Care Svc 10/25/2024 11:24 AM EDT - 10/25/2024 11:59 PM EDT Hospital Encounter [facility] MRI [address] [place] [phone] Strain of muscle(s) and tendon(s) of the rotator cuff of left shoulder, initial encounter Discharge Disposition: Home or Self Care 10/10/2024 7:38 AM EDT - 10/10/2024 11:59 PM EDT Hospital Encounter [facility] Ortho Xray [address] [place] [phone] Pain Discharge Disposition: Home or Self Care 10/03/2024 4:55 PM EDT - 10/03/2024 5:58 PM EDT Emergency [facility] Emergency [address] [place] [phone] Closed nondisplaced fracture of acromial end of [...] mellitus type 2, co ntrolled, with complications ([facility] V24, [facility] V28) DX:Diabetes mellitus type 2, controlled, with complications ([facility]) Arthritis DX:Arthritis Asthma DX:Asthma Glaucoma DX:Glaucoma Social [...] Panel) 05/18/2022 Colorectal Cancer Screening: Colonoscopy 05/18/2022 HIV Screening 05/18/2022 Hepatitis C Screening 05/18/2022 Social Influencers of Health Screening 05/18/2022 COVID-19 Vaccine ( season) 2024 07/23/2021, 06/25/2021 Depression Screening 06/15/2024 Diabetes: Annual Urine Albumin-Creatinine Ratio (uACR) 10/26/2024 [...] PM EDT POCT GLUCOSE BLOOD Routine 11/02/2024 8 :49 PM EDT POCT GLUCOSE BLOOD Routine 11/02/2024 [...] PM EDT POCT GLUCOSE BLOOD Routine 10/27/2024 5 :16 PM EDT HEPARIN AND LOW MOLECULAR WEIGHT [...] of17 resultswithin the time period is included. [facility] Signature Glucose POCT 174(H) 70 - 100 mg/dL 11/03/2024 8:41 AM EDT [facility] Blood Capillary blood specimen / Unknown 11/03/2024 8:28 AM EDT 11/03/2024 8:42 AM EDT Bereket Alvarez MD LAB POINT OF CARE TE ST DOCKED DEVICE UNSOLICITED RESULTS Final Result [facility] [address] [place] [address], [place] [phone] * (ABNORMAL) CBC auto differential (11/03/2024 5:27 AM EDT) Only the most recent of4 resultswithin the time period is included. WBC 8.8 4.8 - 10.8 K/mcL LAB HEMETOLOGY METHOD 11/03/2024 6:33 AM EDT [facility] RBC 4.00 3.80 - 4.80 M/[facility] LAB HEMETOLOGY METHOD 11/03/2024 6:33 AM EDT [facility] Hemoglobin 12.6 11.5 - 16.0 g/dL LAB HEMETOLOGY METHOD 11/03/2024 6:33 AM EDT [facility] Hematocrit 37.0 35.0 - 47.0 % LAB HEMETOLOGY METHOD 11/03/2024 6:33 AM EDT [facility] MCV 92.7 79.0 - 98.0 FL LAB HEMETOLOGY METHOD 11/03/2024 6:33 AM EDT [facility] MCH 31.6 27.0 - 32.0 pcg LAB HEMETOLOGY METHOD 11/03/2024 6:33 AM EDT [facility] MCHC 34.1 32.0 - 37.0 g/dL LAB HEMETOLOGY METHOD 11/03/2024 6:33 AM [facility] RDW 12.2 11.0 - 15.0 % LAB HEMETOLOGY METHOD 11/03/2024 6:33 AM [facility] Platelets 236 130 - 400 K/mcL LAB HEMETOLOGY METHOD 11/03/2024 6:33 AM [facility] MPV 9.9 7.0 - 11.0 FL LAB HEMETOLOGY METHOD 11/03/2024 6:33 AM [facility] NRBC 0.0 <1.0 % LAB HEMETOLOGY METHOD 11/03/2024 6:33 AM [facility] NRBC Absolute 0.00 <0.10 K/mcL LAB HEMETOLOGY METHOD 11/03/2024 6:33 AM [facility] Neutrophils Relative 39.3 % LAB HEMETOLOGY METHOD 11/03/2024 6:33 AM [facility] Lymphocytes Relative 49.4 % LAB HEMETOLOGY METHOD 11/03/2024 6:33 AM [facility] Monocytes Relative 7.6 % LAB HEMETOLOGY METHOD 11/03/2024 6:33 AM [facility] Eosinophils Relative 2.6 % LAB HEMETOLOGY METHOD 11/03/2024 6:33 AM [facility] Basophils Relative 0.6 % LAB HEMETOLOGY METHOD 11/03/2024 6:33 AM [facility] Immature Granulocytes Relative 0.5 % LAB HEMETOLOGY METHOD 11/03/2024 6:33 AM [facility] Neutrophils Absolute 3.46 1.50 - 7.00 K/mcL LAB HEMETOLOGY METHOD 11/03/2024 6:33 AM [facility] Lymphocytes Absolute 4.35 1.00 - 5.00 K/mcL LAB HEMETOLOGY METHOD 11/03/2024 6:33 AM [facility] Monocytes Absolute 0.67 0.20 - 1.00 K/mcL LAB HEMETOLOGY METHOD 11/03/2024 6:33 AM EDT [facility] Eosinophils Absolute 0.23 0.00 - 0.50 K/[facility] LAB HEMETOLOGY METHOD 11/03/2024 6:33 AM EDT [facility] Basophils Absolute 0.05 0.00 - 0.20 K/[facility] LAB HEMETOLOGY METHOD 11/03/2024 6:33 AM EDT [facility] Immature Granulocytes Absolute 0.04(H) 0.00 - 0.03 K/[facility] LAB HEMETOLOGY METHOD 11/03/2024 6:33 AM EDT [facility] Blood Venous blood specimen / Unknown Venipuncture / Unknown 11/03/2024 5:27 AM EDT 11/03/2024 6:13 AM EDT Maco Frye MD LAB BLOOD ORDERABLES Final Result Performing Organization Address City/[facility]/ZIP Co de Phone Number [facility] [address] [place] [address], [place] [phone] * (ABNORMAL) Hemoglobin A1c (11/03/2024 5:27 AM [...] MD LAB BLOOD ORDERABLES Final Resul t Performing Organization Address City/[facility]/ZIP Co de Phone Number [facility] [address] [place] [address], [place] [phone] * (ABNORMAL) Basic metabolic panel (11/03/2024 5:27 AM EDT) Only the most recent of4 resultswithin the time period is included. Sodium 138 133 - 145 mmol/L LAB CHEMISTRY METHOD 11/03/2024 7:16 AM [facility] Potassium 3.8 3.5 - 5.5 mmol/L LAB CHEMISTRY METHOD 11/03/2024 7:16 AM [facility] Chloride 106 96 - 110 mmol/L LAB CHEMISTRY METHOD 11/03/2024 7:16 AM [facility] CO2 26 21 - 32 mmol/L LAB CHEMISTRY METHOD 11/03/2024 7:16 AM [facility] Anion Gap 6 3 - 11 LAB CHEMISTRY METHOD 11/03/2024 7:16 AM [facility] Glucose 154(H) 70 - 100 mg/dL LAB CHEMISTRY METHOD 11/03/2024 7:16 AM [facility] BUN 16 5 - 25 mg/dL LAB CHEMISTRY METHOD 11/03/2024 7:16 AM [facility] Creatinine 0.40(L) 0.50 - 1.10 mg/dL LAB CHEMISTRY METHOD 11/03/2024 7:16 AM [facility] eGFR 122 >=60 mL/min/1. 73m2 LAB CHEMISTRY METHOD 11/03/2024 7:16 AM [facility] Comment:Calculation based on the Chronic Kidney Disease Epidemiology Collaboration (CKD-EPI) equation refit without adjustment for race. BUN/Creatinine Ratio 40.0 LAB CHEMISTRY METHOD 11/03/2024 7:16 AM [facility] Calcium 9.1 8.5 - 10.5 mg/dL LAB CHEMISTRY METHOD 11/03/2024 7:16 AM [facility] Blood Venous blood specimen / Unknown Venipuncture / Unknown 11/03/2024 5:27 AM EDT 11/03/2024 6:13 AM EDT Maco Frye MD LAB BLOOD ORDERABLES Final Result Performing Organization Address City/[facility]/ZIP Co de Phone Number [facility] [address] [place] [address], [place] [phone] * Troponin I high sensitivity (11/03/2024 2:51 AM EDT) Only the most recent of2 resultswithin the time period is included. [facility] High Sensitivity Troponin I 4 <=54 ng/L [...] ORDERABLES Marcia l Result Performing Organization Address [facility] Co de Phone Number [facility] [address] [place] [address], [place] [phone] * (ABNORMAL) POCT glucose (11/03/2024 2:00 AM EDT) Only the most recent of4 resultswithin the time period is included. [facility] Glucose POC 322(A) 70 - 110 mg/dL [...] [facility] [address] [place] [address], * ECG-Annotated (11/03/2024) us Provider Onbase MD ECG ORDERABLES Final Result * (ABNORMAL) Lactate, with reflex (11/02/2024 10:47 PM EDT) Only the most recent of2 resultswithin the time period is included. Pathologist [facility] LACTIC ACID 2.7(H) 0.4 - 2.0 mmol/L LAB CHEMISTRY METHOD 11/02/2024 11:36 PM EDT [facility] Blood Venous blood specimen / Unknown Venipuncture / Unknown 11/02/2024 10:47 PM EDT 11/02/2024 11:06 PM EDT Balta PONCE LAB BLOOD ORDERABLES Marcia l Result [facility] [address] [place] [address], [place] [phone] * POC , urine manually resulted (11/02/2024 9:26 PM EDT) Pathologist [facility] HCG, Ur POC Negative Negative POC hCG Int QC Pass? Yes Yes Urine Urine specimen obtained by clean catch procedure / Unknown 11/02/2024 9:26 PM EDT Maco Frye MD POINT OF CARE TEST ENTER/ED IT ORDERABLES Final Result * (ABNORMAL) Urinalysis with reflex microscopic and culture (11/02/2024 9:15 PM EDT) [facility] Specific [place] Urine 1.040(H) 1.003 - 1.030 LAB URINALYSIS - AUTOMATED METHOD 11/02/2024 10:06 PM [facility] pH, Urine 6.0 5.0 - 8.0 pH LAB URINALYSIS - AUTOMATED METHOD 11/02/2024 10:06 PM [facility] Leukocytes, Urine Negative Negative LAB URINALYSIS - AUTOMATED METHOD 11/02/2024 10:06 PM [facility] Nitrite, Urine Negative Negative LAB URINALYSIS - AUTOMATED METHOD 11/02/2024 10:06 PM [facility] Protein, Urine Negative <=Trace mg/dL LAB URINALYSIS - AUTOMATED METHOD 11/02/2024 10:06 PM [facility] Glucose, Urine >=1000(A) Negative mg/dL LAB URINALYSIS - AUTOMATED METHOD 11/02/2024 10:06 PM [facility] Ketones, [...] EDT [facility] Urine Urine specimen obtained by clean catch procedure / Unknown Non-blood Collection / Unknown 11/02/2024 9:15 PM EDT 11/02/2024 9:54 PM EDT Balta PONCE LAB URINE ORDERABLES Marcia l Result Performing Organization Address City/[facility]/ZIP Co de Phone Number [facility] [address] [place] [address], [place] [phone] * Rodriguez urine culture tube (11/02/2024 9:15 PM EDT) Pathologist [facility] Extra Tube Hold for add-ons. 11/02/2024 11:01 PM EDT [facility] Comment:Auto resulted. Urine Urine specimen obtained by clean catch procedure / Unknown Non-blood Collection / Unknown 11/02/2024 9:15 PM EDT 11/02/2024 9:53 PM EDT Balta PONCE LAB URINE ORDERABLES Marcia l Result [facility] [address] [place] [address], [place] [phone] * ECG 12 lead (11/02/2024 8:59 PM EDT) Ventricular Rate ECG 80 BPM GEMUSE Atrial Rate 80 BPM GEMUSE P-R Interval 136 ms GEMUSE QRS Duration 84 ms GEMUSE Q-T Interval 398 ms GEMUSE QTc 459 ms GEMUSE P Wave [place] 46 degrees GEMUSE R [place] 50 degrees GEMUSE T [place] 59 degrees GEMUSE ECG Interpretation Normal sinus rhythm Low voltage QRS Borderline ECG When compared with ECG of 09-APR-2019 20:37, No significant change was found Confirmed by MD Cervantes Christopher ([id number]) on 11/04/2024 7:16:53 AM GEMUSE 11/02/2024 8:59 PM EDT 11/04/2024 7:16 AM EDT Balta PONCE ECG ORDERABLES Final Res ult Performing Organization Address City/[facility] Co de Phone Number GEMUSE * Beta hydroxybutyrate (11/02/2024 6:27 PM EDT) Only the most recent of2 resultswithin the time period is included. Beta-Hydroxybu tyrate 1.1 0.2 - 2.8 mg/dL LAB CHEMISTRY METHOD 11/02/2024 8:08 PM EDT [facility] Blood Venous blood specimen / Unknown Venipuncture / Unknown 11/02/2024 6:27 PM EDT 11/02/2024 6:34 PM EDT Balta PONCE LAB BLOOD ORDERABLES Marcia l Result Performing Organization Address City/[facility]/ZIP Co de Phone Number [facility] [address] [place] [address], [place] [phone] * (ABNORMAL) Magnesium (11/02/2024 6:27 PM EDT) Magnesium 1.8(L) 1.9 - 2.6 mg/dL LAB CHEMISTRY METHOD 11/02/2024 8:08 PM EDT [facility] Comment:Hemolysis present Blood Venous blood specimen / Unknown Venipuncture / Unknown 11/02/2024 6:27 PM EDT 11/02/2024 6:34 PM EDT Balta PONCE LAB BLOOD ORDERABLES Marcia l Result [facility] [address] [place] [address], [place] [phone] * (ABNORMAL) Hepatic Function Panel - STAT (11/02/2024 6:27 PM EDT) Pathologist [facility] Total Protein 6.9 6.0 - 8.0 g/dL LAB CHEMISTRY METHOD 11/02/2024 11:09 PM EDT [facility] Albumin 3.3 3.2 - 5.0 g/dL LAB CHEMISTRY METHOD 11/02/2024 11:09 PM EDT [facility] Total Bilirubin 0.2 0.0 - 1.4 mg/dL LAB CHEMISTRY METHOD 11/02/2024 11:09 PM EDT [facility] Bilirubin, Direct <0.1 0.0 - 0.3 mg/dL LAB CHEMISTRY METHOD 11/02/2024 11:09 PM EDT [facility] Bilirubin, Indirect LAB CHEMISTRY METHOD 11/02/2024 11:09 PM EDT [facility] Comment:Unable to calculate Indirect Bilirubin. ALT (SGPT) 37 10 - 60 unit/L LAB CHEMISTRY METHOD 11/02/2024 11:09 PM EDT [facility] AST (SGOT) 17 10 - 42 unit/L LAB CHEMISTRY METHOD 11/02/2024 11:09 PM EDT [facility] Alkaline Phosphatase 127(H) 42 - 121 unit/L LAB CHEMISTRY METHOD 11/02/2024 11:09 PM T [facility] Blood Venous blood specimen / Unknown Venipuncture / Unknown 11/02/2024 6:27 PM EDT 11/02/2024 6:34 PM EDT us Balta PONCE LAB BLOOD ORDERABLES Marcia l Result Performing Organization Address [facility] Co de Phone Number [facility] [address] [place] [address], [place] [phone] * (ABNORMAL) Anti-Xa - Every 6 Hours [...] sult Performing Organization Address [facility] de Phone Number [facility] [address] [place] [address], [place] [phone] * (ABNORMAL) POCT activated clotting time,kaolin (10/27/2024 [...] UNSOLICITED RESULTS Final Result Performing Organization Address City/[facility]/ZIP Co de Phone Number [facility] [address] [place] [address], [place] [phone] * ANGIOGRAPHY LOWER EXT LEFT (10/27/2024 8:42 AM EDT) Anatomical Region Laterality Modality X-Ray Angiograph y Narrative 11/02/2024 11:41 AM EDT Per op Note Study Details Per op note Clinical Background Per op Note Procedure Details Per op Note us Chantal PONCE CV INVASIVE VASCULAR PROCEDUR ES Final Result * SST tube (10/27/2024 5:57 AM EDT) [facility] Extra Tube Hold for add-ons. 10/27/2024 8:01 AM EDT [facility] Comment:Auto resulted. Blood Venous blood specimen / Unknown Venipuncture / Unknown 10/27/2024 5:57 AM EDT 10/27/2024 6:20 AM EDT us Bridgett Boyle MD LAB BLOOD ORDERABLES Final Res ult Performing Organization Address City/[facility]/ZIP Co de Phone Number [facility] [address] [place] [address], [place] [phone] * MRSA molecular study (10/26/2024 3:55 PM EDT) [facility] MRSA Screen PCR Not Detected Not Detected LAB MICROBIOLOGY METHOD 10/26/2024 5:38 PM EDT [facility] Swab Both anterior nares / Unknown Non-blood Collection / Unknown 10/26/2024 3:55 PM EDT 10/26/2024 4:25 PM EDT us Bridgett Boyle MD LAB MICROBIOLOGY - GENERAL ORD ERABLES Final Result Performing Organization Address City/[facility]/ZIP Co de Phone Number [facility] [address] [place] [address], [place] [phone] * Vascular US duplex lower extremity vein map bilateral (10/26/2024 9:24 AM EDT) Anatomical Region Laterality Modality Vascular, Abdomen Ultrasound 10/26/2024 9:45 AM EDT Impressions 10/26/2024 9:51 AM EDT The greater saphenous veins are patent bilaterally. Their diameters are as above. Code 65719 -------- FINAL REPORT -------- Dictated By: Mathieu Lopez Dictated Date: 10/26/2024 09:45 ET Assigned Physician: Mathieu Lopez Reviewed and Electronically Signed By: Mathieu Lopez Signed Date: 10/26/2024 09:51 ET Workstation ID: [id number] Transcribed By: Self Edit Transcribed Date: 10/26/2024 [...] patent bilaterally. Their diameters are asabove. Code 34669 -------- FINAL REPORT -------- Dictated By: Mathieu Lopez Dictated Date: 10/26/2024 09:45 ET Assigned Physician: Mathieu Lopez Reviewed and Electronically Signed By: Mathieu Lopez Signed Date: 10/26/2024 09:51 ET Workstation ID: [id number] Transcribed By: Self Edit Transcribed Date: 10/26/2024 [...] [facility] [address] [place] [address], [place] [phone] * (ABNORMAL) Prothrombin Time with INR - [...] [facility] [address] [place] [address], [place] [phone] * CT Angio Lower Extremity w and/or [...] left external iliac artery patent. Moderate left [employer] and PFA origins stenosis. Multifocal mild left [...] left external iliac artery patent. Moderate left [employer] and PFA origins stenosis. Multifocal mild left [...] LAB HEMETOLOGY METHOD 10/25/2024 6:45 PM EDT [facility] Blood Venous blood specimen / Unknown Venipuncture / Unknown 10/25/2024 5:31 PM EDT 10/25/2024 5:43 PM EDT Franki Hsieh MD LAB BLOOD ORDERABLES Final Resu lt Performing Organization Address [facility]/ZIP Co de Phone Number [facility] [address] [place] [address], [place] [phone] * (ABNORMAL) C-reactive protein (10/25/2024 5:31 PM EDT) Pathologist [facility] C-Reactive Protein 1.14(H) <=0.50 mg/dL LAB CHEMISTRY METHOD 10/25/2024 6:13 PM EDT [facility] Blood Venous blood specimen / Unknown Venipuncture / Unknown 10/25/2024 5:31 PM EDT 10/25/2024 5:43 PM EDT Franki Hsieh MD LAB BLOOD ORDERABLES Final Resu lt Performing Organization Address [facility] Co de Phone Number [facility] [address] [place] [address], [place] [phone] * hCG, serum, qualitative (10/25/2024 5:31 PM EDT) [facility] hCG Qual Negative Negative 10/25/2024 10:13 PM EDT [facility] Blood Venous blood specimen / Unknown Venipuncture / Unknown 10/25/2024 5:31 PM EDT 10/25/2024 5:43 PM EDT Franki Hsieh MD LAB BLOOD ORDERABLES Final Resu lt Performing Organization Address [facility]/ZIP Co de Phone Number [facility] [address] [place] [address], [place] [phone] * MR Shoulder wo Contrast Left (10/25/2024 [...] Signed Date: 10/25/2024 13:04 ET Workstation ID: [id number] Transcribed By: Self Edit Transcribed Date: 10/25/2024 [...] Signed Date: 10/25/2024 13:04 ET Workstation ID: [id number] Transcribed By: Self Edit Transcribed Date: 10/25/2024 [...] Signed Date: 10/03/2024 16:46 ET Workstation ID: [id number] Transcribed By: Self Edit Transcribed Date: 10/03/2024 [...] Signed Date: 10/03/2024 16:46 ET Workstation ID: [id number] Transcribed By: Self Edit Transcribed Date: 10/03/2024 16:45 ET Inder Hsieh DO IMG XR PROCEDURES Final Result from Last 3 Months Insurance [facility] PL[facility] Advance Directives * Full Code - [...] currently active code status orders. Care Teams Member Services Representative Relationship Specialty Start Date End Date Moisés Lewis MD [address] [place] [address] PCP - General Internal Medicine 08/07/11
== END 2025-01-02 15:24 | disposition home or self-care (01) ==
LOC: HO.ENCR 14:39
PROVIDERS: PCP Internal Medicine; Visit Provider Physician Assistant
DX: E11.65 Type 2 diabetes mellitus with hyperglycemia (principal); Z79.4 Long term (current) use of insulin

== ENCOUNTER → 2025-01-02 14:38 | Outpatient (BNVA) | payer OTHER, SELFPAY | PROVIDERS: PCP Internal Medicine; Visit Provider Physician Assistant | DX: E11.65 Type 2 diabetes mellitus with hyperglycemia (principal); E78.5 Hyperlipidemia, unspecified; K21.9 Gastro-esophageal reflux disease without esophagitis; F41.9 Anxiety disorder, unspecified; Z79.4 Long term (current) use of insulin; Z79.899 Other long term (current) drug therapy | CPT/HCPCS: 82947; 99212 ==

== ENCOUNTER 2025-01-03 13:53 | Outpatient (AMB) | payer OTHER, SELFPAY ==
--- NOTE | 2025-01-03 13:57 | A.OFFVIS_ITS ---
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 She went [facility] in October for left artery stenosis. Patients leg was black and painful . She says she feels like her circulation in her left leg is bad. 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 In October of this year she apparently ended up at [facility] and had undergone some sort of intervention. It appears that she is now on Plavix and low-dose Xarelto. It is unclear what was done. Patient is clear that some sort of intervention was performed but details of which are difficult to ascertain. At the current time continues to have left lower extremity pain. She states that her toes do her. Upon discussion with her she is able to walk several blocks without any significant difficulty. She is a diabetic. She does have a remote history of smoking. Now presents to us for vascular evaluation. [facility] Medical History Internal derangement of left knee Vitamin D deficiency Asthma Type 2 diabetes mellitus with hyperglycemia, with long-term current use of insulin Hyperlipidemia LDL goal <100 Cervical stenosis of spinal canal Degeneration, intervertebral disc, cervical Spondylosis, cervical Postlaminectomy syndrome, lumbar Dyspepsia Chronic GERD Narcotic dependence Environmental allergies Failed back syndrome Tobacco abuse Insomnia Depression, major, recurrent, moderate Diabetes mellitus, insulin dependent (IDDM), uncontrolled Surgical History History of thrombectomy History of lumbar surgery Hx of right knee surgery (08/2011) Family History Father Asthma Mother Diabetes HTN (hypertension) Colon cancer Dialysis patient Brother Substance abuse Social History Household Members: None Housing: Apartment Alcohol intake: never Patient Tobacco Use Status: Current everyday Tobacco user e-Cigarette/Vaping Use: Never Used service: No Current occupational status: disabled Current occupation: rt handed Cognitive needs: No Hearing needs: No Vision needs: No Review of Systems Const All systems reviewed & are unremarkable except as noted in HPI and below Reports no additional complaints ENT Reports Normal hearing present Card Denies chest pain, Denies chest pain at rest, Denies chest pain with activity and Denies pedal edema Resp Denies cough GI Denies abdominal pain Musc Denies abnormal gait, Denies muscle cramps and Denies radiating pain into limb Skin/Breast Denies skin ulcer and Denies wounds Neuro Reports Normal hearing present and Denies abnormal gait Psych Reports no additional complaints Physical Exam Const General: cooperative, healthy appearing and comfortable Orientation/consciousness: oriented to person, oriented to place and oriented to time HEENT Head: Yes normal to inspection Neck Neck: Yes normal visual inspection Carotids: no bruits Chest Chest palpation & inspection: normal inspection of the chest Resp Effort & Inspection: normal respiratory effort and able to speak in complete sentences Auscultation: clear to auscultation bilaterally, no crackles, no rales, no rhonchi and no wheezes Cardio Other: Bilateral DP signals Rate: regular rate Rhythm: regular rhythm Heart sounds: S1 normal heart sound present and S2 normal heart sound present Bruits: no carotid bruits Peripheral pulses: Peripheral pulses 2+ throughout GI Inspection: Yes normal to inspection Skin Wounds: no wounds Hair: normal Neuro General: oriented to person, oriented to place and oriented to time Cranial nerves: Yes CN's II-XII intact bilaterally and Yes Normal hearing present Cognition (Neuro): normal cognition Motor exam (neuro): 5/5 motor strength present throughout Extrem Other: venous exam: No significant superficial varicosities or spider telangiectasias, minimal edema General: No clubbing, No cyanosis and No edema Psych Appearance: grossly normal Mental Status: mental status grossly normal Speech and movement: Normal speech and movement present Assessment & Plan Assessment & Plan (1) PAD (peripheral artery disease): Code(s): I73.9 - Peripheral vascular disease, unspecified Category: Medical Plan: So it is unclear what is going on from a peripheral vascular standpoint. Even more unusual is the use of low-dose Xarelto and Plavix. I am lost to what exactly was done at [facility]. We have requested records. I have ta donald the liberty of ordering noninvasive testing to assess her lower extremity status at the current time. She will follow up with us after testing. Hopefully the meantime we will be able to obtain better sense from medical records from [facility]. Thank you for allowing us to assist in her care. If there are any questions or concerns please do not hesitate to contact us. Orders: Orders US arterial duplex LE BI Today I73.9 - Peripheral vascular disease, unspecified Coding Level of Care Code New Pt Level 4 (90541) Complex EM visit Add On G2211 Diagnoses PAD (peripheral artery disease) I73.9
--- OUTSIDE RECORDS SUMMARY | 2025-01-03 15:10 | XMS_ITS | Clinical Summary ---
Author Organization [facility] Address [address] [place] [address] Care Team Providers Care Senior Process Control Tech Name Role Phone Unavailable Primary Care Provider [...] 2021 Fecal DNA 2021 Flexible Sigmoidoscopy 2021 [id number] ( - season) 2024 Alcohol and Drug [...] to Health Maintenance Insurance [place] D[place] [facility] [place] [address] [place] [address] HEALTH PLAN Member Subscriber Plan / Payer ( fective 2017-Present) Name:Aguilar Street Relation to Subscriber:Self Name:Aguilar Street Payer ID:[id number] Group ID:Not on file Type:Medicaid Address: [facility] [id number] [place] [address]
--- OUTSIDE RECORDS SUMMARY | 2025-01-03 15:10 | XMS_ITS | Clinical Summary ---
Author Organization [facility] Address [address] [place] [address] Phone Care Team Providers Care Sound Recordist Name Role Phone Moisés Lewis MD Primary Care Provider [phone] Allergies Active Allergy Reactions Criticality Noted Date [...] toe syndrome of left lo wer extremity ([facility] V24, [facility] V28) 11/03/2024 Intractable pain 11/03/2024 Type 2 diabetes mellitus wit h hyperglycemia ([facility] V24, [facility] V28) 10/26/2024 Assessment & Plan (10/26/2024 3:48 AM EDT): - Would continue glycemic control in house using insulin regimen augmented by sliding scale - Consider interval A1c Hyperlipidemia 10/26/2024 Assessment & Plan (10/26/2024 3:47 AM EDT): - Will continue outpatient antilipid regimen unchanged Peripheral arterial disease ([facility] V24) 2024 Resolved Problems Problem Noted Date Diagnosed Date Resolved Date Acute occlusion of popliteal artery due to thromboembolism ([facility] V24, [facility] V28) 10/26/2024 10/28/2024 Assessment & Plan (10/26/2024 [...] - 11/03/2024 12:14 PM EDT Hospital Encounter [facility] [address] [place] [phone] Maco Frye MD Rasul, Yar M, MD Blue toe syndrome of left lower extremity (CMS/HCC V24, CMS/HCC V28) (Primary Dx); Hyperglycemia due to diabetes mellitus (CMS/HCC V24, CMS/HCC V28); Intractable pain Discharge Disposition: Home or Self Care 10/27/2024 7:30 AM EDT - 10/27/2024 8:30 AM EDT Surgery [facility] Cardiac Document Manager [address] [place] [phone] Boo Nash MD Angiography lower ext left 10/25/2024 7:40 PM EDT - 10/28/2024 2:08 PM EDT Hospital Encounter [facility] [address] [place] [phone] Franki Hsieh MD Maduakor, Emmanuel C, MD Japaridze, Anna, MD Peripheral arterial disease ([facility] V24) (Primary Dx); Occlusion of left popliteal artery ([facility] V24); Critical limb ischemia of left lower extremity ([facility] V24, [facility] V28); Acute occlusion of popliteal artery due to thromboembolism ([facility] V24, [facility] V28) Discharge Disposition: Home-Health Care [place] 10/25/2024 11:24 AM EDT - 10/25/2024 11:59 PM EDT Hospital Encounter [facility] MRI [address] [phone] Strain of muscle(s) and tendon(s) of the rotator cuff of left shoulder, initial encounter Discharge Disposition: Home or Self Care 10/10/2024 7:38 AM EDT - 10/10/2024 11:59 PM EDT Hospital Encounter [facility] Ortho Xray [address] [place] [address] Pain Discharge Disposition: Home or Self Care from Last 3 Months Surgical History Surgery Date Site/Laterality Comments KNEE SURGERY 09/04/2011 Right PROCEDURE: HISTORICAL KNEE SURGERY; COMMENT: DSA BACK SURGERY 03/31/2013 Left PROCEDURE: HISTORICAL BACK SURGERY; COMMENT: left L4-5 minimally invasive discectomy, Dr. Camacho Medical History Medical History Date Comments Diabetes mellitus type 2, co ntrolled, with complications ([facility] V24, [facility] V28) DX:Diabetes mellitus type 2, controlled, with complications ([facility]) Arthritis DX:Arthritis Asthma DX:Asthma Glaucoma DX:Glaucoma Social [...] LEFT Routine 10/10/2024 10:55 AM EDT Pain from Last 3 Months Results * (ABNORMAL) POCT Glucose, blood (11/03/2024 8:28 AM EDT) Only the most recent of17 resultswithin the time period is included. Glucose POCT 174(H) 70 - 100 mg/dL 11/03/2024 8:41 AM EDT [facility] Blood Capillary blood specimen / Unknown 11/03/2024 8:28 AM EDT 11/03/2024 8:42 AM EDT us Bereket Alvarez MD LAB POINT OF CARE TE ST DOCKED DEVICE UNSOLICITED RESULTS Final Result [facility] [address] [place] [address], [place] [phone] * (ABNORMAL) CBC auto differential (11/03/2024 5:27 AM EDT) Only the most recent of4 resultswithin the time period is included. WBC 8.8 4.8 - 10.8 K/mcL LAB HEMETOLOGY METHOD 11/03/2024 6:33 AM [facility] RBC 4.00 3.80 - 4.80 M/mcL LAB HEMETOLOGY METHOD 11/03/2024 6:33 AM [facility] Hemoglobin 12.6 11.5 - 16.0 g/dL LAB HEMETOLOGY METHOD 11/03/2024 6:33 AM [facility] Hematocrit 37.0 35.0 - 47.0 % LAB HEMETOLOGY METHOD 11/03/2024 6:33 AM [facility] MCV 92.7 79.0 - 98.0 FL LAB HEMETOLOGY METHOD 11/03/2024 6:33 AM [facility] MCH 31.6 27.0 - 32.0 pcg LAB HEMETOLOGY METHOD 11/03/2024 6:33 AM [facility] MCHC [...] LAB Eosinophils Absolute 0.23 0.00 - 0.50 K/mcL LAB HEMETOLOGY METHOD 11/03/2024 6:33 AM [facility] Basophils Absolute 0.05 0.00 - 0.20 K/mcL LAB HEMETOLOGY METHOD 11/03/2024 6:33 AM EDT [facility] Immature Granulocytes Absolute 0.04(H) 0.00 - 0.03 K/mcL LAB HEMETOLOGY METHOD 11/03/2024 6:33 AM EDT [facility] Blood Venous blood specimen / Unknown Venipuncture / Unknown 11/03/2024 5:27 AM EDT 11/03/2024 6:13 AM EDT Maco Frye MD LAB BLOOD ORDERABLES Final Result Performing Organization Address [facility] de Phone Number [facility] [address] [place] [address], * (ABNORMAL) Hemoglobin A1c (11/03/2024 5:27 AM EDT) Hemoglobin A1C 12.1(H) <6.5 % LAB CHEMISTRY METHOD 11/06/2024 11:19 AM EDT [facility] Mean Bld Glu Estim. 301 mg/dL LAB CHEMISTRY METHOD 11/06/2024 11:19 AM EDT [facility] Blood Venous blood specimen / Unknown Venipuncture / Unknown 11/03/2024 5:27 AM EDT 11/03/2024 6:13 AM EDT Bereket Alvarez MD LAB BLOOD ORDERABLES Final Resul t Performing Organization Address [facility]/ZIP Co de Phone Number [facility] [address] [place] [address], [place] [phone] * (ABNORMAL) Basic metabolic panel (11/03/2024 5:27 AM EDT) Only the most recent of4 resultswithin the time period is included. Sodium 138 133 - 145 mmol/L LAB CHEMISTRY METHOD 11/03/2024 7:16 AM EDT [facility] Potassium 3.8 3.5 - 5.5 mmol/L LAB CHEMISTRY METHOD 11/03/2024 7:16 AM EDT [facility] Chloride 106 96 - 110 mmol/L [...] AM EDT 11/03/2024 6:13 AM EDT us Maco Frye MD LAB BLOOD ORDERABLES Final Result [facility] [address] [place] [address], * Troponin I high sensitivity (11/03/2024 2:51 AM EDT) Only the most recent of2 resultswithin the time period is included. [facility] High Sensitivity Troponin I 4 <=54 ng/L LAB CHEMISTRY METHOD 11/03/2024 3:19 AM EDT [facility] Blood Venous blood specimen / Unknown Venipuncture / Unknown 11/03/2024 2:51 AM EDT 11/03/2024 2:56 AM EDT Narrative [facility] - 11/03/2024 3:19 AM EDT High levels of biotin in samples may falsely decrease hsTroponin values. Use caution when interpreting hsTroponin results in patients taking biotin who exhibit renal impairment (eGFR <60) or in patients taking more than 20 mg/day of biotin. Balta PONCE LAB BLOOD ORDERABLES Marcia l Result [facility] [address] [place] [address], [place] [phone] * (ABNORMAL) POCT glucose (11/03/2024 2:00 AM EDT) Only the most recent of4 resultswithin the time period is included. [facility] Glucose POC 322(A) 70 - 110 mg/dL Blood Capillary blood specimen / Unknown 11/03/2024 2:00 AM EDT Balta PONCE POINT OF CARE TEST ENTER/ EDIT ORDERABLES Final Result * (ABNORMAL) Blood gas, venous (11/03/2024 1:53 AM EDT) [facility] pH, Hua 7.41 7.32 - 7.42 pH 11/03/2024 2:03 AM EDT [facility] pCO2, Hua 44 41 - 51 mmHg 11/03/2024 2:03 AM EDT [facility] pO2, Hua 63(H) 25 - 40 mmHg 11/03/2024 2:03 AM EDT [facility] HCO3, Venous 27.0(H) 22.0 - 26.0 mmol/L 11/03/2024 2:03 AM EDT [facility] O2 Sat, Hua 93.1 % 11/03/2024 2:03 AM EDT [facility] Base Excess, Hua 2.8(H) -2.0 - 2.0 mmol/L 11/03/2024 2:03 AM EDT [facility] Blood Venous blood specimen / Unknown Venipuncture / Unknown 11/03/2024 1:53 AM EDT 11/03/2024 1:57 AM EDT Balta PONCE LAB BLOOD ORDERABLES Marcia l Result Performing Organization Address [facility] de Phone Number [facility] [address] [place] [address], * ECG-Annotated (11/03/2024) Provider Onbase MD ECG ORDERABLES Final Result * (ABNORMAL) Lactate, with reflex (11/02/2024 10:47 PM EDT) Only the most recent of2 resultswithin the time period is included. LACTIC ACID 2.7(H) 0.4 - 2.0 mmol/L LAB CHEMISTRY METHOD 11/02/2024 11:36 PM EDT [facility] Blood Venous blood specimen / Unknown Venipuncture / Unknown 11/02/2024 10:47 PM EDT 11/02/2024 11:06 PM EDT Balta PONCE LAB BLOOD ORDERABLES Marcia l Result Performing Organization Address [facility]/ZIP Co de Phone Number [facility] [address] [place] [address], * POC , urine manually resulted (11/02/2024 9:26 PM EDT) Pathologist [facility] HCG, Ur POC Negative Negative POC hCG Int QC Pass? Yes Yes Urine Urine specimen obtained by clean catch procedure / Unknown 11/02/2024 9:26 PM EDT Maco Frye MD POINT OF CARE TEST ENTER/ED IT ORDERABLES Final Result * (ABNORMAL) Urinalysis with reflex microscopic and culture (11/02/2024 9:15 PM EDT) [facility] Specific [place] Urine 1.040(H) 1.003 - 1.030 LAB URINALYSIS [...] PM [facility] Urobilinogen , Urine 0.2 0.2 - 1.0 mg/dL LAB URINALYSIS - AUTOMATED METHOD 11/02/2024 10:06 PM [facility] Bilirubin, Urine Negative Negative LAB URINALYSIS - AUTOMATED METHOD 11/02/2024 10:06 PM [facility] Blood, Urine Negative Negative LAB URINALYSIS - AUTOMATED METHOD 11/02/2024 10:06 PM EDT [facility] Urine Urine specimen obtained by clean catch procedure / Unknown Non-blood Collection / Unknown 11/02/2024 9:15 PM EDT 11/02/2024 9:54 PM EDT Balta PONCE LAB URINE ORDERABLES Marcia l Result Performing Organization Address [facility]/ZIP Co de Phone Number [facility] [address] [place] [address], [place] [phone] * Rodriguez urine culture tube (11/02/2024 9:15 PM EDT) Pathologist [facility] Extra Tube Hold for add-ons. 11/02/2024 11:01 PM EDT [facility] Comment:Auto resulted. Urine Urine specimen obtained by clean catch procedure / Unknown Non-blood Collection / Unknown 11/02/2024 9:15 PM EDT 11/02/2024 9:53 PM EDT Balta PONCE LAB URINE ORDERABLES Marica l Result Performing Organization Address [facility] Co de Phone Number [facility] [address] [place] [address], [place] [phone] * ECG 12 lead (11/02/2024 8:59 PM EDT) Ventricular Rate ECG 80 BPM GEMUSE Atrial Rate 80 BPM GEMUSE P-R Interval 136 ms GEMUSE QRS Duration 84 ms GEMUSE Q-T Interval 398 ms GEMUSE QTc 459 ms GEMUSE P Wave [place] 46 degrees GEMUSE R [place] 50 degrees GEMUSE T [place] 59 degrees GEMUSE ECG Interpretation Normal sinus rhythm Low voltage QRS Borderline ECG When compared with ECG of 09-APR-2019 20:37, No significant change was found Confirmed by MD Billy, Maco ([id number]) on 11/04/2024 7:16:53 AM GEMUSE 11/02/2024 8:59 PM EDT 11/04/2024 7:16 AM EDT Balta PONCE ECG ORDERABLES Final Res ult GEMUSE * Beta hydroxybutyrate (11/02/2024 6:27 PM EDT) Only the most recent of2 resultswithin the time period is included. Beta-Hydroxybu tyrate 1.1 0.2 - 2.8 mg/dL LAB CHEMISTRY METHOD 11/02/2024 8:08 PM EDT [facility] Blood Venous blood specimen / Unknown Venipuncture / Unknown 11/02/2024 6:27 PM EDT 11/02/2024 6:34 PM EDT Balta PONCE LAB BLOOD ORDERABLES Marcia l Result Performing Organization Address [facility]/ZIP Co de Phone Number [facility] [address] [place] [address], [place] [phone] * (ABNORMAL) Magnesium (11/02/2024 6:27 PM EDT) Magnesium 1.8(L) 1.9 - 2.6 mg/dL LAB CHEMISTRY METHOD 11/02/2024 8:08 PM EDT [facility] Comment:Hemolysis present Blood Venous blood specimen / Unknown Venipuncture / Unknown 11/02/2024 6:27 PM EDT 11/02/2024 6:34 PM EDT Balta PONCE LAB BLOOD ORDERABLES Marcia l Result Performing Organization Address City/[facility]/ZIP Co de Phone Number [facility] [address] [place] [address], [place] [phone] * (ABNORMAL) Hepatic Function Panel - STAT (11/02/2024 6:27 PM EDT) Pathologist [facility] Total Protein 6.9 6.0 - 8.0 g/dL LAB CHEMISTRY METHOD 11/02/2024 11:09 PM EDT [facility] Albumin 3.3 3.2 - 5.0 g/dL LAB CHEMISTRY METHOD 11/02/2024 11:09 PM EDT [facility] Total Bilirubin 0.2 0.0 - 1.4 mg/dL LAB CHEMISTRY METHOD 11/02/2024 11:09 PM T [facility] Bilirubin, Direct <0.1 0.0 - 0.3 mg/dL LAB CHEMISTRY METHOD 11/02/2024 11:09 PM [facility] Bilirubin, Indirect LAB CHEMISTRY METHOD 11/02/2024 11:09 PM [facility] Comment:Unable to calculate Indirect Bilirubin. ALT (SGPT) 37 10 - 60 unit/L LAB CHEMISTRY METHOD 11/02/2024 11:09 PM [facility] AST (SGOT) 17 10 - 42 unit/L LAB CHEMISTRY METHOD 11/02/2024 11:09 PM [facility] Alkaline Phosphatase 127(H) 42 - 121 unit/L LAB CHEMISTRY METHOD 11/02/2024 11:09 PM [facility] Blood Venous blood specimen / Unknown Venipuncture / Unknown 11/02/2024 6:27 PM EDT 11/02/2024 6:34 PM EDT us Balta PONCE LAB BLOOD ORDERABLES Marcia l Result [facility] [address] [place] [address], * (ABNORMAL) Anti-Xa - Every 6 Hours (10/27/2024 12:58 PM EDT) Only the most recent of7 resultswithin the time period is included. [facility] Heparin Anti-Xa 0.23(L) 0.30 - 0.70 I Unit/mL LAB COAGULATION METHOD 10/27/2024 1:40 PM EDT [facility] Blood Venous blood specimen / Unknown Venipuncture / Unknown 10/27/2024 12:58 PM EDT 10/27/2024 1:20 PM EDT Narrative [facility] - 10/27/2024 1:40 PM EDT Therapeutic range listed is for Unfractionated Heparin. LMW Heparin therapeutic range: 0.50-1.20 IU/mL us Chantal PONCE LAB BLOOD ORDERABLES Final Re sult Performing Organization Address [facility]/ZIP Co de Phone Number [facility] [address] [place] [address], [place] [phone] * (ABNORMAL) POCT activated clotting time,kaolin (10/27/2024 10:00 AM EDT) Only the most recent of2 resultswithin the time period is included. [facility] Activated Clotting Time Kaolin 187(H) 74 - 137 sec 10/27/2024 10:02 AM EDT [facility] Blood Venous blood specimen / Unknown 10/27/2024 10:00 AM EDT 10/27/2024 10:03 AM EDT Bridgett Boyle MD LAB POINT OF CARE TE ST DOCKED DEVICE UNSOLICITED RESULTS Final Result Performing Organization Address City/[facility]/ZIP Co de Phone Number [facility] [address] [place] [address], [place] [phone] * ANGIOGRAPHY LOWER EXT LEFT (10/27/2024 8:42 AM EDT) Anatomical Region Laterality Modality X-Ray Angiograph y Narrative 11/02/2024 11:41 AM EDT Per op Note Study Details Per op note Clinical Background Per op Note Procedure Details Per op Note Chantal PONCE CV INVASIVE VASCULAR PROCEDUR ES Final Result * SST tube (10/27/2024 5:57 AM EDT) [facility] Extra Tube Hold for add-ons. 10/27/2024 8:01 AM EDT [facility] Comment:Auto resulted. Blood Venous blood specimen / Unknown Venipuncture / Unknown 10/27/2024 5:57 AM EDT 10/27/2024 6:20 AM EDT Bridgett Boyle MD LAB BLOOD ORDERABLES Final Res ult Performing Organization Address City/[facility]/ZIP Co de Phone Number [facility] [address] [place] [address], [place] [phone] * MRSA molecular study (10/26/2024 3:55 PM EDT) [facility] MRSA Screen PCR Not Detected Not Detected LAB MICROBIOLOGY METHOD 10/26/2024 5:38 PM EDT [facility] Swab Both anterior nares / Unknown Non-blood Collection / Unknown 10/26/2024 3:55 PM EDT 10/26/2024 4:25 PM EDT Bridgett Boyle MD LAB MICROBIOLOGY - GENERAL ORD ERABLES Final Result Performing Organization Address City/[facility]/ZIP Co de Phone Number [facility] [address] [place] [address], [place] [phone] * Vascular US duplex lower extremity vein map bilateral (10/26/2024 9:24 AM EDT) Anatomical Region Laterality Modality Vascular, Abdomen Ultrasound 10/26/2024 9:45 AM EDT Impressions 10/26/2024 9:51 AM EDT The greater saphenous veins are patent bilaterally. Their diameters are as above. Code 25628 -------- FINAL REPORT -------- Dictated By: Mathieu Lopez Dictated Date: 10/26/2024 09:45 ET Assigned Physician: Mathieu Lopez Reviewed and Electronically Signed By: Mathieu Lopez Signed Date: 10/26/2024 09:51 ET Workstation ID: [id number] Transcribed By: Self Edit Transcribed Date: 10/26/2024 [...] patent bilaterally. Their diameters are asabove. Code 95858 -------- FINAL REPORT -------- Dictated By: Mathieu Lopez Dictated Date: 10/26/2024 09:45 ET Assigned Physician: Mathieu Lopez Reviewed and Electronically Signed By: Mathieu Lopez Signed Date: 10/26/2024 09:51 ET Workstation ID: [id number] Transcribed By: Self Edit Transcribed Date: 10/26/2024 09:45 ET us Solomon PONCE CV VASCULAR PROCEDURES Final Res ult * Activated Partial Thromboplastin Time - STAT (10/26/2024 12:12 AM EDT) aPTT 29.5 24.1 - 39.3 sec LAB COAGULATION METHOD 10/26/2024 12:32 AM EDT [facility] Blood Venous blood specimen / Unknown Venipuncture / Unknown 10/26/2024 12:12 AM EDT 10/26/2024 12:16 AM EDT Solomon PONCE LAB BLOOD ORDERABLES Final Resul t [facility] [address] [place] [address], [place] [phone] * (ABNORMAL) Prothrombin Time with INR - STAT (10/26/2024 12:12 AM EDT) Protime 10.5(L) 10.6 - 13.9 sec LAB COAGULATION METHOD 10/26/2024 12:32 AM EDT [facility] INR 0.8 LAB COAGULATION METHOD 10/26/2024 12:32 AM EDT [facility] Blood Venous blood specimen / Unknown Venipuncture / Unknown 10/26/2024 12:12 AM EDT 10/26/2024 12:16 AM EDT us Solomon PONCE LAB BLOOD ORDERABLES Final Resul t [facility] [address] [place] [address], [place] [phone] * CT Angio Lower Extremity w and/or [...] left external iliac artery patent. Moderate left ONLINE MERCHANDISING COORDINATOR and PFA origins stenosis. Multifocal mild left [...] left external iliac artery patent. Moderate left ONLINE MERCHANDISING COORDINATOR and PFA origins stenosis. Multifocal mild left [...] Sedimentation rate, automated (10/25/2024 5:31 PM EDT) [facility] Sed Rate 82(H) 0 - 20 mm/hr LAB HEMETOLOGY METHOD 10/25/2024 6:45 PM EDT [facility] Blood Venous blood specimen / Unknown Venipuncture / Unknown 10/25/2024 5:31 PM EDT 10/25/2024 5:43 PM EDT Franki Hsieh MD LAB BLOOD ORDERABLES Final Resu lt [facility] [address] [place] [address], [place] [phone] * (ABNORMAL) C-reactive protein (10/25/2024 5:31 PM EDT) C-Reactive Protein 1.14(H) <=0.50 mg/dL LAB CHEMISTRY METHOD 10/25/2024 6:13 PM EDT [facility] Blood Venous blood specimen / Unknown Venipuncture / Unknown 10/25/2024 5:31 PM EDT 10/25/2024 5:43 PM EDT Franki Hsieh MD LAB BLOOD ORDERABLES Final Resu lt Performing Organization Address [facility]/ZIP Co de Phone Number [facility] [address] [place] [address], [place] [phone] * hCG, serum, qualitative (10/25/2024 5:31 PM EDT) hCG Qual Negative Negative 10/25/2024 10:13 PM EDT [facility] Blood Venous blood specimen / Unknown Venipuncture / Unknown 10/25/2024 5:31 PM EDT 10/25/2024 5:43 PM EDT Franki Hsieh MD LAB BLOOD ORDERABLES Final Resu lt Performing Organization Address [facility] de Phone Number [facility] [address] [place] [address], [place] [phone] * MR Shoulder wo Contrast Left (10/25/2024 [...] Signed Date: 10/25/2024 13:04 ET Workstation ID: [id number] Transcribed By: Self Edit Transcribed Date: 10/25/2024 [...] Signed Date: 10/25/2024 13:04 ET Workstation ID: [id number] Transcribed By: Self Edit Transcribed Date: 10/25/2024 12:51 ET Maco Mcgrath MD IMG MRI PROCEDURES Final Result * XR Clavicle Complete Left (10/10/2024 10:55 AM EDT) Narrative RIS PACS/VR - 10/10/2024 10:55 AM EDT This order has been auto-finalized and does not contain a result. us Maco Mcgrath MD IMG XR PROCEDURES Final R esult RIS PACS/VR from Last 3 Months Insurance [facility] [employer] Advance Directives * Full Code - [...] currently active code status orders. Care Teams Sound Recordist Relationship Specialty Start Date End Date Moisés Lewis MD [address] [place] [address] PCP - General Internal Medicine 08/07/11
--- OUTSIDE RECORDS SUMMARY | 2025-01-03 15:10 | XMS_ITS | Clinical Summary ---
Author Organization [facility] Address [address] [place] [address] Care Team Providers Care Film Sound Coordinator Name Role Phone Moisés Lewis MD Primary Care Provider Social History Tobacco Use Types Packs/Day Years [...] age to complete this topic Care Teams Film Sound Coordinator Relationship Specialty Start Date End Date Moisés Lewis MD [address] [place] [address] [place] [phone] PCP - General Internal Medicine 05/30/20
== END 2025-01-03 14:19 | disposition home or self-care (01) ==
LOC: HO.HVS 13:54
PROVIDERS: PCP Internal Medicine; Visit Provider Surgery Vascular Surgery
DX: I73.9 Peripheral vascular disease, unspecified (principal)
CPT/HCPCS: 99204; G2211

== ENCOUNTER → 2025-01-03 13:53 | Outpatient (BNVA) | payer OTHER, SELFPAY | PROVIDERS: PCP Internal Medicine; Visit Provider Surgery Vascular Surgery | DX: M79.661 Pain in right lower leg (principal); I73.9 Peripheral vascular disease, unspecified | CPT/HCPCS: 99202 ==

== ENCOUNTER 2025-02-14 07:53 | Outpatient (AMB) | payer OTHER, SELFPAY ==
--- NOTE | 2025-02-14 07:55 | MHC.OFFVIS ---
Vital Signs 02/14/25 07:56 Height 5 ft 7 in Weight 167 lb BMI 26.2 Intake Visit Reasons: OV, L shldr imp. syndrome. discuss options Intake Note: Aguilar is a 49 year old right hand dominant, German Speaking, female who presents today for a follow up of her left shoulder. At her last visit about 2 months ago we discussed surgical intervention, but she was unable to book surgery as her A1C was too high(12.3). She presents today to discuss alternative treatment options. She has taken Tylenol with no relief - tried gabapentin which caused upset stomach. She is taking whatever pills I can find as her pain is so severe. She has started Trulicity and has been regimented with taking this as she wants to have surgery for her shoulder. She did not take her sugars this morning, but reports that they hae been running about 180-200. Die Repairer Trimmer Dies Required: Yes Die Repairer Trimmer Dies Language: Radio Electronics Technician Name: Rakan Cullen [id number] Allergies ibuprofen (From Motrin) Allergy (Unknown, Verified 02/14/25 08:10) Rash, Stomach upset gadobutrol (From GADAVIST) Adverse Reaction (Mild, Verified 02/14/25 08:10) NAUSEA & VOMITING venlafaxine Adverse Reaction (Unknown, Verified 02/14/25 08:10) halucinations Medication List - Last Reconciled 02/14/25 by Lionel Lorenz MD acetaminophen (Tylenol) 650 mg (2 x 325 mg) PO Q4H PRN albuterol sulfate 90 mcg/actuation (Proventil HFA) 1 inh inhalation QID PRN 30 days blood sugar diagnostic (FreeStyle Lite Strips) As directed checks 3X/day blood-glucose meter (FreeStyle Lite Meter kit) As directed for use with freestyle lite test strips blood-glucose sensor (FreeStyle Ria 3 Sensor device) Apply every 14 days As directed to monitor blood glucose blood-glucose sensor (FreeStyle Ria 3 Plus Sensor device) Use daily As directed to monitor glucose blood-glucose,receiver stocker,cont (FreeStyle Ria 3 [place]) Use daily As directed to monitor blood glucose cetirizine 10 mg PO DAILY clopidogrel 75 mg PO DAILY commode (bedside commode) As directed commode (bedside commode) As directed cyclobenzaprine 10 mg PO TID PRN diclofenac sodium 1% (Voltaren Arthritis Pain) 4 grams topical QID diclofenac sodium 1% 4 grams topical QID 30 days dulaglutide 1.5 mg (0.5 mL) subcut QWEEK 90 days fluticasone propionate 50 mcg/actuation (Aller-Benedicto) 1 spray intranasal BID gabapentin 600 mg PO BEDTIME 90 days insulin glargine U-300 conc (Toujeo Max U-300 SoloStar) 60 units (0.2 mL) subcut DAILY 30 days insulin lispro (Humalog KwikPen (U-100) Insulin) 20 units (0.2 mL) subcut TIDWMEAL 30 days lancets (FreeStyle Lancets) use 3 times daily to check blood glucose omeprazole 20 mg PO DAILY@0630 pen needle, diabetic use qid As directed quetiapine 25 mg PO BEDTIME 90 days [Rib belt wear rib belt to help reduce pain] rivaroxaban (Xarelto) 2.5 mg PO BID 90 days sennosides (senna) mg PO Ventolin HFA 90 mcg/actuation (albuterol sulfate) 1 inh inhalation QID PRN NS walker As directed [facility] Medical History Internal derangement of left knee Vitamin D deficiency Asthma Type 2 diabetes mellitus with hyperglycemia, with long-term current use of insulin Hyperlipidemia LDL goal <100 Cervical stenosis of spinal canal Degeneration, intervertebral disc, cervical Spondylosis, cervical Postlaminectomy syndrome, lumbar Dyspepsia Chronic GERD Narcotic dependence Environmental allergies Failed back syndrome Tobacco abuse Insomnia Depression, major, recurrent, moderate Diabetes mellitus, insulin dependent (IDDM), uncontrolled Surgical History History of thrombectomy History of lumbar surgery Hx of right knee surgery (08/2011) Family History Father Asthma Mother Diabetes HTN (hypertension) Colon cancer Dialysis patient Brother Substance abuse Social History Household Members: None Housing: Apartment Alcohol intake: never Patient Tobacco Use Status: Current everyday Tobacco user e-Cigarette/Vaping Use: Never Used service: No Current occupational status: disabled Current occupation: rt handed Cognitive needs: No Hearing needs: No Vision needs: No Physical Exam Vital Signs: BMI result Body Mass Index 26.2 Const Other: Well-nourished well-developed very friendly female awake alert and oriented x3 in no acute distress Extrem Other: Left shoulder examination shows decreased active and passive range of motion when compared to her right shoulder, 5/5 strength with supraspinatus testing, positive impingement signs, tenderness over her acromioclavicular joint, no instability Assessment & Plan Assessment & Plan (1) Impingement syndrome of left shoulder: Code(s): M75.42 - Impingement syndrome of left shoulder Category: Medical Plan Oraliz presents with left shoulder pain and stiffness due to impingement syndrome, acromioclavicular joint arthritis and adhesive capsulitis. The patient understands that her hemoglobin A1c must be below 10 to undergo arthroscopic surgery. She will contact my office once she is cleared medically and her A1c is below 10. Surgery will involve left shoulder arthroscopic distal clavicle excision, left shoulder arthroscopic acromioplasty, left shoulder arthroscopic capsular release and left shoulder manipulation under anesthesia. She will continue with the [id number] exercises in the meantime. Feel free to call me at any time should questions regarding her orthopedic management arise. I spent 20 minutes in reviewing the patient's records and imaging studies, seeing the patient and documenting in the medical record. Medications: New methylprednisolone (Medrol (Pravin)) PO PER PKG DIR 21 ea 0RF Coding Level of Care Code Est Pt Level 3 (70036) Complex EM visit Add On G2211 Diagnoses Impingement syndrome of left shoulder M75.42
[2025-02-14 07:56] VITALS: BMI 26.2
--- OUTSIDE RECORDS SUMMARY | 2025-02-14 07:56 | XMS_ITS | Clinical Summary ---
Author Organization [facility] Address [address] [place] [address] Phone Care Team Providers Care Engine Lathe Tender Name Role Phone Moisés Lewis MD Primary Care Provider [phone] Allergies Active Allergy Reactions Criticality Noted Date [...] toe syndrome of left lo wer extremity ([facility] V24, [facility] V28) 11/03/2024 Intractable pain 11/03/2024 Type 2 diabetes mellitus wit h hyperglycemia ([facility] V24, [facility] V28) 10/26/2024 Assessment & Plan (10/26/2024 3:48 AM EDT): - Would continue glycemic control in house using insulin regimen augmented by sliding scale - Consider interval A1c Hyperlipidemia 10/26/2024 Assessment & Plan (10/26/2024 3:47 AM EDT): - Will continue outpatient antilipid regimen unchanged Peripheral arterial disease ([facility] V24) 2024 Resolved Problems Problem Noted Date Diagnosed Date Resolved Date Acute occlusion of popliteal artery due to thromboembolism ([facility] V24, [facility] V28) 10/26/2024 10/28/2024 Assessment & Plan [...] await formal input of vascular surgery team Surgical History Surgery Date Site/Laterality Comments KNEE SURGERY 09/04/2011 Right PROCEDURE: HISTORICAL KNEE SURGERY; COMMENT: DSA BACK SURGERY 03/31/2013 Left PROCEDURE: HISTORICAL BACK SURGERY; COMMENT: left L4-5 minimally invasive discectomy, Dr. Camacho Medical History Medical History Date Comments Diabetes mellitus type 2, co ntrolled, with complications ([facility] V24, [facility] V28) DX:Diabetes mellitus type 2, controlled, with complications ([facility]) Arthritis DX:Arthritis Asthma DX:Asthma Glaucoma DX:Glaucoma [...] 05/18/2022 Social Influencers of Health Screening 05/18/2022 Depression Screening 06/15/2024 Diabetes: Annual Urine Albumin-Creatinine Ratio (uACR) 10/26/2024 COVID-19 Vaccine ( season) 2025 07/23/2021, 06/25/2021 Influenza Vaccine (#1) 2025 , 04/22/2019, 03/05/2018, Additional history exists Diabetes: Blood [...] Procedure Name Priority Date/Time Associated Diagnosis Comments BASIC METABOLIC PANEL Routine 11/03/2024 5:27 AM EDT HEMOGLOBIN A1C Add-On 11/03/2024 5:27 AM EDT from Last 3 Months or Most Recently Relevant to Health Maintenance Results * (ABNORMAL) Hemoglobin A1c (11/03/2024 5:27 AM [...] [facility] [address] [place] [address], [place] [phone] * (ABNORMAL) Basic metabolic panel (11/03/2024 5:27 AM EDT) Sodium 138 133 - 145 mmol/L LAB CHEMISTRY METHOD 11/03/2024 7:16 AM [facility] Potassium 3.8 3.5 - 5.5 mmol/L LAB CHEMISTRY METHOD 11/03/2024 7:16 AM [facility] Chloride 106 96 - 110 mmol/L LAB CHEMISTRY METHOD 11/03/2024 7:16 AM [facility] CO2 26 21 - 32 mmol/L LAB CHEMISTRY METHOD 11/03/2024 7:16 AM [facility] Anion Gap 6 3 - 11 LAB CHEMISTRY METHOD 11/03/2024 7:16 AM [facility] Glucose 154(H) 70 - 100 mg/dL LAB CHEMISTRY METHOD 11/03/2024 7:16 AM [facility] BUN 16 5 - 25 mg/dL LAB CHEMISTRY METHOD 11/03/2024 7:16 AM [facility] Creatinine 0.40(L) 0.50 - 1.10 mg/dL LAB CHEMISTRY METHOD 11/03/2024 7:16 AM [facility] eGFR 122 >=60 mL/min/1. 73m2 LAB CHEMISTRY METHOD 11/03/2024 7:16 AM [facility] Comment:Calculation based on the Chronic Kidney Disease Epidemiology Collaboration (CKD-EPI) equation refit without adjustment for race. BUN/Creatinine Ratio 40.0 LAB CHEMISTRY METHOD 11/03/2024 7:16 AM [facility] Calcium 9.1 8.5 - 10.5 mg/dL LAB CHEMISTRY METHOD 11/03/2024 7:16 AM [facility] Blood Venous blood specimen / Unknown Venipuncture / Unknown 11/03/2024 5:27 AM EDT 11/03/2024 6:13 AM EDT us Maco Frye MD LAB BLOOD ORDERABLES Final Result [facility] [address] [place] [address], from Last 3 Months or Most Recently Relevant to Health Maintenance Insurance [facility] Advance Directives * Full Code [...] currently active code status orders. Care Teams Engine Lathe Tender Relationship Specialty Start Date End Date Moisés Lewis MD [address] [place] [address] PCP - General Internal Medicine 08/07/11
--- OUTSIDE RECORDS SUMMARY | 2025-02-14 07:56 | XMS_ITS | Clinical Summary ---
Author Organization [facility] Address [address] [place] [address] Care Team Providers Care Lithograph Printer Name Role Phone Unavailable Primary Care Provider [...] medications Active Problems No known active problems Encounters Date Type Department Care Team Description 01/10/2025 1:30 PM EDT Office Visit [facility] [address] [place] [address] Alice Workman, MARY from Last 3 Months Social History Tobacco Use Types Packs/Day Years [...] Comments Anxiety Screening 1976 Dental FMX/Pano 1976 HPV Screening 1976 Hepatitis C Screening 1976 Lipid Screening 1976 Pap + HPV 1976 Tobacco Cessation Counseling (#1) 1976 HIV Screening 1991 Relationship Safety Screening/Counseling 1991 Imm-DTaP/Tdap/Td (1 - Tdap) 1995 Imm-Hepatitis B (1 of 3 - 19 + 3-dose series) 1995 Imm-Pneumococcal (1 of 2 - PCV) 1995 Cervical Cancer Screening 1997 Pap Smear 1997 Breast Cancer Screening (Mammogram) 2016 CT Colonography 2021 Colonoscopy 2021 Colorectal Cancer Screening 2021 FIT/gFOBT 2021 Fecal DNA 2021 Flexible Sigmoidoscopy 2021 [id number] ( season) 2024 Alcohol and Drug Screen 06/15/2024 Depression Annual Screen 06/15/2024 Dental Examination 11/14/2024 11/13/2023 Dental Perio Charting 11/14/2024 11/13/2023 Dental Prophy 11/14/2024 11/13/2023 Hypertension Screening (#1) 12/21/2024 Imm-Influenza (#1) 2025 04/22/2019 Diabetes Screening 11/04/2027 11/03/2024, 0 11/03/2024, 11/03/2024, Additional history exists Cervical Ablation/Cold-Knife Conization Discontinued Cervical Cryotherapy Discontinued Colposcopy Discontinued Endometrial Biopsy Discontinued Excision/Leep Discontinued HPV Genotyping Discontinued Vaginal Pap Discontinued Vulvoscopy Discontinued Procedures Procedure Name Priority Date/Time Associated Diagnosis Comments CASE PRESENTATION SUBS DTL & EXTENSIVE TX PLN Routine 01/10/2025 1:30 PM EDT Fracture of crown, enamel, and dentin of tooth without pulp exposure 24 L RESIN-BASED COMPOSITE ONE SURFACE ANTERIOR Routine 01/10/2025 1:30 PM EDT Fracture of crown, enamel, and dentin of tooth without pulp exposure COMP PERIODONTAL EVALUATION - NEW/EST PATIENT Routine [...] Maintenance Insurance [place] MEDICA[place] D[place] [facility] Member Subscriber Plan / Payer ( fective 2017-Present) Name:Jose Casiano Grahamhai Relation to Subscriber:Self Name:Jose Casiano Grahamhai Payer ID:[id number] Group ID:Not on file Type:Medicaid Address: [facility] [address] [place] [address]
--- OUTSIDE RECORDS SUMMARY | 2025-02-14 07:56 | XMS_ITS | Clinical Summary ---
Author Organization [employer] [facility] Address [address] [place] [address] Care Team Providers Care Band Nailer Name Role Phone Moisés Lewis MD Primary Care Provider [phone] Social History Tobacco Use Types Packs/Day Years [...] age to complete this topic Care Teams Band Nailer Relationship Specialty Start Date End Date Moisés Lewis MD [address] [place] [address] [place] [address] PCP - General Internal Medicine 05/30/20
== END 2025-02-14 08:26 | disposition home or self-care (01) ==
LOC: HO.HOS 07:53
PROVIDERS: PCP Internal Medicine; Visit Provider Orthopaedic Surgery
DX: M75.42 Impingement syndrome of left shoulder (principal); E11.9 Type 2 diabetes mellitus without complications
CPT/HCPCS: 99213

== ENCOUNTER → 2025-02-14 07:53 | Outpatient (BNVA) | payer OTHER, SELFPAY | PROVIDERS: PCP Internal Medicine; Visit Provider Orthopaedic Surgery | DX: M75.42 Impingement syndrome of left shoulder (principal) | CPT/HCPCS: 99212 ==

== ENCOUNTER 2025-02-27 13:11 | Outpatient (REF) | payer OTHER, SELFPAY ==
[2025-02-27 14:24] LABS: Hematocrit 40.1 % (37.0-47.0); Hemoglobin 13.9 g/dl (12.0-16.0); Imm Gran Abs Auto 0.03 X10*3/uL (0.00-0.03); Imm Gran Pct Auto 0.4 % (0.0-0.4); Lymphocytes Absolute Auto 3.6 X10*3/uL (1.2-4.9); MANUAL DIFF FLAG SCAN; Mean Corpuscular HGB Conc 34.7 g/dl (31.0-35.0); Mean Corpuscular Hemoglobin 30.9 pg (27.0-33.0); Mean Corpuscular Volume 89.1 fL (80.0-98.0); NRBC Abs Auto 0.000 X10*3/uL (0.0-0.012); NRBC Pct Auto 0.0 /100WBC (0.0-0.2); Platelet Count 208 X10*3/uL (160-400); Red Blood Count 4.50 X10*6/uL (4.20-5.50); SCAN SMEAR FLAG 1; White Blood Count 8.4 X10*3/uL (4.8-10.8)
[2025-02-27 14:34] LABS: Hemoglobin A1C 367.1140 umol/L; Total Hemoglobin (HGBA1C) 3606.3849 umol/L
[2025-03-03 16:58] LABS: Vitamin D 25-OH, D2 <4 ng/mL; Vitamin D 25-OH, D3 26 ng/mL; Vitamin D 25-OH, Total 26 ng/mL (30-100)
== END 2025-02-27 13:12 | disposition home or self-care (01) ==
LOC: HO.LAB 13:11
PROVIDERS: Absent Provider Internal Medicine; PCP Internal Medicine; Visit Provider Physician Assistant
DX: E11.65 Type 2 diabetes mellitus with hyperglycemia (principal); Z00.01 Encounter for general adult medical examination with abnormal findings; I70.202 Unspecified atherosclerosis of native arteries of extremities, left leg; F41.1 Generalized anxiety disorder; F33.1 Major depressive disorder, recurrent, moderate; M54.12 Radiculopathy, cervical region; M96.1 Postlaminectomy syndrome, not elsewhere classified; K21.9 Gastro-esophageal reflux disease without esophagitis; G47.9 Sleep disorder, unspecified; E55.9 Vitamin D deficiency, unspecified; E78.9 Disorder of lipoprotein metabolism, unspecified; E66.09 Other obesity due to excess calories; G89.29 Other chronic pain; Z79.4 Long term (current) use of insulin; Z91.09 Other allergy status, other than to drugs and biological substances
CPT/HCPCS: 36415; 82306; 82947; 83036; 83721; 84443; 85025; 99212

== ENCOUNTER 2025-02-27 13:11 | Outpatient (AMB) | payer OTHER, SELFPAY ==
--- NOTE | 2025-02-27 13:16 | MHC.OFFVIS ---
Vital Signs 02/27/25 13:22 Height 5 ft 7 in Weight 167 lb 8.821 oz BMI 26.2 BP 120/82 Position Sitting Pulse 98 Pulse Source Pulse Oximeter Pulse Oximetry (%) 98 Oxygen Delivery Method Room Air Intake Visit Reasons: T2DM Intake Note: Patient present today for Type 2 Diabetes Mellitus Last Diabetic eye exam: DUE, Still waiting on needs a referral Last Podiatry Visit: Patient does not see a Network Cabler Random Glucose: 286 mg/dL Most Recent HgA1C: 11.1% 02/27/25, Patient request to repeat the A1c, patient stated she is having surgery. Security Officers And Guards Required: Yes Security Officers And Guards Language: Inbound Call Center Representative Services: Security Officers And Guards Present Security Officers And Guards Name: Christopher Abraham, ANTHONY/NATE, Span Accompanied by: Self / Same As Patient Allergies ibuprofen (From Motrin) Allergy (Unknown, Verified 02/27/25 13:35) Rash, Stomach upset gadobutrol (From GADAVIST) Adverse Reaction (Mild, Verified 02/27/25 13:35) NAUSEA & VOMITING venlafaxine Adverse Reaction (Unknown, Verified 02/27/25 13:35) halucinations Medication List - Last Reconciled 02/27/25 by Josy Ahn PA-C acetaminophen (Tylenol) 650 mg (2 x 325 mg) PO Q4H PRN albuterol sulfate 90 mcg/actuation (Proventil HFA) 1 inh inhalation QID PRN 30 days blood sugar diagnostic (FreeStyle Lite Strips) As directed checks 3X/day blood-glucose meter (FreeStyle Lite Meter kit) As directed for use with freestyle lite test strips blood-glucose sensor (FreeStyle Ria 3 Sensor device) Apply every 14 days As directed to monitor blood glucose blood-glucose sensor (FreeStyle Ria 3 Plus Sensor device) Use daily As directed to monitor glucose blood-glucose,morning caregiver,cont (FreeStyle Ria 3 [place]) Use daily As directed to monitor blood glucose cetirizine 10 mg PO DAILY clopidogrel 75 mg PO DAILY commode (bedside commode) As directed commode (bedside commode) As directed cyclobenzaprine 10 mg PO TID PRN diclofenac sodium 1% (Voltaren Arthritis Pain) 4 grams topical QID diclofenac sodium 1% 4 grams topical QID 30 days dulaglutide 1.5 mg (0.5 mL) subcut QWEEK 90 days fluticasone propionate 50 mcg/actuation (Aller-Benedicto) 1 spray intranasal BID gabapentin 600 mg PO BEDTIME 90 days insulin glargine U-300 conc (Toujeo Max U-300 SoloStar) 60 units (0.2 mL) subcut DAILY 30 days insulin lispro (Humalog KwikPen (U-100) Insulin) 20 units (0.2 mL) subcut TIDWMEAL 30 days lancets (FreeStyle Lancets) use 3 times daily to check blood glucose methylprednisolone (Medrol (Pravin)) PO PER PKG DIR omeprazole 20 mg PO DAILY@0630 pen needle, diabetic use qid As directed quetiapine 25 mg PO BEDTIME 90 days [Rib belt wear rib belt to help reduce pain] rivaroxaban (Xarelto) 2.5 mg PO BID 90 days sennosides (senna) mg PO Ventolin HFA 90 mcg/actuation (albuterol sulfate) 1 inh inhalation QID PRN NS walker As directed HPI HPI T2DM: Details: Patient is a 49-year-old female with a significant past medical history of hyperlipidemia, uncontrolled type 2 diabetes, GERD, anxiety, depression, history of narcotic dependence presenting today for follow up regarding her diabetes. Security Officers And Guards Jennifer Dodson: She is overdue labs She is currently on lispro 20 units t.i.d., Toujeo 60 units nightly, and Trulicity 1.5 mg weekly. Her A1c today is 11.9. -she says that she never started the Toujeo and switched from Lantus out of fear of this insulin. It is unclear but has been intermittently using the lantus at 50 units and more often than not, skipping lantus. She is compliant with lispro. -in the past tried metformin. Refuses any other pill for diabetes. No low blood sugars CGM-63% usage, G mi 9.5. very hyperglycemic 52%, hyperglycemic 36%, in range 12%, 0% hypoglycemia She has not yet gotten labs. [facility] Medical History Internal derangement of left knee Vitamin D deficiency Asthma Type 2 diabetes mellitus with hyperglycemia, with long-term current use of insulin Hyperlipidemia LDL goal <100 Cervical stenosis of spinal canal Degeneration, intervertebral disc, cervical Spondylosis, cervical Postlaminectomy syndrome, lumbar Dyspepsia Chronic GERD Narcotic dependence Environmental allergies Failed back syndrome Tobacco abuse Insomnia Depression, major, recurrent, moderate Diabetes mellitus, insulin dependent (IDDM), uncontrolled Surgical History History of thrombectomy History of lumbar surgery Hx of right knee surgery (08/2011) Family History Father Asthma Mother Diabetes HTN (hypertension) Colon cancer Dialysis patient Brother Substance abuse Social History Household Members: None Housing: Apartment Alcohol intake: never Patient Tobacco Use Status: Current everyday Tobacco user e-Cigarette/Vaping Use: Never Used service: No Current occupational status: disabled Current occupation: rt handed Cognitive needs: No Hearing needs: No Vision needs: No Physical Exam Vital Signs: Last Vital Signs Pulse 98 02/27/25 13:22 BP 120/82 02/27/25 13:22 Pulse Ox 98 02/27/25 13:22 Oxygen Delivery Method Room Air 02/27/25 13:22 BMI result Body Mass Index 26.2 Const Orientation/consciousness: patient oriented x3 HEENT Ears: hearing grossly normal bilaterally Neck Thyroid: Thyroid normal Lymphatic: no lymphadenopathy noted Resp Auscultation: clear to auscultation bilaterally Cardio Rate: regular rate Rhythm: regular rhythm Heart sounds: S1 normal heart sound present and S2 normal heart sound present Skin General skin exam: no rashes or lesions noted Neuro General: patient oriented x3, gait normal and no focal motor deficits Results AMB Hemoglobin A1c AMB Hemoglobin A1c 11.9 % Last Edit by ANTHONY Argueta on 02/27/25 13:49 Patient request to repeat the A1c, patient stated she is having surgery. Results Reviewed Results Reviewed: Laboratory Last Values Glucose (Clinic) 286 mg/dL (60-115) H 02/27/25 13:31 Hgb A1c (Clinic) 11.9 % (4.0-6.0) H 02/27/25 13:36 Laboratory Tests 07/23/23 08/24/23 11/01/23 09:11 13:45 14:23 Sodium 136 Potassium 4.1 Chloride 105 Carbon Dioxide 24 Anion Gap 11 L BUN 15 Creatinine 0.68 Estimated GFR > 60 Glucose (Clinic) POC Glucose 257 H Hgb A1c (Clinic) Hemoglobin A1c % 10.0 H AST 14 ALT 19 Triglycerides 125 Cholesterol 175 LDL Cholesterol Direct 118 H LDL Cholesterol, Calc 89 HDL Cholesterol 61 TSH 0.33 03/25/24 05/08/24 12/21/24 11:17 16:24 14:23 Sodium Potassium Chloride Carbon Dioxide Anion Gap BUN Creatinine Estimated GFR Glucose (Clinic) POC Glucose 355 H* Hgb A1c (Clinic) 11.5 H 12.3 H Hemoglobin A1c % AST ALT Triglycerides Cholesterol LDL Cholesterol Direct LDL Cholesterol, Calc HDL Cholesterol TSH 01/02/25 14:53 Sodium Potassium Chloride Carbon Dioxide Anion Gap BUN Creatinine Estimated GFR Glucose (Clinic) 322 H POC Glucose Hgb A1c (Clinic) Hemoglobin A1c % AST ALT Triglycerides Cholesterol LDL Cholesterol Direct LDL Cholesterol, Calc HDL Cholesterol TSH Assessment & Plan Assessment & Plan (1) Type 2 diabetes mellitus with hyperglycemia, with long-term current use of insulin: Code(s): E11.65 - Type 2 diabetes mellitus with hyperglycemia; Z79.4 - snf (current) use of insulin Category: Medical Plan: Start Toujeo at 20 units. We had a long discussion reviewing risks and benefits and adverse effects of the medication. Continue lispro Increase Trulicity to 3 mg weekly Reviewed signs and symptoms of hyper and hypoglycemia that would require emergent medical treatment. Orders: Orders AMB Hemoglobin A1c Today E11.65 - Type 2 diabetes mellitus with hyperglycemia, Z79.4 - intermodal customer service (current) use of insulin Medications: New dulaglutide (Trulicity) 3 mg (0.5 mL) subcut QWEEK 2 mL 5RF Changed From insulin glargine U-300 conc (Toujeo Max U-300 SoloStar) 60 units (0.2 mL) subcut DAILY 30 days 6 mL 5RF To insulin glargine U-300 conc (Toujeo Max U-300 SoloStar) 20 units (0.0667 mL) subcut DAILY 6 mL 5RF 30 days Discontinued dulaglutide Discontinued Reason: Doctor's Order 1.5 mg (0.5 mL) subcut QWEEK 90 days 6 mL 3RF Coding Level of Care Code Est Pt Level 4 (76560) Complex EM visit Add On G2211 Diagnoses Type 2 diabetes mellitus with hyperglycemia, with long-term current use of insulin E11.65; Z79.4
[2025-02-27 13:22] VITALS: BP 120/82; PULSE 98; O2SAT 98; BMI 26.2
[2025-02-27 13:36] LABS: Glucose, Whole Blood 286 mg/dL (60-115)
--- OUTSIDE RECORDS SUMMARY | 2025-02-27 18:18 | XMS_ITS | Clinical Summary ---
Author Organization [facility] Address [address] [place] [address] Phone Care Team Providers Care Date Pitter Name Role Phone Moisés Lewis MD Primary Care Provider [phone] Allergies Active Allergy Reactions Criticality Noted Date [...] toe syndrome of left lo wer extremity ([facility] V24, [facility] V28) 11/03/2024 Intractable pain 11/03/2024 Type 2 diabetes mellitus wit h hyperglycemia ([facility] V24, [facility] V28) 10/26/2024 Assessment & Plan (10/26/2024 3:48 AM EDT): - Would continue glycemic control in house using insulin regimen augmented by sliding scale - Consider interval A1c Hyperlipidemia 10/26/2024 Assessment & Plan (10/26/2024 3:47 AM EDT): - Will continue outpatient antilipid regimen unchanged Peripheral arterial disease ([facility] V24) 2024 Resolved Problems Problem Noted Date Diagnosed Date Resolved Date Acute occlusion of popliteal artery due to thromboembolism ([facility] V24, [facility] V28) 10/26/2024 10/28/2024 Assessment & Plan [...] mellitus type 2, co ntrolled, with complications ([facility] V24, [facility] V28) DX:Diabetes mellitus type 2, controlled, with complications ([facility]) Arthritis DX:Arthritis Asthma DX:Asthma Glaucoma DX:Glaucoma [...] LAB CHEMISTRY METHOD 11/06/2024 11:19 AM EDT [facility] Mean Bld Glu Estim. 301 mg/dL LAB CHEMISTRY METHOD 11/06/2024 11:19 AM EDT [facility] Blood Venous blood specimen / Unknown Venipuncture / Unknown 11/03/2024 5:27 AM EDT 11/03/2024 6:13 AM EDT us Bereket Alvarez MD LAB BLOOD ORDERABLES Final Resul t [facility] [address] [place] [address], [place] [phone] * (ABNORMAL) Basic metabolic panel (11/03/2024 5:27 [...] Frye MD LAB BLOOD ORDERABLES Final Result [facility] [address] [place] [address], from Last 3 Months or Most Recently Relevant to Health Maintenance Insurance [facility] [employer] [employer] Advance Directives * Full Code [...] currently active code status orders. Care Teams Date Pitter Relationship Specialty Start Date End Date Moisés Lewis MD [address] [place] [address] PCP - General Internal Medicine 08/07/11
== END 2025-02-27 13:51 | disposition home or self-care (01) ==
LOC: HO.ENCR 13:12
PROVIDERS: PCP Internal Medicine; Visit Provider Physician Assistant
DX: E11.65 Type 2 diabetes mellitus with hyperglycemia (principal); Z79.4 Long term (current) use of insulin

== ENCOUNTER 2025-03-10 12:14 | Outpatient (AMB) | payer OTHER, SELFPAY ==
[2025-03-10 12:16] VITALS: BP 122/84; PULSE 86; O2SAT 98; BMI 26.3
--- NOTE | 2025-03-10 12:16 | MHC.PC.OV ---
Vital Signs 03/10/25 12:16 Height 5 ft 7 in Weight 168 lb BMI 26.3 BP 122/84 Blood Pressure Location Lt brachial Position Sitting Pulse 86 Pulse Source Pulse Oximeter Pulse Oximetry (%) 98 Intake Visit Reasons: 2 month follow up Allergies ibuprofen (From Motrin) Allergy (Unknown, Verified 02/27/25 13:35) Rash, Stomach upset gadobutrol (From GADAVIST) Adverse Reaction (Mild, Verified 02/27/25 13:35) NAUSEA & VOMITING venlafaxine Adverse Reaction (Unknown, Verified 02/27/25 13:35) halucinations Medication List - Last Reconciled 03/10/25 by Moisés Leiws MD acetaminophen (Tylenol) 650 mg (2 x 325 mg) PO Q4H PRN albuterol sulfate 90 mcg/actuation (Proventil HFA) 1 inh inhalation QID PRN 30 days blood sugar diagnostic (FreeStyle Lite Strips) As directed checks 3X/day blood-glucose meter (FreeStyle Lite Meter kit) As directed for use with freestyle lite test strips blood-glucose sensor (FreeStyle Ria 3 Sensor device) Apply every 14 days As directed to monitor blood glucose blood-glucose sensor (FreeStyle Ria 3 Plus Sensor device) Use daily As directed to monitor glucose blood-glucose,bisque cleaner,cont (FreeStyle Ria 3 [place]) Use daily As directed to monitor blood glucose cetirizine 10 mg PO DAILY clopidogrel 75 mg PO DAILY commode (bedside commode) As directed commode (bedside commode) As directed cyclobenzaprine 10 mg PO TID PRN diclofenac sodium 1% (Voltaren Arthritis Pain) 4 grams topical QID diclofenac sodium 1% 4 grams topical QID 30 days dulaglutide (Trulicity) 3 mg (0.5 mL) subcut QWEEK fluticasone propionate 50 mcg/actuation (Aller-Benedicto) 1 spray intranasal BID gabapentin 600 mg PO BEDTIME 90 days insulin glargine U-300 conc (Toujeo Max U-300 SoloStar) 20 units (0.0667 mL) subcut DAILY 30 days insulin lispro (Humalog KwikPen (U-100) Insulin) 20 units (0.2 mL) subcut TIDWMEAL 30 days lancets (FreeStyle Lancets) use 3 times daily to check blood glucose methylprednisolone (Medrol (Pravin)) PO PER PKG DIR omeprazole 20 mg PO DAILY@0630 pen needle, diabetic use qid As directed quetiapine 25 mg PO BEDTIME 90 days [Rib belt wear rib belt to help reduce pain] rivaroxaban (Xarelto) 2.5 mg PO BID 90 days sennosides (senna) mg PO Ventolin HFA 90 mcg/actuation (albuterol sulfate) 1 inh inhalation QID PRN NS walker As directed Tobacco use date assessed: 12/21/24 Dental Screening Dental Screen Date: 12/21/24 HPI 2 month follow up HPI Details History The patient is a 49-year-old female presenting f/u Peripheral Vascular Disease: - The patient reports ongoing issues with circulation in her legs, identified as peripheral vascular disease. - The problem was identified following a CTA lower extremity in October which showed an occluded short segment of the left popliteal artery and multifocal vascular stenosis in [facility] - The patient is under the care of a vascular specialist and has an upcoming ultrasound appointment for further assessment. - The patient is on clopidogrel 75 mg, a blood thinner, so far I have been refilling it, but I would like the Vascular to address this at her up coming apt. Diabetes Mellitus: - Hyperglycemia was noted with a recent A1c of 11.5, indicating uncontrolled diabetes. - The patient describes avoidance of foods like donuts in attempt to manage blood sugar. - The patient mentions appointment with an associate professor of sociology and is encouraged to maintain that follow up. - She currently uses insulin and Trulicity. Depression and axiety stable with current medication regimen failed back syndrom : continue Gabapentine Medical History: - Peripheral Vascular Disease - Diabetes Mellitus, type unspecified, poorly controlled - Severe depression - Cervical stenosis - GERD (Gastroesophageal Reflux Disease) - Environmental allergies - Severe anxiety - Diabetic neuropathy - Back Pain - Essential Hypertension Medications: - Cetrizine for allergies - Clopidogrel 75 mg for peripheral vascular disease - Fluticasone (indication not specified) - Gabapentin 600 mg at bedtime for diabetic neuropathy and back pain - Insulin (dose and type not specified) - Omeprazole 20 mg, indication for GERD - Quetiapine 25 mg at bedtime (psychiatric indication assumed) - Senokot (dose not specified) - Xarelto 2.5 mg twice daily for unspecified indication Social History: - Reports an attempt to quit smoking; currently trying to stop, with some reduction in smoking frequency. - The patient denies consistent exercise or a specified exercise routine. due to her back and neck pain - The dietary history notes avoidance of high sugar foods such as donuts to manage blood sugar levels. Problem List - Peripheral Vascular Disease - Diabetes Mellitus (uncontrolled with elevated A1c) - Severe Anxiety - Depression - Cervical Stenosis - Gastroesophageal Reflux Disease (GERD) Diagnostic results - Tests: - CTA lower extremity (October) revealed occluded short segment of left popliteal artery and multifocal vascular stenosis. - Labs: - Hemoglobin A1c of 11.5 indicating poorly controlled diabetes Morongo of Care - The patient is under the care of a vascular specialist and has a pending ultrasound for her leg to assess vascular health. Patient Instructions - Continue taking all prescribed medications. - Follow up with associate professor of sociology as scheduled. - Attend the upcoming ultrasound appointment to assess vascular health. - Work on smoking cessation with the goal to quit completely by June. - Maintain dietary changes to help manage blood sugar levels. f/u 3 M Review of Systems General: No fever no chills neurological: No headaches no dizziness ear nose throat: No sore throat no hearing difficulty no ear pain cardiovascular: No syncope, no chest pain, no palpitations gastrointestinal: No nausea vomiting or diarrhea skin: No new complaints Physical Exam general: No acute distress HEENT: No acute findings neck: Cervical stenosis respiratory system: Able to talk in full sentences, no audible wheeze no stridor cardiovascular: S1-S2 RRR gastrointestinal: GERD extremities: pink, no sores no swelling CUTTER BRAKE LINING: Alert awake oriented x3 motor intact, use cane for ambulation skin: Normal turgor [facility] Medical History Internal derangement of left knee Vitamin D deficiency Asthma Type 2 diabetes mellitus with hyperglycemia, with long-term current use of insulin Hyperlipidemia LDL goal <100 Cervical stenosis of spinal canal Degeneration, intervertebral disc, cervical Spondylosis, cervical Postlaminectomy syndrome, lumbar Dyspepsia Chronic GERD Narcotic dependence Environmental allergies Failed back syndrome Tobacco abuse Insomnia Depression, major, recurrent, moderate Diabetes mellitus, insulin dependent (IDDM), uncontrolled Surgical History History of thrombectomy History of lumbar surgery Hx of right knee surgery (08/2011) Family History Father Asthma Mother Diabetes HTN (hypertension) Colon cancer Dialysis patient Brother Substance abuse Social History Household Members: None Housing: Apartment Alcohol intake: never Patient Tobacco Use Status: Current everyday Tobacco user e-Cigarette/Vaping Use: Never Used service: No Current occupational status: disabled Current occupation: rt handed Cognitive needs: No Hearing needs: No Vision needs: No Questionnaire PHQ-9 Over the last 2 weeks, how often have you been bothered by any of the following problems? 52136 - PHQ-9 Billing: Patient declined-do not bill Source: Developed by Drs. Balta Abdalla, Keyana Lopez, Lam Bernardo and colleagues, with an educational blaine from [employer]. Thrive Questionnaire Date Thrive assessed: 03/10/25 I am a: Patient What is your living situation today?: I choose not to answer this question Within the past 12 months, did the food you bought not last and you didn't have the money to get more?: I choose not to answer this question Within the past 12 months, did you worry whether your food would run out before you got money to buy more?: I choose not to answer this question Do you have trouble paying for medicines?: I choose not to answer this question Do you have trouble getting transportation to medical appointments?: I choose not to answer this question Do you have trouble paying your heating and electricity bill?: I choose not to answer this question Do you have trouble taking care of your child, family member or friend?: I choose not to answer this question Do you have trouble with day-to-day activities such as bathing, preparing meals, shopping, managing finances, etc.?: I choose not to answer this question Are you currently unemployed and looking for a job?: I choose not to answer this question Are you interested in more education?: I choose not to answer this question Please select the resources that you would like help with: None Currently or been in a relationship where the following occur: I choose not to answer THRIVE Score: 0 AUDIT C Alcohol Use Questionnaire (AUDIT-C) 1. How often do you have a drink containing alcohol?: Never 3. How often do you have six or more drinks on one occasion?: Never Total Score: 0 Score Reviewed/Action Taken: Yes MARNI-7 AMB Questionnaire MARNI-7 Date MARNI - 7 assessed: 03/10/25 (patient declined) Source: Developed by Drs. Balta Abdalla, Keyana Lopez, Lam Bernardo and colleagues, with an educational blaine from [employer]. MARNI-7 Assessment Billing MARNI-7 Assessment Tool: MARNI-7 Assessment 14676 Physical exam (Primary Care) Vital Signs: Last Vital Signs Pulse 86 03/10/25 12:16 BP 122/84 03/10/25 12:16 Pulse Ox 98 03/10/25 12:16 BMI result Body Mass Index 26.3 Tobacco/Smoking Status: Tobacco use Status Tobacco use date assessed 12/21/24 03/10/25 12:26 Patient Tobacco Use Status Current everyday Tobacco 03/10/25 12:26 e-Cigarette/Vaping Use Never Used 03/10/25 12:26 Thrive Assessment: Date of Thrive Assessment Date Thrive assessed 03/10/25 03/10/25 12:26 Currently or been in a relationship where the following occur: I choose not to answer Coding Level of Care Code Est Pt Level 4 (54970) Complex EM visit Add On G2211 Diagnoses Popliteal artery occlusion, 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 Difficulty sleeping G47.9 Cervical radiculitis M54.12 Chronic GERD K21.9 Vitamin D deficiency E55.9 Uncontrolled type 2 diabetes mellitus with hyperglycemia E11.65 Diabetes mellitus type: type 2 Glycemic state: with hyperglycemia Depression, major, recurrent, moderate F33.1 Dependent on walker for ambulation Z99.89 Additional Codes MARNI-7 Assessment Billing - MRANI-7 Assessment Tool: MARNI-7 Assessment 11661 ([id number]) Assessment & Plan Assessment & Plan (1) Popliteal artery occlusion, left: Code(s): I70.202 - Unspecified atherosclerosis of grayling arteries of extremities, left leg Category: Medical (2) Difficulty sleeping: Code(s): G47.9 - Sleep disorder, unspecified Category: Medical (3) Cervical radiculitis: Code(s): M54.12 - Radiculopathy, cervical region Category: Medical (4) Chronic GERD: Code(s): K21.9 - Gastro-esophageal reflux disease without esophagitis Category: Medical (5) Vitamin D deficiency: Code(s): E55.9 - Vitamin D deficiency, unspecified Category: Medical (6) Uncontrolled diabetes mellitus: Category: Medical Qualifiers: Diabetes mellitus type: type 2 Glycemic state: with hyperglycemia Qualified Code(s): E11.65 - Type 2 diabetes mellitus with hyperglycemia (7) Depression, major, recurrent, moderate: Code(s): F33.1 - Major depressive disorder, recurrent, moderate Category: Medical (8) Dependent on walker for ambulation: Code(s): Z99.89 - Dependence on other enabling machines and devices Category: Medical Plan History The patient is a 49-year-old female presenting f/u Peripheral Vascular Disease: - The patient reports ongoing issues with circulation in her legs, identified as peripheral vascular disease. - The problem was identified following a CTA lower extremity in October which showed an occluded short segment of the left popliteal artery and multifocal vascular stenosis in [facility] - The patient is under the care of a vascular specialist and has an upcoming ultrasound appointment for further assessment. - The patient is on clopidogrel 75 mg, a blood thinner, so far I have been refilling it, but I would like the Vascular to address this at her up coming apt. Diabetes Mellitus: - Hyperglycemia was noted with a recent A1c of 11.5, indicating uncontrolled diabetes. - The patient describes avoidance of foods like donuts in attempt to manage blood sugar. - The patient mentions appointment with an associate professor of sociology and is encouraged to maintain that follow up. - She currently uses insulin and Trulicity. Depression and axiety stable with current medication regimen failed back syndrom : continue Gabapentine Medical History: - Peripheral Vascular Disease - Diabetes Mellitus, type unspecified, poorly controlled - Severe depression - Cervical stenosis - GERD (Gastroesophageal Reflux Disease) - Environmental allergies - Severe anxiety - Diabetic neuropathy - Back Pain - Essential Hypertension Medications: - Cetrizine for allergies - Clopidogrel 75 mg for peripheral vascular disease - Fluticasone (indication not specified) - Gabapentin 600 mg at bedtime for diabetic neuropathy and back pain - Insulin (dose and type not specified) - Omeprazole 20 mg, indication for GERD - Quetiapine 25 mg at bedtime (psychiatric indication assumed) - Senokot (dose not specified) - Xarelto 2.5 mg twice daily for unspecified indication Social History: - Reports an attempt to quit smoking; currently trying to stop, with some reduction in smoking frequency. - The patient denies consistent exercise or a specified exercise routine. due to her back and neck pain - The dietary history notes avoidance of high sugar foods such as donuts to manage blood sugar levels. Problem List - Peripheral Vascular Disease - Diabetes Mellitus (uncontrolled with elevated A1c) - Severe Anxiety - Depression - Cervical Stenosis - Gastroesophageal Reflux Disease (GERD) Diagnostic results - Tests: - CTA lower extremity (October) revealed occluded short segment of left popliteal artery and multifocal vascular stenosis. - Labs: - Hemoglobin A1c of 11.5 indicating poorly controlled diabetes Morongo of Care - The patient is under the care of a vascular specialist and has a pending ultrasound for her leg to assess vascular health. Patient Instructions - Continue taking all prescribed medications. - Follow up with associate professor of sociology as scheduled. - Attend the upcoming ultrasound appointment to assess vascular health. - Work on smoking cessation with the goal to quit completely by June. - Maintain dietary changes to help manage blood sugar levels. f/u 3 M
--- OUTSIDE RECORDS SUMMARY | 2025-03-10 13:58 | XMS_ITS | Clinical Summary ---
Author Organization [facility] Address [address] [place] [address] Phone Care Team Providers Care Manager Pulmonary Name Role Phone Moisés Lewis MD Primary Care Provider Allergies Active Allergy Reactions Criticality Noted Date [...] toe syndrome of left lo wer extremity ([facility] V24, [facility] V28) 11/03/2024 Intractable pain 11/03/2024 Type 2 diabetes mellitus wit h hyperglycemia ([facility] V24, [facility] V28) 10/26/2024 Assessment & Plan (10/26/2024 3:48 AM EDT): - Would continue glycemic control in house using insulin regimen augmented by sliding scale - Consider interval A1c Hyperlipidemia 10/26/2024 Assessment & Plan (10/26/2024 3:47 AM EDT): - Will continue outpatient antilipid regimen unchanged Peripheral arterial disease ([facility] V24) 2024 Resolved Problems Problem Noted Date Diagnosed Date Resolved Date Acute occlusion of popliteal artery due to thromboembolism ([facility] V24, [facility] V28) 10/26/2024 10/28/2024 Assessment & Plan (10/26/2024 [...] mellitus type 2, co ntrolled, with complications ([facility] V24, [facility] V28) DX:Diabetes mellitus type 2, controlled, with complications ([facility]) Arthritis DX:Arthritis Asthma DX:Asthma Glaucoma DX:Glaucoma [...] LAB CHEMISTRY METHOD 11/06/2024 11:19 AM EDT [facility] Mean Bld Glu Estim. 301 mg/dL LAB CHEMISTRY METHOD 11/06/2024 11:19 AM EDT [facility] Blood Venous blood specimen / Unknown Venipuncture / Unknown 11/03/2024 5:27 AM EDT 11/03/2024 6:13 AM EDT us Bereket Alvarez MD LAB BLOOD ORDERABLES Final Resul t [facility] [address] [place] [address], [place] [phone] * (ABNORMAL) Basic metabolic panel (11/03/2024 5:27 AM EDT) Sodium 138 133 - 145 mmol/L LAB CHEMISTRY METHOD 11/03/2024 7:16 AM [facility] Potassium 3.8 3.5 - 5.5 mmol/L LAB CHEMISTRY METHOD 11/03/2024 7:16 AM [facility] Chloride 106 96 - 110 mmol/L LAB CHEMISTRY METHOD 11/03/2024 7:16 AM [facility] CO2 26 21 - 32 mmol/L LAB CHEMISTRY METHOD 11/03/2024 7:16 AM [facility] Anion Gap 6 3 - 11 LAB CHEMISTRY METHOD 11/03/2024 7:16 AM [facility] Glucose 154(H) 70 - 100 mg/dL LAB CHEMISTRY METHOD 11/03/2024 7:16 AM [facility] BUN 16 5 - 25 mg/dL LAB CHEMISTRY METHOD 11/03/2024 7:16 AM [facility] Creatinine 0.40(L) 0.50 - 1.10 mg/dL LAB CHEMISTRY METHOD 11/03/2024 7:16 AM [facility] eGFR 122 >=60 mL/min/1. 73m2 LAB CHEMISTRY METHOD 11/03/2024 7:16 AM [facility] Comment:Calculation based on the Chronic Kidney Disease Epidemiology Collaboration (CKD-EPI) equation refit without adjustment for race. BUN/Creatinine Ratio 40.0 LAB CHEMISTRY METHOD 11/03/2024 7:16 AM [facility] Calcium 9.1 8.5 - 10.5 mg/dL LAB CHEMISTRY METHOD 11/03/2024 7:16 AM [facility] Blood Venous blood specimen / Unknown Venipuncture / Unknown 11/03/2024 5:27 AM EDT 11/03/2024 6:13 AM EDT us Maco Frye MD LAB BLOOD ORDERABLES Final Result [facility] [address] [place] [address], from Last 3 Months or Most Recently Relevant to Health Maintenance Insurance [facility] [employer] Advance Directives * Full Code [...] currently active code status orders. Care Teams Manager Pulmonary Relationship Specialty Start Date End Date Moisés Lewis MD [address] [place] [address] PCP - General Internal Medicine 08/07/11
== END 2025-03-10 12:45 | disposition home or self-care (01) ==
LOC: HO.HMCC 12:15
PROVIDERS: PCP Internal Medicine; Visit Provider Internal Medicine
DX: I70.202 Unspecified atherosclerosis of native arteries of extremities, left leg (principal); E11.65 Type 2 diabetes mellitus with hyperglycemia; F33.1 Major depressive disorder, recurrent, moderate; G47.9 Sleep disorder, unspecified; M54.12 Radiculopathy, cervical region; K21.9 Gastro-esophageal reflux disease without esophagitis; E55.9 Vitamin D deficiency, unspecified; Z99.89 Dependence on other enabling machines and devices

== ENCOUNTER → 2025-03-10 12:14 | Outpatient (BNVA) | payer OTHER, SELFPAY | PROVIDERS: PCP Internal Medicine; Visit Provider Internal Medicine | DX: E11.51 Type 2 diabetes mellitus with diabetic peripheral angiopathy without gangrene (principal); E11.65 Type 2 diabetes mellitus with hyperglycemia; F41.9 Anxiety disorder, unspecified; I70.202 Unspecified atherosclerosis of native arteries of extremities, left leg; G47.9 Sleep disorder, unspecified; M54.12 Radiculopathy, cervical region; K21.9 Gastro-esophageal reflux disease without esophagitis; E55.9 Vitamin D deficiency, unspecified; F33.1 Major depressive disorder, recurrent, moderate; Z99.89 Dependence on other enabling machines and devices; Z79.4 Long term (current) use of insulin; Z79.899 Other long term (current) drug therapy | CPT/HCPCS: 96127; 99212 ==

== ENCOUNTER 2025-04-06 10:21 | Outpatient (REF) | payer OTHER, SELFPAY ==
[2025-04-06 11:46] LABS: Alanine Aminotransferase 23 U/L (0-31); Albumin Level 4.2 g/dL (3.5-5.0); Alkaline Phosphatase 89 U/L (39-117); Anion Gap 11 (12-20); Aspartate Amino Transferase 17 U/L (5-31); Blood Urea Nitrogen 19 mg/dL (9-16); Calcium 9.2 mg/dL (8.4-10.2); Carbon Dioxide 23 mmol/L (22-29); Chloride 108 mmol/L (96-108); Estimated Glomerular Filt Rate > 60; Potassium 4.2 mmol/L (3.3-5.1); Sodium 138 mmol/L (135-145); Total Protein 7.0 g/dL (6.5-8.0)
[2025-04-06 12:05] LABS: Microalbum/Creatinine Ratio Ur 13.2 ug/mg cr (<30)
--- OUTSIDE RECORDS SUMMARY | 2025-04-06 12:21 | XMS_ITS | Clinical Summary ---
Author Organization [facility] Address [address] [place] [address] Phone Care Team Providers Care Retail Equipment Associate Name Role Phone Moisés Lewis MD Primary Care Provider [phone] Allergies Active Allergy Reactions Criticality Noted Date [...] toe syndrome of left lo wer extremity ([facility] V24, [facility] V28) 11/03/2024 Intractable pain 11/03/2024 Type 2 diabetes mellitus wit h hyperglycemia ([facility] V24, [facility] V28) 10/26/2024 Assessment & Plan (10/26/2024 3:48 AM EDT): - Would continue glycemic control in house using insulin regimen augmented by sliding scale - Consider interval A1c Hyperlipidemia 10/26/2024 Assessment & Plan (10/26/2024 3:47 AM EDT): - Will continue outpatient antilipid regimen unchanged Peripheral arterial disease ([facility] V24) 2024 Resolved Problems Problem Noted Date Diagnosed Date Resolved Date Acute occlusion of popliteal artery due to thromboembolism ([facility] V24, [facility] V28) 10/26/2024 10/28/2024 Assessment & Plan (10/26/2024 [...] mellitus type 2, co ntrolled, with complications ([facility] V24, [facility] V28) DX:Diabetes mellitus type 2, controlled, with complications ([facility]) Arthritis DX:Arthritis Asthma DX:Asthma Glaucoma DX:Glaucoma Social History Tobacco Use Types Packs/Day Years Used Date Smoking Tobacco: Every Day Cigarettes Alcohol Use Standard Drinks/Week Comments Never 0 (1 standard drink = 0.6 oz pur e alcohol) Interpersonal Safety Answer Date Record ed Physical Abuse Unrecognized value 10/26/2024 Verbal Abuse Unrecognized value 10/26/2024 Comments Unknown Sex and Gender Information [...] Last Done Comments Breast Cancer Screening 1976 Colorectal Cancer Screening: Colonoscopy 1976 Diabetes: Annual Foot Exam 1986 Diabetes: Annual Retina Eye Exam 1986 DTaP,Tdap,and Td Vaccines (1 - Tdap) 1995 Hepatitis B Vaccines (1 of 3 - 19+ 3-dose series) 1995 Pneumococcal Vaccine: Pediatrics (0 to 5 Years) and At-Risk Patients (6 to 49 Years) (1 of 2 - PCV) 1995 Cervical Cancer Screening: Pap Smear 1997 Cholesterol Screening (Lipid Panel) 05/18/2022 HIV Screening 05/18/2022 Hepatitis C Screening 05/18/2022 Social Influencers of Health Screening 05/18/2022 Depression Screening 06/15/2024 Diabetes: Annual Urine Albumin-Creatinine Ratio (uACR) 10/26/2024 COVID-19 Vaccine ( season) 2025 07/23/2021, 06/25/2021 Influenza Vaccine (#1) 2025 , 04/22/2019, 03/05/2018, Additional history exists Diabetes: Blood Sugar Control Test (HGBA1C) 05/06/2025 11/03/2024 Diabetes: Annual GFR (Glomerular Filtration Rate) 11/03/2025 11/03/2024, 11/02/2024, 10/26/2024, Additional history exists RSV Immunization Adult Patients (1 - 1-dose 75+ series) 2051 HIB Vaccines Aged Out No longer eligi [...] LAB CHEMISTRY METHOD 11/06/2024 11:19 AM EDT [facility] Mean Bld Glu Estim. 301 mg/dL LAB CHEMISTRY METHOD 11/06/2024 11:19 AM EDT [facility] Blood Venous blood specimen / Unknown Venipuncture / Unknown 11/03/2024 5:27 AM EDT 11/03/2024 6:13 AM EDT us Bereket Alvarez MD LAB BLOOD ORDERABLES Final Resul t [facility] [address] [place] [address], [place] [phone] * (ABNORMAL) Basic metabolic panel (11/03/2024 5:27 AM EDT) Sodium 138 133 - 145 mmol/L LAB CHEMISTRY METHOD 11/03/2024 7:16 AM [facility] Potassium 3.8 3.5 - 5.5 mmol/L LAB CHEMISTRY METHOD 11/03/2024 7:16 AM [facility] Chloride 106 96 - 110 mmol/L LAB CHEMISTRY METHOD 11/03/2024 7:16 AM [facility] CO2 26 21 - 32 mmol/L LAB CHEMISTRY METHOD 11/03/2024 7:16 AM [facility] Anion Gap 6 3 - 11 LAB CHEMISTRY METHOD 11/03/2024 7:16 AM [facility] Glucose 154(H) 70 - 100 mg/dL LAB CHEMISTRY METHOD 11/03/2024 7:16 AM [facility] BUN 16 5 - 25 mg/dL LAB CHEMISTRY METHOD 11/03/2024 7:16 AM [facility] Creatinine 0.40(L) 0.50 - 1.10 mg/dL LAB CHEMISTRY METHOD 11/03/2024 7:16 AM [facility] eGFR 122 >=60 mL/min/1. 73m2 LAB CHEMISTRY METHOD 11/03/2024 7:16 AM [facility] Comment:Calculation based on the Chronic Kidney Disease Epidemiology Collaboration (CKD-EPI) equation refit without adjustment for race. BUN/Creatinine Ratio 40.0 LAB CHEMISTRY METHOD 11/03/2024 7:16 AM [facility] Calcium 9.1 8.5 - 10.5 mg/dL LAB CHEMISTRY METHOD 11/03/2024 7:16 AM [facility] Blood Venous blood specimen / Unknown Venipuncture / Unknown 11/03/2024 5:27 AM EDT 11/03/2024 6:13 AM EDT us Maco Frye MD LAB BLOOD ORDERABLES Final Result [facility] [address] [place] [address], from Last 3 Months or Most Recently Relevant to Health Maintenance Insurance [facility] Advance Directives * Full Code [...] currently active code status orders. Care Teams Retail Equipment Associate Relationship Specialty Start Date End Date Moisés Lewis MD [address] [place] [address] PCP - General Internal Medicine 08/07/11
== END 2025-04-06 10:22 | disposition home or self-care (01) ==
LOC: HO.LAB 10:21
PROVIDERS: PCP Internal Medicine; Visit Provider Physician Assistant
DX: E11.65 Type 2 diabetes mellitus with hyperglycemia (principal); Z79.4 Long term (current) use of insulin; F33.1 Major depressive disorder, recurrent, moderate; M96.1 Postlaminectomy syndrome, not elsewhere classified; K21.9 Gastro-esophageal reflux disease without esophagitis; F41.1 Generalized anxiety disorder; E78.9 Disorder of lipoprotein metabolism, unspecified; E66.09 Other obesity due to excess calories; G89.29 Other chronic pain; Z91.09 Other allergy status, other than to drugs and biological substances
CPT/HCPCS: 36415; 80053; 82043; 82570; 84681; 86341

== ENCOUNTER 2025-04-10 13:25 | Outpatient (AMB) | payer OTHER, SELFPAY ==
[2025-04-10 13:35] VITALS: BP 110/56; PULSE 93; O2SAT 97; BMI 26.5
--- NOTE | 2025-04-10 13:35 | A.OFFVIS_ITS ---
Vital Signs 04/10/25 13:35 Height 5 ft 7 in Weight 169 lb 1.513 oz BMI 26.5 BP 110/56 L Blood Pressure Location Rt brachial Position Sitting Pulse 93 Pulse Source Pulse Oximeter Pulse Oximetry (%) 97 Oxygen Delivery Method Room Air Intake Visit Reasons: T2DM Intake Note: Patient present today for Type 2 Diabetes Mellitus Last Diabetic eye exam: Last exam was over 2 years ago Last Podiatry Visit: Doesn't have one Random Glucose: 357 mg/dl HgA1C: 11.5% 02/27/25 Behavior Management Specialist Required: Yes Behavior Management Specialist Language: Log Cutter Services: Behavior Management Specialist Present Behavior Management Specialist Name: Christopher Information Interpreted: non-clinical & clinical Accompanied by: Self / Same As Patient Allergies ibuprofen (From Motrin) Allergy (Unknown, Verified 02/27/25 13:35) Rash, Stomach upset gadobutrol (From GADAVIST) Adverse Reaction (Mild, Verified 02/27/25 13:35) NAUSEA & VOMITING venlafaxine Adverse Reaction (Unknown, Verified 02/27/25 13:35) halucinations HPI HPI T2DM: Details: Patient is a 49-year-old female with a significant past medical history of hyperlipidemia, uncontrolled type 2 diabetes, GERD, anxiety, depression, history of narcotic dependence presenting today for follow up regarding her diabetes. Behavior Management Specialist Jennifer Dodson: She is currently on lispro 20 units t.i.d., Toujeo 20 units nightly, and Trulicity 3 mg weekly. Her A1c is 11.5. -she says that she never started the Toujeo. She was switched from Lantus out of fear of this insulin. She is sometimes using lispro. -in the past tried metformin. Refuses any other pill for diabetes. No low blood sugars CGM-27% usage. very hyperglycemic 68%, hyperglycemic 29%, in range 3%, 0% hypoglycemia She is following with vasc surgery for her PAD. Notices an ingrown right great toenail for the last couple weeks and a thickened toenail. She does have neuropathy but still has some sensation of feet. No fever or chills. [facility] Medical History Internal derangement of left knee Vitamin D deficiency Asthma Type 2 diabetes mellitus with hyperglycemia, with long-term current use of insulin Hyperlipidemia LDL goal <100 Cervical stenosis of spinal canal Degeneration, intervertebral disc, cervical Spondylosis, cervical Postlaminectomy syndrome, lumbar Dyspepsia Chronic GERD Narcotic dependence Environmental allergies Failed back syndrome Tobacco abuse Insomnia Depression, major, recurrent, moderate Diabetes mellitus, insulin dependent (IDDM), uncontrolled Surgical History History of thrombectomy History of lumbar surgery Hx of right knee surgery (08/2011) Family History Father Asthma Mother Diabetes HTN (hypertension) Colon cancer Dialysis patient Brother Substance abuse Social History Household Members: None Housing: Apartment Alcohol intake: never Patient Tobacco Use Status: Current everyday Tobacco user e-Cigarette/Vaping Use: Never Used service: No Current occupational status: disabled Current occupation: rt handed Cognitive needs: No Hearing needs: No Vision needs: No Physical Exam Vital Signs: Last Vital Signs Pulse 93 04/10/25 13:35 BP 110/56 L 04/10/25 13:35 Pulse Ox 97 04/10/25 13:35 Oxygen Delivery Method Room Air 04/10/25 13:35 BMI result Body Mass Index 26.5 Const Orientation/consciousness: patient oriented x3 Neck Neck: Yes no lymphadenopathy Thyroid: Thyroid normal Carotids: no bruits Resp Auscultation: clear to auscultation bilaterally Cardio Rate: regular rate Rhythm: regular rhythm Heart sounds: S1 normal heart sound present and S2 normal heart sound present Peripheral pulses: dorsalis pedis present Neuro General: patient oriented x3, gait normal and no focal motor deficits Extrem Other: Monofilament sensation absent bilaterally. Vibratory Diminished intact bilaterally. Skin intact. Right great toenail is thickened. General: Yes normal to inspection Results Reviewed Results Reviewed: Laboratory Tests 02/27/25 04/06/25 14:08 10:50 Creatinine 0.53 Estimated GFR > 60 Random Glucose 319 H Hemoglobin A1c % 11.5 H AST 17 ALT 23 Islet Cell Ab Screen Pending MARNI Antibody <5 Assessment & Plan Assessment & Plan (1) Type 2 diabetes mellitus with hyperglycemia, with long-term current use of insulin: Code(s): E11.65 - Type 2 diabetes mellitus with hyperglycemia; Z79.4 - terminal carman (current) use of insulin Category: Medical Plan: Start Toujeo at 20 units. We had a long discussion reviewing risks and benefits and adverse effects of the medication. Continue lispro Increase Trulicity to 4.5 mg weekly Reviewed signs and symptoms of hyper and hypoglycemia that would require emergent medical treatment. (2) Noncompliance: Code(s): Z91.199 - Patient's noncompliance with other medical treatment and regimen due to unspecified reason Category: Medical Plan: discussed risks of stroke, heart attack, increased risks of amputations, kidney disease etc (3) Toenail deformity: Code(s): L60.8 - Other nail disorders Category: Medical Plan: referral to podiatry Orders: Referrals Podiatry Referral E11.65 - Type 2 diabetes mellitus with hyperglycemia, L60.8 - Other nail disorders, Z79.4 - terminal carman (current) use of insulin Medications: New dulaglutide (Trulicity) 4.5 mg (0.5 mL) subcut QWEEK 2 mL 6RF Discontinued dulaglutide (Trulicity) Discontinued Reason: Doctor's Order 3 mg (0.5 mL) subcut QWEEK 2 mL 5RF Coding Level of Care Code Est Pt Level 4 (61529) Complex EM visit Add On G2211 Diagnoses Type 2 diabetes mellitus with hyperglycemia, with long-term current use of insulin E11.65; Z79.4 Noncompliance Z91.199 Toenail deformity L60.8
[2025-04-10 13:48] LABS: Glucose, Whole Blood 357 mg/dL (60-115)
== END 2025-04-10 14:05 | disposition home or self-care (01) ==
LOC: HO.ENCR 13:26
PROVIDERS: PCP Internal Medicine; Visit Provider Physician Assistant
DX: E11.65 Type 2 diabetes mellitus with hyperglycemia (principal); Z79.4 Long term (current) use of insulin; Z91.199 Patient's noncompliance with other medical treatment and regimen due to unspecified reason; L60.8 Other nail disorders

== ENCOUNTER → 2025-04-10 13:25 | Outpatient (BNVA) | payer OTHER, SELFPAY | PROVIDERS: PCP Internal Medicine; Visit Provider Physician Assistant | DX: E11.65 Type 2 diabetes mellitus with hyperglycemia (principal); E78.5 Hyperlipidemia, unspecified; L60.8 Other nail disorders; Z79.4 Long term (current) use of insulin; Z91.199 Patient's noncompliance with other medical treatment and regimen due to unspecified reason | CPT/HCPCS: 82947; 99212 ==

== ENCOUNTER 2025-04-28 12:27 | Outpatient (REF) | payer OTHER, SELFPAY ==
--- NOTE | ~2025-04-28 | US_ITS ---
EXAMINATION: Noninvasive assessment of the bilateral lower extremities with ARTERIAL DUPLEX, ANKLE BRACHIAL INDICES (ABIs), and PULSE VOLUME RECORDINGS (PVRs). CLINICAL INFORMATION: I 73.9 TECHNIQUE: Duplex Doppler techniques with waveform analysis and measurement of velocities in the bilateral common femoral, profunda femoris, superficial femoral, popliteal and tibial arteries were performed. Additionally, ankle pulse volume recordings, ankle pressure measurements and ankle brachial indices were obtained of the lower extremity arterial system bilaterally. The study was performed only at rest. COMPARISON: None FINDINGS: DIRECT DUPLEX DOPPLER FINDINGS: RIGHT LEG: Common femoral artery: 86 cm/s, phasicity: Triphasic. Profunda femoris artery: 108 cm/s, phasicity: Triphasic. Superficial femoral artery (proximal): 112 cm/s, phasicity: Triphasic. Superficial femoral artery (mid): 105 cm/s, phasicity: Triphasic. Superficial femoral artery (distal): 100 cm/s, phasicity: Triphasic. Popliteal artery: 105 cm/s, phasicity: Triphasic. Posterior tibial artery: 119 cm/s, phasicity: Triphasic. Peroneal artery: 41 cm/s, phasicity: Biphasic. Spectral broadening. Anterior tibial artery: 60 cm/s, phasicity: Triphasic. Spectral broadening. Dorsalis pedis artery: 57 cm/s, phasicity:Monophasic. Spectral broadening. LEFT LEG: Common femoral artery: 138 cm/s, phasicity: Triphasic. Spectral broadening. Profunda femoris artery: 99 cm/s, phasicity: Triphasic. Superficial femoral artery (proximal): 131 cm/s, phasicity: Triphasic. Spectral broadening. Superficial femoral artery (mid): 81 cm/s, phasicity: Triphasic. Superficial femoral artery (distal): 1 cm/s, phasicity: Triphasic. Spectral broadening. Popliteal artery: 78 cm/s, phasicity: Triphasic. Spectral broadening. Posterior tibial artery: 43 cm/s, phasicity: Biphasic. Spectral broadening. Peroneal artery: 35 cm/s, phasicity: Monophasic. Spectral broadening. Anterior tibial artery: 41 cm/s, phasicity: Biphasic. Spectral broadening. Dorsalis pedis artery: 38 cm/s, phasicity: Monophasic. Spectral broadening. BRACHIAL PRESSURES: Right: 121 Left: 122 ANKLE PRESSURES: Right: PT 121, DP 113 Left: PT 106, DP 99 ANKLE-BRACHIAL INDEX: Right: 0.99 Left: 0.87 ANKLE PVR WAVEFORMS: Right: Abnormal Left: Abnormal US/US arterial duplex BI w/ BINA IMPRESSION: Right leg: Patency throughout the interrogated arteries with severe inflow disease in the dorsalis pedis artery. Left leg: Patency throughout the interrogated arteries with moderate to severe inflow disease below the knee to the foot. BINA Reference: - >1.4 = calcified vessels - 0.9 - 1.4 = normal - no significant arterial disease - 0.7 - 0.89 = mild peripheral arterial disease - 0.51 - 0.69 = moderate peripheral arterial disease - 0.50 = severe peripheral arterial disease - < .30 = critical arterial disease Electronically signed by: Barron Juan MD 04/28/2025 02:02 PM LIANET ADAM
== END 2025-04-28 12:28 | disposition home or self-care (01) ==
LOC: HO.US 12:27
PROVIDERS: PCP Internal Medicine; Visit Provider Surgery Vascular Surgery
DX: I73.9 Peripheral vascular disease, unspecified (principal)
CPT/HCPCS: 93922; 93925

== ENCOUNTER → 2025-04-28 12:30 | Outpatient (BNV) | payer OTHER, SELFPAY | PROVIDERS: PCP Internal Medicine; Visit Provider Radiology Diagnostic Radiology | DX: I73.9 Peripheral vascular disease, unspecified (principal) | CPT/HCPCS: 93922; 93925 ==

== ENCOUNTER 2025-05-23 13:42 | Outpatient (AMB) | payer OTHER, SELFPAY ==
--- NOTE | 2025-05-23 13:46 | A.OFFVIS_ITS ---
Vital Signs 05/23/25 13:47 Height 5 ft 7 in Weight 169 lb BMI 26.5 Intake Visit Reasons: follow up Arterial US 04/28/25 Intake Note: follow up ARterial US 04/28/25, bilateral LE pain and started last October 2024 Allergies ibuprofen (From Motrin) Allergy (Unknown, Verified 05/23/25 13:50) Rash, Stomach upset gadobutrol (From GADAVIST) Adverse Reaction (Mild, Verified 05/23/25 13:50) NAUSEA & VOMITING venlafaxine Adverse Reaction (Unknown, Verified 05/23/25 13:50) halucinations HPI HPI follow up Arterial US 04/28/25: Details: The patient is a 50 year old female presenting for arterial follow-up and evaluation of bilateral leg numbness. She reports that both of her legs feel asleep, with associated tingling and numbness. The patient has a history of diabetes mellitus since she was 19 years old. A recent arterial ultrasound on 04/28/2025 showed normal findings and good blood flow. She was prescribed clopidogrel during an emergency room visit in October, but she stopped taking it on her own because she did not feel any different. [facility] Medical History Internal derangement of left knee Vitamin D deficiency Asthma Type 2 diabetes mellitus with hyperglycemia, with long-term current use of insulin Hyperlipidemia LDL goal <100 Cervical stenosis of spinal canal Degeneration, intervertebral disc, cervical Spondylosis, cervical Postlaminectomy syndrome, lumbar Dyspepsia Chronic GERD Narcotic dependence Environmental allergies Failed back syndrome Tobacco abuse Insomnia Depression, major, recurrent, moderate Diabetes mellitus, insulin dependent (IDDM), uncontrolled Surgical History History of thrombectomy History of lumbar surgery Hx of right knee surgery (08/2011) Family History Father Asthma Mother Diabetes HTN (hypertension) Colon cancer Dialysis patient Brother Substance abuse Social History (Updated 05/23/25 @ 13:54 by ANTHONY Felipe) Household Members: None Housing: Apartment Alcohol intake: never Patient Tobacco Use Status: Current everyday Tobacco user Cigarettes Per Day: 3 e-Cigarette/Vaping Use: Never Used service: No Current occupational status: disabled Current occupation: rt handed Cognitive needs: No Hearing needs: No Vision needs: No Review of Systems Const All systems reviewed & are unremarkable except as noted in HPI and below Reports no additional complaints ENT Reports Normal hearing present Card Denies chest pain, Denies chest pain at rest, Denies chest pain with activity and Denies pedal edema Resp Denies cough GI Denies abdominal pain Musc Denies abnormal gait, Denies muscle cramps and Denies radiating pain into limb Skin/Breast Denies skin ulcer and Denies wounds Neuro Reports Normal hearing present and Denies abnormal gait Psych Reports no additional complaints Physical Exam Vital Signs: BMI result Body Mass Index 26.5 Const General: cooperative, healthy appearing and comfortable Orientation/consciousness: oriented to person, oriented to place and oriented to time HEENT Head: Yes normal to inspection Neck Neck: Yes normal visual inspection Carotids: no bruits Chest Chest palpation & inspection: normal inspection of the chest Resp Effort & Inspection: normal respiratory effort and able to speak in complete sentences Auscultation: clear to auscultation bilaterally, no crackles, no rales, no rhonchi and no wheezes Cardio Rate: regular rate Rhythm: regular rhythm Heart sounds: S1 normal heart sound present and S2 normal heart sound present Bruits: no carotid bruits Peripheral pulses: Peripheral pulses 2+ throughout GI Inspection: Yes normal to inspection Skin Wounds: no wounds Hair: normal Neuro General: oriented to person, oriented to place and oriented to time Cranial nerves: Yes CN's II-XII intact bilaterally and Yes Normal hearing present Cognition (Neuro): normal cognition Motor exam (neuro): 5/5 motor strength present throughout Extrem Other: venous exam: No significant superficial varicosities or spider telangiectasias, minimal edema General: No clubbing, No cyanosis and No edema Psych Appearance: grossly normal Mental Status: mental status grossly normal Speech and movement: Normal speech and movement present Results Reviewed Results Reviewed: Noninvasive arterial testing dated 04/28/2025 demonstrates BINA on the right of 0.99 and on the left of 0.87. Assessment & Plan Assessment & Plan (1) PAD (peripheral artery disease): Code(s): I73.9 - Peripheral vascular disease, unspecified Category: Medical Plan: I discussed with the patient that her recent arterial ultrasound results were normal, indicating good blood flow to her legs. I explained that her symptoms of numbness and tingling are likely due to peripheral neuropathy from her long- standing diabetes, not a vascular issue. I recommended she see a neurologist for further evaluation should symptoms persist. She will follow up with us on an as-needed basis. Thank you for allowing us to assist in her care. If there are any questions or us. concerns please do not hesitate Coding Level of Care Code Est Pt Level 4 (74087) Diagnoses PAD (peripheral artery disease) I73.9
[2025-05-23 13:47] VITALS: BMI 26.5
--- OUTSIDE RECORDS SUMMARY | 2025-05-23 19:36 | XMS_ITS | Clinical Summary ---
Author Organization [facility] Address [address] [place] [address] Phone Care Team Providers Care Senior Chemical Process Engineer Name Role Phone Moisés Lewis MD Primary Care Provider [phone] Allergies Active Allergy Reactions Criticality Noted Date [...] Diagnosed Date Blue toe syndrome of left lower extremity 2024 Intractable pain 11/03/2024 Type 2 diabetes mellitus with hyperglycemia 10/13 Assessment & Plan (10/26/2024 3:48 AM EDT): - Would continue glycemic control in house using insulin regimen augmented by sliding scale - Consider interval A1c Hyperlipidemia 10/26/2024 Assessment & Plan (10/26/2024 3:47 AM EDT): - Will continue outpatient antilipid regimen unchanged Peripheral arterial disease 10/25/2024 Resolved Problems Problem Noted Date Diagnosed Date Resolved Date Acute occlusion of popliteal artery due to thromboembolism 10/26/2024 10/28/2024 Assessment & Plan (10/26/2024 3:47 [...] mellitus type 2, co ntrolled, with complications ([facility] V24, [facility] V28) DX:Diabetes mellitus type 2, controlled, with complications ([facility]) Arthritis DX:Arthritis Asthma DX:Asthma Glaucoma [...] Orientation Straight 10/25/2024 8: 20 PM EDT Last Filed Vital Signs Vital Sign Reading [...] t [facility] [address] [place] [address], * (ABNORMAL) Basic metabolic panel (11/03/2024 5:27 AM EDT) Sodium 138 133 - 145 mmol/L LAB CHEMISTRY METHOD 11/03/2024 7:16 AM [facility] Potassium 3.8 3.5 - 5.5 mmol/L LAB CHEMISTRY METHOD 11/03/2024 7:16 AM [facility] Chloride 106 96 - 110 mmol/L LAB CHEMISTRY METHOD 11/03/2024 7:16 AM [facility] CO2 26 21 - 32 mmol/L LAB CHEMISTRY METHOD 11/03/2024 7:16 AM [facility] Anion Gap 6 3 - 11 LAB CHEMISTRY METHOD 11/03/2024 7:16 AM [facility] Glucose 154(H) 70 - 100 mg/dL LAB CHEMISTRY METHOD 11/03/2024 7:16 AM [facility] BUN 16 5 - 25 mg/dL LAB CHEMISTRY METHOD 11/03/2024 7:16 AM [facility] Creatinine 0.40(L) 0.50 - 1.10 mg/dL LAB CHEMISTRY METHOD 11/03/2024 7:16 AM [facility] eGFR 122 >=60 mL/min/1. 73m2 LAB CHEMISTRY METHOD 11/03/2024 7:16 AM [facility] Comment:Calculation based on the Chronic Kidney Disease Epidemiology Collaboration (CKD-EPI) equation refit without adjustment for race. BUN/Creatinine Ratio 40.0 LAB CHEMISTRY METHOD 11/03/2024 7:16 AM [facility] Calcium 9.1 8.5 - 10.5 mg/dL LAB CHEMISTRY METHOD 11/03/2024 7:16 AM [facility] Blood Venous blood specimen / Unknown Venipuncture / Unknown 11/03/2024 5:27 AM EDT 11/03/2024 6:13 AM EDT us Maco Frye MD LAB BLOOD ORDERABLES Final Result [facility] [address] [place] [address], from Last 3 Months or Most Recently Relevant to Health Maintenance Insurance [facility] [place] [address] Advance Directives * Full Code - Default [...] active code status orders. Care Teams Senior Chemical Process Engineer Relationship Specialty Start Date End Date [place]és [place] [address] PCP - General Internal Medicine 08/07/11
== END 2025-05-23 14:14 | disposition home or self-care (01) ==
LOC: HO.HVS 13:43
PROVIDERS: PCP Internal Medicine; Visit Provider Surgery Vascular Surgery
DX: I73.9 Peripheral vascular disease, unspecified (principal)
CPT/HCPCS: 99214

== ENCOUNTER → 2025-05-23 13:42 | Outpatient (BNVA) | payer OTHER, SELFPAY | PROVIDERS: PCP Internal Medicine; Visit Provider Surgery Vascular Surgery | DX: E11.51 Type 2 diabetes mellitus with diabetic peripheral angiopathy without gangrene (principal); E11.42 Type 2 diabetes mellitus with diabetic polyneuropathy | CPT/HCPCS: 99212 ==